=== PATIENT | male | born 1935 | race Two or more races ===

== ENCOUNTER 2020-08-22 15:12 | Outpatient (REF) | payer MEDICARE, SELFPAY | END 2020-08-22 15:13 | disposition home or self-care (01) | LOC: HO.HAP 15:12 | PROVIDERS: PCP Internal Medicine; Referring Provider Internal Medicine; Visit Provider Internal Medicine | DX: Z46.1 Encounter for fitting and adjustment of hearing aid (principal) | CPT/HCPCS: V5014 ==

== ENCOUNTER 2020-11-03 10:21 | Outpatient (REF) | payer MEDICARE, SELFPAY | END 2020-11-03 10:22 | disposition home or self-care (01) | LOC: HO.HAP 10:21 | PROVIDERS: Visit Provider Internal Medicine | DX: Z46.1 Encounter for fitting and adjustment of hearing aid (principal); H90.3 Sensorineural hearing loss, bilateral | CPT/HCPCS: V5275 ==

== ENCOUNTER 2020-11-26 15:46 | Outpatient (REF) | payer MEDICARE, SELFPAY | END 2020-11-26 15:47 | disposition home or self-care (01) | LOC: HO.HAP 15:46 | PROVIDERS: Visit Provider Internal Medicine | DX: Z46.1 Encounter for fitting and adjustment of hearing aid (principal) | CPT/HCPCS: V5264 ==

== ENCOUNTER 2020-12-10 12:42 | Outpatient (REF) | payer MEDICARE, SELFPAY ==
--- NOTE | 2020-12-10 12:46 | MHC.AU.P13 ---
Hearing Instrument Problem Date of Visit: 12/10/20 Special Certificate Dictator Used: Came with patient Right Ear: Professor Of Poultry Science: mInfo Model: [employer] M50-13T Serial Number: [id number] Repair Warranty: 12/16/2022 Loss and Damage Warranty: 12/16/2022 Battery Size: 13 Engine Repairer Production: Size 1P Type of Mold: C-Shell SN: Service Warranty: 03/09/2021 Type of Wax Guard: Cerustop Left Ear: Professor Of Poultry Science: mInfo Model: [employer] M50-13T Serial Number: [id number] RepairWarranty: 12/16/2022 Loss and Damage Warranty: 12/16/2022 Battery Size: 13 Engine Repairer Production: 1 P Type of Mold: C-Shell SN: Service Warranty: 03/09/2021 Type of Wax Guard: Cerustop Follow-Up Summary: Patient and informatics nurse walked in stating hearing aids not working - both were clogged with wax - cleaned and replaced wax guards in both - now amplifying clearly. Signature: Provider: SUZY Villarreal-HIS
== END 2020-12-10 12:43 | disposition home or self-care (01) ==
LOC: HO.HAP 12:42
PROVIDERS: Visit Provider Internal Medicine
DX: Z46.1 Encounter for fitting and adjustment of hearing aid (principal)
CPT/HCPCS: 99499

== ENCOUNTER 2020-12-31 15:10 | Outpatient (REF) | payer MEDICARE, SELFPAY | END 2020-12-31 15:11 | disposition home or self-care (01) | LOC: HO.HAP 15:10 | PROVIDERS: Visit Provider Internal Medicine | DX: Z46.1 Encounter for fitting and adjustment of hearing aid (principal) | CPT/HCPCS: 92593; 99499 ==

== ENCOUNTER 2021-01-15 15:33 | Outpatient (REF) | payer MEDICARE, SELFPAY ==
--- NOTE | ~2021-01-15 | XR_ITS ---
EXAMINATION: XR CHEST CLINICAL INFORMATION: Cough, suspected exposure to COVID 19. COMPARISON: Chest radiograph report for 12/06/2006. TECHNIQUE: 2 views of the chest were obtained. FINDINGS: There is large globular cardiopericardial silhouette with cardiothoracic ratio approximately 22/29. Prior report from 2005 notes a large globular silhouette is well with cardiothoracic ratio approximately 19/30. The vascularity appears normal. There is no lobar or segmental airspace consolidation, vascular congestion, or effusion. The costophrenic sulci are clear. The visualized hilar and mediastinal contours and bony structures are unremarkable. XR/XR chest 2V IMPRESSION: 1. Large globular cardiopericardial silhouette. Finding likely chronic and mildly increased since prior report 2005. Unable to exclude large pericardial effusion. 2. Vascularity normal. Lungs clear. No infiltrate or effusion.
== END 2021-01-15 15:34 | disposition home or self-care (01) ==
LOC: HO.XRAY 15:33
PROVIDERS: PCP Internal Medicine; Visit Provider Internal Medicine
DX: Z20.822 Contact with and (suspected) exposure to COVID-19 (principal); R05 Cough
CPT/HCPCS: 71046

== ENCOUNTER 2021-02-18 15:10 | Outpatient (REF) | payer MEDICARE, SELFPAY | END 2021-02-18 15:11 | disposition home or self-care (01) | LOC: HO.HAP 15:10 | PROVIDERS: Visit Provider Internal Medicine | DX: Z46.1 Encounter for fitting and adjustment of hearing aid (principal); H90.3 Sensorineural hearing loss, bilateral | CPT/HCPCS: 92593 ==

== ENCOUNTER 2021-03-11 14:25 | Outpatient (REF) | payer MEDICARE, SELFPAY | END 2021-03-11 14:26 | disposition home or self-care (01) | LOC: HO.HAP 14:25 | PROVIDERS: Visit Provider Internal Medicine | DX: Z13.89 Encounter for screening for other disorder (principal) ==

== ENCOUNTER 2021-04-30 13:09 | Outpatient (REF) | payer MEDICARE, SELFPAY ==
--- NOTE | 2021-04-30 14:18 | MHC.AU.AHA ---
Adult Audiological Evaluation Date of Visit: 04/30/21 Geriatrics Physician Used: Citizen Of [place]- In Person Reason for Appointment: Audiological re-evaluation to monitor the status of Mr. Paez's hearing loss. He has a longstanding history of bilateral, asymmetrical, hearing loss with the left ear hearing worse than the right. He reports that his hearing seems to be getting worse. He uses hearing aids binaurally, but notes that the left one was recently lost. He denies any changes to his medical history. Previous Hearing Test Results: [facility], 08/20/2019- Moderate sloping to profound sensorineural hearing loss in the right ear and a moderately severe to profound sensorineural hearing loss in the left ear. Ear History: Bothersome Tinnitus/Ringing/Noises in Ears: Both Ears Medical History: Medical History: Heart Problems, High Blood Pressure, Stroke Medical History: History of heart attack, atrial fibrillation Medication List: See list in chart Hearing Instrument History- Right Ear: Platen Builder Up: [employer] Model: [employer] M50-13T Serial Number: [id number] Battery Size: 13 Repair Warranty: 12/16/2022 Loss and Damage Warranty: 12/16/2022 Dispensed By: [facility] Date of Fittin11/02/2019 Hearing Instrument History- Left Ear: Platen Builder Up: Phonak Model: [place] [employer] M50-13T Serial Number: [id number] Battery Size: 13 Warranty: 12/16/2022 Loss and Damage Warranty: 12/16/2022 Dispensed By: [facility] Date of Fittin11/02/2019 Otoscopy: Right Ear: Unremarkable Left Ear: Unremarkable Tympanometry: Tympanometry performed due to: To assess integrity of the middle ear system Right Ear: Could Not Obtain Seal Left Ear: Normal Middle Ear System (Type A) Hearing Evaluation: Transducer(s) Used: Insert Earphones, Bone Conduction Method: Conventional Audiometry Stimuli Used: Pure Tones Right Ear: Description of Hearing: Moderately severe sloping to severe sensorineural hearing loss from 250-8000 Hz. Left Ear: Description of Hearing: Moderately severe sloping to profound sensorineural hearing loss from 250-8000 Hz. Attempted masked bone-conduction but patient was unable to follow the directions for the task. Air-conduction thresholds in the left ear are 10-30 dBHL worse than the right ear from 0586-1299 Hz. Speech Recognition Threshold (SRT): Method Used: Recorded Lists Stimuli Used: Spondee Words Right Ear: 70 dBHL Left Ear: 85 dBHL Word Discrimination: Method: Recorded Lists Word Lists Used: Lista Bisil?bica (Citizen Of [place]) Right Ear: 80% at 90 dBHL Left Ear: 32% at 95 dBHL Comparison: Compared to most recent evaluation: 10-15 dBHL decrease in low-frequency thresholds in the right ear. All other thresholds are stable. Recommendations: Audiological re-evaluation in one year. Reprogrammed the right hearing aid to today's audiogram and performed hearing aid maintenance. Submitting a loss & damage replacement request for the left hearing aid and earmold. Patient will be called to schedule fitting of the replacement left hearing aid once received. Diagnosis: Primary Diagnosis: H90.3 Bilateral Sensorineural Hearing Loss Services Performed: Comprehensive Audiological Evaluation (CPT 85353) Tympanometry (CPT 58873) Signature: Provider: Demetrius Nelson, CCC-A
== END 2021-04-30 13:10 | disposition home or self-care (01) ==
LOC: HO.SH 13:09
PROVIDERS: Visit Provider Internal Medicine
DX: Z46.1 Encounter for fitting and adjustment of hearing aid (principal); H90.3 Sensorineural hearing loss, bilateral
CPT/HCPCS: 92557; 92567; 92592

== ENCOUNTER 2021-05-25 13:44 | Outpatient (REF) | payer MEDICARE, SELFPAY | END 2021-05-25 13:45 | disposition home or self-care (01) | LOC: HO.HAP 13:44 | PROVIDERS: Visit Provider Internal Medicine | DX: Z46.1 Encounter for fitting and adjustment of hearing aid (principal); H90.3 Sensorineural hearing loss, bilateral | CPT/HCPCS: V5264; V5266 ==

== ENCOUNTER → 2021-06-22 15:22 | Outpatient (REF) | payer MEDICARE, SELFPAY ==
--- NOTE | 2021-06-22 15:26 | CA_ITS ---
Transthoracic Echocardiogram Patient (Last, First, Middle): Cornelius Paez, Gender: Male Date of : 1935 Age: 85 Procedure Date: 06/22/2021 Procedure Type: Transthoracic Echocardiogram Location: OP Height: 170.18 cm Weight: 70.99 kg BSA: 1.82 m2 Heart Rate: bpm BP: 122 / 60 mmHg Waste Handling Technician: Referring MD: Clare Jones MD [employer] Professor: Zaki Walsh MD Symptoms: I48.20 CHRONIC AFIB Study Quality: Fair ECG Rhythm: Atrial Fibrillation Conclusions: - 1. Normal LV systolic function 2. Substantial biatrial enlargement 3. Hfnt-cn-dxmihpsi mitral regurgitation 4. Moderate to severe tricuspid regurgitation due to reduced coaptation of leaflets 5. Normal RV systolic pressure 6. Trivial pericardial effusion Findings Left Ventricle Normal left ventricular size, thickness, and systolic function. The visually estimated ejection fraction is between 55-60%. Diastolic function is indeterminate on the basis of available data. Right Ventricle Moderately increased right ventricular cavity size. There is normal right ventricular systolic function. Atria Severe biatrial enlargement. There is no evidence of interatrial shunt. Aortic Valve There is mild thickening of the aortic valve. There is no aortic valve stenosis. There is trace (trivial) aortic valve regurgitation. Mitral Valve There is mild anterior and moderate posterior mitral leaflet thickening. There is mild to moderate mitral valve regurgitation. There is no mitral valve stenosis. Pulmonic Valve The pulmonic valve was not well visualized. Tricuspid Valve Likely normal tricuspid valve structure and function. There is moderate to severe tricuspid valve regurgitation. There is no evidence of pulmonary hypertension. Great Vessels All visible segments of the aorta are normal in size. The pulmonary artery was not well visualized. Venous The inferior vena cava is moderately dilated and collapses less than 50% with inspiration. Pericardium/Pleural There is a trivial loculated pericardial effusion overlying the left ventricle. Prior Study Comparison No prior study available for comparison. Measurements 2D Linear Measurements IVSd: 1.03 0.6-0.9/0.6-1.0 cm LVIDd: 6.18 3.9-5.3/4.2-5.9 cm LVIDd Index: 3.40 2.4-3.2/2.2-3.1 cm/m2 LVIDs: 3.96 2.0-3.6 cm LVPWd: 1.19 0.7-1.1 cm Ao Root: 3.30 2.1-3.5 cm LA Diam: 9.20 2.7-3.8/3.0-4.0 cm LAIDs Index: 5.05 1.5-2.3 cm/m2 LV Mass: 370.94 67-162/88-224 g LV Mass Index: 203.81 43-95/49-115 g/m2 LVOT Diam: 2.00 3.0+(-)1.3 cm Mitral Valve MV VTI: 0.33 MV Pk Maik: 1.42 MV Mn Maik: 0.54 MV Pk Grad: 8.00 MV Mn Grad: 2.00 MV Pk E: 1.24 MV Decel Time: 154.00 E'Lateral: 10.00 E'Medial: 8.59 E/E' Med: 14.40 E/E' Lat: 12.40 PHT: 45.00 MVA PHT: 4.89 MVA Continuity: 1.49 Decel Roberts: 8.09 MR Vol - PW Dopp: 47.56 MR VTI: 1.64 MR ERO: 29.00 MR Alias Maik: 0.62 MR RAD: 0.60 Aortic Valve AoV Pk Maik: 1.15 AoV Mn Maik: 0.74 AoV VTI: 0.24 AoV Pk Grad: 5.00 Aov Mn Grad: 3.00 JARED Cont.VTI: 2.00 LVOT LVOT Pk Maik: 0.84 LVOT Mn Maik: 0.49 LVOT VTI: 0.15 LVOT Pk Grad: 3.00 LVOT Mn Grad: 1.00 LVOT Diam: 2.00 LVOT Area: 3.14 Diastolic Function MV Pk E: 1.24 E'Medial: 8.59 E/E' Med: 14.40 E' Laterial: 10.00 E/E' Lat: 12.40 Tricuspid Valve TR Pk Maik: 2.63 TR Pk Grad: 28.00 RA Press: 8.00 RVSP: 36.00 Great Vessels Aorta Ao Root-2D: 3.30 2.0-3.7 cm Ao Asc: 2.90 2.1-3.4 cm Pulmonary Valve PV Pk Maik: 0.68 Peak PV Grad: 2.00 Updated in Other Vendor System with Status of Final Zaki Walsh MD electronically signed on 06/23/2021 9:14:14 AM with status of Final
== END ==
LOC: HO.CARD 15:22
PROVIDERS: Visit Provider Internal Medicine
DX: I48.20 Chronic atrial fibrillation, unspecified (principal)
CPT/HCPCS: 93306

== ENCOUNTER 2021-07-23 12:49 | Outpatient (REF) | payer MEDICARE, SELFPAY | END 2021-07-23 12:50 | disposition home or self-care (01) | LOC: HO.HAP 12:49 | PROVIDERS: Visit Provider Internal Medicine | DX: Z46.1 Encounter for fitting and adjustment of hearing aid (principal); H90.3 Sensorineural hearing loss, bilateral | CPT/HCPCS: V5266 ==

== ENCOUNTER → 2021-11-27 14:58 | Outpatient (BNVA) | payer MEDICARE, SELFPAY | PROVIDERS: Visit Provider Urology | DX: C61 Malignant neoplasm of prostate (principal); N40.1 Benign prostatic hyperplasia with lower urinary tract symptoms; R33.8 Other retention of urine; R39.15 Urgency of urination | CPT/HCPCS: 99202 ==

== ENCOUNTER → 2022-05-19 14:58 | Outpatient (BNVA) | payer MEDICARE, SELFPAY | PROVIDERS: Visit Provider Nurse Practitioner Family | DX: M54.2 Cervicalgia (principal); W19.XXXA Unspecified fall, initial encounter | CPT/HCPCS: 99212 ==

== ENCOUNTER → 2022-08-25 15:31 | Outpatient (BNVA) | payer MEDICARE, SELFPAY | PROVIDERS: Visit Provider Nurse Practitioner Family | DX: M54.2 Cervicalgia (principal); R51.9 Headache, unspecified | CPT/HCPCS: 99212 ==

== ENCOUNTER → 2023-01-14 12:54 | Outpatient (BNVA) | payer MEDICARE, SELFPAY | PROVIDERS: PCP Internal Medicine; Visit Provider Urology | DX: C61 Malignant neoplasm of prostate (principal); E11.69 Type 2 diabetes mellitus with other specified complication; N52.1 Erectile dysfunction due to diseases classified elsewhere; N40.1 Benign prostatic hyperplasia with lower urinary tract symptoms; N13.8 Other obstructive and reflux uropathy; Z79.01 Long term (current) use of anticoagulants; Z79.82 Long term (current) use of aspirin; Z79.899 Other long term (current) drug therapy | CPT/HCPCS: 51798; 99212 ==

== ENCOUNTER → 2023-04-01 13:05 | Outpatient (BNVA) | payer MEDICARE, SELFPAY | PROVIDERS: PCP Internal Medicine; Visit Provider Urology | DX: C61 Malignant neoplasm of prostate (principal); N40.1 Benign prostatic hyperplasia with lower urinary tract symptoms; R33.8 Other retention of urine | CPT/HCPCS: 51798; 99212 ==

== ENCOUNTER 2023-06-24 10:15 | Outpatient (AMB) | payer MEDICARE, SELFPAY ==
--- NOTE | 2023-06-24 10:18 | A.OFFVIS_ITS ---
Intake Intake Visit Reasons: PSA Follow Up(set) Intake Note: Patient is present for Telephone Urology Med: Finasteride, Myrbetriq Antibiotic Allergy: Penicillin Blood Thinner: Aspirin, Eliquis Pharmacy: [facility] Allergies penicillin G Allergy (Unknown, Verified 06/24/23 10:19) Unknown Latex Allergy (Unknown, Uncoded 06/24/23 10:19) Unknown Medication List - Last Reconciled 06/24/23 by Karel Snyder MD acetaminophen 0 mg PO amitriptyline 10 mg PO BEDTIME 30 days apixaban (Eliquis) 2.5 mg PO BID aspirin 81 mg PO DAILY atorvastatin 40 mg PO BEDTIME baclofen 10 mg PO BEDTIME bisacodyl 10 mg [place] DAILY bisoprolol fumarate 10 mg PO DAILY uzxjscfunk-yvukqbydzkstu-cahd 50-325-40 mg 1 cap orally QHS; 21 days digoxin 125 mcg PO DAILY docusate sodium 100 mg PO BID ferrous gluconate 0 mg PO finasteride 5 mg PO DAILY 90 days fluticasone furoate-vilanterol 100-25 mcg/dose (Breo Ellipta) 1 ea inhalation DAILY fluticasone propionate 50 mcg/actuation sprays intranasal latanoprost 0.005% 0 drps ophthalmic (eye) magnesium oxide 400 mg PO DAILY melatonin 5 mg PO BEDTIME mirabegron ER 25 mg PO DAILY 90 days mirtazapine 15 mg PO BEDTIME mirtazapine 30 mg PO BEDTIME omeprazole 20 mg PO DAILY quetiapine 25 mg PO BEDTIME riboflavin (vitamin B2) (Vitamin B-2) 0 mg PO sennosides (senna) 8.6 mg PO DAILY PRN tizanidine 4 mg PO BEDTIME torsemide 0 mg PO HPI HPI Comments History of Present Illness Details Cornelius THORNE is a very pleasant Chadian-speaking male. He is a patient of Dr Jones. He is seen for the following urologic conditions. 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 Detrusor hyperactivity with impaired contractility Had urodynamics performed some point in time which appeared to showed low-flow low-pressure system. Botox 09/11 PVR low 04/15 0cc Trial Myrbetriq with possible repeat Botox Prostate cancer:? Group 2 low volume 08/12 ? Has been managed with active surveillance for low volume group 2 prostate cancer- 05/11 low stable PSA ?Had urodynamics performed some point in time which appeared to showed low-flow low-pressure system with instability ? Prostate cancer was diagnosed?2009 Dr Snyder.? Diagnosis was reached by?07/2010 , needle biopsy, for elevated PSA.? The [place] grade is?07/2010 ?02/02 cores max 10% , 3+4 = 7 each core 5%, 5%, 5% ? Initial therapy included?Deferred Therapy (active surveillance) - Had TUR for BPH 2009 - prior intermittent hormone therapy ? Recent labs included?04/11 Cystoscopy - trabeculation with good TUR defect ?05/11 PSA 2.9.? PFSH Medical History Nocturia OAB (overactive bladder) Urinary frequency Urinary retention Weak urinary stream Surgical History History of appendectomy History of prostate surgery Hx of heart bypass surgery Family History Father No problems noted. Mother No problems noted. Social History Alcohol intake: never Patient Tobacco Use Status: Never used Tobacco Review of Systems Const All systems reviewed & are unremarkable except as noted in HPI and below Denies chills and Denies fever(s) Card Reports no additional complaints and Denies syncope Resp Denies cough GI Denies abdominal pain and Denies heartburn Reports as per HPI and Denies change in libido Musc Reports no additional complaints Neuro Denies syncope Psych Denies change in libido Endo Denies change in libido Physical Exam Telemedicine evaluation Appropriate responses Regular breathing rate and rhythm HEENT Head: Yes normal to inspection Ears: hearing grossly normal bilaterally Eyes General: appearance normal, both eyes and all related structures Neck Neck: Yes normal visual inspection Chest Chest palpation & inspection: normal inspection of the chest Resp Effort & Inspection: normal respiratory effort and able to speak in complete sentences Assessment & Plan Assessment & Plan (1) Incomplete emptying of bladder due to benign prostatic hyperplasia: Code(s): N40.1 - Benign prostatic hyperplasia with lower urinary tract symptoms; R33.9 - Retention of urine, unspecified (2) Prostate cancer: Code(s): C61 - Malignant neoplasm of prostate Plan Six month follow-up PSA Orders: Orders PSA,Total (Free>4and<10) 6 Months C61 - Malignant neoplasm of prostate Medications: Refilled finasteride 5 mg PO DAILY 90 days 90 tabs 1RF N32.0 - Bladder-neck obstruction, R39.15 - Urgency of urination mirabegron ER 25 mg PO DAILY 90 days 90 tabs 1RF R39.15 - Urgency of urination Patient Instructions: Imaging studies, laboratory and physical exam results were discussed and reviewed in detail. No major barriers to patient understanding were identified. An opportunity to ask questions regarding the treatment plan was provided. All questions were answered. The patient expressed understanding and agreement with the above treatment plan. The patient is aware they should contact our office by phone for worsening of their current condition or the appearance of new urologic symptoms. Compliance is encouraged with any medications and followup testing that is ordered. It is a privilege to participate in the urologic care of your patient. If you have any questions or concerns regarding treatment for the above conditions, or other urologic issues, please do not hesitate to contact me. The office telephone contact is [phone]. This note is constructed using voice recognition software. While every effort has been made to ensure accuracy flooring machine operator errors may have been included. Yours sincerely, Dr Karel Snyder MD, [facility] - Urology Providers of Expert, Compassionate Care for the Genitourinary System Telehealth Telehealth Location of provider rendering services: practice address Location of patient: address on file Patient Identification confirmed using: Name, : Yes Telehealth method: voice only Patient verbally consented to treatment: Yes Patient verbally consented to billing insurance company: Yes Patient informed of any privacy concerns related to visit: Yes Coding Level of Care Code Tele Est Pt Level 3 (62075) Diagnoses Incomplete emptying of bladder due to benign prostatic hyperplasia N40.1; R33.9 Prostate cancer C61
== END 2023-06-24 11:00 | disposition home or self-care (01) ==
LOC: HO.HUSH 10:15
PROVIDERS: PCP Internal Medicine; Visit Provider Urology
DX: C61 Malignant neoplasm of prostate (principal); N40.1 Benign prostatic hyperplasia with lower urinary tract symptoms; R33.9 Retention of urine, unspecified
CPT/HCPCS: 99442

== ENCOUNTER → 2023-06-24 10:15 | Outpatient (BNVA) | payer MEDICARE, SELFPAY | PROVIDERS: PCP Internal Medicine; Visit Provider Urology ==

== ENCOUNTER → 2023-09-22 15:39 | Outpatient (BNVA) | payer OTHER, SELFPAY | PROVIDERS: PCP Internal Medicine; Visit Provider Nurse Practitioner Family | DX: R06.83 Snoring (principal); G47.9 Sleep disorder, unspecified; G47.19 Other hypersomnia; R35.1 Nocturia; R51.9 Headache, unspecified | CPT/HCPCS: 99212 ==

== ENCOUNTER → 2023-11-10 19:30 | Outpatient (REF) | payer OTHER, SELFPAY | LOC: HO.SL 19:30 | PROVIDERS: PCP Internal Medicine; Visit Provider Nurse Practitioner Family | DX: R06.83 Snoring (principal); G47.9 Sleep disorder, unspecified; G47.19 Other hypersomnia; R35.1 Nocturia | CPT/HCPCS: 95810 ==

== ENCOUNTER → 2023-11-10 21:02 | Outpatient (BNV) | payer OTHER, SELFPAY | PROVIDERS: PCP Internal Medicine; Visit Provider Psychiatry & Neurology Neurology | DX: G47.61 Periodic limb movement disorder (principal) | CPT/HCPCS: 95810 ==

== ENCOUNTER 2023-11-15 15:57 | Outpatient (REF) | payer OTHER, SELFPAY ==
[2023-11-15 17:20] LABS: MANUAL DIFF FLAG NO
[2023-11-15 17:23] LABS: Basophils Percent Auto 0.3 % (0-2); Eosinophils Absolute Auto 0.2 X10*3/uL (0.0-0.4); Eosinophils Percent Auto 2.4 % (0-4); Hematocrit 34.4 % (42.0-52.0); Hemoglobin 10.7 g/dl (14.0-18.0); Imm Gran Abs Auto 0.03 X10*3/uL (0.00-0.03); Imm Gran Pct Auto 0.5 % (0.0-0.4); Lymphocytes Absolute Auto 0.7 X10*3/uL (1.2-4.9); Lymphocytes Percent Auto 11.7 % (20-40); Mean Corpuscular HGB Conc 31.1 g/dl (31.0-36.0); Mean Corpuscular Hemoglobin 28.6 pg (27.0-33.0); Mean Platelet Volume 9.6 fL (9.4-12.4); Monocytes Absolute Auto 0.6 X10*3/uL (0.1-1.2); Monocytes Percent Auto 9.9 % (2-11); Neutrophils Absolute Auto 4.8 x10*3/uL (2.0-8.3); Neutrophils Percent Auto 75.2 % (45-73); Platelet Count 179 X10*3/uL (160-400); Red Blood Count 3.74 X10*6/uL (4.60-5.80); Red Cell Distribution Width 14.6 % (11.0-16.0); White Blood Count 6.4 X10*3/uL (4.8-10.8)
[2023-11-15 17:49] LABS: Alanine Aminotransferase 17 U/L (0-40); Albumin Level 3.9 g/dL (3.5-5.0); Alkaline Phosphatase 168 U/L (39-117); Anion Gap 13 (12-20); Aspartate Amino Transferase 23 U/L (5-37); Bilirubin Total 0.9 mg/dL (0.0-1.0); Blood Urea Nitrogen 25 mg/dL (9-16); Calcium 9.5 mg/dL (8.4-10.2); Carbon Dioxide 31 mmol/L (22-29); Chloride 96 mmol/L (96-108); Estimated Glomerular Filt Rate 52; Glucose Random 95 mg/dL (60-115); Potassium 3.6 mmol/L (3.3-5.1); Sodium 136 mmol/L (135-145); Total Protein 7.7 g/dL (6.5-8.0)
== END 2023-11-15 15:58 | disposition home or self-care (01) ==
LOC: HO.CHCLDS 15:57
PROVIDERS: Visit Provider Internal Medicine
DX: R05.8 Other specified cough (principal); R09.02 Hypoxemia
CPT/HCPCS: 36415; 80053; 85025

== ENCOUNTER 2023-12-23 15:38 | Outpatient (REF) | payer OTHER, SELFPAY ==
[2023-12-23 17:37] LABS: MANUAL DIFF FLAG NO
[2023-12-23 17:50] LABS: INTERNATIONAL NORM RATIO 1.7 (0.9-1.1); Prothrombin Time 20.4 SEC (11.1-13.3)
[2023-12-23 17:51] LABS: Basophils Percent Auto 0.6 % (0-2); Eosinophils Absolute Auto 0.2 X10*3/uL (0.0-0.4); Eosinophils Percent Auto 3.6 % (0-4); Hematocrit 34.6 % (42.0-52.0); Hemoglobin 10.8 g/dl (14.0-18.0); Imm Gran Abs Auto 0.02 X10*3/uL (0.00-0.03); Imm Gran Pct Auto 0.4 % (0.0-0.4); Lymphocytes Percent Auto 20.3 % (20-40); Mean Corpuscular HGB Conc 31.2 g/dl (31.0-36.0); Mean Corpuscular Hemoglobin 28.6 pg (27.0-33.0); Mean Corpuscular Volume 91.5 fL (80.0-98.0); Mean Platelet Volume 9.6 fL (9.4-12.4); Monocytes Absolute Auto 0.5 X10*3/uL (0.1-1.2); Monocytes Percent Auto 10.3 % (2-11); Neutrophils Absolute Auto 3.1 x10*3/uL (2.0-8.3); Neutrophils Percent Auto 64.8 % (45-73); Platelet Count 155 X10*3/uL (160-400); Red Blood Count 3.78 X10*6/uL (4.60-5.80); Red Cell Distribution Width 16.8 % (11.0-16.0); White Blood Count 4.8 X10*3/uL (4.8-10.8)
[2023-12-23 17:52] LABS: Partial Thromboplastin Time 45.6 SEC (26.0-36.8)
[2023-12-23 18:30] LABS: Anion Gap 12 (12-20); Blood Urea Nitrogen 24 mg/dL (9-16); Carbon Dioxide 28 mmol/L (22-29); Chloride 106 mmol/L (96-108); Estimated Glomerular Filt Rate 56; Glucose Random 93 mg/dL (60-115); Sodium 142 mmol/L (135-145)
== END 2023-12-23 15:39 | disposition home or self-care (01) ==
LOC: HO.CHCLDS 15:38
PROVIDERS: Visit Provider Internal Medicine
DX: R05.3 Chronic cough (principal); R63.4 Abnormal weight loss; J18.9 Pneumonia, unspecified organism; K62.5 Hemorrhage of anus and rectum
CPT/HCPCS: 36415; 80048; 85025; 85610; 85730

== ENCOUNTER 2024-01-06 13:49 | Outpatient (AMB) | payer OTHER, SELFPAY ==
--- NOTE | 2024-01-06 14:23 | MHC.OFFVIS ---
Intake Intake Visit Reasons: 6m/PSA(SET) Intake Note: Patient presents today for a follow-up on PSA Meds- None Allergies to Antibiotic- Penicillin Blood Thinner- None Post Void Residual: 26ml Patient Symptoms: None Process Control Technician Required: Yes Accompanied by: Allergies penicillin G Allergy (Unknown, Verified 01/06/24 14:34) Unknown Latex Allergy (Unknown, Uncoded 01/06/24 14:34) Unknown Medication List - Last Reconciled 01/06/24 by Karel Snyder MD acetaminophen 0 mg PO amitriptyline 10 mg PO BEDTIME 30 days apixaban (Eliquis) 5 mg PO BID digoxin 125 mcg PO DAILY docusate sodium 100 mg PO BID finasteride 5 mg PO DAILY 90 days fluticasone furoate-vilanterol 100-25 mcg/dose (Breo Ellipta) 1 ea inhalation DAILY latanoprost 0.005% 0 drps ophthalmic (eye) magnesium oxide 400 mg PO DAILY melatonin mg PO mirabegron ER 25 mg PO DAILY 90 days mirtazapine 15 mg PO BEDTIME mirtazapine 30 mg PO BEDTIME omeprazole 20 mg PO DAILY quetiapine 25 mg PO BEDTIME riboflavin (vitamin B2) (Vitamin B-2) 0 mg PO sennosides (senna) 8.6 mg PO DAILY PRN torsemide 0 mg PO HPI HPI Comments History of Present Illness Details Cornelius THORNE is a very pleasant Tajik-speaking male. He is a patient of Dr Jones. He is seen for the following urologic conditions. - detrusor hyperactivity impaired contractility - prostate cancer Six-month follow-up PSA stabilized around 6. Continue with finasteride. Known low volume prostate cancer from 2019 Stabilized bladder function with Myrbetriq Refills provided PSA 05/11 2.9, 04/15 10.7, 06/15 6.4, 12/17 5.8 7% Urinary Urge/Frequency:? Detrusor hyperactivity with impaired contractility Had urodynamics performed some point in time which appeared to showed low-flow low-pressure system. Botox 09/11 PVR low 04/15 0cc Trial Myrbetriq with possible repeat Botox Prostate cancer:? Group 2 low volume 08/12 ? Has been managed with active surveillance for low volume group 2 prostate cancer- 05/11 low stable PSA ?Had urodynamics performed some point in time which appeared to showed low-flow low-pressure system with instability ? Prostate cancer was diagnosed?2009 Dr Snyder.? Diagnosis was reached by?07/2010 , needle biopsy, for elevated PSA.? The [place] grade is?07/2010 ?4/12 cores max 10% , 3+4 = 7 each core 5%, 5%, 5% ? Initial therapy included?Deferred Therapy (active surveillance) - Had TUR for BPH 2009 - prior intermittent hormone therapy ? Recent labs included?04/11 Cystoscopy - trabeculation with good TUR defect ?05/11 PSA 2.9.? PFSH Medical History (Updated 11/28/23 @ 14:07 by CORNELIUS Tang) Nocturia Urinary frequency OAB (overactive bladder) Urinary retention Weak urinary stream Surgical History Hx of heart bypass surgery History of appendectomy History of prostate surgery Family History Father No problems noted. Mother No problems noted. Social History Alcohol intake: never Patient Tobacco Use Status: Never used Tobacco Review of Systems Const Denies chills and Denies fever(s) Card Reports no additional complaints and Denies syncope Resp Denies cough GI Denies abdominal pain and Denies heartburn Reports as per HPI and Denies change in libido Neuro Denies syncope Psych Denies change in libido Endo Denies change in libido Physical Exam Const General: cooperative, healthy appearing, comfortable and no acute distress Orientation/consciousness: patient oriented x3 HEENT Face and sinus: Yes normal facial exam Mouth: moist mucous membranes Neck Neck: Yes normal visual inspection, Yes full ROM and Yes trachea midline Chest Chest palpation & inspection: normal inspection of the chest Resp Effort & Inspection: normal respiratory effort, able to speak in complete sentences and no respiratory distress GI Inspection: Yes normal to inspection Back/Spine/Pelvis Cervical Spine: normal cervical lordosis Thoracic/Lumbar Spine: thoracic and lumbar spine normal to inspection Skin General skin exam: no rashes or lesions noted Neuro General: patient oriented x3, gait normal, tone normal and moves all extremities Extrem General: Yes normal to inspection and Yes capillary refill normal Office Procedures Post Void Residual Post Residual Void Post Void Residual (PVR): 26 [id number] Void Residual by ultrasound Assessment & Plan Assessment & Plan (1) Prostate cancer: Code(s): C61 - Malignant neoplasm of prostate (2) Urinary urgency: Code(s): R39.15 - Urgency of urination (3) Incomplete emptying of bladder due to benign prostatic hyperplasia: Code(s): N40.1 - Benign prostatic hyperplasia with lower urinary tract symptoms; R33.9 - Retention of urine, unspecified Plan Six-month follow-up Orders: Orders AMB Post Void Residual by ultrasound Today R33.9 - Retention of urine, unspecified Prostate Specific Antigen 6 Months C61 - Malignant neoplasm of prostate Patient Instructions: Imaging studies, laboratory and physical exam results were discussed and reviewed in detail. No major barriers to patient understanding were identified. An opportunity to ask questions regarding the treatment plan was provided. All questions were answered. The patient expressed understanding and agreement with the above treatment plan. The patient is aware they should contact our office by phone for worsening of their current condition or the appearance of new urologic symptoms. Compliance is encouraged with any medications and followup testing that is ordered. It is a privilege to participate in the urologic care of your patient. If you have any questions or concerns regarding treatment for the above conditions, or other urologic issues, please do not hesitate to contact me. The office telephone contact is [phone]. This note is constructed using voice recognition software. While every effort has been made to ensure accuracy door slinger errors may have been included. Yours sincerely, Dr Karel Snyder MD, [facility] - Urology Providers of Expert, Compassionate Care for the Genitourinary System Coding Level of Care Code Est Pt Level 3 (18607) Diagnoses Prostate cancer C61 Urinary urgency R39.15 Incomplete emptying of bladder due to benign prostatic hyperplasia N40.1; R33.9 CPT Codes Post Residual Void - PVR CPT Code: 76183-Baqc Void Residual by ultrasound ([id number])
== END 2024-01-06 14:56 | disposition home or self-care (01) ==
PROVIDERS: PCP Internal Medicine; Visit Provider Urology
DX: C61 Malignant neoplasm of prostate (principal); N40.1 Benign prostatic hyperplasia with lower urinary tract symptoms; R39.15 Urgency of urination; R33.9 Retention of urine, unspecified
CPT/HCPCS: 99213

== ENCOUNTER → 2024-01-06 13:49 | Outpatient (BNVA) | payer OTHER, SELFPAY | PROVIDERS: PCP Internal Medicine; Visit Provider Urology | DX: C61 Malignant neoplasm of prostate (principal); N40.1 Benign prostatic hyperplasia with lower urinary tract symptoms; R33.8 Other retention of urine; R39.15 Urgency of urination | CPT/HCPCS: 51798; 99212 ==

== ENCOUNTER 2024-05-18 13:52 | Outpatient (AMB) | payer OTHER, SELFPAY ==
[2024-05-18 13:57] VITALS: BP 138/67; PULSE 90; O2SAT 93
--- NOTE | 2024-05-18 13:57 | A.OFFVIS_ITS ---
Vital Signs 05/18/24 13:57 Weight 143 lb 4.807 oz BP 138/67 Blood Pressure Location Lt brachial Position Sitting Pulse 90 Pulse Source Doppler Pulse Oximetry (%) 93 Oxygen Delivery Method Room Air Intake Visit Reasons: eugene Allergies penicillin G Allergy (Unknown, Verified 05/18/24 14:02) Unknown Latex Allergy (Unknown, Uncoded 01/06/24 14:34) Unknown HPI HPI eugene: Details: 88-year-old gentleman, nonsmoker, with underlying reactive airway disease Breo and albuterol nebs, referred heart after in lab sleep study showed nocturnal hypoxemia. Of note, patient also has global heart with cardiomyopathy followed by [facility] cardiology. Patient does complain of intermittent small volume hemoptysis and left upon chest pain. He does not have recent chest imaging. He does not have recent pulmonary function testing. [facility] Medical History Nocturia Urinary frequency OAB (overactive bladder) Urinary retention Weak urinary stream Surgical History Hx of heart bypass surgery History of appendectomy History of prostate surgery Family History Father No problems noted. Mother No problems noted. Social History Alcohol intake: never Patient Tobacco Use Status: Never used Tobacco Review of Systems Const Denies daytime sleepiness, Denies excessive sweating, Denies fatigue, Denies fever(s), Denies lethargy, Denies malaise, Denies night sweats, Denies snoring and Denies weight loss Eyes Denies blurry vision and Denies itchy eyes ENT Denies nasal congestion, Denies post nasal drip, Denies sinus pain, Denies sinus pressure and Denies other ( Thrush) Card Denies chest pain, Reports pedal edema, Denies dyspnea, Denies orthopnea and Denies paroxysmal nocturnal dyspnea Resp Denies cough, Denies hemoptysis, Denies excessive phlegm production, Denies dyspnea, Denies snoring and Denies wheezing GI Denies abdominal pain and Denies heartburn Musc Denies myalgias, Denies arthralgias and Denies joint swelling Skin/Breast Denies rash Neuro Denies memory loss and Denies seizure-like activity Psych Denies abnormal sleep pattern, Denies anxiety and Denies memory loss Endo Denies excessive sweating, Denies fatigue and Denies heat intolerance Gilbert/Lymph Denies easy bruising Aller/Immun Denies itchy eyes, Denies seasonal rhinorrhea and Denies wheezing Physical Exam Vital Signs: Last Vital Signs Pulse 90 05/18/24 13:57 BP 138/67 05/18/24 13:57 Pulse Ox 93 05/18/24 13:57 Oxygen Delivery Method Room Air 05/18/24 13:57 Const General: no acute distress and alert Nutritional Appearance: not obese Orientation/consciousness: Other orientation findings ( oriented) HEENT Head: Yes atraumatic Eyes General: appearance normal, both eyes and all related structures Sclerae: sclerae normal EOM: EOMs intact bilaterally Neck Neck: Yes supple Lymphatic: no lymphadenopathy noted Resp Effort & Inspection: normal respiratory effort and no use of accessory muscles Auscultation: clear to auscultation bilaterally Cardio Rate: regular rate Rhythm: regular rhythm Heart sounds: no gallops, no murmurs and no rubs Skin General skin exam: other ( warm) Extrem General: No clubbing, No cyanosis and Yes edema (Trace bilateral) Assessment & Plan Assessment & Plan (1) Nocturnal hypoxemia: Code(s): G47.34 - Idiopathic sleep related nonobstructive alveolar hypoventilation Category: Medical Plan: Will start on nocturnal supplemental oxygen. (2) Asthma: Code(s): J45.909 - Unspecified asthma, uncomplicated Category: Medical Plan: Will obtain full PFT. Continue Breo and albuterol MDI. Will add duo nebs. (3) Hemoptysis: Code(s): R04.2 - Hemoptysis Category: Medical Plan: Will obtain CT chest for further evaluation. Orders: Orders CT chest wo IV con Today R04.2 - Hemoptysis PFT pulmonary function test Today J45.909 - Unspecified asthma, uncomplicated Medications: New ipratropium-albuterol 0.5 mg-3 mg(2.5 mg base)/3 mL 3 mL inhalation Q4-6H PRN 270 mL 3RF shortness of breath or wheezing Coding Level of Care Code New Pt Level 4 (90080) Complex EM visit Add On G2211 Diagnoses Nocturnal hypoxemia G47.34 Asthma J45.909 Hemoptysis R04.2
== END 2024-05-18 14:43 | disposition home or self-care (01) ==
PROVIDERS: PCP Internal Medicine; Visit Provider Internal Medicine Pulmonary Disease
DX: G47.34 Idiopathic sleep related nonobstructive alveolar hypoventilation (principal); J45.909 Unspecified asthma, uncomplicated; R04.2 Hemoptysis
CPT/HCPCS: 99204; G2211

== ENCOUNTER → 2024-05-18 13:52 | Outpatient (BNVA) | payer OTHER, SELFPAY | PROVIDERS: PCP Internal Medicine; Visit Provider Internal Medicine Pulmonary Disease | DX: G47.34 Idiopathic sleep related nonobstructive alveolar hypoventilation (principal); J45.909 Unspecified asthma, uncomplicated; R04.2 Hemoptysis | CPT/HCPCS: 99202 ==

== ENCOUNTER 2024-05-21 12:08 | Outpatient (REF) | payer OTHER, SELFPAY ==
[2024-05-21 11:01] VITALS: PULSE 105; RESP 16; O2SAT 91
--- NOTE | 2024-05-21 14:20 | PFT_ITS ---
Flows: FEV1: 74 % of predicted at 1.86 L FVC: 77 % of predicted at 2.62 L FEV1/FVC: 71 % Bronchodilator response: Absent Volumes: Total lung capacity: 67 % of predicted at 4.42 L Residual volume: 69 % of predicted at 1.80 L Slow vital capacity: 70 % of predicted at 2.62 L Expiratory reserve volume: 30 % of predicted at 0.34 L Diffusion capacity: Patient unable to perform diffusion capacity maneuver. Impression: Moderate restrictive ventilatory defect with no bronchodilator response. Patient unable to perform diffusion capacity maneuver. MTDD
== END 2024-05-21 12:09 | disposition home or self-care (01) ==
LOC: HO.RESP 12:08
PROVIDERS: PCP Internal Medicine; Visit Provider Internal Medicine Pulmonary Disease
DX: J45.909 Unspecified asthma, uncomplicated (principal)
CPT/HCPCS: 94010; 94640; 94727; 94729

== ENCOUNTER → 2024-05-21 14:20 | Outpatient (BNV) | payer OTHER, SELFPAY | PROVIDERS: PCP Internal Medicine; Visit Provider Internal Medicine Pulmonary Disease | DX: J45.909 Unspecified asthma, uncomplicated (principal) | CPT/HCPCS: 94060; 94727; 94729 ==

== ENCOUNTER 2024-06-13 16:07 | Outpatient (REF) | payer OTHER, SELFPAY ==
--- NOTE | ~2024-06-13 | CT_ITS ---
EXAMINATION: CT CHEST WITHOUT CONTRAST CLINICAL INFORMATION: 88-year-old male with hemoptysis COMPARISON: None available. TECHNIQUE: Multidetector volumetric CT imaging of the chest was done. Axial MIP volume rendering provided. Sagittal and coronal reformatted images were obtained. This CT examination was performed using dose optimization techniques as appropriate, variously including the following: *Automated exposure control *Adjustment of mA and/or kV according to patient size (this includes techniques or standardized protocols for targeted exams where dose is matched to indication/reason for exam; i.e. 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 There is loop recorder is identified on the left. LUNGS: There is groundglass opacity in the right lower lobe most likely pneumonia. The rest of lungs reveal changes of emphysema. There are no lung nodules or masses. Central airways are patent. MEDIASTINUM: There is global cardiomegaly and small pericardial effusion CORONARY ARTERY CALCIFICATION: Mild PLEURA: There is no pleural effusion. No pleural mass or thickening. AXILLA: No lymphadenopathy. UPPER ABDOMEN: Unremarkable. OSSEOUS STRUCTURES: Unremarkable. CT/CT chest wo IV con IMPRESSION: Global cardiomegaly and small. Pericardial effusion Right lower lobe pneumonia Fleischner guidelines were followed. Electronically signed by: Mandy Tadeo MD 06/15/2024 12:24 PM EDT
== END 2024-06-13 16:08 | disposition home or self-care (01) ==
LOC: HO.CT 16:07
PROVIDERS: PCP Internal Medicine; Visit Provider Internal Medicine Pulmonary Disease
DX: R04.2 Hemoptysis (principal)
CPT/HCPCS: 71250

== ENCOUNTER 2024-06-14 13:15 | Outpatient (AMB) | payer OTHER, SELFPAY ==
--- NOTE | 2024-06-14 13:18 | A.OFFVIS_ITS ---
Vital Signs 06/14/24 13:19 Weight 146 lb 9.718 oz BP 122/67 Blood Pressure Location Rt brachial Position Sitting Pulse 90 Pulse Source Doppler Pulse Oximetry (%) 95 Oxygen Delivery Method Room Air Intake Visit Reasons: eugene Allergies penicillin G Allergy (Unknown, Verified 05/18/24 14:02) Unknown Latex Allergy (Unknown, Uncoded 01/06/24 14:34) Unknown HPI HPI eugene: Details: 88-year-old gentleman, nonsmoker, with underlying reactive airway disease Breo and albuterol nebs, referred heart after in lab sleep study showed nocturnal hypoxemia. Of note, patient also has global heart with cardiomyopathy followed by [facility] cardiology. After the last office visit patient had pulmonary function tests that showed underlying restrictive physiology, likely secondary to severe cardiomyopathy with globular heart taking 7/ of the chest. CT chest not officially read, but upon my review with no evidence of emphysema or fibrosis. In office supplemental oxygen evaluation/6 minute walk test shows normoxemia on exertion, but significant tachycardia. Patient was started on supplemental nocturnal oxygen based on sleep study results. [facility] Medical History Nocturia Urinary frequency OAB (overactive bladder) Urinary retention Weak urinary stream Surgical History Hx of heart bypass surgery History of appendectomy History of prostate surgery Family History Father No problems noted. Mother No problems noted. Social History Alcohol intake: never Patient Tobacco Use Status: Never used Tobacco Review of Systems Const Denies daytime sleepiness, Denies excessive sweating, Denies fatigue, Denies fever(s), Denies lethargy, Denies malaise, Denies night sweats, Denies snoring and Denies weight loss Eyes Denies blurry vision and Denies itchy eyes ENT Denies nasal congestion, Denies post nasal drip, Denies sinus pain, Denies sinus pressure and Denies other ( Thrush) Card Denies chest pain, Reports pedal edema, Denies dyspnea, Reports dyspnea on exertion, Denies orthopnea and Denies paroxysmal nocturnal dyspnea Resp Denies cough, Denies hemoptysis, Denies excessive phlegm production, Denies dyspnea, Reports dyspnea on exertion, Denies snoring and Denies wheezing GI Denies abdominal pain and Denies heartburn Musc Denies myalgias, Denies arthralgias and Denies joint swelling Skin/Breast Denies rash Neuro Denies memory loss and Denies seizure-like activity Psych Denies abnormal sleep pattern, Denies anxiety and Denies memory loss Endo Denies excessive sweating, Denies fatigue and Denies heat intolerance Gilbert/Lymph Denies easy bruising Aller/Immun Denies itchy eyes, Denies seasonal rhinorrhea and Denies wheezing Physical Exam Vital Signs: Last Vital Signs Pulse 90 06/14/24 13:19 BP 122/67 06/14/24 13:19 Pulse Ox 95 06/14/24 13:19 Oxygen Delivery Method Room Air 06/14/24 13:19 Const General: no acute distress and alert Nutritional Appearance: not obese Orientation/consciousness: Other orientation findings ( oriented) HEENT Head: Yes atraumatic Eyes General: appearance normal, both eyes and all related structures Sclerae: sclerae normal EOM: EOMs intact bilaterally Neck Neck: Yes supple Lymphatic: no lymphadenopathy noted Resp Effort & Inspection: normal respiratory effort and no use of accessory muscles Auscultation: clear to auscultation bilaterally Cardio Rate: regular rate Rhythm: regular rhythm Heart sounds: no gallops, no murmurs and no rubs Skin General skin exam: other ( warm) Extrem General: No clubbing, No cyanosis and Yes edema (1+ bilateral) Office Procedures 6 Minute Walk Time:: 14:00 SPO2 % at rest: 96 Pulse at rest: 126 SPO2 % during excercise: 93 Pulse during excercise: 142 SPO2 % after excercise: 95 Pulse after excercise: 118 Distance in yards walked: 100 Performance Observations:: Patient walked on level ground using his cane. Patient able to walk at a steady pace maintaining O2 saturation 93-95% Pulse via oximeter 130-142. Patient denies respiratory distress. Patient did not require the use of supplemental oxygen. [address]2852 - 6 Minute Walk Assessment & Plan Assessment & Plan (1) Nocturnal hypoxemia: Code(s): G47.34 - Idiopathic sleep related nonobstructive alveolar hypoventilation Category: Medical Plan: Now on supplemental oxygen 1-2 L at night. Continue oxygen supplementation. (2) Dyspnea on exertion: Code(s): R06.09 - Other forms of dyspnea Category: Medical Plan: 6 minute walk test/supplemental oxygen evaluation shows normal oximetry with exertion, but significant tachycardia. PFT with restrictive physiology secondary to large heart. CT chest official read not available, but on my review no emphysema or fibrosis. Appears to have essentially cardiac etiology to his symptoms. Breo/albuterol does not provide significant relief but used as palliation. Orders: Orders AMB 6 minute walk Today G47.34 - Idiopathic sleep related nonobstructive alveolar hypoventilation, J45.909 - Unspecified asthma, uncomplicated Coding Level of Care Code Est Pt Level 4 (35655) Diagnoses Nocturnal hypoxemia G47.34 Dyspnea on exertion R06.09 CPT Codes Coding ([id number])
[2024-06-14 13:19] VITALS: BP 122/67; PULSE 90; O2SAT 95
[2024-06-14 14:15] VITALS: PULSE 126; O2SAT 96
== END 2024-06-14 14:08 | disposition home or self-care (01) ==
PROVIDERS: PCP Internal Medicine; Visit Provider Internal Medicine Pulmonary Disease
DX: G47.34 Idiopathic sleep related nonobstructive alveolar hypoventilation (principal); R06.09 Other forms of dyspnea
CPT/HCPCS: 94618; 99214

== ENCOUNTER → 2024-06-14 13:15 | Outpatient (BNVA) | payer OTHER, SELFPAY | PROVIDERS: PCP Internal Medicine; Visit Provider Internal Medicine Pulmonary Disease | DX: G47.33 Obstructive sleep apnea (adult) (pediatric) (principal); G47.34 Idiopathic sleep related nonobstructive alveolar hypoventilation; R06.09 Other forms of dyspnea; J45.909 Unspecified asthma, uncomplicated | CPT/HCPCS: 94618; 99212 ==

== ENCOUNTER 2024-09-05 16:02 | Outpatient (AMB) | payer OTHER, SELFPAY ==
--- NOTE | 2024-09-05 16:03 | MHC.OFFVIS ---
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 He is a patient of Dr Jones. He is seen for the following urologic conditions. - detrusor hyperactivity impaired contractility - prostate cancer Telemedicine Evaluation 15 min Consultation [employer] Shawn Video Six-month follow-up PSA has dropped from around 6 to 3.2 on the finasteride Known low volume prostate cancer from 2019 Stabilized bladder function with Myrbetriq and bethanechol Refills provided PSA 05/11 2.9, 04/15 10.7, 06/15 6.4, 12/17 5.8 7%, 08/16 3.2 Urinary Urge/Frequency:? Detrusor hyperactivity with impaired contractility Had urodynamics performed some point in time which appeared to showed low-flow low-pressure system. Botox 09/11 PVR low 04/15 0cc Prostate cancer:? Group 2 low volume 08/12 ? Has been managed with active surveillance for low volume group 2 prostate cancer- 05/11 low stable PSA ?Had urodynamics performed some point in time which appeared to showed low-flow low-pressure system with instability ? Prostate cancer was diagnosed?2009 Dr Snyder.? Diagnosis was reached by?07/2010 , needle biopsy, for elevated PSA.? The [place] grade is?07/2010 ?4/12 cores max 10% , 3+4 = 7 each core 5%, 5%, 5% ? Initial therapy included?Deferred Therapy (active surveillance) - Had TUR for BPH 2009 - prior intermittent hormone therapy ? Recent labs included?04/11 Cystoscopy - trabeculation with good TUR defect ?05/11 PSA 2.9.? PFSH Medical History Nocturia Urinary frequency OAB (overactive bladder) Urinary retention Weak urinary stream Surgical History Hx of heart bypass surgery History of appendectomy History of prostate surgery Family History Father No problems noted. Mother No problems noted. Social History Alcohol intake: never Patient Tobacco Use Status: Never used Tobacco Review of Systems Const All systems reviewed & are unremarkable except as noted in HPI and below Reports no additional complaints Resp Reports no additional complaints GI Reports no additional complaints Reports as per HPI Musc Reports no additional complaints Physical Exam Telemedicine evaluation Appropriate responses Regular breathing rate and rhythm HEENT Head: Yes normal to inspection Ears: hearing grossly normal bilaterally Eyes General: appearance normal, both eyes and all related structures Neck Neck: Yes normal visual inspection Chest Chest palpation & inspection: normal inspection of the chest Resp Effort & Inspection: normal respiratory effort and able to speak in complete sentences Telehealth Telehealth Telehealth Platform: [employer] Location of provider rendering services: practice address Location of patient: address on file Patient Identification confirmed using: Name, : Yes Telehealth method: video Patient verbally consented to treatment: Yes Patient verbally consented to billing insurance company: Yes Patient informed of any privacy concerns related to visit: Yes Minutes spent on Phone/Video with Pt.: 15 Assessment & Plan Assessment & Plan (1) Prostate cancer: Code(s): C61 - Malignant neoplasm of prostate Category: Medical Plan Continue six-month surveillance Continue bladder medications Orders: Orders Prostate Specific Antigen 6 Months C61 - Malignant neoplasm of prostate Medications: Refilled finasteride 5 mg PO DAILY 90 days 90 tabs 1RF 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 No major barriers to patient understanding were identified. An opportunity to ask questions regarding the treatment plan was provided. All questions were answered. The patient expressed understanding and agreement with the above treatment plan. The patient is aware they should contact our office by phone for worsening of their current condition or the appearance of new urologic symptoms. Compliance is encouraged with any medications and followup testing that is ordered. It is a privilege to participate in the urologic care of your patient. If you have any questions or concerns regarding treatment for the above conditions, or other urologic issues, please do not hesitate to contact me. The office telephone contact is [phone]. This note is constructed using voice recognition software. While every effort has been made to ensure accuracy peer counselor errors may have been included. Yours sincerely, Dr Karel Snyder MD, [facility] - Urology Providers of Expert, Compassionate Care for the Genitourinary System Coding Level of Care Code Tele Est Pt Level 3 (80285) Diagnoses Prostate cancer C61
== END 2024-09-05 16:30 | disposition home or self-care (01) ==
LOC: HO.HUSH 16:02
PROVIDERS: PCP Internal Medicine; Visit Provider Urology
DX: C61 Malignant neoplasm of prostate (principal)
CPT/HCPCS: 99213

== ENCOUNTER → 2024-09-05 16:02 | Outpatient (BNVA) | payer OTHER, SELFPAY | PROVIDERS: PCP Internal Medicine; Visit Provider Urology ==

== ENCOUNTER 2024-11-02 13:06 | Outpatient (AMB) | payer OTHER, SELFPAY ==
--- NOTE | 2024-11-02 13:14 | MHC.OFFVIS ---
Vital Signs 11/02/24 13:22 Weight 140 lb BP 118/76 Blood Pressure Location Rt brachial Position Sitting Intake Visit Reasons: f/u for Migraines & Sleep Intake Note: patient presents for migraines and sleep. Allergies penicillin G Allergy (Unknown, Verified 11/02/24 13:20) Unknown Latex Allergy (Unknown, Uncoded 11/02/24 13:20) Unknown Medication List - Last Reconciled 11/02/24 by CORNELIUS Tang acetaminophen 0 mg PO amitriptyline 10 mg PO BEDTIME 30 days apixaban (Eliquis) 5 mg PO BID bethanechol chloride 50 mg PO BID 90 days digoxin 125 mcg PO DAILY docusate sodium 100 mg PO BID ferrous gluconate mg PO DAILY finasteride 5 mg PO DAILY 90 days fluticasone furoate-vilanterol 100-25 mcg/dose (Breo Ellipta) 1 ea inhalation DAILY gabapentin 100 - 300 mg (1 - 3 x 100 mg) PO BEDTIME 30 days ipratropium-albuterol 0.5 mg-3 mg(2.5 mg base)/3 mL 3 mL inhalation Q4-6H PRN latanoprost 0.005% 0 drps ophthalmic (eye) magnesium oxide 400 mg PO DAILY melatonin mg PO metoprolol tartrate mg PO mirabegron ER 25 mg PO DAILY 90 days mirtazapine 15 mg PO BEDTIME mirtazapine 30 mg PO BEDTIME omeprazole 20 mg PO DAILY quetiapine 25 mg PO BEDTIME riboflavin (vitamin B2) (Vitamin B-2) 0 mg PO sennosides (senna) 8.6 mg PO DAILY PRN spironolactone mg PO tamsulosin mg PO DAILY torsemide 0 mg PO torsemide 20 mg PO DAILY HPI Comments Details: 88-yr-old male presents for f/u visit for follow-up of sleep study and headache, pt accompanied by his dtr. Patient today is most concerned with right middle finger redness swelling and pain, which he states started in the last couple of days and became worse last night, possibly related to a recent fall but he is not sure. 11/10/2023, In-lab PSG showed AHI 0.6/hour, O2 sabina 75%, with average SpO2 89%, and SpO2 under 88% for 146.5 minutes of study time. PLMS index of 186/hour and PLMS arousal index of 27/hour. Patient does have a history of anemia. We had requested PLMS lab workup after sleep study, however we do not have the full results at this time. In the past he has not tolerated oral iron, as it has caused constipation and GI upset. Patient was started on low-dose gabapentin, which is helping sleep. Patient did have follow-up pulmonary consult and workup, respiratory symptoms were felt to be from cardiac etiology. He is having less headaches. Now not at night. More so occasionally during the day- treating w/ prn Tylenol which helps. [facility] Medical History Nocturia Urinary frequency OAB (overactive bladder) Urinary retention Weak urinary stream Surgical History Hx of heart bypass surgery History of appendectomy History of prostate surgery Family History Father No problems noted. Mother No problems noted. Social History Alcohol intake: never Patient Tobacco Use Status: Never used Tobacco Physical Exam Vital Signs: Last Vital Signs BP 118/76 11/02/24 13:22 Const General: cooperative and no acute distress HEENT Head: Yes normocephalic Resp Effort & Inspection: normal respiratory effort and able to speak in complete sentences Neuro Other: A&O, mild short term memory lapses. Right 3rd finger with diffuse erythema, mild warmth, mild swelling, tenderness to touch. Able to flex finger some. Steady gait with cane. General: CN's II-XI intact bilaterally (With exception of hard of hearing) Cognition (Neuro): normal cognition Motor exam (neuro): 5/5 motor strength present throughout Psych Appearance: grossly normal Speech and movement: Normal speech and movement present Affect: normal affect Attitude: cooperative Assessment & Plan Assessment & Plan (1) Pain of right middle finger: Code(s): M79.644 - Pain in right finger(s) Category: Medical (2) Periodic limb movement sleep disorder: Code(s): G47.61 - Periodic limb movement disorder Category: Medical (3) Anemia: Code(s): D64.9 - Anemia, unspecified Category: Medical (4) Sleep difficulties: Code(s): G47.9 - Sleep disorder, unspecified Category: Medical (5) Nocturnal headaches: Comment: ? cervicogenic, ? untreated GARRETT, ? hypnic headaches Code(s): R51.9 - Headache, unspecified Category: Medical Plan For acute right hand pain, we will check XR right hand order slip given to daughter. Reviewed in-lab PSG results, consistent with nocturnal hypoxemia and severe periodic limb movements of sleep. We will again check labs for common etiology of PLMS S/S. Continue gabapentin 100-300 mg q.h.s. Follow-up with cardiology as scheduled. Continue Amitriptyline 10mg qhs- for headaches. May use Tylenol prn. Previous trials: Baclofen and Fioricet= not very effective. f/u in 4 months or sooner prn. Orders: Orders XR hand RT min 3V 11/02/24 M79.644 - Pain in right finger(s) TSH reflex Free T4 11/02/24 D64.9 - Anemia, unspecified, E78.5 - Hyperlipidemia, unspecified, G47.61 - Periodic limb movement disorder, I10 - Essential (primary) hypertension, R06.09 - Other forms of dyspnea Folate 11/02/24 D64.9 - Anemia, unspecified, E78.5 - Hyperlipidemia, unspecified, G47.61 - Periodic limb movement disorder, I10 - Essential (primary) hypertension, R06.09 - Other forms of dyspnea Ferritin 11/02/24 D64.9 - Anemia, unspecified, E78.5 - Hyperlipidemia, unspecified, G47.61 - Periodic limb movement disorder, I10 - Essential (primary) hypertension, R06.09 - Other forms of dyspnea Erythrocyte Sedimentation Rate 11/02/24 D64.9 - Anemia, unspecified, E78.5 - Hyperlipidemia, unspecified, G47.61 - Periodic limb movement disorder, I10 - Essential (primary) hypertension, R06.09 - Other forms of dyspnea IRON PROFILE 11/02/24 D64.9 - Anemia, unspecified, E78.5 - Hyperlipidemia, unspecified, G47.61 - Periodic limb movement disorder, I10 - Essential (primary) hypertension, R06.09 - Other forms of dyspnea Lipid Panel with Reflex 11/02/24 E78.5 - Hyperlipidemia, unspecified Complete Blood Count Auto Diff 11/02/24 D64.9 - Anemia, unspecified, E78.5 - Hyperlipidemia, unspecified, G47.61 - Periodic limb movement disorder, I10 - Essential (primary) hypertension, R06.09 - Other forms of dyspnea Comprehensive Met. Panel 11/02/24 D64.9 - Anemia, unspecified, E78.5 - Hyperlipidemia, unspecified, G47.61 - Periodic limb movement disorder, I10 - Essential (primary) hypertension, R06.09 - Other forms of dyspnea Vitamin B12 and Folate 11/02/24 D64.9 - Anemia, unspecified, E78.5 - Hyperlipidemia, unspecified, G47.61 - Periodic limb movement disorder, I10 - Essential (primary) hypertension, R06.09 - Other forms of dyspnea Homocysteine 11/02/24 D64.9 - Anemia, unspecified, E78.5 - Hyperlipidemia, unspecified, G47.61 - Periodic limb movement disorder, I10 - Essential (primary) hypertension, R06.09 - Other forms of dyspnea Methylmalonic Acid 11/02/24 D64.9 - Anemia, unspecified, E78.5 - Hyperlipidemia, unspecified, G47.61 - Periodic limb movement disorder, I10 - Essential (primary) hypertension, R06.09 - Other forms of dyspnea Magnesium 11/02/24 D64.9 - Anemia, unspecified, E78.5 - Hyperlipidemia, unspecified, G47.61 - Periodic limb movement disorder, I10 - Essential (primary) hypertension, R06.09 - Other forms of dyspnea Medications: Refilled gabapentin 100 - 300 mg (1 - 3 x 100 mg) PO BEDTIME 30 days 90 caps 3RF amitriptyline 10 mg PO BEDTIME 30 days 30 tabs 11RF Coding Level of Care Code Est Pt Level 4 (27693) Diagnoses Pain of right middle finger M79.644 Periodic limb movement sleep disorder G47.61 Anemia D64.9 Sleep difficulties G47.9 Nocturnal headaches R51.9
[2024-11-02 13:22] VITALS: BP 118/76
== END 2024-11-02 14:49 | disposition home or self-care (01) ==
PROVIDERS: PCP Internal Medicine; Visit Provider Nurse Practitioner Family
DX: M79.644 Pain in right finger(s) (principal); G47.61 Periodic limb movement disorder; D64.9 Anemia, unspecified; G47.9 Sleep disorder, unspecified; R51.9 Headache, unspecified
CPT/HCPCS: 99214

== ENCOUNTER → 2024-11-02 13:06 | Outpatient (BNVA) | payer OTHER, SELFPAY | PROVIDERS: PCP Internal Medicine; Visit Provider Nurse Practitioner Family | DX: R51.9 Headache, unspecified (principal); G47.9 Sleep disorder, unspecified; D64.9 Anemia, unspecified; M79.644 Pain in right finger(s); G47.61 Periodic limb movement disorder | CPT/HCPCS: 99212 ==

== ENCOUNTER 2024-12-12 11:54 | Outpatient (AMB) | payer OTHER, SELFPAY ==
[2024-12-12 12:02] VITALS: BP 110/48; PULSE 64; O2SAT 97
--- NOTE | 2024-12-12 12:02 | HO.NEPHOV_ITS ---
Vital Signs 12/12/24 12:02 Weight 139 lb BP 110/48 L Blood Pressure Location Lt brachial Position Sitting Pulse 64 Pulse Source Pulse Oximeter Pulse Oximetry (%) 97 Oxygen Delivery Method Room Air Intake Visit Reasons: Disorder kidney&ureter-Pt daughter req soonest apt Shrimp Peeler Required: No Accompanied by: Daughter Allergies penicillin G Allergy (Unknown, Verified 12/12/24 12:03) Unknown Latex Allergy (Unknown, Uncoded 11/02/24 13:20) Unknown Medication List - Last Reconciled 12/12/24 by Danny Sky MD acetaminophen 500 mg PO PRN amitriptyline 10 mg PO BEDTIME 30 days apixaban (Eliquis) 5 mg PO BID bethanechol chloride 50 mg PO BID 90 days digoxin 125 mcg PO DAILY docusate sodium 100 mg PO BID PRN finasteride 5 mg PO DAILY 90 days fluticasone furoate-vilanterol 100-25 mcg/dose (Breo Ellipta) 1 ea inhalation DAILY PRN gabapentin 100 - 300 mg PO BEDTIME PRN ipratropium-albuterol 0.5 mg-3 mg(2.5 mg base)/3 mL 3 mL inhalation Q4-6H PRN latanoprost 0.005% 0 drps ophthalmic (eye) metoprolol tartrate 50 mg PO DAILY mirabegron ER 25 mg PO DAILY 90 days pantoprazole mg PO DAILY spironolactone 12.5 mg PO DAILY tamsulosin mg PO DAILY torsemide 20 mg PO DAILY HPI Comments Details: Elderly man with a history of chronic kidney disease referred for evaluation of CKD. Accompanied by his daughter. He has had chronic anemia. In the past he has received iron infusions. [facility] Medical History Nocturia Urinary frequency OAB (overactive bladder) Urinary retention Weak urinary stream Surgical History Hx of heart bypass surgery History of appendectomy History of prostate surgery Family History (Updated 12/12/24 @ 13:43 by Luke Arriaza) Father No problems noted. Mother Colon cancer Social History (Updated 12/12/24 @ 13:38 by Luke Arriaza) Household Members: Spouse and Significant Other Alcohol intake: never Patient Tobacco Use Status: Never used Tobacco Current occupational status: retired Gender identity: Male Review of Systems Const Denies fever(s) and Denies weight loss Card Denies chest pain Resp Denies cough and Denies hemoptysis GI Denies abdominal pain, Denies diarrhea and Denies nausea Musc Denies back pain Neuro Denies focal weakness Physical Exam Vital Signs: Last Vital Signs Pulse 64 12/12/24 12:02 BP 110/48 L 12/12/24 12:02 Pulse Ox 97 12/12/24 12:02 Oxygen Delivery Method Room Air 12/12/24 12:02 Comfortable Neck supple no JVD. Lungs entry equal no rales. Heart S1-S2 heard no gallop or rub. Abdomen soft nontender. Neuro alert awake oriented. No asterixis. Extremities no edema. Results Reviewed Nephrology Results: Hgb 8.0 g/dl (14.0-18.0) L 12/12/24 WBC 4.8 X10*3/uL (4.8-10.8) 12/12/24 Plt Count 152 X10*3/uL (160-400) L 12/12/24 Sodium 139 mmol/L (135-145) 12/12/24 Potassium 5.1 mmol/L (3.3-5.1) 12/12/24 Chloride 106 mmol/L (96-108) 12/12/24 Carbon Dioxide 27 mmol/L (22-29) 12/12/24 BUN 48 mg/dL (9-16) H 12/12/24 Creatinine 1.60 mg/dL (0.5-1.4) H 12/12/24 Calcium 9.5 mg/dL (8.4-10.2) 12/12/24 Assessment & Plan Assessment & Plan (1) Kidney disease: Code(s): N28.9 - Disorder of kidney and ureter, unspecified Category: Medical (2) Iron deficiency: Code(s): E61.1 - Iron deficiency Category: Medical Plan Elderly man with CKD. Workup initiated for CKD. Rule out obstructive uropathy. Continue overt nephrotoxic agents. Optimize blood pressure. Anemia which is multifactorial iron deficiency could be playing a karimi role. 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 Check iron stores and arrange for IV iron infusion. Orders: Orders US renal BI 12/12/24 Danny Sky MD N28.9 - Disorder of kidney and ureter, unspecified Referrals 2 Infusion Center Notification Danny Sky MD E61.1 - Iron deficiency Medications: New spironolactone 12.5 mg (1/2 x 25 mg) PO DAILY 90 tabs 0RF Dnany Sky MD ferric carboxymaltose (Injectafer) 750 mg (15 mL) IV QWEEK 1 dose Danny Sky MD Changed From gabapentin 100 - 300 mg (1 - 3 x 100 mg) PO BEDTIME 30 days 90 caps 3RF To gabapentin 100 - 300 mg PO BEDTIME PRN CORNELIUS Tang Coding Level of Care Code New Pt Level 5 (60945) Diagnoses Kidney disease N28.9 Iron deficiency E61.1
--- OUTSIDE RECORDS SUMMARY | 2024-12-12 12:29 | XMS_ITS | Encounter Summary ---
Author Organization [employer] Address [address] [facility] [address] [place] [address] Care Team Providers Care Oil Furnace Installer Name Role Phone Clare Jones MD Primary Care Provider Reason for Referral * Imaging (Routine) - Closed Specialty Diagnoses / Procedures Referred By Contac t Referred To Contact Radiology Diagnoses Chronic cough Weight loss Procedures CT Chest w/ Contrast Clare Jones MD [address] [place] [address] Phone: tel: fax: [facility] Referral ID Status Reason Start Date Expiration Date Visits Re quested Visits Authorized [id number] Closed 01/06/2024 01/05/2025 1 1 Encounter Details Date Type Department Care Team ([facility] st Contact Info) Description 01/06/2024 Orders Only [facility] CHC MED & PEDS [address] [place], [place] [phone] Clare Jones MD [address] [place] [address] Chronic cough (Primary Dx); Weight loss Social History Tobacco Use Types Packs/Day Years Used Date Smoking Tobacco: Never Smokeless Tobacco: Never Alcohol Use Standard Drinks/Week Comments Never 0 (1 standard drink = 0.6 oz pur e alcohol) Depression Answer Date Recorded Patient Health Questionnaire-9 Score 0 03/07/2023 Housing Stability Answer Date Recorded What is your housing situation today? I have shara elizabeth 08/29/[address] you li ve. Do you have problems with any of the following? None of the above 08/29/2023 Food Insecurity Answer Date Recorded Within the past 12 months, y ou worried that your food would run out before you got money to buy more: Never True 08/29/2023 Within the past 12 months,th e food you bought just didn't last and you didn't have enough money to get more: Never True 03/2023 Transportation Answer Date Recorded In the past 12 months, has l ack of transportation kept you from medical appts, meetings, work or from getting things needed for daily living? No 08/29/2023 Utilities Answer Date Recorded In the past 12 months, has t he electric, gas, oil or water company threatened to shut off services in your home? No 08/29/2023 Depression Answer Date Recorded Patient Health Questionnaire-2 Score 0 03/07/2023 Sex and Gender Information Value Date Recorded Sex Assigned at Male 08/23/2022 10:18 AM EDT Legal Sex Male 10:18 AM EDT Gender Identity Male 08/23/2022 10:18 AM EDT Sexual Orientation Straight 08/23/2022 10 :18 AM EDT documented as of this encounter Plan of Treatment Scheduled Orders Name Type Priority Associated Diagnoses Orde r Schedule CT Chest w/ Contrast Imaging Routine Chronic cough Weight loss Expected: 01/06/2024, Expires: 01/05/2025 documented as of this encounter Visit Diagnoses Diagnosis Chronic cough- Primary Cough Weight loss Loss of weight documented in this encounter Additional Health Concerns Assessment Noted Time PHQ-9 Depression Total Score: 0 03/07/20 23 4:08 PM EDT documented as of this encounter Care Teams Oil Furnace Installer Relationship Specialty Start Date End Date Clare Jones MD [address] [place] [address] PCP - General Internal Medicine 10/04/16 documented as of this encounter
--- OUTSIDE RECORDS SUMMARY | 2024-12-12 12:29 | XMS_ITS | Encounter Summary ---
Author Organization [employer] Address [address] [facility] [address] [place] [address] Care Team Providers Care Quality Control Operator Name Role Phone Clare Jones MD Primary Care Provider [phone] Reason for Visit * Reason Onset Date Comments FYI 07/02/2024 Encounter Details Date Type Department Care Team (Late st Contact Info) Description 07/02/2024 Telephone [facility] MEDICINE [address] [place] [address] Clare Jones MD [address] [place] [address] Social History Tobacco Use Types Packs/Day Years Used Date Smoking Tobacco: Never Smokeless Tobacco: Never Alcohol Use Standard Drinks/Week Comments Never 0 (1 standard drink = 0.6 oz pur e alcohol) Depression Answer Date Recorded Patient Health Questionnaire-9 Score 0 03/07/2023 Housing Stability Answer Date Recorded What is your housing situation today? Not on nena e 01/31/[address] you li ve. Do you have problems with any of the following? None of the above 01/31/2024 Food Insecurity Answer Date Recorded Within the [...] AM EDT documented as of this encounter Miscellaneous Notes * Telephone Encounter - Danna Walls RN - 07/09/2024 11:22 AM EDT Returned call to [facility] and relayed message that if pt is still having symptoms, pt needs to be evaluated at the ED again. VN will return call PRN. * Telephone Encounter - Clare Jones MD - 07/02/2024 1:36 PM EDT If having increasing SOB, pt might need to return to the ED to be diurese. He might be having a CHFExacerbation. Please advise to go back to the ED for proper evaluation. * Telephone Encounter - Silvio Duffy - 07/02/2024 12:47 PM EDT Tc from [facility] with [facility] calling to inform pcp of home visit. Pt's o2 was a 92% crackles at the bases and increase of shortness of breath. Pt also reported having frequent nose bleeds for the past few days after restarding eliquis. If any questions you can contact [facility] at [phone]. documented in this encounter Plan of Treatment Not on file documented as of this encounter Visit Diagnoses Not on filedocumented in this encounter Additional Health Concerns Assessment Noted Time PHQ-9 Depression Total Score: 0 03/07/20 23 4:08 PM EDT documented as of this encounter Care Teams Quality Control Operator Relationship Specialty Start Date End Date Clare Jones MD [address] [place] [id number] PCP - General Internal Medicine 10/04/16 documented as of this encounter
--- OUTSIDE RECORDS SUMMARY | 2024-12-12 12:29 | XMS_ITS | Encounter Summary ---
Author Organization [employer] Address [address] [facility] [address] [address] Care Team Providers Care Secretary To Board Of Commissioners Name Role Phone Clare Jones MD Primary Care Provider Reason for Visit * Reason Onset Date Comments Nurse Triage 05/20/2023 Encounter Details Date Type Department Care Team ([facility] st Contact Info) Description 05/20/2023 Telephone [facility] CHC MED & PEDS [address] [place], [place] [phone] Clare Jones MD [address] [place] [address] Nurse Triage Social History Tobacco Use Types Packs/Day Years Used Date Smoking Tobacco: Never Smokeless Tobacco: Never Alcohol Use Standard Drinks/Week Comments Never 0 (1 standard drink = 0.6 oz pur e alcohol) Depression Answer Date Recorded Patient Health Questionnaire-9 Score 0 03/07/2023 Depression Answer Date Recorded Patient Health Questionnaire-2 Score 0 03/07/2023 Sex and Gender Information Value Date Recorded Sex Assigned at Male 08/23/2022 10:18 AM EDT Legal Sex Male 10:18 AM EDT Gender Identity Male 08/23/2022 10:18 AM EDT Sexual Orientation Straight 08/23/2022 10 :18 AM EDT documented as of this encounter Miscellaneous Notes * Telephone Encounter - Shabana Liu RN - 05/20/2023 2:27 PM EDT Triage call to daughter, ELVIRA Riddle, called to request apt with Dr. Jones. Pt has some increased edema in the facial , orbital area. Pt has increased diff breathing with exertion. No apts available in PSYCHIATRIC today with any provider. Offered [facility] to be seen but, declined. [facility] but, daughter declines. Daughter declines to go to ED but, willbring to urgent care at this time. Pt is taking medications as prescribed. Protocol Used: Face Swelling (Adult) Protocol-Based Disposition: See in Office or Video Visit within 3 Days Video visit not offered Positive Triage Question: * Mild face swelling (puffiness) and persists > 3 days * All higher-acuity triage questions were negative Care Advice Discussed: * Reassurance and Education - Mild Face Swelling * Use a Cold Pack for Swelling * Reasons To Call Back - Swelling persists over 3 days - Swelling becomes red or painful to the touch - You become worse * Telephone Encounter - Jayne Champion - 05/20/2023 2:04 PM EDT Symptom: Face Swelling Outcome: Schedule a same-day appointment or talk to a nurse or provider today Reason: Caller denied all higher acuity questions The caller accepted this outcome Please contact pt daughter at [phone] documented in this encounter Plan of Treatment Not on file documented as of this encounter Visit Diagnoses Not on filedocumented in this encounter Additional Health Concerns Assessment Noted Time PHQ-9 Depression Total Score: 0 03/07/20 23 4:08 PM EDT documented as of this encounter Care Teams Secretary To Board Of Commissioners Relationship Specialty Start Date End Date Clare Jones MD [address] [place] [id number] PCP - General Internal Medicine 10/04/16 documented as of this encounter
--- OUTSIDE RECORDS SUMMARY | 2024-12-12 12:29 | XMS_ITS | Continuity of Care Document ---
Author Organization Pending sale to [facility] Address [address] [address] Phone Care Team Providers Care Dredge Or Barge Shore Hand Name Role Phone Tiffanie Allen OT Unavailable Unavailable Advance Directives Directive Yes / No Effective Date File Name No Information Encounters Encounter Description Practice Location Reason(s) For Visit Diagnoses Date Provider Providers Copied on Encounter Pending sale to [facility], [address], [id number], [place] tel:[phone] [facility] No Information 1 Alejandro Moreno. [address] [place] [address], [id number], [place]. tel:[phone] Family History Family Member Type Diagnosis Age At Onset No Information Payers Payer name Insurance type Covered alliance party ID Authoriza tion(s) No Information Social History Type Description Quantity Date Captured Comments Sex Male Smoking Status No Information Chief Complaint And Reason For Visit No Information Reason For Referral Reason For Referral No Information History Of Present Illness Encounter Date Complaint History Of Prese nt Illness No Information Functional Status Date Functional Assessmen t No Information Instructions Date Instruction Additional Infor mation No Information Assessments Type Assessment Date No Information Patient Care Teams Name Effective Dates (start - stop) Status Members No Information
--- OUTSIDE RECORDS SUMMARY | 2024-12-12 12:29 | XMS_ITS | Encounter Summary ---
Author Organization [employer] Address [address] [facility] [address] [place] [address] Care Team Providers Care Vault Clerk Name Role Phone Clare Jones MD Primary Care Provider [phone] Encounter Details Date Type Department Care Team ([facility] st Contact Info) Description 10/14/2023 Orders Only [facility] CHC MED & PEDS [address] [place], [place] [phone] Clare Jones MD [address] [place] [address] Chronic cough Social History Tobacco Use Types Packs/Day Years Used Date Smoking Tobacco: Never Smokeless Tobacco: Never Alcohol Use Standard Drinks/Week Comments Never 0 (1 standard drink = 0.6 oz pur e alcohol) Depression Answer Date Recorded Patient Health Questionnaire-9 Score 0 03/07/2023 Housing Stability Answer Date Recorded What is your housing situation today? I have sharavanessa elizabeth 08/29/[address] you [...] as of this encounter Plan of Treatment Not on file documented as of this encounter Visit Diagnoses Diagnosis Chronic cough Cough documented in this encounter Additional Health Concerns Assessment Noted Time PHQ-9 Depression Total Score: 0 03/07/20 23 4:08 PM EDT documented as of this encounter Care Teams Vault Clerk Relationship Specialty Start Date End Date Clare Jones MD [address] [place] [id number] PCP - General Internal Medicine 10/04/16 documented as of this encounter
--- OUTSIDE RECORDS SUMMARY | 2024-12-12 12:29 | XMS_ITS | Encounter Summary ---
Author Organization [employer] Address [address] [facility] [address] [place] [address] Care Team Providers Care Roads And Parking Lots Sweeper Operator Name Role Phone Clare Jones MD Primary Care Provider +1- [phone] Reason for Visit * Reason Onset Date Comments Medication Question 10/19/2023 Encounter Details Date Type Department Care Team ([facility] Contact Info) Description 10/19/2023 Telephone [facility] CHC MED & PEDS 505 [place], [place] [phone] Clare Jones MD 505 [place] [address] Medication Question Social History Tobacco Use Types Packs/Day Years [...] encounter Miscellaneous Notes * Telephone Encounter - Jayne Champion - 10/19/2023 9:00 AM EST Tc from pharmacy requesting clarification on acetaminophen (Tylenol) 500 MG tablet due to no instructions. documented in this encounter Plan of Treatment Not on file documented as of this encounter Visit Diagnoses Diagnosis Primary osteoarthritis of other site- Primary documented in this encounter Additional Health Concerns Assessment Noted Time PHQ-9 Depression Total Score: 0 03/07/20 23 4:08 PM EDT documented as of this encounter Care Teams Roads And Parking Lots Sweeper Operator Relationship Specialty Start Date End Date Clare Jones MD [address] [place] [address] PCP - General Internal Medicine 10/04/16 documented as of this encounter
--- OUTSIDE RECORDS SUMMARY | 2024-12-12 12:29 | XMS_ITS | Encounter Summary ---
Author Organization [employer] Address 75 [facility] 7t [place] [address] Care Team Providers Care Heading Repairer Name Role Phone Clare Jones MD Primary Care Provider +1- [phone] Encounter Details Date Type Department Care Team (Late st Contact Info) Description 07/02/2024 Orders Only [facility] CHC MED & PEDS 505 [place], [place] [phone] Clare Jones MD 505 [place] [address] Chronic atrial fibrillation (CMS/HCC) (Primary Dx) Social History Tobacco Use Types Packs/Day Years [...] of this encounter Visit Diagnoses Diagnosis Chronic atrial fibrillation (CMS/HCC)- Primary Atrial fibrillation documented in this encounter Additional Health Concerns Assessment Noted Time PHQ-9 Depression Total Score: 0 03/07/20 23 4:08 PM EDT documented as of this encounter Care Teams Heading Repairer Relationship Specialty Start Date End Date Clare Jones MD [address] [place] [phone] PCP - General Internal Medicine 10/04/16 documented as of this encounter
--- OUTSIDE RECORDS SUMMARY | 2024-12-12 12:29 | XMS_ITS | Encounter Summary ---
Author Organization [email or web address] Address [address] [facility] [address] [place] [address] Care Team Providers Care Rotary Planer Set Up Operator Name Role Phone Clare Jones MD Primary Care Provider +1- [phone] Reason for Visit * Reason Onset Date Comments Durable Medical Equipment 11/30/2022 Encounter Details Date Type Department Care Team (Late st Contact Info) Description 11/30/2022 Telephone [facility] MEDICINE [address] [place] [address] Clare Jones MD [address] [place] [address] Durable Medical Equipment Social History Tobacco Use Types Packs/Day Years Used Date Smoking Tobacco: Never Smokeless Tobacco: Never Alcohol Use Standard Drinks/Week Comments Never 0 (1 standard drink = 0.6 oz pur e alcohol) Depression Answer Date Recorded Patient Health Questionnaire-9 Score 0 09/25/2024 Patient Health Questionnaire-9 Score 0 09/25/2024 Last PHQ-9: Questionnaire Data Not on file 1 11/26/2023 Housing Stability Answer Date Recorded What is [...] Date Recorded Patient Health Questionnaire-2 Score 0 09/25/2024 Sex and Gender Information Value Date Recorded Sex Assigned at Male 08/23/2022 10:18 AM EDT Legal Sex Male 10:18 AM EDT Gender Identity Male 08/23/2022 10:18 AM EDT Sexual Orientation Straight 08/23/2022 10 :18 AM EDT COVID-19 Exposure Response Date Recorded In the last 10 days, have yo u been in contact with someone who was confirmed or suspected to have Coronavirus/COVID-19? No / Unsure 03/22/2023 10:33 AM EDT documented as of this encounter Miscellaneous Notes * Telephone Encounter - Kiana Flannery - 11/30/2022 10:07 AM EST Tc from pt daughter requesting a status update on incontinence supplies, states they called [facility] has not received script. Please contact at [phone] documented in this encounter Plan of Treatment Not on file documented as of this encounter Visit Diagnoses Not on filedocumented in this encounter Care Teams Rotary Planer Set Up Operator Relationship Specialty Start Date End Date Clare Jones MD [address] [place] [address] PCP - General Internal Medicine 10/04/16 documented as of this encounter
--- OUTSIDE RECORDS SUMMARY | 2024-12-12 12:29 | XMS_ITS | Encounter Summary ---
Author Organization [employer] Address [address] [facility] [address] [place] [address] Care Team Providers Care Merchandising Professor Name Role Phone Clare Jones MD Primary Care Provider Reason for Visit * Reason Onset Date Comments Med Refill 11/19/2022 Encounter Details Date Type Department Care Team ([facility] st Contact Info) Description 11/19/2022 Refill [facility] CHC MED & PEDS 505 [place], [place] [phone] Clare Jones MD 505 [place] [address] Chronic heart failure with preserved ejection fraction (CMS/HCC) (Primary Dx) Social History Tobacco Use Types Packs/Day Years Used Date Smoking Tobacco: Never Smokeless Tobacco: Never Alcohol Use Standard Drinks/Week Comments Never 0 (1 standard drink = 0.6 oz pur e alcohol) Sex and Gender Information Value Date Recorded [...] suspected to have Coronavirus/COVID-19? No / Unsure 11/18/2022 1:14 PM EST documented as of this encounter Miscellaneous Notes * Telephone Encounter - Tacoschristen Munroe Ulysses - 11/19/2022 4:22 PM EST Tc from pt requesting med refill on digoxin (Lanoxin) 125 MCG tablet and aspirin 81 MG EC tablet Please sent to [facility] [address] [place] [address] - [facility] documented in this encounter Plan of Treatment Not on file documented as of this encounter Visit Diagnoses Diagnosis Chronic heart failure with preserved ejection fraction (CMS/HCC)- Primary documented in this encounter Care Teams Merchandising Professor Relationship Specialty Start Date End Date Clare Jones MD [address] [place] [address] PCP - General Internal Medicine 10/04/16 documented as of this encounter
--- OUTSIDE RECORDS SUMMARY | 2024-12-12 12:29 | XMS_ITS | Encounter Summary ---
Author Organization [employer] Address 75 [facility] 7[address] [place] [address] Care Team Providers Care Conduit Installer Name Role Phone Clare Jones MD Primary Care Provider +1- [phone] Reason for Visit * Reason Onset Date Comments Referral 01/12/2024 Encounter Details Date Type Department Care Team (Late st Contact Info) Description 01/12/2024 Telephone [facility] MEDICINE 230 [place], [place] [phone] Clare Jones MD 505 [place] [address] Referral Social History Tobacco Use Types Packs/Day Years [...] encounter Miscellaneous Notes * Telephone Encounter - Silvio Clive - 01/12/2024 1:08 PM EDT TC from daughter requesting new referral: DATE: N/A TIME: N/A Address: [address] [place] [address] Visits: N/A Facility Name: [facility] Imaging Type of Specialist: Radiologist DX: N/A Phone # : [phone] Pt has a referral for [facility] Radiology and daughter is requesting a location change due to [facility] not scheduling until March. If any questions please contact daughter at [phone] documented in this encounter Plan of Treatment Not on file documented as of this encounter Visit Diagnoses Not on filedocumented in this encounter Additional Health Concerns Assessment Noted Time PHQ-9 Depression Total Score: 0 03/07/20 23 4:08 PM EDT documented as of this encounter Care Teams Conduit Installer Relationship Specialty Start Date End Date Clare Jones MD [address] [place] [id number] PCP - General Internal Medicine 10/04/16 documented as of this encounter
--- OUTSIDE RECORDS SUMMARY | 2024-12-12 12:29 | XMS_ITS | Encounter Summary ---
Author Organization [employer] Address 75 [facility] [address] [place] [address] Care Team Providers Care Aluminum Pool Installer Name Role Phone Clare Jones MD Primary Care Provider Reason for Visit * Reason Onset Date Comments Durable Medical Equipment 11/23/2022 Encounter Details Date Type Department Care Team ([facility] st Contact Info) Description 11/23/2022 Telephone [facility] CHC MED & PEDS 505 [place], [place] [phone] Clare Jones MD 505 [place] [address] Durable Medical Equipment Social History Tobacco Use [...] encounter Miscellaneous Notes * Telephone Encounter - Jillian Zabala LPN - 12/01/2022 10:39 AM EST Script generated and refaxed to [facility] * Telephone Encounter - Alla Mccormick - 11/30/2022 1:45 PM EST Tc from Aily[facility] at [facility] calling in regards to medical supplies script status, regarding message below. * Telephone Encounter - Jillian Zabala LPN - 11/26/2022 8:47 AM EST Just sent a refill and noticed this DME requests , states was sent to Jillian zabala But not me , ngoc read message below and advise , if agreed please provide Dx , * Telephone Encounter - Rufus Arora - 11/23/2022 3:31 PM EST Tc from daughter requesting the adult wipes, disposable pads pt uses them 4 times a day, adult pullups medium pt uses 3 times a day and the ensure uses 4 times a day Flavors: Vanilla, [place], Chocolate for patient. Please sent to [facility] [address] [place] [address] documented in this encounter Plan of Treatment Not on file documented as of this encounter Visit Diagnoses Diagnosis Primary insomnia Persistent disorder of initiating or maintaining sleep documented in this encounter Care Teams Aluminum Pool Installer Relationship Specialty Start Date End Date Clare Jones MD [address] [place] [id number] PCP - General Internal Medicine 10/04/16 documented as of this encounter
--- OUTSIDE RECORDS SUMMARY | 2024-12-12 12:29 | XMS_ITS | Encounter Summary ---
Author Organization [employer] Address [address] [facility] [address] 7t [place] [address] Care Team Providers Care Collection Card Clerk Name Role Phone Clare Jones MD Primary Care Provider +1- [phone] Encounter Details Date Type Department Care Team (Late st Contact Info) Description 05/21/2024 Telephone [facility] MEDICINE 230 [place] [address] Clare Jones MD 505 [place] [address] Social History Tobacco Use Types Packs/Day Years [...] documented as of this encounter Care Teams Collection Card Clerk Relationship Specialty Start Date End Date Clare Jones MD [address] [place] [address] PCP - General Internal Medicine 10/04/16 documented as of this encounter
--- OUTSIDE RECORDS SUMMARY | 2024-12-12 12:29 | XMS_ITS | Encounter Summary ---
Author Organization [employer] Address 75 [facility] 7t [place] [address] Care Team Providers Care Title I Director Name Role Phone Clare Jones MD Primary Care Provider +1- [phone] Encounter Details Date Type Department Care Team ([facility] st Contact Info) Description 03/16/2024 Orders Only [facility] CHC MED & PEDS 505 [place], [place] [phone] Clare Jones MD 505 [place] [address] Bladder dysfunction (Primary Dx); Seasonal allergic rhinitis due to other allergic trigger Social History Tobacco Use Types Packs/Day Years [...] as of this encounter Visit Diagnoses Diagnosis Bladder dysfunction- Primary Other functional disorder of bladder Seasonal allergic rhinitis due to other allergic trigger documented in this encounter Additional Health Concerns Assessment Noted Time PHQ-9 Depression Total Score: 0 03/07/20 23 4:08 PM EDT documented as of this encounter Care Teams Title I Director Relationship Specialty Start Date End Date Clare Jones MD [address] [place] [address] PCP - General Internal Medicine 10/04/16 documented as of this encounter
--- OUTSIDE RECORDS SUMMARY | 2024-12-12 12:30 | XMS_ITS | Encounter Summary ---
Author Organization [email or web address] Address 75 [facility] 7t [place] [address] Care Team Providers Care Nailing Machine Operator Name Role Phone Clare Jones MD Primary Care Provider +1- [phone] Encounter Details Date Type Department Care Team (Late st Contact Info) Description 11/17/[address] [facility] CHC MED & PEDS 505 [place], [place] [phone] Clare Jones MD 505 [place] [address] Pneumonia of right upper lobe due to infectious organism (Primary Dx) Social History Tobacco Use Types [...] as of this encounter Visit Diagnoses Diagnosis Pneumonia of right upper lobe due to infectious organism- Primary documented in this encounter Additional Health Concerns Assessment Noted Time PHQ-9 Depression Total Score: 0 03/07/20 23 4:08 PM EDT documented as of this encounter Care Teams Nailing Machine Operator Relationship Specialty Start Date End Date Clare Jones MD [address] [place] [address] PCP - General Internal Medicine 10/04/16 documented as of this encounter
--- OUTSIDE RECORDS SUMMARY | 2024-12-12 12:30 | XMS_ITS | Encounter Summary ---
Author Organization [employer] Address 75 [facility] [address] [place] [address] Care Team Providers Care Home Service Demonstrator Name Role Phone Clare Jones MD Primary Care Provider +1- [phone] Reason for Visit * Reason Onset Date Comments Med Refill 09/26/2024 Encounter Details Date Type Department Care Team ([facility] st Contact Info) Description 09/26/2024 Refill [facility] CHC MED & PEDS 505 [place] [address] Clare Jones MD 505 [place] [address] Social History Tobacco Use Types Packs/Day Years [...] encounter Miscellaneous Notes * Telephone Encounter - Clare Jones MD - 10/08/2024 7:54 PM EST Yes. I agreed to prescribe the medication at the last visit. Pt's daughter Janessa is aware of the risks related to the use of this medication and she will monitor her father. documented in this encounter Plan of Treatment Not on file documented as of this encounter Visit Diagnoses Not on filedocumented in this encounter Additional Health Concerns Assessment Noted Time PHQ-9 Depression Total Score: 0 09/25/20 24 1:21 PM EST documented as of this encounter Care Teams Home Service Demonstrator Relationship Specialty Start Date End Date Clare Jones MD [address] [place] [phone] PCP - General Internal Medicine 10/04/16 documented as of this encounter
--- OUTSIDE RECORDS SUMMARY | 2024-12-12 12:30 | XMS_ITS | Encounter Summary ---
Author Organization [employer] Address [address] [facility] [address] 7[address] [place] [address] Care Team Providers Care Medical Records Custodian Name Role Phone Clare Jones MD Primary Care Provider +1- [phone] Encounter Details Date Type Department Care Team (Late st Contact Info) Description 10/08/2024 Orders Only [facility] 230 [place] [address] Clare Jones MD 505 [place] [address] Social History Tobacco Use Types Packs/Day Years [...] documented as of this encounter Care Teams Medical Records Custodian Relationship Specialty Start Date End Date Clare Jones MD [address] [place] [id number] PCP - General Internal Medicine 10/04/16 documented as of this encounter
--- OUTSIDE RECORDS SUMMARY | 2024-12-12 12:30 | XMS_ITS | Encounter Summary ---
Author Organization [employer] Address 75 [facility] 7t [place] [address] Care Team Providers Care Pc Maintenance Technician Name Role Phone Clare Jones MD Primary Care Provider +1- [phone] Encounter Details Date Type Department Care Team ([facility] st Contact Info) Description 10/22/2024 Orders Only [facility] CHC MED & PEDS 505 [place], [place] [phone] Clare Jones MD 505 [place] [address] Primary insomnia (Primary Dx) Social History Tobacco Use Types [...] of this encounter Visit Diagnoses Diagnosis Primary insomnia- Primary Persistent disorder of initiating or maintaining sleep documented in this encounter Additional Health Concerns Assessment Noted Time PHQ-9 Depression Total Score: 0 09/25/20 24 1:21 PM EST documented as of this encounter Care Teams Pc Maintenance Technician Relationship Specialty Start Date End Date Clare Jones MD [address] [place] [address] PCP - General Internal Medicine 10/04/16 documented as of this encounter
--- OUTSIDE RECORDS SUMMARY | 2024-12-12 12:30 | XMS_ITS | Encounter Summary ---
Author Organization [employer] Address 75 [facility] 7t [place] [address] Care Team Providers Care Category Development Analyst Name Role Phone Clare Jones MD Primary Care Provider +1- [phone] Reason for Visit * Reason Onset Date Comments Call Back Request 12/22/2023 Encounter Details Date Type Department Care Team (Late st Contact Info) Description 12/22/2023 Telephone [facility] MEDICINE [address] [place] [address] Clare Jones MD [address] [place] [address] Call Back Request Social History Tobacco Use Types Packs/Day Years Used Date Smoking Tobacco: Never Smokeless Tobacco: Never Alcohol Use Standard Drinks/Week Comments Never 0 (1 standard drink = 0.6 oz pur e alcohol) Depression Answer Date Recorded Patient Health Questionnaire-9 Score 0 03/07/2023 Housing Stability Answer Date Recorded What is your housing situation today? I have sharavnaessa elizabeth 08/29/[address] you [...] Telephone Encounter - Danna Walls RN - 12/22/2023 10:36 AM EST Returned call to pt daughter regarding missed appt. Daughter requests to only see PCP. Appt r/s 12/23/23. Daughter agrees with plan. * Telephone Encounter - Kenji Lopez - 12/22/2023 9:07 AM EST Tc from patients daughter requesting a call back in regarding missed appt and is also requesting a chest x-ray and [facility] due to the fact the patient had pneumonia several weeks back and was coughing blood and stooling blood patient is not currently stooling or coughing blood documented in this encounter Plan of Treatment Not on file documented as of this encounter Visit Diagnoses Not on filedocumented in this encounter Additional Health Concerns Assessment Noted Time PHQ-9 Depression Total Score: 0 03/07/20 23 4:08 PM EDT documented as of this encounter Care Teams Category Development Analyst Relationship Specialty Start Date End Date Clare Jones MD [address] [place] [phone] PCP - General Internal Medicine 10/04/16 documented as of this encounter
--- OUTSIDE RECORDS SUMMARY | 2024-12-12 12:30 | XMS_ITS | Clinical Summary ---
Author Organization [employer] Address [address] [facility] 7t [place] [address] Care Team Providers Care Manager International Name Role Phone Clare Jones MD Primary Care Provider Allergies Active Allergy Reactions Criticality Noted Date Comments Latex 11/17/2022 Other reaction(s): DERMATITIS Medications bisacodyl (Dulcolax) 10 MG suppository bisacodyl 10 mg rectal suppository INSERT ONE SUPPOSITORY RECTALLY DAILY NEEDED FOR CONSTIPATION 022 Active butalbital-acetam inophen-caffeine 50-325-40 MG tablet Active Diclofenac Sodium 1 % gel 022 Active magnesium oxide (Mag-Ox) 400 MG tablet magnesium oxide 400 mg (241.3 mg magnesium) tablet Active Myrbetriq 25 MG 24 hr tablet Active Nutritional Supplements (Ensure Active Light) liquid Take by mouth every 12 (twelve) hours. 022 Active spironolactone (Aldactone) 25 MG tablet Take 25 mg by mouth 1 (one) time each day. 023 Active bethanechol (Urecholine) 50 MG tablet Take 1 tablet by mouth 2 times daily. 023 Active sodium chloride ([place]) 0.65 % nasal spray Administer 1 spray into each nostril 4 times daily. Active amitriptyline (Elavil) 10 MG tablet Take 10 mg by mouth at bedtime. Active fluticasone (Flonase) 50 MCG/ACT nasal sprayIndications: Ear ache,Nasal congestion,Season al allergic rhinitis due to other allergic trigger Administer 1 spray into each nostril in the morning. 16 g 3 Active albuterol (Ventolin HFA) 108 (90 Base) MCG/ACT inhalerIndication s:Chronic cough Inhale 2 puffs every 6 (six) hours if needed for wheezing. 18 g 11 Active Fluticasone Furoate-Vilantero l (Breo Ellipta) 100-25 MCG/ACT aerosol powderIndications :Chronic cough Inhale 100 mcg in the morning AND 25 mcg in the morning. 1 each Active sennosides (Senokot) 8.6 MG tablet take 1 Tablet by G-tube route every day as needed for constipation 30 tablet Active LORazepam (Ativan) 0.5 MG tabletIndications :Pneumonia of right upper lobe due to infectious organism 1 tab 30 minutes prior to the CT scan. Might repeat another dose 30 minutes after if no effect. 2 tablet Active latanoprost (Xalatan) 0.005 % ophthalmic solution ADMINISTER 1 DROP INTO BOTH EYES AT BEDTIME 7.5 mL Active tamsulosin (Flomax) 0.4 MG 24 hr capsuleIndication s:Bladder dysfunction Take 1 capsule (0.4 mg) by mouth Once per day. 30 capsule Active levocetirizine (Xyzal) 5 MG tabletIndications :Seasonal allergic rhinitis due to other allergic trigger Take 0.5 tablets (2.5 mg) by mouth in the evening. 15 tablet 2024 Active Eliquis 5 MG tablet Take 1 tablet by mouth 2 times daily. Active digoxin (Lanoxin) 125 MCG tablet Take 1 tablet by mouth every other day. Active finasteride (Proscar) 5 MG tablet Take 1 tablet by mouth Once per day. Active gabapentin (Neurontin) 100 MG capsule Active torsemide (Demadex) 20 MG tablet Take 1 tablet by mouth Once per day. Active baclofen (Lioresal) 10 MG tabletIndications :Right hip pain,Muscle spasm Take 1 tablet (10 mg) by mouth 2 times daily. 60 tablet 3 Active ferrous gluconate (Fergon) 324 (38 Fe) MG tabletIndications :CKD (chronic kidney disease), stage II TAKE 1 TABLET BY MOUTH DAILY WITH BREAKFAST 30 tablet 5 Active pantoprazole (ProtoNix) 40 MG EC tablet Take 1 tablet by mouth Once per day. Active metoprolol succinate XL (Toprol-XL) 50 MG 24 hr tablet Take 1 tablet by mouth Once per day. Active acetaminophen (Tylenol) 500 MG tabletIndications :Primary osteoarthritis of other site acetaminophen 500 mg tablet every 12 hours. 60 tablet 11 Active zolpidem (Ambien) 5 MG tablet Take 1 tablet (5 mg) by mouth if needed at bedtime for sleep. 30 tablet 024 2024 Active zolpidem (Ambien) 10 MG tabletIndications :Primary insomnia Take 1 tablet (10 mg) by mouth at bedtime. 30 tablet Active zolpidem (Ambien) 10 MG tabletIndications :Primary insomnia Take 1 tablet (10 mg) by mouth at bedtime. 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 ECHO 05-20-16 Right ventricular systolic dysfunction Overview (11/12/2022): -Mild. 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 Cerebrovascular accident 11/26/2013 Heart murmur 11/26/2013 High blood pressure 11/26/2013 Myocardial infarction 11/26/2013 Mixed sleep apnea 12/19/2012 Overview (11/12/2022): -refuses to follow up with Sleep Medicine/Neurology Impaired cognition 02/11/2011 Mitral valve insufficiency 06/01/2010 Overview (11/12/2022): ECHO 05-20-16 -moderate to severe in ECHO 2014 Increased frequency of urination 01/05/2010 Overview (11/12/2022): detrusor instability-Follows with PVU Decreased hearing 05/10/2008 Microscopic hematuria 05/10/2008 Renal stone 05/10/2008 Encounters Date Type Department Care Team Description 12/03/2024 Refill [facility] [address] [place] [address] Clare Jones MD Primary insomnia 11/07/2024 Refill [facility] [address] [place] [address] Clare Jones MD Primary insomnia 10/22/2024 Orders Only [facility] [address] [place] [address] Clare Jones MD Primary insomnia (Primary Dx) 10/08/2024 Orders Only [facility] [address] [place] [address] Clare Jones MD 09/28/2024 Refill [facility] [address] [place] [address] Clare Jones MD Right hip pain; Muscle spasm 09/26/2024 Refill [facility] [address] [place] [address] Clare Jones MD 09/25/2024 1:00 PM EST Office Visit [facility] [address] [place] [address] Clare Jones MD Chronic atrial fibrillation (CMS/HCC) (Primary Dx); Primary osteoarthritis of other site; Chronic heart failure with preserved ejection fraction (CMS/HCC); Primary insomnia 09/25/2024 Travel 09/18/2024 Orders Only [facility] [address] [place] [id number] Annie Zabala, PharmD 09/17/2024 Orders Only [facility] [address] [place] [address] Clare Jones MD Primary osteoarthritis of other site (Primary Dx) from Last 3 Months Immunizations Name Administration Dates Next Due Influenza High-dose Quadriva lent Preservative Free 07/22/2022,08/01/2020 Influenza Whole 08/26/2010 Influenza injectable quadriv alent IIV4 with preservative 07/09/2019,08/11/2018 Influenza, High Dose Seasona l, Preservative Free 09/05/2017 Influenza, IIV3, injectable 08/26/2016,1 ,07/24/2014,08/23,07/24/2012,08/03/2011 Moderna Covid-19 Vaccine 12+ 10/22/2021,02/20/20 21,01/23/2021 Pneumococcal Conjugate PCV 13 01/08/2016, 015 Pneumococcal Polysaccharide PPSV23 05/06/2022, Tdap 12/22/2020 Zoster, Recombinant 05/06/2022,12/22/2020 Zoster, live 08/15/2012 Social History Tobacco Use Types Packs/Day Years Used Date Smoking Tobacco: Never Smokeless Tobacco: Never Tobacco Cessation:Counseling Given: No Alcohol Use Standard Drinks/Week Comments Never 0 [...] Orientation Straight 08/23/2022 10 :18 AM EDT Last Filed Vital Signs Vital Sign Reading Time Taken Comments Blood Pressure 120/67 09/25/2024 1:17 PM EST Pulse 66 09/25/2024 1:17 PM EST Temperature 36.4 ??C (97.6 ??F) 09/25/2024 1:17 PM ES T Respiratory Rate 18 09/25/2024 1:17 PM EST Oxygen Saturation 97% 09/25/2024 1:17 PM EST Inhaled Oxygen Concentration - - Weight 60.5 kg (133 lb 6.4 oz) 09/25/2024 1:17 P M EST Height 167.6 cm (5' 6 ) 09/25/2024 1:17 PM EST Body Mass Index 21.53 09/25/2024 1:17 PM EST Plan of Treatment Health Maintenance Due Date Last Done Comments Lipid Panel 1936 RSV Patients and Patients Aged 60 years or older (1 - 1-dose 75+ series) 2011 SDOH Screening 01/29/2024 01/28/2023 COVID-19 Vaccine ( season) 2024 08/21/2022, 10/22/2021, 02/19/2021, Additional history exists Influenza Vaccine (#1) 2024 , 08/01/2020, 07/09/2019, Additional history exists Tobacco Screening 07/02/2025 07/02/2024 Alcohol/Substance Use Screening 09/25/2025 09/25/2024 Depression Screening 09/25/2025 09/25/2024, 09/25/20 24 DTaP/Tdap/Td Vaccines (2 - Td or Tdap) 12/22/2030 12/22/2020 Pneumococcal Vaccine: 50+ Years Completed 05/06/2022, 01/08/2016, 01/16/2015, Additional history exists Zoster Vaccines Completed 05/06/2022, 10/2020, 08/15/2012 HIB Vaccines Aged Out No longer eligi ble based on patient's age to complete this topic HPV Vaccines Aged Out No longer eligi ble based on patient's age to complete this topic Hepatitis A Vaccines Aged Out No long er eligible based on patient's age to complete this topic Hepatitis B Vaccines Aged Out No long er eligible based on patient's age to complete this topic IPV Vaccines Aged Out No longer eligi ble based on patient's age to complete this topic Meningococcal Vaccine Aged Out No giulia jarad eligible based on patient's age to complete this topic RSV under 20 months Aged Out No longe r eligible based on patient's age to complete this topic Rotavirus Vaccines Aged Out No longer eligible based on patient's age to complete this topic Insurance [facility] Care Teams Manager International Relationship Specialty Start Date End Date Clare Jones MD [address] [place] [address] LINNETTE Lemus [phone] PCP - General Internal Medicine 10/04/16
--- OUTSIDE RECORDS SUMMARY | 2024-12-12 12:30 | XMS_ITS | Encounter Summary ---
Author Organization [employer] Address [address] [facility] [address] [place] [address] Care Team Providers Care Top Taper Machine Name Role Phone Clare Jones MD Primary Care Provider [phone]- [phone] Encounter Details Date Type Department Care Team (Latest Contact Info) Description 07/02/2022 Abstract [facility] CONVERSION[facility] Dental, Provider, DDS Social History Tobacco Use Types Packs/Day Years Used Date Smoking Tobacco: Never Assessed Sex and Gender Information Value Date Recorded Sex Assigned at Male 08/23/2022 10:18 AM EDT Legal Sex Male 10:18 AM EDT Gender Identity Male 08/23/2022 10:18 AM EDT Sexual Orientation Straight 08/23/2022 10 :18 AM EDT documented as of this encounter Plan of Treatment Not on file documented as of this encounter Visit Diagnoses Not on filedocumented in this encounter Care Teams Top Taper Machine Relationship Specialty Start Date End Date Clare Jones MD [address] [place] [address] PCP - General Internal Medicine 10/04/16 documented as of this encounter
--- OUTSIDE RECORDS SUMMARY | 2024-12-12 12:30 | XMS_ITS | Encounter Summary ---
Author Organization [employer] Address [address] [facility] [address], [place] [address] Care Team Providers Care Help Desk Support Specialist Name Role Phone Clare Jones MD Primary Care Provider [phone]- [phone] Reason for Referral * Consultation (Routine) - Closed Specialty Diagnoses / Procedures Referred By Controck t Referred To Contact Physical Therapy Diagnoses Primary osteoarthritis of other site Clare Jones MD [address] [place] [address] Phone: tel: fax: Referral ID Status Reason Start Date Expiration Date V isits Requested Visits Authorized [id number] Closed Specialty Services Required 09/17/2024 09/17/2025 1 0 Encounter Details Date Type Department Care Team (Late st Contact Info) Description 09/17/2024 Orders Only [facility] [address] [place], [place] [phone] Clare Jones MD [address] [place], [place] [phone] Primary osteoarthritis of other site (Primary Dx) Social History Tobacco Use Types [...] of this encounter Plan of Treatment Scheduled Referrals Name Type Priority Associated Diagnoses Orde r Schedule Referral to Physical Therapy Outpatient Referral Routine Primary osteoarthritis of other site Expected: 09/17/2024 (Approximate), Expires: 09/17/2025 documented as of this encounter Visit Diagnoses Diagnosis Primary osteoarthritis of other site- Primary documented in this encounter Additional Health Concerns Assessment Noted Time PHQ-9 Depression Total Score: 0 03/07/20 23 4:08 PM EDT documented as of this encounter Care Teams Help Desk Support Specialist Relationship Specialty Start Date End Date Clare Jones MD [address] [place] [phone] PCP - General Internal Medicine 10/04/16 documented as of this encounter
--- OUTSIDE RECORDS SUMMARY | 2024-12-12 12:30 | XMS_ITS | Encounter Summary ---
Author Organization [employer] Address 75 [facility] [address] [place] [address] Care Team Providers Care Solutions Architect Name Role Phone Clare Jones MD Primary Care Provider [phone]- [phone] Reason for Visit * Reason Onset Date Comments Hospital Follow-up 08/21/2024 Encounter Details Date Type Department Care Team (Late st Contact Info) Description 08/21/2024 Telephone [facility] [address] [place] [address] Clare Jones MD [address] [place], [place] [phone] Hospital Follow-up Social History Tobacco Use Types Packs/Day Years [...] encounter Miscellaneous Notes * Telephone Encounter - Corrie Alves - 08/21/2024 8:06 AM EDT Tc from pt requesting a HDF appt. [place] [facility] [place] Date of admission: 07/30/2024 Discharge date: 08/07/2024 Diagnosed: GI bleeding documented in this encounter Plan of Treatment Not on file documented as of this encounter Visit Diagnoses Not on filedocumented in this encounter Additional Health Concerns Assessment Noted Time PHQ-9 Depression Total Score: 0 03/07/20 23 4:08 PM EDT documented as of this encounter Care Teams Solutions Architect Relationship Specialty Start Date End Date Clare Jones MD [address] [place] [id number] PCP - General Internal Medicine 10/04/16 documented as of this encounter
--- OUTSIDE RECORDS SUMMARY | 2024-12-12 12:30 | XMS_ITS | Encounter Summary ---
Author Organization [employer] Address [address] [facility] [address] 7[address] [place] [address] Care Team Providers Care Rn Navigator Name Role Phone Clare Jones MD Primary Care Provider [phone]- [phone] Encounter Details Date Type Department Care Team (Late st Contact Info) Description 11/17/2023 Telephone [facility] [address] [place] [address] Clare Jones MD [address] [place] [address] Social History Tobacco Use Types Packs/Day Years [...] Telephone Encounter - Danna Walls RN - 11/18/2023 9:41 AM EST TC X2 to pt regarding message below. Daughter answered call and was informed of CXR results and PCPPOC. Daughter advised that upon completion of treatment, it symptoms do not improve of worsen to return call to office for further eval. Daughter verbalized understanding and agrees with plan. * Telephone Encounter - Jayne Champion - 11/18/2023 9:09 AM EST Tc from pt daughter returning PCP call in regards to results. Please contact daughter at [phone] * Telephone Encounter - Sagrario Nazario LPN - 11/17/2023 8:26 AM EST Critical result line call received now from Lisa with [facility] Radiology. CXR: Results faxed x 2. New Right Upper Lobe Pneumonia Right Bibasilar Pneumonia Persistent Cardiomegaly Recommendation to follow until compete resolved. Please Update PCP now and follow with patient. documented in this encounter Plan of Treatment Not on file documented as of this encounter Visit Diagnoses Not on filedocumented in this encounter Additional Health Concerns Assessment Noted Time PHQ-9 Depression Total Score: 0 03/07/20 23 4:08 PM EDT documented as of this encounter Care Teams Rn Navigator Relationship Specialty Start Date End Date Clare Jones MD [address] [place] [id number] PCP - General Internal Medicine 10/04/16 documented as of this encounter
--- OUTSIDE RECORDS SUMMARY | 2024-12-12 12:30 | XMS_ITS | Encounter Summary ---
Author Organization [employer] Address [address] [facility] 7t [place] [address] Care Team Providers Care Motocross Racer Name Role Phone Clare Jones MD Primary Care Provider [phone]- [phone] Reason for Visit * Reason Onset Date Comments Med Refill 08/16/2024 Encounter Details Date Type Department Care Team (Late st Contact Info) Description 08/16/2024 Telephone [facility] [address] [place] [address] Clare Jones MD [address] [place] [address] Med Refill Social History Tobacco Use Types Packs/Day Years [...] encounter Miscellaneous Notes * Telephone Encounter - Yoli Chowdhury LPN - 08/16/2024 11:06 AM EDT Medication isn't prescribed by PCP. * Telephone Encounter - Corrie Alves - 08/16/2024 10:52 AM EDT TC from pt requesting medication refill. Medications needing refill : torsemide (Demadex) 20 MG tablet To be sent to: [facility] documented in this encounter Plan of Treatment Not on file documented as of this encounter Visit Diagnoses Not on filedocumented in this encounter Additional Health Concerns Assessment Noted Time PHQ-9 Depression Total Score: 0 03/07/20 23 4:08 PM EDT documented as of this encounter Care Teams Motocross Racer Relationship Specialty Start Date End Date Clare Jones MD [address] [place] [phone] PCP - General Internal Medicine 10/04/16 documented as of this encounter
--- OUTSIDE RECORDS SUMMARY | 2024-12-12 12:30 | XMS_ITS | Encounter Summary ---
Author Organization [employer] Address [address] [facility] 7t [place] [address] Care Team Providers Care Health Information Director Name Role Phone Clare Jones MD Primary Care Provider [phone]- [phone] Encounter Details Date Type Department Care Team (Late st Contact Info) Description 12/01/2022 Abstract [facility] MED[facility]INE [address] [place] [address] Clare Jones MD [address] [place] [phone] Social History Tobacco Use Types Packs/Day Years [...] PM EST documented as of this encounter Plan of Treatment Not on file documented as of this encounter Visit Diagnoses Not on filedocumented in this encounter Care Teams Health Information Director Relationship Specialty Start Date End Date Clare Jones MD [address] [place] [phone] PCP - General Internal Medicine 10/04/16 documented as of this encounter
--- OUTSIDE RECORDS SUMMARY | 2024-12-12 12:30 | XMS_ITS | Encounter Summary ---
Author Organization [employer] Address [address] [facility] 7t [place] [address] Care Team Providers Care Manager Games Name Role Phone Clare Jones MD Primary Care Provider +1- [phone] Reason for Visit * Reason Onset Date Comments Medication Question 10/21/2022 Encounter Details Date Type Department Care Team (Late st Contact Info) Description 10/21/2022 Telephone [facility] [address] [place] [address] Clare Jones MD [address] [place] [address] Medication Question Social History Tobacco Use Types Packs/Day Years Used Date Smoking Tobacco: Never Smokeless Tobacco: Never Depression Answer Date Recorded Patient Health Questionnaire-9 [...] encounter Miscellaneous Notes * Telephone Encounter - Shayla Champion RN - 10/21/2022 1:19 PM EST Please review message below and advise. Thank you. * Telephone Encounter - Kiana Flannery - 10/21/2022 11:57 AM EST Tc from [facility] requesting clarification on script( instructions ) for colace 100mg, states script was sent as needed and would need to state 1 capsule 2 times daily . Advised will leave a message. Please contact at [phone] documented in this encounter Plan of Treatment Not on file documented as of this encounter Visit Diagnoses Diagnosis Chronic idiopathic constipation- Primary Unspecified constipation documented in this encounter Care Teams Manager Games Relationship Specialty Start Date End Date Clare Jones MD [address] [place] [phone] PCP - General Internal Medicine 10/04/16 documented as of this encounter
--- OUTSIDE RECORDS SUMMARY | 2024-12-12 12:30 | XMS_ITS | Encounter Summary ---
Author Organization [employer] Address [address] [facility] 7[address] [place] [address] Care Team Providers Care Box Worker Name Role Phone Clare Jones MD Primary Care Provider +1- [phone] Encounter Details Date Type Department Care Team ([facility] st Contact Info) Description 08/22/2024 Orders Only [facility] [address] [place], [place] [phone] Clare Jones MD [address] [place] [address] Chronic heart failure with preserved ejection fraction [...] fraction (CMS/HCC)- Primary documented in this encounter Additional Health Concerns Assessment Noted Time PHQ-9 Depression Total Score: 0 03/07/20 23 4:08 PM EDT documented as of this encounter Care Teams Box Worker Relationship Specialty Start Date End Date Clare Jones MD [address] [place] [phone] PCP - General Internal Medicine 10/04/16 documented as of this encounter
--- OUTSIDE RECORDS SUMMARY | 2024-12-12 12:30 | XMS_ITS | Data Portability ---
Author Organization [employer] [place] [facility] [employer] Address [address] [place] [id number] Care Team Providers Care Drama Critic Name Role Phone [facility] Referring Provider HIM [facility] OTHER Assessment Encounter Date Assessment Date Assessment LastModified by Organization Details LastModified Time 02/17/2022 02/17/2022 I have reviewed and agree with the Assessment and Plan as documented by the Call Center Rn. I provided real -time medical direction via phone for this encounter, and was available for additional phone based assistance as needed. Patient/ given the opportunity to ask questions. [email or web address] Not available 02/17/2022 18:02:20 05/20/2023 05/20/2023 I provided real -time medical direction via phone for this encounter, and was available for additional phone based assistance as needed. I have reviewed and agree with the Assessment and Plan as documented by the Call Center Rn. Patient given the opportunity to ask questions. We discussed the diagnostic uncertainty of home visits and the risk associated with this. In this case, the patient and I felt this to be an acceptable and reasonable amount of risk given the benefit of avoiding an ED visit. We discussed the need to seek care urgently/emergentl y in the setting of any new or worsening serious symptoms, particularly fever chills lightheadedness altered mental status. As per above, patient calls with previous complaint of edema in the face in bilateral lower extremities. Patient states that this was 2 days ago and has not had any further recurrence. Patient without any distress and no visible edema that is concerning on exam. Stable vitals. Plan for close observation and education. [email or web address] Not available 05/21/2023 15:00:08 02/15/2024 02/15/2024 Mr. Cornelius Paez is an 88yoM w/ a remote hx of prostate CA, hx of AF on eliqiuis, cardiac amyloidosis w/ RV failure who is seen today for further evaluation of hematuria. Mr. Paez and his report that for the past week he has felt the need to strain while urinating. These episodes are associated with dark urine and today his daughter requested an [facility] visit for further evaluation. He denies any nausea/vomiting, fevers/chills, dysuria, abdominal pain, or any other concerns. VSS. Call Center Rn on site reports urine is clear yellow. POC dip negative for LE, nitrites but positive for 3+ blood. Presentation and urine dip less typical for UTI but will send for culture. Encouraged outpatient follow up for likely mild urinary retention and consideration for prostate imaging. Red flags reviewed with medical billing assistant. Primary team, Mr. Paez would benefit from follow up in the next week or two to discuss his painless hematuria. [email or web address] Not available 02/15/2024 15:11:31 Plan of Treatment Reminders Order Date Submit Date Provider Last Modified By Organization Details Last Modified Time Details Appointments None recorded. Lab culture, urine 2023 024 CARMEL [facility], [address] [place] [address], [id number], 4 14:07:02 urinalysis, dipstick 2023 024 [facility], [address] [place] [address], [id number], 4 19:32:24 rapid SARS CoV 2 Ag, QL IA, respiratory specimen 2021 022 [email or web address] [facility], [address] [place] [address], [id number], 2 18:05:35 rapid flu (A+B) 2021 022 [email or web address] [address] [facility], [address] [place] [address], [id number], 18:05:35 Referral None recorded. Procedures None recorded. Surgeries None recorded. Imaging None recorded. Medication Orders Augmentin 875 mg-125 mg tablet 2023 024 LAYLANAHDE [facility], [address], [place], [address], 18:11:17 Patient TargetsNo targets recorded. Patient InstructionsNo instructions recorded. Reason for Referral None Reported. Results Created Date Observation Date Name Description Value Unit Range Abnormal Flag Note LastModifiedBy Organization Detail LastModifiedTime 02/18/20 22 02/17/2022 rapid flu (A+B) Flu negati ve Not Available Main - [facility] ed [address] [place] [address], [id number], 02/17/2022 18:01:58 02/18/20 22 02/17/2022 rapid SARS CoV 2 Ag, QL IA, respi rator y speci men rapid SARS CoV 2 Ag, QL IA, respiratory specimen positi ve Not Available [facility] ed [address] [place] [address], [id number], 02/17/2022 18:01:49 02/15/20 24 02/16/2024 SPECI MEN IDENT IFICA TION STATU S specimen identificati on status Commen t Pleas e be advis ed that a minor name discr epanc y has occur red. The name on the sampl e(s) does not match the name on the reque st form. All tests reque sted are in progr ess. READS 2023 Not Available [facility] ([facility]) [address] [facility], [place], [address], 02/16/2024 12:06:05 02/15/20 24 02/19/2024 URINE CULTU RE,CO MPREH ENSIV E urine culture,comp rehensive Final report Not Available [facility] ([facility]) [address] [facility], [place], [address], 02/19/2024 16:05:36 02/15/20 24 02/19/2024 URINE CULTU RE,CO MPREH ENSIV E result 1 COMMEN T No growt h in 36 - 48 hours . Not Available [facility] ([facility]) [address] [facility], [place], [address], 02/19/2024 16:05:36 Result Notes None recorded. Medical Equipment None Reported. Allergies Allergen ID Allergen Name Allergen Category Reaction Reaction Severity Criticality Documentation Date Start Date Code Code System Note Provider Name and Address Organization Details Recorded Time 8002 latex environme nt,medica tion Not available Not available Not available 08/21/2024 09390 91 RxNorm Not Available [facility] - production 03:41:17 Medications Name Sig Start Date Stop Date Status Note LastModified by Organization Details LastModified Time delivery fee active Not Available Not Available Not Available pulse oximeter leader USE DIRECTED active Not Available Not Available No t Available quetiapine 25 mg tablet active Not Available Not Available Not Available amoxicillin 500 mg capsule TAKE ONE CAPSULE BY MOUTH TWICE DAILY FOR 10 DAYS active Not Available Not Available No t Available latanoprost 0.005 % eye drops active Not Available Not Available Not Available atorvastatin 40 mg tablet active Not Available Not Available Not Available Vitamin B-2 100 mg tablet active Not Available Not Available Not Available doxycycline hyclate 100 mg capsule active Not Available Not Available N ot Available torsemide 20 mg tablet active Not Available Not Available No t Available tizanidine 2 mg tablet active Not Available Not Available No t Available tizanidine 4 mg tablet active Not Available Not Available No t Available senna 8.6 mg tablet TAKE ONE TABLET DAILY NEEDED FOR CONSTIPATIO N active Not Available Not Available No t Available diltiazem CD 240 mg capsule,exte nded release 24 hr active Not Available Not Available Not Available permethrin 5 % topical cream APPLY BY TOPICAL ROUTE. THOROUGHLY MASSAGE INTO SKIN FROM HEAD TO SOLES OF FEET ONCE. LEAVE ON FOR 8 TO 14 HOURS, THEN REMOVE BY THOROUGH WASHING active Not Available Not Available No t Available torsemide 10 mg tablet TAKE 1 TABLET BY MOUTH EVERY DAY active Not Available Not Available No t Available acetaminophe n 300 mg-codeine 30 mg tablet active Not Available Not Available Not Available aspirin 81 mg tablet,delay ed release active Not Available Not Available N ot Available acetaminophe n 500 mg tablet active Not Available Not Available Not Available spironolacto ne 25 mg tablet active Not Available Not Available Not Available bisoprolol fumarate 10 mg tablet active Not Available Not Available No t Available ketorolac 0.5 % eye drops active Not Available Not Available Not Available bisoprolol fumarate 5 mg tablet active Not Available Not Available No t Available prednisolone acetate 1 % eye drops,suspen andressa active Not Available Not Available Not Available magnesium oxide 400 mg (241.3 mg magnesium) tablet active Not Available Not Available Not Available lorazepam 0.5 mg tablet take 1 tablet [address] scan, may repeat with 1 tablet in 30 minutes if no effect active Not Available Not Available No t Available amitriptylin e 10 mg tablet active Not Available Not Available Not Available baclofen 10 mg tablet active Not Available Not Available No t Available bisacodyl 10 mg rectal suppository INSERT ONE SUPPOSITORY RECTALLY DAILY NEEDED FOR CONSTIPATIO N active Not Available Not Available No t Available mirtazapine 30 mg tablet active Not Available Not Available Not Available Ear Drops (carbamide peroxide) 6.5 % active Not Available Not Available Not Available docusate sodium 100 mg capsule TAKE ONE CAPSULE TWICE DAILY NEEDED active Not Available Not Available No t Available omeprazole 20 mg capsule,phoebe yed release active Not Available Not Available Not Available codeine 10 mg-guaifenes in 100 mg/5 mL oral liquid TAKE FIVE ml's BY MOUTH EVERY 6 HOURS NEEDED FOR COUGH active Not Available Not Available No t Available digoxin 125 mcg (0.125 mg) tablet active Not Available Not Available N ot Available bethanechol chloride 50 mg tablet active Not Available Not Available No t Available mirtazapine 15 mg tablet active Not Available Not Available Not Available fluticasone propionate 50 mcg/actuatio n nasal spray,suspen andressa active Not Available Not Available Not Available finasteride 5 mg tablet active Not Available Not Available Not Available amoxicillin 875 mg-potassium clavulanate 125 mg tablet Take 1 tablet every 12 hours by oral route for 5 days. active Not Available Not Available Not Available Ventolin HFA 90 mcg/actuatio n aerosol inhaler active Not Available Not Available Not Available quetiapine 50 mg tablet active Not Available Not Available Not Available ferrous gluconate 324 mg (38 mg iron) tablet active Not Available Not Available Not Available melatonin 5 mg tablet active Not Available Not Available No t Available Myrbetriq 25 mg tablet,exten ded release active Not Available Not Available Not Available Eliquis 5 mg tablet active Not Available Not Available Not Available Eliquis 2.5 mg tablet active Not Available Not Available No t Available Breo Ellipta 100 mcg-25 mcg/dose powder for inhalation active Not Available Not Available N ot Available Vitals Date Recorded Body temperature Body weight Heart rate Respiratory rate Body height Oxygen saturation Oxygen saturation in Arterial blood by Pulse oximetry Systolic blood pressure Diastolic blood pressure Provider Name and Address Organization Details Last Updated DateTime 3 98.3 [degF] 03809.8 g 72 /min 18 /min 165.1 cm 95 % 95 % 127 mm[Hg] 70 mm[Hg] Not Available [facility] [employer] 3 14:58:23 Date Recorded Heart rate Oxygen saturation Oxygen saturation in Arterial blood by Pulse oximetry Body height Respiratory rate Body temperature Body weight Systolic blood pressure Diastolic blood pressure Provider Name and Address Organization Details Last Updated DateTime 4 65 /min 96 % 96 % 167.64 cm 18 /min 98.2 [degF] 82484.8 4 g 149 mm[Hg] 74 mm[Hg] Not Available [facility] 4 18:08:04 Date Recorded Oxygen saturation Oxygen saturation in Arterial blood by Pulse oximetry Body temperature Body weight Body height Heart rate Respiratory rate Systolic blood pressure Diastolic blood pressure Provider Name and Address Organization Details Last Updated DateTime 4 97 % 97 % 97.7 [degF] 04652.5 12 g 170.18 cm 62 /min 16 /min 145 mm[Hg] 68 mm[Hg] Not Available [facility] 4 14:03:31 Date Recorded Oxygen saturation Oxygen saturation in Arterial blood by Pulse oximetry Body weight Body temperature Respiratory rate Heart rate Systolic blood pressure Diastolic blood pressure Provider Name and Address Organization Details Last Updated DateTime 4 99 % 99 % 97333.8 8 g 97.4 [degF] 16 /min 80 /min 136 mm[Hg] 40 mm[Hg] Not Available [facility] 4 19:02:22 Date Recorded Oxygen saturation Oxygen saturation in Arterial blood by Pulse oximetry Body temperature Respiratory rate Heart rate Respiratory rate Oxygen saturation Oxygen saturation in Arterial blood by Pulse oximetry Heart rate Respiratory rate Heart rate Systolic blood pressure Diastolic blood pressure Provider Name and Address Organization Details Last Updated DateTime 2 98 % 98 % 98.4 [degF] 20 /min 90 /min 20 /min 98 % 98 % 90 /min 20 /min 90 /min 141 mm[Hg] 84 mm[Hg] Not Available [facility] 17:09:39 Social History None recorded. Functional Status None recorded. Mental Status None recorded. Family History Nothing Reported. Medical History No medical history recorded. Past Encounters Encounter ID Performer Location Encounter Start Date Encounter Closed Date Diagnosis/Indication Diagnosis SNOMED-CT Code Diagnosis ICD10 Code Diagnosis Note [id number] Radha Hill MD Main - [facility] [address] [place] [id number] 01/30/2022 18:34:04 07/01/2022 17:40:00 Dyspnea 974524603 R06.00 resolved [id number] Radha Hill MD Main - [facility] [address] [place] [id number] 02/17/2022 17:09:37 07/01/2022 18:09:08 Viral syndrome 472837319 B34.9 + covid-- pat in no respirator y distress- only sl exp wheeze with cough- not tachypneic / sat nl on RA- I did not feel prednisone indicated at this time. To continue regular flonase and ellipta as prescribed . Will continue Tylenol 500 mg q 6h prn- aware if develops CP/ significan t SOB/ cyanosis/a cute AMS/ very hi fever karlie unresponsi ve to Tylenol should go immediatel y to the ER- call [id number] Smita Cool MD Main - [facility] [address] [place] [id number] 05/21/2023 14:58:14 05/23/2023 16:37:33 Edema [id number] R60.9 Elaine Purdy MD Main - [facility] [address] [place] [phone] 12/19/2023 18:08:02 12/20/2023 10:35:13 Cough [id number] R05.9 I provided real -time medical direction via phone for this encounter, and was available for additional phone based assistance as needed. I have reviewed and agree with the Assessment and Plan as documented by the Call Center Rn. Patient given the opportunit y to ask questions. 88 yo M w/cough w/ right sided chest pain. dx pna end of october, treated and sx improved.l ast week sx recurred with blood tinged sputum. No malaise/fe vers/chill s. occasional ly chokes on water per . + nasal congestion w/ occasional mild epistaxis. Feels otherwise well. Family noting 3mo unintentio nal weight loss which they attribute to poor appetite.f ormer smoker, quit 30+ years ago.unclea r pathology, some concern for malignancy given blood + weight loss. Exam reassuring . DDx also includes aspiration and/or postnasal drip. Will treat empiricall y for pna but explained that pt need to see primary and get chest imaging within the next week or two at the latest. pcp reportedly referred to pulmonolog y, which has not yet been scheduled. - 5d Augmentin to avoid Qtc prolongati on with LQN- family voiced understand ing of plan [id number] Areli Cruz MD Main - [facility] [address] [place] [id number] 02/15/2024 13:29:41 02/15/2024 22:08:45 Urinary symptoms [id number] R39.9 [id number] Saskia Mcarthur MD Main - [facility] [address] [place] [id number] 02/17/2024 19:02:18 02/19/2024 17:06:36 Furuncle [id number] L02.92 88 year old male being evaluated for a R groin lesion since this morning. Patient afebrile, denies any pain outside the groin area or hip dysfunctio n. Exam notable for normal vital signs, subcutaneo us swelling <1 cm with overlying open comedone, no clear erythema of surroundin g area, mild tenderness to palpation. Presentati on consistent with furuncle of R groin area without associated cellulitis or suspected large abscess. Recommende d warm compresses to the area to promote spontaneou s drainage, advised to FU if enlarged, painful or febrile in the coming days for assessment for I&D. I have reviewed and agree with the assessment and plan as documented by the medical billing assistant. I provided real-time medical direction for this encounter and was immediatel y available to provide additional phone-base d assistance as needed. We discussed the diagnostic uncertaint y of home visits and associated risks. We discussed the need to seek care urgently/e mergently in the setting of any new or worsening symptoms. Health Concerns Section Related Observation LastModified by Organization Detai ls LastModified Time None Recorded Concern Status LastModified by Organization Details LastModified Time None Recorded Advance Directives Directive None Recorded Payers Encounter Date Sequence Insurance Name Policy Number Policy Monahan Covered Member ID Monahan Member ID Guarantor Name 02/17/2022 1 [employer] - DOS PRIOR TO 2023 - DUAL ELIGIBLE (MEDICARE REPLACEMENT/AD VANTAGE - HMO) Cornelius Medianero [id number] Cornelius A Medianero 05/20/2023 1 [facility] - DOS ON OR AFTER 2023 - DUAL ELIGIBLE - SENIOR LIVING OPTIONS AND ONE CARE (MEDICARE REPLACEMENT/AD VANTAGE - HMO) Cornelius Medianero [id number] Cornelius A Medianero 12/19/2023 1 [facility] - DOS ON OR AFTER 2023 - DUAL ELIGIBLE - SENIOR LIVING OPTIONS AND ONE CARE (MEDICARE REPLACEMENT/AD VANTAGE - HMO) Cornelius Medianero [id number] Cornelius A Medianero 02/15/2024 1 [facility] - DOS ON OR AFTER 2023 - DUAL ELIGIBLE - SENIOR LIVING OPTIONS AND ONE CARE (MEDICARE REPLACEMENT/AD VANTAGE - HMO) Cornelius Medianero [id number] Cornelius A Medianero 02/17/2024 1 [facility] [employer] - DOS ON OR AFTER 2023 - DUAL ELIGIBLE - SENIOR LIVING OPTIONS AND ONE CARE (MEDICARE REPLACEMENT/AD VANTAGE - HMO) Cornelius Medianero [id number] [facility] A Medianero Notes Date Note Type Note Provider Name and Address Organization Details Recorded Time 02/17/2022 text/html HPI: Call received from member's daughter, Janessa (ph# [phone]) to the [facility]. Janessa reports mbr has not felt well with flu like symptoms and PCP would not see member d/t symptoms and recommended home visit through [facility]. Janessa reports mbr with sx for the past 4 days, myalgias, productive cough, wheezing, CP, decreased appetite, chills, and congestion. Denies SOB. Mbr is at home with the same sx, Janessa called to request HV for both mbr and mbr's . Mbr does not have thermometer at home. Denies exposure to Covid-19. Anuja has not taken been tested for Covid-19 or flu. Reports anuja has been taking OTC cold medication without effect. [facility] referral submitted. .................... .................... .................... .................... .................... .................... .................... . Call Center Rn Note: Patient is a 86 year old male with flu like symptoms. Patient alert, oriented and ambulatory. Patient in no acute distress, airway patent, breathing normally, skin WPD. Patient state symptoms began x1 week ago. Cough, congestion, headache, body aches, fever, chills, sleeplessness, fatigue. Patient denies contact with any sick people. Patient is fully vaccinated and boosted. Patient also has flu shot. Patient has been taking Tylenol for pain/fever. No further complaints. Rapid flu obtained; negative. Rapid Covid obtained; Positive. Vital signs obtained and all within normal limits. Red flags discussed. Consulted with Dr. Hill. Patient is to follow up with PCP/care team regarding signs, symptoms and todays visit. Since the patient is positive for Covid, patient is to quarantine until cleared by PCP. Monitor health and symptoms for any changes. Contact [facility] for re-visit if symptoms persist. Contact 911 for any discussed red flags or other emergencies. .................... .................... .................... .................... .................... .................... .................... . Disposition: Fulfilled Radha Hill MD [address] [facility],[address], [place], [phone], YOSELIN LEE 02/17/2022 18:06:15 05/20/2023 text/html HPI: Members [facility] calling in to place a referral. Members dtr called [facility] this morning with concerns of edema. Member experiencing face and upper extremity edema. Member does have a history of CHF and takes a diuretic, per [facility] member is compliant. Member denies chest pain and no sob. No warmth, redness or pain to upper extremities. Family would like member evaluated. .................... .................... .................... .................... .................... .................... .................... . [facility] Nursing Assessment: Comments: [facility] RN did not require any additional information to process this visit. .................... .................... .................... .................... .................... .................... .................... . Call Center Rn Note From Cecelia Martinez: Sent to a call for a pt with face and upper extremity edema. SC8 arrives on scene, pt is alert and oriented, airway is patent. Pt does not appear to be in respiratory distress. 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 Family states pt had lower extremity edema starting on Tuesday, facial edema yesterday and sob this morning, especially during PT. Family states pt does not comply with lower extremity compression socks or with elevation for long periods. Pt has an albuterol inhaler to use as needed, but has not used recently. Pt denies crook, dizziness, cp, n/v/d, abd pain, fever, or loc. Pictures of facial and lower extremity edema uploaded to [employer]. BP:127/70, P:72, RR:18, Sp O2:95% RA, T:98.3; Head: facial edema noted; Lung sounds: clear bilaterally; Abdomen: soft, non-tender, no distention; Back: unremarkable; Upper extremities: unremarkable; Lower extremities: 1+ edema at most, (+)cms; Skin: pink, warm, dry; [facility] consulted and no orders are given. Pt/family advised to try using compression socks and elevation if pt will tolerate. Family member unhappy with recommendation. Family member is advised increased medication is not appropriate for pt's current condition. Red flags discussed. Pt and family have no further questions. .................... .................... .................... .................... .................... .................... .................... . Disposition: Fulfilled Smita Cool MD [address] [facility],[address], [place], [address], [employer] 05/21/2023 15:00:19 12/19/2023 text/html HPI: HX: CHF, AFib, CVA, SSS, [place], Esophagitis. Diagnosed with right sided pneumonia 11/16/23 . Completed antibiotics. Cough with chest wall pain and blood noted in sputum. Old brownish blood in stool with constipation per report. Poor PO intake .................... .................... .................... .................... .................... .................... .................... . [facility] Nurse Triage Notes (Zarina Gillette): Comments: Called Daughter , explained the risk factors of PE vs possible GI bleed , daughter refusing ER at this time, wants an assessment to determine if member needs further testing and imaging. Explained risk factors of delaying care. Daughter is aware of risk of refusing ER .................... .................... .................... .................... .................... .................... .................... . Baseline Information: Baseline Hb: 10.7 g/dL Baseline HCt: 34% Baseline Creatinine: 1.31 mg/dL .................... .................... .................... .................... .................... .................... .................... . Call Center Rn Note From [facility] Paiz[facility]. [facility] presents ambulating in his home with son and present. Pt's daughter called on the phone as well to provide background to current situation. Daughter reports diagnosis of pneumonia 1 month ago and pt was treated with antibiotics and completed his course. For the last few days there is concern of pain in chest when coughing, some small amount of blood showing up in phlegm and one bowel movement that might have had blood in it. Vital signs taken and WNL. Pt afebrile. Lung sounds clear and equal bilaterally. Consulted with [facility] Dr. Purdy who spoke Jamaican and was able to ask questions of the family directly. Pt was started on oral levaquin with prescription sent to pharmacy. Family was instructed to follow up with PCP in order to have diagnostic chest x ray and ct scan completed. Patient education provided. .................... .................... .................... .................... .................... .................... .................... . Disposition: Fulfilled Elaine Purdy MD [address] [facility],[address], [place], [address], [employer] 12/20/2023 00:02:32 02/15/2024 text/html HPI: HX: CVA, Prostate CA, CKD,. Patient with one week history of dark thick urine with painful urination. Family concerned with UTI. .................... .................... .................... .................... .................... .................... .................... . [facility] Nurse Triage Notes (David Denise): Comments: Reviewed HPI .................... .................... .................... .................... .................... .................... .................... . Call Center Rn Note From Kermit Paiz: [facility] visit for elderly male patient with suspected UTI. Pt presents conscious and alert in home with his . spoke Sami and translated for patient. Pt states he has had some urine retention for last month describing it as having to push urine out. notes a foul odor when he has been going to the bathroom. No pain reported. V/S taken and WNL. Pt afebrile. Pt was able to provide urine sample with urine dipstick for positive for blood but no other concerning findings. Palpating patients back he did have some tenderness on the left side in the area of the costovertebral angle, however overlying muscles also felt very tense. Urine culture and specimen obtained. Consulted with [facility] Dr. Cruz who advised no acute treatments, awaiting results of urine culture to proceed. Reviewed red flags with family and provided patient education. [facility] Lab Orders: culture, urine: Performed urinalysis, dipstick: Performed .................... .................... .................... .................... .................... .................... .................... . Disposition: Fulfilled Areli Cruz MD [address] [facility],[address], [place], [address], [facility] 02/15/2024 15:50:22 02/17/2024 text/html HPI: [facility] reporting lump on right side of groin area on the inside part of thigh .................... .................... .................... .................... .................... .................... .................... . [facility] Nurse Triage Notes (Zarina Gillette): Comments: RN calling for member with red painful lump on right inner thigh. Member stated that it appeared today. Member denies any injury or fall . Member denies any fever/ chills/n/v/d Was seen by [facility] for UC , no growth .................... .................... .................... .................... .................... .................... .................... . Call Center Rn Note From Donaldo Cole: Pt co red bump on upper thigh near groan with pain. Pt denies fever bleeding injury drainage co or sob. Baseline vitals assessed. Red bump appears to be ingrown hair or pimple/boil. Area slight red with black head. Afebrile. [facility] contacted and advised hot compress to area. Pt advised to monitor bump. Advised if gets bigger or more painful to go to ER. Pt education on signs indicating the ER. Call Center Rn Allergies: Latex .................... .................... .................... .................... .................... .................... .................... . Disposition: Fulfilled Saskia Mcarthur MD [address] [facility],[address], [place], [address], [employer] 02/17/2024 21:36:11
--- OUTSIDE RECORDS SUMMARY | 2024-12-12 12:30 | XMS_ITS | Encounter Summary ---
Author Organization [email or web address] Address [address] [facility] [address] [place] [address] Care Team Providers Care Transfer Iron Operator Name Role Phone Clare Jones MD Primary Care Provider [phone]- [phone] Encounter Details Date Type Department Care Team (Latest Contact Info) Description 07/03/2019 Abstract [facility] Dental, Provider, DDS Social History Tobacco [...] on filedocumented in this encounter Care Teams Transfer Iron Operator Relationship Specialty Start Date End Date Clare Jones MD [address] [place] [address] PCP - General Internal Medicine 10/04/16 documented as of this encounter
--- OUTSIDE RECORDS SUMMARY | 2024-12-12 12:30 | XMS_ITS | Encounter Summary ---
Author Organization [employer] Address [address] [facility] [address] [place] [address] Care Team Providers Care Research Editor Name Role Phone Clare Jones MD Primary Care Provider [phone]- [phone] Encounter Details Date Type Department Care Team ([facility] st Contact Info) Description 12/21/2023 Orders Only [facility] MED & PEDS [address] [place], [place] [phone] Clare Jones MD [address] [place] [address] Chronic cough (Primary Dx) Social History Tobacco Use Types [...] Type Priority Associated Diagnoses Orde r Schedule XR Chest 2 Views Imaging Routine Chronic cough Expected: 12/21/2023 (Approximate), Expires: 12/21/2024 documented as of this encounter Visit Diagnoses Diagnosis Chronic cough- Primary Cough documented in this encounter Additional Health Concerns Assessment Noted Time PHQ-9 Depression Total Score: 0 03/07/20 23 4:08 PM EDT documented as of this encounter Care Teams Research Editor Relationship Specialty Start Date End Date Clare Jones MD [address] [place] [address] PCP - General Internal Medicine 10/04/16 documented as of this encounter
--- OUTSIDE RECORDS SUMMARY | 2024-12-12 12:30 | XMS_ITS | Encounter Summary ---
Author Organization [employer] Address [address] [facility] [address] [place] [address] Care Team Providers Care Staff Physical Therapy Assistant Name Role Phone Clare Jones MD Primary Care Provider +1- [phone] Reason for Visit * Reason Comments Med Refill Encounter Details Date Type Department Care Team ([facility] st Contact Info) Description 09/28/2024 Refill [facility] CHC MED & PEDS [address] [place], [place] [phone] Clare Jones MD [address] [place], [place] [phone] Right hip pain; Muscle spasm Social History Tobacco Use Types Packs/Day Years [...] as of this encounter Visit Diagnoses Diagnosis Right hip pain Pain in joint, pelvic region and thigh Muscle spasm Spasm of muscle documented in this encounter Additional Health Concerns Assessment Noted Time PHQ-9 Depression Total Score: 0 09/25/20 24 1:21 PM EST documented as of this encounter Care Teams Staff Physical Therapy Assistant Relationship Specialty Start Date End Date Clare Jones MD [address] [place] [address] PCP - General Internal Medicine 10/04/16 documented as of this encounter
--- OUTSIDE RECORDS SUMMARY | 2024-12-12 12:30 | XMS_ITS | Encounter Summary ---
Author Organization [employer] Address [address] [facility] [address] [place] [address] Care Team Providers Care Licensed Acupuncturist Name Role Phone Clare Jones MD Primary Care Provider [phone]- [phone] Reason for Visit * Reason Onset Date Comments Med Refill 12/03/2024 Encounter Details Date Type Department Care Team (Late st Contact Info) Description 12/03/2024 Refill [facility] MEDICINE [address] [place] [address] Clare Jones MD [address] [place] [address] Primary insomnia Social History Tobacco Use Types Packs/Day Years [...] encounter Miscellaneous Notes * Telephone Encounter - Iqra Joe - 12/03/2024 12:09 PM EST TC from May with Valentín requesting medication refill. 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
== END 2024-12-12 12:45 | disposition home or self-care (01) ==
LOC: HO.HKAS 11:54
PROVIDERS: PCP Internal Medicine; Visit Provider Internal Medicine Hypertension Specialist
DX: N28.9 Disorder of kidney and ureter, unspecified (principal); E61.1 Iron deficiency
CPT/HCPCS: 99204

== ENCOUNTER → 2024-12-12 11:54 | Outpatient (BNVA) | payer OTHER, SELFPAY | PROVIDERS: PCP Internal Medicine; Visit Provider Internal Medicine Hypertension Specialist | DX: N28.9 Disorder of kidney and ureter, unspecified (principal); E61.1 Iron deficiency | CPT/HCPCS: 99202 ==

== ENCOUNTER → 2024-12-13 10:00 | Outpatient (BNV) | payer OTHER, SELFPAY | PROVIDERS: PCP Internal Medicine; Visit Provider Nurse Practitioner Family | DX: D64.9 Anemia, unspecified (principal) | CPT/HCPCS: 99204 ==

== ENCOUNTER 2024-12-28 10:24 | Outpatient (RCR) | payer OTHER, SELFPAY ==
[2024-12-28 10:41] VITALS: BP 120/57; PULSE 69; RESP 16; TEMP 36.6; O2SAT 95
[2024-12-28] MEDS: Ferric Carboxymaltose 750 MG in 0.9 % Sodium Chloride 250 ML 1060 MG IV (11:08)
== END 2024-12-28 11:30 | disposition home or self-care (01) ==
LOC: HO.INF 10:24
PROVIDERS: PCP Internal Medicine; Visit Provider Internal Medicine Hypertension Specialist
DX: E61.1 Iron deficiency (principal)
CPT/HCPCS: 96365; J1439

== ENCOUNTER 2025-01-03 10:29 | Outpatient (REF) | payer OTHER, SELFPAY ==
--- NOTE | ~2025-01-03 | US_ITS ---
CLINICAL HISTORY: N28.9 - Disorder of kidney and ureter, unspecified US renal with Color Doppler Comparison: None Findings: Right kidney normal size and echotexture, 10.7 cm length. No hydronephrosis. Normal color flow. Renal cortical defect lower pole right kidney. Renal cortical cyst with thin septation and focal calcification upper pole measuring 1.5 x 1.2 x 1.3 cm. Nonobstructing caliceal stone midpole measuring 6 x 3 x 4 mm Left kidney normal size and echotexture, 9.9 cm length. No hydronephrosis. No nephrolithiasis. Normal color flow. Renal cortical cyst upper pole measuring 8 x 8 x 7 mm. Renal cortical cyst with thin septation midpole measuring 1.5 x 1.2 x 1.2 cm Impression: 1. Kidneys normal size and position with normal renal echotexture. 2. Nephrolithiasis on the right without evidence of hydronephrosis 3. 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 Renal cysts with thin septations bilaterally. 5. CT or MRI of the abdomen with and without contrast renal protocol may be of further diagnostic value This document has been electronically signed by: Michi Mead MD on 01/03/2025 12:40:20
--- OUTSIDE RECORDS SUMMARY | 2025-01-03 13:08 | XMS_ITS | Data Portability ---
Author Organization [employer] Address [address] [place] [address] Care Team Providers Care Extension Supervisor Name Role Phone [facility] Referring Provider HIM [facility] OTHER Assessment Encounter Date Assessment Date Assessment LastModified by Organization Details LastModified Time 02/17/2022 02/17/2022 I have reviewed and agree with the Assessment and Plan as documented by the Foundry Hand. I provided real -time medical direction via phone for this encounter, and was available for additional phone based assistance as needed. Patient/ given the opportunity to ask questions. [email or web address] Not available 02/17/2022 18:02:20 05/20/2023 05/20/2023 I provided real -time medical direction via phone for this encounter, and was available for additional phone based assistance as needed. I have reviewed and agree with the Assessment and Plan as documented by the Foundry Hand. Patient given the opportunity to ask questions. [...] abdominal pain, or any other concerns. VSS. Foundry Hand on site reports urine is clear yellow. POC dip negative for LE, nitrites but positive for 3+ blood. Presentation and urine dip less typical for UTI but will send for culture. Encouraged outpatient follow up for likely mild urinary retention and consideration for prostate imaging. Red flags reviewed with bean sprout laborer. Primary team, Mr. Paez would benefit from follow up in the next week or two to discuss his painless hematuria. [email or web address] Not available 02/15/2024 15:11:31 Plan of Treatment Reminders Order Date Submit Date Provider Last Modified By Organization Details Last Modified Time Details Appointments None recorded. Lab culture, urine 2023 KIRKLIN [facility] (Centralized Electronic Ordering - All Locations), Patient Can Go To The Location Of Their Choice, [address] 14:07:02 urinalysis, dipstick 2023 024 [facility], [address] [place] [address], [phone], 4 19:32:24 rapid SARS CoV 2 Ag, QL IA, respiratory specimen 2021 022 [email or web address] 0 [facility], [address] [place] [address], [phone], 18:05:35 rapid flu (A+B) 2021 022 [email or web address] 0 [facility], [address] [place] [address], [phone], 18:05:35 Referral None recorded. Procedures None recorded. Surgeries None recorded. Imaging None recorded. Medication Orders Augmentin 875 mg-125 mg tablet 2023 024 L[facility], [address] [place], [address], 18:11:17 Patient TargetsNo targets recorded. Patient InstructionsNo instructions recorded. Reason for Referral None Reported. Results Created Date Observation Date Name Description Value Unit Range Abnormal Flag Note LastModifiedBy Organization Detail LastModifiedTime 02/18/20 22 02/17/2022 rapid flu (A+B) Flu negati ve Not Available Main [facility] ed [address] [place] [address], [phone], 02/17/2022 18:01:58 02/18/20 22 02/17/2022 rapid SARS CoV 2 Ag, QL IA, respi rator y speci men rapid SARS CoV 2 Ag, QL IA, respiratory specimen positi ve Not Available [facility] ed [address] [place] [address], [phone], 02/17/2022 18:01:49 02/15/20 24 02/16/2024 SPECI MEN IDENT IFICA TION STATU S specimen identificati on status Commen t Pleas e be advis ed that a minor name discr epanc y has occur red. The name on the sampl e(s) does not match the name on the reque st form. All tests reque sted are in progr ess. READS 2023 Not Available [facility] ([facility]) [address], [place], [address], 02/16/2024 12:06:05 02/15/20 24 02/19/2024 URINE CULTU RE,CO MPREH ENSIV E urine culture,comp rehensive Final report Not Available [facility] ([facility]) [address], [place], [address], 02/19/2024 16:05:36 02/15/20 24 02/19/2024 URINE CULTU RE,CO MPREH ENSIV E result 1 COMMEN T No growt h in 36 - 48 hours . Not Available [facility] ([facility]) [address], [place], [address], 02/19/2024 16:05:36 Result Notes None recorded. Medical Equipment None Reported. Allergies Allergen ID Allergen Name Allergen Category Reaction Reaction Severity Criticality Documentation Date Start Date Code Code System Note Provider Name and Address Organization Details Recorded Time 8002 latex environme nt,medica tion Not available Not available Not available 08/21/2024 80010 91 RxNorm Not Available [employer] - production [...] Details Last Updated DateTime 3 98.3 [degF] 15505.8 g 72 /min 18 /min 165.1 cm 95 % 95 % 127 mm[Hg] 70 mm[Hg] Not Available [employer] - production 3 14:58:23 Date Recorded Heart rate Oxygen saturation Oxygen saturation in Arterial blood by Pulse oximetry Body height Respiratory rate Body temperature Body weight Systolic blood pressure Diastolic blood pressure Provider Name and Address Organization Details Last Updated DateTime 4 65 /min 96 % 96 % 167.64 cm 18 /min 98.2 [degF] 63664.8 4 g 149 mm[Hg] 74 mm[Hg] Not Available [employer] - production 4 18:08:04 Date Recorded Oxygen saturation Oxygen saturation in Arterial blood by Pulse oximetry Body temperature Body weight Body height Heart rate Respiratory rate Systolic blood pressure Diastolic blood pressure Provider Name and Address Organization Details Last Updated DateTime 4 97 % 97 % 97.7 [degF] 70480.5 12 g 170.18 cm 62 /min 16 /min 145 mm[Hg] 68 mm[Hg] Not Available [employer] [facility] [employer] 4 14:03:31 Date Recorded Oxygen saturation Oxygen saturation in Arterial blood by Pulse oximetry Body weight Body temperature Respiratory rate Heart rate Systolic blood pressure Diastolic blood pressure Provider Name and Address Organization Details Last Updated DateTime 4 99 % 99 % 63534.8 8 g 97.4 [degF] 16 /min 80 /min 136 mm[Hg] 40 mm[Hg] Not Available [employer] [employer] 4 19:02:22 Date Recorded Oxygen saturation Oxygen [...] 912 Radha Hill MD Main - [facility] [address] [place] [phone] 01/30/2022 18:34:04 07/01/2022 17:40:00 Dyspnea 779548170 R06.00 resolved 1217 Radha Hill MD Main - [facility] [address] [place] [phone] 02/17/2022 17:09:37 07/01/2022 18:09:08 Viral syndrome 141904359 B34.9 + covid-- pat in no respirator [...] go immediatel y to the ER- call [phone] Smita Cool MD Main - [facility] [address] [place] [phone] 05/21/2023 14:58:14 05/23/2023 16:37:33 Edema 822134070 R60.9 Elaine Purdy MD Main - [facility] [address] [place] [phone] 12/19/2023 18:08:02 12/20/2023 10:35:13 Cough 29905651 R05.9 I provided real -time medical direction via phone for this encounter, and was available for additional phone based assistance as needed. I have reviewed and agree with the Assessment and Plan as documented by the Foundry Hand. Patient given the opportunit y to ask [...] LQN- family voiced understand ing of plan [id number] Areli Cruz MD Main - [facility] [address] [place] [phone] 02/15/2024 13:29:41 02/15/2024 22:08:45 Urinary symptoms 704143454 R39.9 [id number] Saskia Mcarthur MD Main - [facility] [address] [place] [phone] 02/17/2024 19:02:18 02/19/2024 17:06:36 Furuncle 774511646 L02.92 88 year old male being evaluated [...] assessment and plan as documented by the bean sprout laborer. I provided real-time medical direction for this [...] Monahan Member ID Guarantor Name 02/17/2022 1 [facility] DOS PRIOR TO 2023 - DUAL ELIGIBLE (MEDICARE REPLACEMENT/AD VANTAGE - HMO) Cornelius Medianero [id number] Cornelius A Medianero 05/20/2023 1 [facility] - DOS ON OR AFTER 2023 - DUAL ELIGIBLE - CORRECTION OPTIONS AND ONE CARE (MEDICARE REPLACEMENT/AD VANTAGE - HMO) Cornelius Medianero [id number] Cornelius A Medianero 12/19/2023 1 [facility] - DOS ON OR AFTER 2023 - DUAL ELIGIBLE - CORRECTION OPTIONS AND ONE CARE (MEDICARE REPLACEMENT/AD VANTAGE - HMO) Cornelius Medianero [id number] Cornelius A Medianero 02/15/2024 1 [facility] - DOS ON OR AFTER 2023 - DUAL ELIGIBLE - CORRECTION OPTIONS AND ONE CARE (MEDICARE REPLACEMENT/AD VANTAGE - HMO) Cornelius Medianero [id number] Cornelius A Medianero 02/17/2024 1 [facility] - DOS ON OR AFTER 2023 - DUAL ELIGIBLE - CORRECTION OPTIONS AND ONE CARE (MEDICARE REPLACEMENT/AD VANTAGE - HMO) Cornelius Medianero [id number] Cornelius A Medianero Notes Date Note Type Note Provider Name and Address Organization Details Recorded Time 02/17/2022 text/html HPI: Call received from member's daughter, Janessa (ph# [phone]) to the CRU. Janessa reports mbr has not felt well with flu like symptoms and PCP would not see member d/t symptoms and recommended home visit through [facility]. Janessa reports mbr with sx for the [...] .................... .................... .................... .................... .................... .................... . Foundry Hand Note: Patient is a 86 year old [...] . Disposition: Fulfilled Radha Hill MD [address] [facility],[address], [place], [address], [employer] 02/17/2022 18:06:15 05/20/2023 text/html HPI: Members VNA [...] .................... .................... .................... .................... .................... .................... . Foundry Hand Note From Cecelia Martinez: Sent to a call for a pt with face and upper extremity edema. SC8 arrives on scene, pt is alert and oriented, airway is patent. Pt does not appear to be in respiratory distress. Pt's primary language is Danish and pt's family serves as conference interpreter. Family states pt had lower extremity edema [...] facial and lower extremity edema uploaded to [employer]. BP:127/70, P:72, RR:18, Sp O2:95% RA, T:98.3; [...] .................... .................... .................... .................... .................... . Disposition: Deborah Cool MD [address] [facility],[address], [place], [address], [employer] [facility] 05/21/2023 15:00:19 12/19/2023 text/html HPI: HX: CHF, AFib, CVA, SSS, MD, Esophagitis. Diagnosed with right sided pneumonia 11/16/23 [...] .................... .................... .................... .................... .................... .................... . Foundry Hand [facility] Kermit Paiz[facility] [...] sounds clear and equal bilaterally. Consulted with [facility] Dr. Purdy who spoke Danish and was able to ask questions of the family directly. Pt was started on oral levaquin with prescription sent to pharmacy. Family was instructed to follow up with PCP in order to have diagnostic chest x ray and ct scan completed. Patient education provided. .................... .................... .................... .................... .................... .................... .................... . Disposition: Fulfilled Elaine Purdy MD [address] [facility],[address], [place], [phone], [employer] 12/20/2023 00:02:32 02/15/2024 text/html HPI: HX: CVA, Prostate CA, CKD,. Patient with one week history of dark thick urine with painful urination. Family concerned with UTI. .................... .................... .................... .................... .................... .................... .................... . [facility] Nurse Triage Notes (David Denise): Comments: Reviewed HPI .................... .................... .................... .................... .................... .................... .................... . Foundry Hand Note From Kermit Paiz: [facility] visit for elderly male patient with suspected UTI. Pt presents conscious and alert in home with his . spoke Afghan and translated for patient. Pt states he [...] Urine culture and specimen obtained. Consulted with [facility] Dr. Cruz who advised no acute treatments, awaiting results of urine culture to proceed. Reviewed red flags with family and provided patient education. [facility] Lab Orders: culture, urine: Performed urinalysis, dipstick: Performed .................... .................... .................... .................... .................... .................... .................... . Disposition: Deborah Cruz MD [address] [facility],[address], [place], [address], [facility] [employer] [facility] 02/15/2024 15:50:22 02/17/2024 text/html HPI: [facility] reporting lump on right side of groin area on the inside part of thigh .................... .................... .................... .................... .................... .................... .................... . [facility] Nurse Triage Notes (Zarina Gillette): Comments: RN calling for member with red painful lump on right inner thigh. Member stated that it appeared today. Member denies any injury or fall . Member denies any fever/ chills/n/v/d Was seen by [facility] for UC , no growth .................... .................... .................... .................... .................... .................... .................... . Foundry Hand Note From Donaldo Cole: Pt co red bump on upper thigh near groan with pain. Pt denies fever bleeding injury drainage co or sob. Baseline vitals assessed. Red bump appears to be ingrown hair or pimple/boil. Area slight red with black head. Afebrile. [facility] contacted and advised hot compress to area. Pt advised to monitor bump. Advised if gets bigger or more painful to go to ER. Pt education on signs indicating the ER. Foundry Hand Allergies: Latex .................... .................... .................... .................... .................... .................... .................... . Disposition: Deborah Mcarthur MD [address] [facility],[address], [place], [address], [employer] 02/17/2024 21:36:11
--- OUTSIDE RECORDS SUMMARY | 2025-01-03 13:09 | XMS_ITS | Continuity of Care Document ---
Author Organization [facility] Address [address] [address] Phone Care Team Providers Care Chemistry Physics Teacher Name Role Phone Tiffanie Allen OT Unavailable Unavailable Advance Directives Directive Yes / No Effective Date File Name No Information Encounters Encounter Description Practice Location Reason(s) For Visit Diagnoses Date Provider [facility], [address] [place] [address], [id number], [place] tel:[phone] [facility] No Information 2020 Alejandro Moreno. [address] [place] [address], [id number], [place]. tel:[phone] Family History Family Member Type Diagnosis [...]
== END 2025-01-03 10:30 | disposition home or self-care (01) ==
LOC: HO.US 10:29
PROVIDERS: PCP Internal Medicine; Visit Provider Internal Medicine Hypertension Specialist
DX: N28.9 Disorder of kidney and ureter, unspecified (principal)
CPT/HCPCS: 76775

== ENCOUNTER → 2025-01-03 10:32 | Outpatient (BNV) | payer OTHER, SELFPAY | PROVIDERS: PCP Internal Medicine; Visit Provider Radiology Diagnostic Radiology | DX: N20.0 Calculus of kidney (principal); N28.1 Cyst of kidney, acquired | CPT/HCPCS: 76775 ==

== ENCOUNTER 2025-01-09 11:28 | Outpatient (AMB) | payer OTHER, SELFPAY ==
--- NOTE | 2025-01-09 11:59 | HO.NEPHOV_ITS ---
Vital Signs 01/09/25 12:00 Height 5 ft 5 in Weight 145 lb BMI 24.1 BP 116/50 L Blood Pressure Location Lt brachial Position Sitting Pulse 66 Pulse Source Pulse Oximeter Pulse Oximetry (%) 90 L Oxygen Delivery Method Room Air Intake Visit Reasons: 4wk follow-up/ LVM Camera Systems Engineer Required: No Accompanied by: Daughter Allergies penicillin G Allergy (Unknown, Verified 01/09/25 13:30) Unknown Latex Allergy (Unknown, Uncoded 01/09/25 13:30) Unknown Medication List - Last Reconciled 01/09/25 by Danny Sky MD acetaminophen 500 mg PO PRN amitriptyline 10 mg PO BEDTIME 30 days apixaban (Eliquis) 5 mg PO BID bethanechol chloride 50 mg PO BID 90 days ferric carboxymaltose (Injectafer) 750 mg (15 mL) IV QWEEK 1 dose finasteride 5 mg PO DAILY 90 days fluticasone furoate-vilanterol 100-25 mcg/dose (Breo Ellipta) 1 ea inhalation DAILY PRN gabapentin 100 - 300 mg PO BEDTIME PRN ipratropium-albuterol 0.5 mg-3 mg(2.5 mg base)/3 mL 3 mL inhalation Q4-6H PRN latanoprost 0.005% 0 drps ophthalmic (eye) levocetirizine 5 mg PO DAILY metoprolol tartrate 50 mg PO DAILY mirabegron ER 25 mg PO DAILY 90 days pantoprazole mg PO DAILY spironolactone 12.5 mg (1/2 x 25 mg) PO DAILY tamsulosin mg PO DAILY torsemide 20 mg PO DAILY HPI Comments Details: Elderly man with a history of chronic kidney disease referred for evaluation of CKD. Accompanied by his daughter. He has had chronic anemia. In the past he has received iron infusions. 01/09/25. No specific complaints today. He has gained 6 lb. Status post blood transfusion x2 units. Also received 1 dose of Feraheme [facility] Medical History Nocturia Urinary frequency OAB (overactive bladder) Urinary retention Weak urinary stream Surgical History Hx of heart bypass surgery History of appendectomy History of prostate surgery Family History Father No problems noted. Mother Colon cancer Social History Household Members: Spouse and Significant Other Alcohol intake: never Patient Tobacco Use Status: Never used Tobacco Current occupational status: retired Gender identity: Male Physical Exam Vital Signs: Last Vital Signs Pulse 66 01/09/25 12:00 BP 116/50 L 01/09/25 12:00 Pulse Ox 90 L 01/09/25 12:00 Oxygen Delivery Method Room Air 01/09/25 12:00 BMI result Body Mass Index 24.1 Comfortable Neck supple no JVD. Lungs entry equal no rales. Heart S1-S2 heard no gallop or rub. Abdomen soft nontender. Neuro alert awake oriented. No asterixis. Extremities no edema. Results Reviewed Results Reviewed: December 2024 USG 1. Kidneys normal size and position with normal renal echotexture. 2. Nephrolithiasis on the right without evidence of hydronephrosis 3. 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 Renal cysts with thin septations bilaterally. 5. CT or MRI of the abdomen with and without contrast renal protocol may be of further diagnostic value Nephrology Results: Hgb 8.2 g/dl (14.0-18.0) L 01/03/25 WBC 3.3 X10*3/uL (4.8-10.8) L 01/03/25 Plt Count 103 X10*3/uL (160-400) L 01/03/25 Sodium 141 mmol/L (135-145) 01/03/25 Potassium 4.5 mmol/L (3.3-5.1) 01/03/25 Chloride 109 mmol/L (96-108) H 01/03/25 Carbon Dioxide 27 mmol/L (22-29) 01/03/25 BUN 26 mg/dL (9-16) H 01/03/25 Creatinine 1.15 mg/dL (0.5-1.4) 01/03/25 Calcium 9.4 mg/dL (8.4-10.2) 01/03/25 Renal US 01/03/25 Assessment & Plan Assessment & Plan (1) Kidney disease: Code(s): N28.9 - Disorder of kidney and ureter, unspecified Category: Medical (2) Iron deficiency: Code(s): E61.1 - Iron deficiency Category: Medical (3) CKD (chronic kidney disease): Code(s): N18.9 - Chronic kidney disease, unspecified Category: Medical Plan Elderly man with CKD. Cr is better No obstructive uropathy. Continue to avoid nephrotoxic agents. Optimize blood pressure. Anemia which is multifactorial iron deficiency could be playing a karimi role. Status post transfusion and IV iron infusion. Recheck hemoglobin and evaluate for Epogen History of CHF. He has gained 6 lb since last visit. Increase torsemide to 40 mg in the morning. If needed torsemide can be split to 20 mg twice a day. Orders: Orders Basic Metabolic Panel 2 Weeks N18.9 - Chronic kidney disease, unspecified Complete Blood Count no Diff Today N18.9 - Chronic kidney disease, unspecified Medications: Changed From torsemide 40 mg PO DAILY To torsemide 40 mg (2 x 20 mg) PO DAILY 180 tabs 1RF 90 days Coding Level of Care Code Est Pt Level 5 (48979) Diagnoses Kidney disease N28.9 Iron deficiency E61.1 CKD (chronic kidney disease) N18.9
[2025-01-09 12:00] VITALS: BP 116/50; PULSE 66; O2SAT 90; BMI 24.1
== END 2025-01-09 12:26 | disposition home or self-care (01) ==
LOC: HO.HKAS 11:28
PROVIDERS: PCP Internal Medicine; Visit Provider Internal Medicine Hypertension Specialist
DX: E61.1 Iron deficiency (principal); N18.9 Chronic kidney disease, unspecified
CPT/HCPCS: 99214

== ENCOUNTER → 2025-01-09 11:28 | Outpatient (BNVA) | payer OTHER, SELFPAY | PROVIDERS: PCP Internal Medicine; Visit Provider Internal Medicine Hypertension Specialist | DX: N28.9 Disorder of kidney and ureter, unspecified (principal); N18.9 Chronic kidney disease, unspecified; E61.1 Iron deficiency | CPT/HCPCS: 99212 ==

== ENCOUNTER 2025-01-29 14:43 | Outpatient (REF) | payer OTHER, SELFPAY ==
[2025-01-29 15:10] LABS: Hematocrit 35.3 % (42.0-52.0); Mean Corpuscular HGB Conc 31.2 g/dl (31.0-36.0); Mean Corpuscular Hemoglobin 27.6 pg (27.0-33.0); Mean Corpuscular Volume 88.5 fL (80.0-98.0); Mean Platelet Volume 9.5 fL (9.4-12.4); Platelet Count 102 X10*3/uL (160-400); Red Blood Count 3.99 X10*6/uL (4.60-5.80); Red Cell Distribution Width 18.7 % (11.0-16.0); White Blood Count 4.1 X10*3/uL (4.8-10.8)
[2025-01-29 15:27] LABS: Anion Gap 11 (12-20); Blood Urea Nitrogen 27 mg/dL (9-16); Calcium 9.6 mg/dL (8.4-10.2); Carbon Dioxide 27 mmol/L (22-29); Chloride 107 mmol/L (96-108); Estimated Glomerular Filt Rate > 60; Glucose Random 89 mg/dL (60-115); Sodium 141 mmol/L (135-145)
--- OUTSIDE RECORDS SUMMARY | 2025-01-29 17:51 | XMS_ITS | Encounter Summary ---
Author Organization [employer] Address [address] [facility] [address] [address] Care Team Providers Care Machine Set Up Technician Name Role Phone Clare Jones MD Primary Care Provider Reason for Referral * Imaging (Routine) - Closed Specialty Diagnoses / Procedures Referred By Contac t Referred To Contact Radiology Diagnoses Chronic cough Weight loss Procedures CT Chest w/ Contrast Clare Jones MD [address] [place] [address] Phone: tel: fax: [facility] Referral ID Status Reason Start Date Expiration Date Visits Re quested Visits Authorized [id number] Closed 01/06/2024 01/05/2025 1 1 Encounter Details Date Type Department Care Team ([facility] st Contact Info) Description 01/06/2024 Orders Only [facility] CHC MED & PEDS [address] [place], [place] [phone] Clare Jones MD 505 [place] [address] Chronic cough (Primary Dx); Weight loss Social [...] documented as of this encounter Care Teams Machine Set Up Technician Relationship Specialty Start Date End Date Clare Jones MD [address] [place] [address] PCP - General Internal Medicine 10/04/16 documented as of this encounter
--- OUTSIDE RECORDS SUMMARY | 2025-01-29 17:51 | XMS_ITS | Encounter Summary ---
Author Organization [employer] Address 75 [facility] 7[place] [address] Care Team Providers Care Window Installation Subcontractor Name Role Phone Clare Jones MD Primary Care Provider +1- [phone] Encounter Details Date Type Department Care Team (Late st Contact Info) Description 07/02/2024 Orders Only [facility] CHC MED & PEDS 505 [place], [place] [phone] Clare Jones MD 505 [place] [address] Chronic atrial fibrillation (CMS/HCC) (Primary Dx) Social [...] documented as of this encounter Care Teams Window Installation Subcontractor Relationship Specialty Start Date End Date Clare Jones MD [address] [place] [address] PCP - General Internal Medicine 10/04/16 documented as of this encounter
--- OUTSIDE RECORDS SUMMARY | 2025-01-29 17:51 | XMS_ITS | Encounter Summary ---
Author Organization [employer] Address [address] [facility] [address] [place] [address] Care Team Providers Care Vision Mixer Name Role Phone Clare Jones MD Primary Care Provider +1- [phone] Reason for Visit * Reason Onset Date Comments FYI 07/02/2024 Encounter Details Date Type Department Care Team (Late st Contact Info) Description 07/02/2024 Telephone [facility] [address] [place] [address] Clare Jones MD 505 [place] [address] Social History Tobacco Use Types Packs/Day Years [...] 07/09/2024 11:22 AM EDT Returned call to [facility] and relayed message that if pt [...] for proper evaluation. * Telephone Encounter - Sivlio Duffy - 07/02/2024 12:47 PM EDT Tc from [facility] with [facility] calling to inform pcp of home visit. Pt's o2 was a 92% crackles at the bases and increase of shortness of breath. Pt also reported having frequent nose bleeds for the past few days after restarding eliquis. If any questions you can contact [facility] at [phone]. documented in this encounter Plan of Treatment Not on file documented as of this encounter Visit Diagnoses Not on filedocumented in this encounter Additional Health Concerns Assessment Noted Time PHQ-9 Depression Total Score: 0 03/07/20 23 4:08 PM EDT documented as of this encounter Care Teams Vision Mixer Relationship Specialty Start Date End Date Clare Jones MD [address] [place] [address] PCP - General Internal Medicine 10/04/16 documented as of this encounter
--- OUTSIDE RECORDS SUMMARY | 2025-01-29 17:51 | XMS_ITS | Encounter Summary ---
Author Organization [employer] Address [address] [facility] [address] 7[address] [place] [address] Care Team Providers Care Fuller Brush Worker Name Role Phone Clare Jones MD Primary Care Provider +1- [phone] Encounter Details Date Type Department Care Team (Late st Contact Info) Description 05/21/2024 Telephone [facility] MEDICINE 230 [place] [address] Clare Jones MD 505 [place] [address] Social History Tobacco Use Types Packs/Day Years [...] documented as of this encounter Care Teams Fuller Brush Worker Relationship Specialty Start Date End Date Clare Jones MD [address] [place] [address] PCP - General Internal Medicine 10/04/16 documented as of this encounter
--- OUTSIDE RECORDS SUMMARY | 2025-01-29 17:51 | XMS_ITS | Encounter Summary ---
Author Organization [employer] Address 75 [facility] [address] [place] [address] Care Team Providers Care Grounds Worker Name Role Phone Clare Jones MD Primary Care Provider +1- [phone] Reason for Visit * Reason Onset Date Comments Referral 01/12/2024 Encounter Details Date Type Department Care Team (Late st Contact Info) Description 01/12/2024 Telephone [facility] MEDICINE 230 [place] [address] Clare Jones MD 505 [place] [address] Referral Social History Tobacco Use Types Packs/Day [...] new referral: DATE: N/A TIME: N/A Address: [address] [place] [address] Visits: N/A Facility Name: [facility] Radiology & Imaging Type of Specialist: Radiologist DX: N/A Phone # : [phone] Pt has a referral for [facility] Rad[facility] and daughter is requesting a location change due to [facility] not scheduling until March. If any questions please contact daughter at [phone] documented in this encounter Plan of Treatment Not on file documented as of this encounter Visit Diagnoses Not on filedocumented in this encounter Additional Health Concerns Assessment Noted Time PHQ-9 Depression Total Score: 0 03/07/20 23 4:08 PM EDT documented as of this encounter Care Teams Grounds Worker Relationship Specialty Start Date End Date Clare Jones MD [address] [place] [address] PCP - General Internal Medicine 10/04/16 documented as of this encounter
--- OUTSIDE RECORDS SUMMARY | 2025-01-29 17:51 | XMS_ITS | Continuity of Care Document ---
Author Organization [facility] Address [address] [address] Phone Care Team Providers Care Wire Frame Lampshade Maker Name Role Phone Tiffanie Allen OT Unavailable Unavailable Advance Directives Directive Yes / No Effective Date File Name No Information Encounters Encounter Description Practice Location Reason(s) For Visit Diagnoses Date Provider [facility], [address] [place] [address], [id number], [place] tel:[phone] [facility] [address] No Information 2020 Alejandro Moreno. [address] [place] [address], [id number], [place]. tel:[phone] Family History Family Member Type Diagnosis Age At Onset No Information Payers Payer name Insurance type Covered republican ID Authoriza tion(s) No Information Social History Type Description Quantity Date Captured Comments Sex Male Smoking Status No Information Chief Complaint And Reason For Visit No Information History Of Present Illness Encounter Date Complaint History Of Prese nt Illness No Information Instructions Date Instruction Additional Infor mation No Information Assessments Type Assessment Date No Information
--- OUTSIDE RECORDS SUMMARY | 2025-01-29 17:51 | XMS_ITS | Encounter Summary ---
Author Organization [employer] Address 75 [facility] 7t [place] [address] Care Team Providers Care Restaurant Bartender Name Role Phone Clare Jones MD Primary Care Provider +1- [phone] Encounter Details Date Type Department Care Team ([facility] st Contact Info) Description 03/16/2024 Orders Only [facility] CHC MED & PEDS 505 [place], [place] [phone] Clare Jones MD 505 [place] [address] Bladder dysfunction (Primary Dx); Seasonal allergic rhinitis [...] documented as of this encounter Care Teams Restaurant Bartender Relationship Specialty Start Date End Date Clare Jones MD [address] [place] [address] PCP - General Internal Medicine 10/04/16 documented as of this encounter
--- OUTSIDE RECORDS SUMMARY | 2025-01-29 17:52 | XMS_ITS | Encounter Summary ---
Author Organization [employer] Address [address] [facility] [address] 7[address] [place] [address] Care Team Providers Care Software Product Manager Name Role Phone Clare Jones MD Primary Care Provider +1- [phone] Encounter Details Date Type Department Care Team (Late st Contact Info) Description 10/08/2024 Orders Only [facility] 230 [place] [address] Clare Jones MD 505 [place] [address] Social History Tobacco Use Types Packs/Day Years [...] documented as of this encounter Care Teams Software Product Manager Relationship Specialty Start Date End Date Clare Jones MD [address] [place] [address] PCP - General Internal Medicine 10/04/16 documented as of this encounter
--- OUTSIDE RECORDS SUMMARY | 2025-01-29 17:52 | XMS_ITS | Encounter Summary ---
Author Organization [employer] Address 75 [facility] [address], [place] [address] Care Team Providers Care Postpartum Nurse Name Role Phone Clare Jones MD Primary Care Provider +1- [phone] Reason for Referral * Consultation (Routine) - Closed Specialty Diagnoses / Procedures Referred By Controck t Referred To Contact Physical Therapy Diagnoses Primary osteoarthritis of other site Clare Jones MD [address] [place] [address] Phone: tel: fax: Referral ID Status Reason Start Date Expiration Date V isits Requested Visits Authorized [id number] Closed Specialty Services Required 09/17/2024 09/17/2025 1 0 Encounter Details Date Type Department Care Team (Late st Contact Info) Description 09/17/2024 Orders Only [facility] CHC MED & PEDS [address] [place], [place] [phone] Clare Jones MD [address] [place], [place] [phone] Primary osteoarthritis of other site (Primary Dx) [...] documented as of this encounter Care Teams Postpartum Nurse Relationship Specialty Start Date End Date Clare Jones MD [address] [place] [address] PCP - General Internal Medicine 10/04/16 documented as of this encounter
--- OUTSIDE RECORDS SUMMARY | 2025-01-29 17:52 | XMS_ITS | Encounter Summary ---
Author Organization [employer] Address [address] [facility] [address] [address] Care Team Providers Care Cement Grinding Mill Operator Name Role Phone Clare Jones MD Primary Care Provider +1- [phone] Encounter Details Date Type Department Care Team (Latest Contact Info) Description 07/02/2022 Abstract [facility] CONVERSIONS Dental, Provider, DDS Social History Tobacco [...] on filedocumented in this encounter Care Teams Cement Grinding Mill Operator Relationship Specialty Start Date End Date Clare Jones MD [address] [place] [address] PCP - General Internal Medicine 10/04/16 documented as of this encounter
--- OUTSIDE RECORDS SUMMARY | 2025-01-29 17:52 | XMS_ITS | Encounter Summary ---
Author Organization [employer] Address 75 [facility] 7t [place] [address] Care Team Providers Care Library Sales Consultant Name Role Phone Clare Jones MD Primary Care Provider +1- [phone] Encounter Details Date Type Department Care Team ([facility] st Contact Info) Description 10/14/2023 Orders Only [facility] CHC MED & PEDS 505 [place], [place] [phone] Clare Jones MD 505 [place] [address] Chronic cough Social History Tobacco Use Types [...] documented as of this encounter Care Teams Library Sales Consultant Relationship Specialty Start Date End Date Clare Jones MD [address] [place] [address] PCP - General Internal Medicine 10/04/16 documented as of this encounter
--- OUTSIDE RECORDS SUMMARY | 2025-01-29 17:52 | XMS_ITS | Encounter Summary ---
Author Organization [employer] Address [address] [facility] [address] [place] [address] Care Team Providers Care Valve Steamer Name Role Phone Clare Jones MD Primary Care Provider Reason for Visit * Reason Onset Date Comments Med Refill 11/19/2022 Encounter Details Date Type Department Care Team ([facility] st Contact Info) Description 11/19/2022 Refill [facility] CHC MED & PEDS 505 [place], [place] [phone] Clare Jones MD 505 [place] [address] Chronic heart failure with preserved ejection fraction [...] EC tablet Please sent to [facility] [address] [place] [address] - [facility] documented in this encounter Plan of Treatment Not on file documented as of this encounter Visit Diagnoses Diagnosis Chronic heart failure with preserved ejection fraction (CMS/HCC)- Primary documented in this encounter Care Teams Valve Steamer Relationship Specialty Start Date End Date Clare Jones MD [address] [place] [address] PCP - General Internal Medicine 10/04/16 documented as of this encounter
--- OUTSIDE RECORDS SUMMARY | 2025-01-29 17:52 | XMS_ITS | Encounter Summary ---
Author Organization [employer] Address 75 [facility] 7t [place] [address] Care Team Providers Care Hospital Admissions Officer Name Role Phone Clare Jones MD Primary Care Provider +1- [phone] Encounter Details Date Type Department Care Team ([facility] st Contact Info) Description 08/22/2024 Orders Only [facility] CHC MED & PEDS 505 [place], [place] [phone] Clare Jones MD [address] [place] [address] Chronic heart failure with preserved ejection fraction [...] documented as of this encounter Care Teams Hospital Admissions Officer Relationship Specialty Start Date End Date Clare Jones MD [address] [place] [address] PCP - General Internal Medicine 10/04/16 documented as of this encounter
--- OUTSIDE RECORDS SUMMARY | 2025-01-29 17:52 | XMS_ITS | Encounter Summary ---
Author Organization [employer] Address 75 [facility] 7[place] [address] Care Team Providers Care Screen And Cyclone Repairer Name Role Phone Clare Jones MD Primary Care Provider +1- [phone] Reason for Visit * Reason Onset Date Comments Medication Question 10/19/2023 Encounter Details Date Type Department Care Team ([facility] Contact Info) Description 10/19/2023 Telephone [facility] CHC MED & PEDS 505 [place], [place] [phone] Clare Jones MD 505 [place] [address] Medication Question Social History Tobacco Use Types [...] documented as of this encounter Care Teams Screen And Cyclone Repairer Relationship Specialty Start Date End Date Clare Jones MD [address] [place] [address] PCP - General Internal Medicine 10/04/16 documented as of this encounter
--- OUTSIDE RECORDS SUMMARY | 2025-01-29 17:52 | XMS_ITS | Encounter Summary ---
Author Organization [employer] Address 75 [facility] 7t [place] [address] Care Team Providers Care Blindstitch Lapel Padder Name Role Phone Clare Jones MD Primary Care Provider +1- [phone] Encounter Details Date Type Department Care Team (Late st Contact Info) Description 11/17/2023 Orders Only [facility] CHC MED & PEDS 505 [place], [place] [phone] Clare Jones MD 505 [place] [address] Pneumonia of right upper lobe due to [...] documented as of this encounter Care Teams Blindstitch Lapel Padder Relationship Specialty Start Date End Date Clare Jones MD [address] [place] [address] PCP - General Internal Medicine 10/04/16 documented as of this encounter
--- OUTSIDE RECORDS SUMMARY | 2025-01-29 17:52 | XMS_ITS | Encounter Summary ---
Author Organization [employer] Address [address] [facility] 7t [place] [address] Care Team Providers Care Compensation Intern Name Role Phone Clare Jones MD Primary Care Provider +1- [phone] Encounter Details Date Type Department Care Team (Late st Contact Info) Description 12/01/2022 Abstract [facility] MEDICINE [address] [place] [address] Clare Jones MD [address] [place] [address] Social History Tobacco Use Types Packs/Day Years [...] on filedocumented in this encounter Care Teams Compensation Intern Relationship Specialty Start Date End Date Clare Jones MD [address] [place] [address] PCP - General Internal Medicine 10/04/16 documented as of this encounter
--- OUTSIDE RECORDS SUMMARY | 2025-01-29 17:52 | XMS_ITS | Encounter Summary ---
Author Organization [employer] Address 75 [facility] 7t [place] [address] Care Team Providers Care Automobile Dealer Name Role Phone Clare Jones MD Primary Care Provider +1- [phone] Encounter Details Date Type Department Care Team ([facility] st Contact Info) Description 10/22/2024 Orders Only [facility] CHC MED & PEDS 505 [place], [place] [phone] Clare Jones MD 505 [place] [address] Primary insomnia (Primary Dx) Social History Tobacco [...] documented as of this encounter Care Teams Automobile Dealer Relationship Specialty Start Date End Date Clare Jones MD [address] [place] [address] PCP - General Internal Medicine 10/04/16 documented as of this encounter
--- OUTSIDE RECORDS SUMMARY | 2025-01-29 17:52 | XMS_ITS | Encounter Summary ---
Author Organization [employer] Address [address] [facility] [address] [place] [address] Care Team Providers Care Windows Server Architect Name Role Phone Clare Jones MD Primary Care Provider +1- [phone] Reason for Visit * Reason Comments Med Refill Encounter Details Date Type Department Care Team ([facility] st Contact Info) Description 09/28/2024 Refill [facility] CHC MED & PEDS 505 [place], [place] [phone] Clare Jones MD 505 [place], [place] [phone] Right hip pain; Muscle spasm Social History [...] documented as of this encounter Care Teams Windows Server Architect Relationship Specialty Start Date End Date Clare Jones MD [address] [place] [address] PCP - General Internal Medicine 10/04/16 documented as of this encounter
--- OUTSIDE RECORDS SUMMARY | 2025-01-29 17:52 | XMS_ITS | Encounter Summary ---
Author Organization [employer] Address [address] [facility] [address] [place] [address] Care Team Providers Care Net Lead Developer Name Role Phone Clare Jones MD Primary Care Provider [phone]- [phone] Reason for Visit * Reason Onset Date Comments FYI 12/14/2024 Encounter Details Date Type Department Care Team (Late st Contact Info) Description 12/14/2024 Telephone [facility] MEDIC[facility] [address] [place] [address] Clare Jones MD [address] [place] [phone] Social History Tobacco Use Types Packs/Day Years [...] encounter Miscellaneous Notes * Telephone Encounter - Wing Lucho RN - 12/14/2024 3:37 PM EST Tc to [facility] [place] to give our fax number. Unable to reach anyone. Gave our fax number and the name of the pt who the lab is for. Also gave our number to call back. * Telephone Encounter - Iqra Joe - 12/14/2024 2:26 PM EST Tc from [facility] nurse (neurology) with [facility] [place] critical labs values from pt. Nurse asked for fax# and states are going to fax results to pcp. Any questions contact [phone] documented in this encounter Plan of Treatment Not on file documented as of this encounter Visit Diagnoses Not on filedocumented in this encounter Additional Health Concerns Assessment Noted Time PHQ-9 Depression Total Score: 0 09/25/20 24 1:21 PM EST documented as of this encounter Care Teams Net Lead Developer Relationship Specialty Start Date End Date Clare Jones MD [address] [place] [address] PCP - General Internal Medicine 10/04/16 documented as of this encounter
--- OUTSIDE RECORDS SUMMARY | 2025-01-29 17:52 | XMS_ITS | Encounter Summary ---
Author Organization [employer] Address [address] [facility] [address] [place] [address] Care Team Providers Care Commissioning Agent Name Role Phone Clare Jones MD Primary Care Provider Reason for Visit * Reason Onset Date Comments Durable Medical Equipment 11/23/2022 Encounter Details Date Type Department Care Team ([facility] st Contact Info) Description 11/23/2022 Telephone [facility] MED & PEDS [address] [place], [place] [phone] Clare Jones MD [address] [place] [address] Durable Medical Equipment Social History Tobacco Use [...] uses 4 times a day Flavors: Vanilla, [place], Chocolate for patient. 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
--- OUTSIDE RECORDS SUMMARY | 2025-01-29 17:52 | XMS_ITS | Encounter Summary ---
Author Organization [employer] Address [address] [facility] [address] [place] [address] Care Team Providers Care Roller Leveler Name Role Phone Clare Jones MD Primary Care Provider [phone] Reason for Visit * Reason Onset Date Comments Nurse Triage 05/20/2023 Encounter Details Date Type Department Care Team ([facility] st Contact Info) Description 05/20/2023 Telephone [facility] CHC MED & PEDS [address] [place], [place] [phone] Clare Jones MD [address] [place] [address] Nurse Triage Social History Tobacco Use Types [...] breathing with exertion. No apts available in [facility] today with any provider. Offered [facility] to be seen but, declined. [facility] but, daughter declines. Daughter declines [...] this outcome Please contact pt daughter at [phone] documented in this encounter Plan of Treatment Not on file documented as of this encounter Visit Diagnoses Not on filedocumented in this encounter Additional Health Concerns Assessment Noted Time PHQ-9 Depression Total Score: 0 03/07/20 23 4:08 PM EDT documented as of this encounter Care Teams Roller Leveler Relationship Specialty Start Date End Date Clare Jones MD [address] [place] [id number] PCP - General Internal Medicine 10/04/16 documented as of this encounter
--- OUTSIDE RECORDS SUMMARY | 2025-01-29 17:52 | XMS_ITS | Encounter Summary ---
Author Organization [employer] Address [address] [facility] [address] [place] [address] Care Team Providers Care Drum Worker Name Role Phone Clare Jones MD Primary Care Provider [phone]- [phone] Reason for Visit * Reason Onset Date Comments Call Back Request 12/22/2023 Encounter Details Date Type Department Care Team (Late st Contact Info) Description 12/22/2023 Telephone [facility] MEDICINE [address] [place] [address] Clare Jones MD [address] [place] [address] Call Back Request Social History Tobacco Use [...] documented as of this encounter Care Teams Drum Worker Relationship Specialty Start Date End Date Clare Jones MD [address] [place] [address] PCP - General Internal Medicine 10/04/16 documented as of this encounter
--- OUTSIDE RECORDS SUMMARY | 2025-01-29 17:52 | XMS_ITS | Encounter Summary ---
Author Organization [employer] Address [address] [facility] 7[address] [place] [address] Care Team Providers Care Quarry Plug And Feather Driller Name Role Phone Clare Jones MD Primary Care Provider [phone]- [phone] Encounter Details Date Type Department Care Team ([facility] st Contact Info) Description 12/21/2023 Orders Only [facility] CHC MED & PEDS [address] [place], [place] [phone] Clare Jones MD [address] [place] [address] Chronic cough (Primary Dx) Social History Tobacco [...] documented as of this encounter Care Teams Quarry Plug And Feather Driller Relationship Specialty Start Date End Date Clare Jones MD [address] [place] [phone] PCP - General Internal Medicine 10/04/16 documented as of this encounter
--- OUTSIDE RECORDS SUMMARY | 2025-01-29 17:52 | XMS_ITS | Encounter Summary ---
Author Organization [employer] Address [address] [facility] [address] [place] [address] Care Team Providers Care Station Engineer Main Line Name Role Phone Clare Jones MD Primary Care Provider [phone]- [phone] Encounter Details Date Type Department Care Team (Latest Contact Info) Description 07/03/2019 Abstract [facility] Dental, Provider, DDS Social History [...] on filedocumented in this encounter Care Teams Station Engineer Main Line Relationship Specialty Start Date End Date Clare Jones MD [address] [place] [address] PCP - General Internal Medicine 10/04/16 documented as of this encounter
--- OUTSIDE RECORDS SUMMARY | 2025-01-29 17:52 | XMS_ITS | Encounter Summary ---
Author Organization [employer] Address [address] [facility] [address] [place] [address] Care Team Providers Care Assistant Cook Name Role Phone Clare Jones MD Primary Care Provider [phone]- [phone] Reason for Visit * Reason Onset Date Comments Med Refill 09/26/2024 Encounter Details Date Type Department Care Team ([facility] st Contact Info) Description 09/26/2024 Refill [facility] CHC MED & PEDS [address] [place] [address] Clare Jones MD [address] [place] [address] Social History Tobacco Use Types Packs/Day Years [...] documented as of this encounter Care Teams Assistant Cook Relationship Specialty Start Date End Date Clare Jones MD [address] [place] [address] PCP - General Internal Medicine 10/04/16 documented as of this encounter
--- OUTSIDE RECORDS SUMMARY | 2025-01-29 17:52 | XMS_ITS | Encounter Summary ---
Author Organization [employer] Address [address] [facility] [address] [place] [address] Care Team Providers Care Engineering Program Manager Name Role Phone Clare Jones MD Primary Care Provider [phone]- [phone] Reason for Visit * Reason Onset Date Comments Med Refill 08/16/2024 Encounter Details Date Type Department Care Team (Late st Contact Info) Description 08/16/2024 Telephone [facility] MEDICINE [address] [place] [address] Clare Jones MD [address] [place] [address] Med Refill Social History Tobacco Use Types [...] documented as of this encounter Care Teams Engineering Program Manager Relationship Specialty Start Date End Date Clare Jones MD [address] [place] [address] PCP - General Internal Medicine 10/04/16 documented as of this encounter
--- OUTSIDE RECORDS SUMMARY | 2025-01-29 17:52 | XMS_ITS | Encounter Summary ---
Author Organization [employer] Address 75 [facility] [address] [place] [address] Care Team Providers Care Children'S Nursery Assistant Name Role Phone Clare Jones MD Primary Care Provider [phone] Encounter Details Date Type Department Care Team (Late st Contact Info) Description 01/29/2025 Orders Only GENERIC EXTERNAL DATA DEPARTMENT Provider, Generic External Data Social History Tobacco Use Types Packs/Day Years [...] on file documented as of this encounter Procedures Procedure Name Priority Date/Time Associated Diagnosis Comments CBC Routine 01/29/2025 3:05 PM EDT PSA, TOTAL Routine 01/29/2025 3:05 PM EDT BASIC METABOLIC PANEL Routine 01/29/2025 3:05 PM EDT documented in this encounter Results * (ABNORMAL) PSA,Total (01/29/2025 3:05 PM EDT) Prostate Specific Antigen 4.40(H) <0.05 - 4.0 ng/mL [facility] Comment:PSA methodology: Flakito Musa i ChemiluminescentMicroparticle Immunoassay (CMIA) 01/29/2025 3:05 PM EDT 01/29/2025 3:05 PM EDT us Generic External Data Provider LAB BLOOD ORDERAB LES Final Result [facility] [address] [place] [phone] * (ABNORMAL) Basic Metabolic Panel (01/29/2025 3:05 PM EDT) Sodium 141 135 - 145 mmol/L [facility] Potassium 4.0 3.3 - 5.1 mmol/L [facility] Chloride 107 96 - 108 mmol/L [facility] Carbon Dioxide 27 22 - 29 mmol/L [facility] Anion Gap 11(L) 12 - 20 [facility] Urea Nitrogen (BUN) 27(H) 9 - 16 mg/dL [facility] Creatinine, Serum 1.08 0.5 - 1.4 mg/dL [facility] Estimated Glomerular Filt Rate >60 [facility] Comment:Chronic Kidney Disea se: Estimated GFR < 60 mL/min/1.64p0Twqsxh Kidney Disease: Estimated GFR < 15 mL/min/1.73m2 Glucose 89 60 - 115 mg/dL [facility] Calcium 9.6 8.4 - 10.2 mg/dL [facility] 01/29/2025 3:05 PM EDT 01/29/2025 3:05 PM EDT us Generic External Data Provider LAB BLOOD ORDERAB LES Final Result [facility] [address] [place] [phone] * (ABNORMAL) CBC (01/29/2025 3:05 PM EDT) White Blood Count 4.1(L) 4.8 - 10.8 X10*3/uL [facility] Red Blood Count 3.99(L) 4.60 - 5.80 X10*6/uL [facility] Hemoglobin 11.0(L) 14.0 - 18.0 g/dl [facility] Hematocrit 35.3(L) 42.0 - 52.0 % [facility] Mean Corpuscular Volume 88.5 80.0 - 98.0 fL [facility] Mean Corpuscular Hemoglobin 27.6 27.0 - 33.0 pg [facility] Mean Corpuscular HGB Conc 31.2 31.0 - 36.0 g/dl [facility] Red Cell Distribution Width 18.7(H) 11.0 - 16.0 % [facility] Platelet Count 102(L) 160 - 400 X10*3/uL [facility] Mean Platelet Volume 9.5 9.4 - 12.4 fL [facility] NRBC Pct Auto 0.0 0.0 - 0.2 /100WBC [facility] NRBC Abs Auto 0.000 0.0 - 0.012 X10*3/uL [facility] 01/29/2025 3:05 PM EDT 01/29/2025 3:05 PM EDT us Generic External Data Provider LAB BLOOD ORDERAB LES Final Result [facility] [address] [place] [phone] documented in this encounter Visit Diagnoses Not on filedocumented in this encounter Additional Health Concerns Assessment Noted Time PHQ-9 Depression Total Score: 0 09/25/20 24 1:21 PM EST documented as of this encounter Care Teams Children'S Nursery Assistant Relationship Specialty Start Date End Date Clare Jones MD [address] [place] [phone] PCP - General Internal Medicine 10/04/16 documented as of this encounter
--- OUTSIDE RECORDS SUMMARY | 2025-01-29 17:52 | XMS_ITS | Encounter Summary ---
Author Organization [employer] Address [address] [facility] [address] [place] [address] Care Team Providers Care Lumber Tailer Name Role Phone Clare Jones MD Primary Care Provider [phone]- [phone] Reason for Visit * Reason Onset Date Comments Hospital Follow-up 08/21/2024 Encounter Details Date Type Department Care Team (Late st Contact Info) Description 08/21/2024 Telephone [facility] MEDICINE [address] [place] [address] Clare Jones MD [address] [place], [place] [phone] Hospital Follow-up Social History Tobacco Use Types [...] from pt requesting a HDF appt. Hospital: [facility] Date of admission: 07/30/2024 Discharge date: 08/07/2024 Diagnosed: GI bleeding documented in this encounter Plan of Treatment Not on file documented as of this encounter Visit Diagnoses Not on filedocumented in this encounter Additional Health Concerns Assessment Noted Time PHQ-9 Depression Total Score: 0 03/07/20 23 4:08 PM EDT documented as of this encounter Care Teams Lumber Tailer Relationship Specialty Start Date End Date Clare Jones MD [address] [place] [phone] PCP - General Internal Medicine 10/04/16 documented as of this encounter
--- OUTSIDE RECORDS SUMMARY | 2025-01-29 17:52 | XMS_ITS | Clinical Summary ---
Author Organization [employer] Address [address] [facility] [address] [place] [address] Care Team Providers Care Treasury Management Sales Consultant Name Role Phone Clare Jones MD Primary Care Provider Allergies Active Allergy Reactions Criticality Noted Date Comments Latex 11/17/2022 Other reaction(s): DERMATITIS Medications bisacodyl (Dulcolax) 10 MG suppository bisacodyl 10 mg rectal suppository INSERT ONE SUPPOSITORY RECTALLY DAILY NEEDED FOR CONSTIPATION 05/27/20 22 Active butalbital-acetami nophen-caffeine 50-325-40 MG tablet 08/31/20 22 Active Diclofenac Sodium 1 % gel 08/02/20 22 Active magnesium oxide (Mag-Ox) 400 MG tablet magnesium oxide 400 mg (241.3 mg magnesium) tablet 10/06/20 21 Active Myrbetriq 25 MG 24 hr tablet 11/12/19 23 Active Nutritional Supplements (Ensure Active Light) liquid Take by mouth every 12 (twelve) hours. 04/08/20 22 Active spironolactone (Aldactone) 25 MG tablet Take 25 mg by mouth 1 (one) time each day. 11/12/19 23 Active bethanechol (Urecholine) 50 MG tablet Take 1 tablet by mouth 2 times daily. 01/16/20 23 Active sodium chloride ([place]) 0.65 % nasal spray Administer 1 spray into each nostril 4 times daily. 01/07/20 Active amitriptyline (Elavil) 10 MG tablet Take 10 mg by mouth at bedtime. Active fluticasone (Flonase) 50 MCG/ACT nasal sprayIndications:E ar ache,Nasal congestion,Seasona l allergic rhinitis due to other allergic trigger Administer 1 spray into each nostril in the morning. 16 g 3 01/29/20 23 Active albuterol (Ventolin HFA) 108 (90 Base) MCG/ACT inhalerIndications :Chronic cough Inhale 2 puffs every 6 (six) hours if needed for wheezing. 18 g 11 10/14/20 23 Active Fluticasone Furoate-Vilanterol (Breo Ellipta) 100-25 MCG/ACT aerosol powderIndications: Chronic cough Inhale 100 mcg in the morning AND 25 mcg in the morning. 1 each 10/14/20 Active sennosides (Senokot) 8.6 MG tablet take 1 Tablet by G-tube route every day as needed for constipation 30 tablet 12/09/19 24 Active LORazepam (Ativan) 0.5 MG tabletIndications: Pneumonia of right upper lobe due to infectious organism 1 tab 30 minutes prior to the CT scan. Might repeat another dose 30 minutes after if no effect. 2 tablet 12/23/19 24 Active latanoprost (Xalatan) 0.005 % ophthalmic solution ADMINISTER 1 DROP INTO BOTH EYES AT BEDTIME 7.5 mL 02/23/20 24 Active tamsulosin (Flomax) 0.4 MG 24 hr capsuleIndications :Bladder dysfunction Take 1 capsule (0.4 mg) by mouth Once per day. 30 capsule 03/16/20 24 Active levocetirizine (Xyzal) 5 MG tabletIndications: Seasonal allergic rhinitis due to other allergic trigger Take 0.5 tablets (2.5 mg) by mouth in the evening. 15 tablet 03/16/20 24 025 Active Eliquis 5 MG tablet Take 1 tablet by mouth 2 times daily. Active digoxin (Lanoxin) 125 MCG tablet Take 1 tablet by mouth every other day. Active finasteride (Proscar) 5 MG tablet Take 1 tablet by mouth Once per day. 05/27/20 Active gabapentin (Neurontin) 100 MG capsule 06/21/20 24 Active torsemide (Demadex) 20 MG tablet Take 1 tablet by mouth Once per day. Active baclofen (Lioresal) 10 MG tabletIndications: Right hip pain,Muscle spasm Take 1 tablet (10 mg) by mouth 2 times daily. 60 tablet 3 06/29/20 24 Active ferrous gluconate (Fergon) 324 (38 Fe) MG tabletIndications: CKD (chronic kidney disease), stage II TAKE 1 TABLET BY MOUTH DAILY WITH BREAKFAST 30 tablet 5 07/23/20 24 Active pantoprazole (ProtoNix) 40 MG EC tablet Take 1 tablet by mouth Once per day. 08/06/20 24 Active metoprolol succinate XL (Toprol-XL) 50 MG 24 hr tablet Take 1 tablet by mouth Once per day. 08/30/20 24 Active acetaminophen (Tylenol) 500 MG tabletIndications: Primary osteoarthritis of other site acetaminophen 500 mg tablet every 12 hours. 60 tablet 11 09/25/20 24 Active zolpidem (Ambien) 5 MG tablet Take 1 tablet (5 mg) by mouth if needed at bedtime for sleep. 30 tablet 10/08/20 24 025 Active zolpidem (Ambien) 10 MG tabletIndications: Primary insomnia Take 1 tablet (10 mg) by mouth at bedtime. 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 ECHO 05-20-16 Bladder dysfunction 11/12/2022 Overview (11/12/2022): s/p PTNS on 08-01-15 by PVU (posterior tibial neurostimulation) CKD (chronic kidney disease), stage II 3 Cough 11/12/2022 Esophagitis 11/12/2022 Heart failure with [...] Encounters Date Type Department Care Team Description 01/29/2025 Orders Only GENERIC EXTERNAL DATA DEPARTMENT Provider, Generic External Data 01/11/2025 Orders Only [facility] [address] [place] [address] Clare Jones MD Right lower quadrant abdominal pain (Primary Dx) 01/11/2025 Telephone [employer] [address] [place] [address] Clare Jones MD 01/03/2025 Orders Only [facility] External Provider, [facility] 12/14/2024 Telephone [facility] [address], [place] [address] Clare Jones MD FYI 12/03/2024 Refill [facility] [address], [place] [phone] Clare Jones MD Primary insomnia 11/07/2024 Refill [facility] [address], [place] [address] Clare Jones MD Primary insomnia from Last 3 Months Immunizations Name Administration [...] Additional history exists Influenza Vaccine (#1) 2024 2, 08/01/2020, 07/09/2019, Additional history exists Tobacco Screening [...] on patient's age to complete this topic Procedures Procedure Name Priority Date/Time Associated Diagnosis Comments PSA, TOTAL Routine 01/29/2025 3:05 PM EDT BASIC METABOLIC PANEL Routine 01/29/2025 3:05 PM EDT CBC Routine 01/29/2025 3:05 PM EDT US RENAL BI Routine 01/03/2025 12:40 PM EDT from Last 3 Months Results * (ABNORMAL) CBC (01/29/2025 3:05 PM EDT) White Blood Count 4.1(L) 4.8 - 10.8 X10*3/uL [facility] Red Blood Count 3.99(L) 4.60 - 5.80 X10*6/uL [facility] Hemoglobin 11.0(L) 14.0 - 18.0 g/dl [facility] Hematocrit 35.3(L) 42.0 - 52.0 % [facility] Mean Corpuscular Volume 88.5 80.0 - 98.0 fL [facility] Mean Corpuscular Hemoglobin 27.6 27.0 - 33.0 pg [facility] Mean Corpuscular HGB Conc 31.2 31.0 - 36.0 g/dl [facility] Red Cell Distribution Width 18.7(H) 11.0 - 16.0 % [facility] Platelet Count 102(L) 160 - 400 X10*3/uL [facility] Mean Platelet Volume 9.5 9.4 - 12.4 fL [facility] NRBC Pct Auto 0.0 0.0 - 0.2 /100WBC [facility] NRBC Abs Auto 0.000 0.0 - 0.012 X10*3/uL [facility] 01/29/2025 3:05 PM EDT 01/29/2025 3:05 PM EDT us Generic External Data Provider LAB BLOOD ORDERAB LES Final Result [facility] [address] [place] [phone] * (ABNORMAL) PSA,Total (01/29/2025 3:05 PM EDT) Pathologist [facility] Prostate Specific Antigen 4.40(H) <0.05 - 4.0 ng/mL [facility] Comment:PSA methodology: Abb chitra Alisanjuanaty i ChemiluminescentMicroparticle Immunoassay (CMIA) 01/29/2025 3:05 PM EDT 01/29/2025 3:05 PM EDT Generic External Data Provider LAB BLOOD ORDERAB LES Final Result Performing Organization Address [facility] de Phone Number [facility] [address] [place] [phone] * (ABNORMAL) Basic Metabolic Panel (01/29/2025 3:05 PM EDT) Sodium 141 135 - 145 mmol/L [facility] Potassium 4.0 3.3 - 5.1 mmol/L [facility] Chloride 107 96 - 108 mmol/L [facility] Carbon Dioxide 27 22 - 29 mmol/L [facility] Anion Gap 11(L) 12 - 20 [facility] Urea Nitrogen (BUN) 27(H) 9 - 16 mg/dL [facility] Creatinine, Serum 1.08 0.5 - 1.4 mg/dL [facility] Estimated Glomerular Filt Rate >60 [facility] Comment:Chronic Kidney Disea se: Estimated GFR < 60 mL/min/1.37s3Yngedv Kidney Disease: Estimated GFR < 15 mL/min/1.73m2 Glucose 89 60 - 115 mg/dL [facility] Calcium 9.6 8.4 - 10.2 mg/dL [facility] 01/29/2025 3:05 PM EDT 01/29/2025 3:05 PM EDT Generic External Data Provider LAB BLOOD ORDERAB LES Final Result Performing Organization Address [facility] Co de Phone Number [facility] [address] [place] [phone] * US RENAL BI (01/03/2025 12:40 PM EDT) Anatomical Region Laterality Modality Abdomen Ultrasound 01/03/2025 12:4 0 PM EDT Narrative 01/03/2025 12:41 PM EDT ? [facility] ?[address] ?[place] [address] ? Ultrasound Report ? Signed ? Patient: Medianero,Cornelius ?MR#: [id number] ?? [id number] ? : 1935 ?Acct:[id number] ? Age/Sex: 89 / M ?ADM Date: 01/03/25 ? Loc: HO.US ? Attending Dr: Danny Sky MD ? Ordering Physician: Danny Sky MD ?? Date of Service: 01/03/25 ?? Procedure(s): US renal BI ?? Accession Number(s): [id number] ? cc: Danny Sky MD; Clare Jones MD ? CLINICAL HISTORY: N28.9 - Disorder of kidney and ureter, unspecified ? US renal with Color Doppler ? Comparison: None ? Findings: ?? Right kidney normal size and echotexture, 10.7 cm length. No ?? hydronephrosis. Normal color flow. Renal cortical defect lower pole right ?? kidney. Renal cortical cyst with thin septation and focal calcification ?? upper pole measuring 1.5 x 1.2 x 1.3 cm. Nonobstructing caliceal stone ?? midpole measuring 6 x 3 x 4 mm ?? Left kidney normal size and echotexture, 9.9 cm length. No hydronephrosis. ?? No nephrolithiasis. Normal color flow. Renal cortical cyst upper pole ?? measuring 8 x 8 x 7 mm. Renal cortical cyst with thin septation midpole ?? measuring 1.5 x 1.2 x 1.2 cm ? Impression: ?? 1. Kidneys normal size and position with normal renal echotexture. ?? 2. Nephrolithiasis on the right without evidence of hydronephrosis ?? 3. A renal cortical defect is noted right kidney ?? 4. Renal cysts with thin septations bilaterally. ?? 5. CT or MRI of the abdomen with and without contrast renal protocol may ?? be of further diagnostic value ? This document has been electronically signed by: Michi Mead MD on ?? 01/03/2025 12:40:20 ? Dictated By: ?Michi Mead MD ? Signed By: ?<Electronically signed by Michi Mead MD in OV> ?01/03/25 1241 ? DD/ 1240 ? TD/TT: 01/03/25 1240 ? Stock Wetter: ? Procedure Note Donotuseinterpreter, Image - 01/03/2025 [place] [id number] Ultrasound Report Signed Patient: Katharine Paez#: [id number] : 7Acct:[id number] Age/Sex: 89 / MADM Date: 01/03/25 Loc: HO.US Attending Dr: Danny Sky MD Ordering Physician: Danny Sky MD Date of Service: 01/03/25 Procedure(s): US renal BI Accession Number(s): [id number] cc: Danny Sky MD; Clare Jones MD CLINICAL HISTORY: N28.9 - Disorder of kidney and ureter, unspecified US renal with Color Doppler Comparison: None Findings: Right kidney normal size and echotexture, 10.7 cm length. No hydronephrosis. Normal color flow. Renal cortical defect lower pole right kidney. Renal cortical cyst with thin septation and focal calcification upper pole measuring 1.5 x 1.2 x 1.3 cm. Nonobstructing caliceal stone midpole measuring 6 x 3 x 4 mm Left kidney normal size and echotexture, 9.9 cm length. No hydronephrosis. No nephrolithiasis. Normal color flow. Renal cortical cyst upper pole measuring 8 x 8 x 7 mm. Renal cortical cyst with thin septation midpole measuring 1.5 x 1.2 x 1.2 cm Impression: 1. Kidneys normal size and position with normal renal echotexture. 2. Nephrolithiasis on the right without evidence of hydronephrosis 3. 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 Renal cysts with thin septations bilaterally. 5. CT or MRI of the abdomen with and without contrast renal protocol may be of further diagnostic value This document has been electronically signed by: Michi Mead MD on 01/03/2025 12:40:20 Dictated By: Michi Mead MD Signed By: <Electronically signed by Michi Mead MD in OV> 01/03/25 1241 DD/ 1240 TD/TT: 01/03/25 1240 Stock Wetter: us [facility] External Provider IMG US PROCEDURES Edited Result - Final from Last 3 Months Insurance [facility] [employer] Care Teams Treasury Management Sales Consultant Relationship Specialty Start Date End Date Clare Jones MD [address] [place] [phone] PCP - General Internal Medicine 10/04/16
--- OUTSIDE RECORDS SUMMARY | 2025-01-29 17:52 | XMS_ITS | Data Portability ---
Author Organization [employer], [facility] in - [facility] Address [address] [place] [address] Care Team Providers Care Fast Food Team Member Name Role Phone [facility] Referring Provider HIM [facility] OTHER Assessment Encounter Date Assessment Date Assessment LastModified by Organization Details LastModified Time 02/17/2022 02/17/2022 I have reviewed and agree with the Assessment and Plan as documented by the Fisher Pot. I provided real -time medical direction via phone for this encounter, and was available for additional phone based assistance as needed. Patient/ given the opportunity to ask questions. [email or web address] Not available 02/17/2022 18:02:20 05/20/2023 05/20/2023 I provided real -time medical direction via phone for this encounter, and was available for additional phone based assistance as needed. I have reviewed and agree with the Assessment and Plan as documented by the Fisher Pot. Patient given the opportunity to ask questions. [...] abdominal pain, or any other concerns. VSS. Fisher Pot on site reports urine is clear yellow. POC dip negative for LE, nitrites but positive for 3+ blood. Presentation and urine dip less typical for UTI but will send for culture. Encouraged outpatient follow up for likely mild urinary retention and consideration for prostate imaging. Red flags reviewed with sql tech. Primary team, Mr. [email or web address] would benefit from follow up in the next week or two to discuss his painless hematuria. [email or web address] Not available 02/15/2024 15:11:31 Plan of Treatment Reminders Order Date Submit Date Provider Last Modified By Organization Details Last Modified Time Details Appointments None recorded. Lab culture, urine 2023 024 [place] [facility] (Centralized Electronic Ordering - All Locations), Patient Can Go To The Location Of Their Choice, [id number] 4 14:07:02 urinalysis, dipstick 2023 024 [facility], [address] [place] [address], [id number] 4 19:32:24 rapid SARS CoV 2 Ag, QL IA, respiratory specimen 2021 022 [email or web address] 0 [facility], [address] [place] [address], [id number] 2 18:05:35 rapid flu (A+B) 2021 022 [email or web address] 0 [facility], [address] [place] [address], [id number] 2 18:05:35 Referral None recorded. Procedures None recorded. Surgeries None recorded. Imaging None recorded. Medication Orders Augmentin 875 mg-125 mg tablet 2023 024 [facility], [address] [facility], [place], [address], 4 18:11:17 Patient TargetsNo targets recorded. Patient InstructionsNo instructions recorded. Reason for Referral None Reported. Results Created Date Observation Date Name Description Value Unit Range Abnormal Flag Note LastModifiedBy Organization Detail LastModifiedTime 02/18/20 22 02/17/2022 rapid flu (A+B) Flu negati ve Not Available [facility] ed [address] [place] [address], [id number] 02/17/2022 18:01:58 02/18/20 22 02/17/2022 rapid SARS CoV 2 Ag, QL IA, respi rator y speci men rapid SARS CoV 2 Ag, QL IA, respiratory specimen positi ve Not Available [facility] ed [address] [place] [address], [id number] 02/17/2022 18:01:49 02/15/20 24 02/16/2024 SPECI MEN IDENT IFICA TION STATU S specimen identificati on status Commen t Pleas e be advis ed that a minor name discr epanc y has occur red. The name on the sampl e(s) does not match the name on the reque st form. All tests reque sted are in progr ess. READS 2023 Not Available [facility] ([facility]) [address] [place], [address], 02/16/2024 12:06:05 02/15/20 24 02/19/2024 URINE CULTU RE,CO MPREH ENSIV E urine culture,comp rehensive Final report Not Available [facility] ([facility]) [address] [facility], [place], [address], 02/19/2024 16:05:36 02/15/20 24 02/19/2024 URINE CULTU RE,CO MPREH ENSIV E result 1 COMMEN T No growt h in 36 - 48 hours . Not Available [facility] ([facility]) [address] [place], [address], 02/19/2024 16:05:36 Result Notes None recorded. Medical Equipment None Reported. Allergies Allergen ID Allergen Name Allergen Category Reaction Reaction Severity Criticality Documentation Date Start Date Code Code System Note Provider Name and Address Organization Details Recorded Time 5758 latex environme nt,medica tion Not available Not available Not available 08/21/2024 86115 91 RxNorm Not Available [facility] - production 4 03:41:17 Medications Name Sig Start Date Stop [...] Details Last Updated DateTime 3 98.3 [degF] 60225.8 g 72 /min 18 /min 165.1 cm 95 % 95 % 127 mm[Hg] 70 mm[Hg] Not Available [employer] 3 14:58:23 Date Recorded Heart rate Oxygen saturation Oxygen saturation in Arterial blood by Pulse oximetry Body height Respiratory rate Body temperature Body weight Systolic blood pressure Diastolic blood pressure Provider Name and Address Organization Details Last Updated DateTime 4 65 /min 96 % 96 % 167.64 cm 18 /min 98.2 [degF] 01842.8 4 g 149 mm[Hg] 74 mm[Hg] Not Available [employer] 4 18:08:04 Date Recorded Oxygen saturation Oxygen saturation in Arterial blood by Pulse oximetry Body temperature Body weight Body height Heart rate Respiratory rate Systolic blood pressure Diastolic blood pressure Provider Name and Address Organization Details Last Updated DateTime 4 97 % 97 % 97.7 [degF] 65949.5 12 g 170.18 cm 62 /min 16 /min 145 mm[Hg] 68 mm[Hg] Not Available [employer] 4 14:03:31 Date Recorded Oxygen saturation Oxygen saturation in Arterial blood by Pulse oximetry Body weight Body temperature Respiratory rate Heart rate Systolic blood pressure Diastolic blood pressure Provider Name and Address Organization Details Last Updated DateTime 4 99 % 99 % 92632.8 8 g 97.4 [degF] 16 /min 80 /min 136 mm[Hg] 40 mm[Hg] Not Available [employer] 4 19:02:22 Date Recorded Oxygen saturation Oxygen [...] /min 141 mm[Hg] 84 mm[Hg] Not Available [employer] 2 17:09:39 Social History None recorded. Functional Status None recorded. Mental Status None recorded. Family History Nothing Reported. Medical History No medical history recorded. Past Encounters Encounter ID Performer Location Encounter Start Date Encounter Closed Date Diagnosis/Indication Diagnosis SNOMED-CT Code Diagnosis ICD10 Code Diagnosis Note [id number] Radha Hill MD Main - [facility] [address] [place] [id number] 01/30/2022 18:34:04 07/01/2022 17:40:00 Dyspnea 406059804 R06.00 resolved [id number] Radha Hill MD Main - [facility] [address] [place] [id number] 02/17/2022 17:09:37 07/01/2022 18:09:08 Viral syndrome 106698127 B34.9 + covid-- pat in no respirator [...] go immediatel y to the ER- call [id number] Smita Cool MD Main - [facility] [address] [place] [id number] 05/21/2023 14:58:14 05/23/2023 16:37:33 Edema [id number] R60.9 Elaine Purdy MD Main - [facility] [address] [place] [id number] 12/19/2023 18:08:02 12/20/2023 10:35:13 Cough 12137960 R05.9 I provided real -time medical direction via phone for this encounter, and was available for additional phone based assistance as needed. I have reviewed and agree with the Assessment and Plan as documented by the Fisher Pot. Patient given the opportunit y to ask [...] LQN- family voiced understand ing of plan [id number] Areli Cruz MD Main - [facility] [address] [place] [phone] 02/15/2024 13:29:41 02/15/2024 22:08:45 Urinary symptoms [id number] R39.9 [id number] Saskia Mcarthur MD Main - [facility] [address] [place] [phone] 02/17/2024 19:02:18 02/19/2024 17:06:36 Furuncle [id number] L02.92 88 year old male being evaluated [...] assessment and plan as documented by the sql tech. I provided real-time medical direction for this [...] Monahan Member ID Guarantor Name 02/17/2022 1 [facility] - DOS PRIOR TO 2023 - DUAL ELIGIBLE (MEDICARE REPLACEMENT/AD VANTAGE - HMO) Cornelius Medianero [id number] Cornelius A Medianero 05/20/2023 1 [facility] - DOS ON OR AFTER 2023 - DUAL ELIGIBLE - HALF-WAY OPTIONS AND ONE CARE (MEDICARE REPLACEMENT/AD VANTAGE - HMO) Cornelius Medianero [id number] Cornelius A Medianero 12/19/2023 1 [facility] - DOS ON OR AFTER 2023 - DUAL ELIGIBLE - HALF-WAY OPTIONS AND ONE CARE (MEDICARE REPLACEMENT/AD VANTAGE - HMO) Cornelius Medianero [id number] Cornelius A Medianero 02/15/2024 1 [facility] - DOS ON OR AFTER 2023 - DUAL ELIGIBLE - HALF-WAY OPTIONS AND ONE CARE (MEDICARE REPLACEMENT/AD VANTAGE - HMO) Cornelius Medianero [id number] Cornelius A Medianero 02/17/2024 1 [facility] - DOS ON OR AFTER 2023 - DUAL ELIGIBLE - HALF-WAY OPTIONS AND ONE CARE (MEDICARE REPLACEMENT/AD VANTAGE - HMO) Cornelius Medianero [id number] Cornelius A Medianero Notes Date Note Type Note Provider Name and Address Organization Details Recorded Time 02/17/2022 text/html HPI: Call received from member's daughter, Janessa (ph# [phone]) to the CRU. Janessa reports mbr has not felt well with flu like symptoms and PCP would not see member d/t symptoms and recommended home visit through [facility]. Janessa reports mbr with sx for the past 4 days, myalgias, productive cough, wheezing, CP, decreased appetite, chills, and congestion. Denies SOB. Mbr is at home with the same sx, Janessa called to request HV for both mbr and mbr's . Mbr does not have thermometer at home. Denies exposure to Covid-19. Mbr has not taken been tested for Covid-19 or flu. Reports mbr has been taking OTC cold medication without effect. [facility] referral submitted. .................... .................... .................... .................... .................... .................... .................... . Fisher Pot Note: Patient is a 86 year old [...] . Disposition: Fulfilled Radha Hill MD [address] [facility],[address], [place], [address], LINNETTE Omero [employer] 02/17/2022 18:06:15 05/20/2023 text/html HPI: Members VNA [...] .................... .................... .................... .................... .................... .................... . Fisher Pot Note From Cecelia Martinez: Sent to a call for a pt with face and upper extremity edema. SC8 arrives on scene, pt is alert and oriented, airway is patent. Pt does not appear to be in respiratory distress. Pt's primary language is Palestinian and pt's family serves as continuous improvement analyst. Family states pt had lower extremity edema [...] facial and lower extremity edema uploaded to [facility]. BP:127/70, P:72, RR:18, Sp O2:95% RA, T:98.3; Head: facial edema noted; Lung sounds: clear bilaterally; Abdomen: soft, non-tender, no distention; Back: unremarkable; Upper extremities: unremarkable; Lower extremities: 1+ edema at most, (+)cms; Skin: pink, warm, dry; C consulted and no orders are given. Pt/family advised to try using compression socks and elevation if pt will tolerate. Family member unhappy with recommendation. Family member is advised increased medication is not appropriate for pt's current condition. Red flags discussed. Pt and family have no further questions. .................... .................... .................... .................... .................... .................... .................... . Disposition: Fulfilled Smita Cool MD [address] [place] [address],[address], [place], [address], [employer] [facility] 05/21/2023 15:00:19 12/19/2023 text/html HPI: HX: CHF, AFib, CVA, SSS, NC, Esophagitis. Diagnosed with right sided pneumonia 11/16/23 [...] .................... .................... .................... .................... .................... .................... . Fisher Pot Note From Kermit Paiz[facility]. Pt presents ambulating [...] sounds clear and equal bilaterally. Consulted with [facility] Dr. Purdy who spoke Palestinian and was able to ask questions of the family directly. Pt was started on oral levaquin with prescription sent to pharmacy. Family was instructed to follow up with PCP in order to have diagnostic chest x ray and ct scan completed. Patient education provided. .................... .................... .................... .................... .................... .................... .................... . Disposition: Fulfilled Elaine Purdy MD [address] [place] [address],[address], [place], [address], [employer] 12/20/2023 00:02:32 02/15/2024 text/html HPI: HX: CVA, Prostate CA, CKD,. Patient with one week history of dark thick urine with painful urination. Family concerned with UTI. .................... .................... .................... .................... .................... .................... .................... . [facility] Nurse Triage Notes (David Denise): Comments: Reviewed HPI .................... .................... .................... .................... .................... .................... .................... . Fisher Pot Note From Kermit Paiz: [facility] with suspected UTI. Pt presents conscious and alert in home with his . spoke Romanian and translated for patient. Pt states he [...] Urine culture and specimen obtained. Consulted with [facility] Dr. Cruz who advised no acute treatments, awaiting results of urine culture to proceed. Reviewed red flags with family and provided patient education. [facility] Lab Orders: culture, urine: Performed urinalysis, dipstick: Performed .................... .................... .................... .................... .................... .................... .................... . Disposition: Fulfilled Areli Cruz MD [address] [facility],[address], [place], [address], LINNETTE YOSELIN KELLEY 02/15/2024 15:50:22 02/17/2024 text/html HPI: [facility] reporting lump on right side of groin area on the inside part of thigh .................... .................... .................... .................... .................... .................... .................... . [facility] Nurse Triage Notes (Zarina Gillette): Comments: RN calling for member with red painful lump on right inner thigh. Member stated that it appeared today. Member denies any injury or fall . Member denies any fever/ chills/n/v/d [facility] , no growth .................... .................... .................... .................... .................... .................... .................... . Fisher Pot Note From Donaldo Cole: Pt co red bump on upper thigh near groan with pain. Pt denies fever bleeding injury drainage co or sob. Baseline vitals assessed. Red bump appears to be ingrown hair or pimple/boil. Area slight red with black head. Afebrile. [facility] contacted and advised hot compress to area. Pt advised to monitor bump. Advised if gets bigger or more painful to go to ER. Pt education on signs indicating the ER. Fisher Pot Allergies: Latex .................... .................... .................... .................... .................... .................... .................... . Disposition: Fulfilled Saskia Mcarthur MD [address] [facility],[address], [place], [address], [facility] 02/17/2024 21:36:11
--- OUTSIDE RECORDS SUMMARY | 2025-01-29 17:52 | XMS_ITS | Encounter Summary ---
Author Organization [employer] Address [address] [place] [address] Care Team Providers Care Fabrics And Material Cutter Name Role Phone Clare Jones MD Primary Care Provider [phone] Encounter Details Date Type Department Care Team (Late st Contact Info) Description 11/17/2023 Telephone [facility] [address] [place] [address] Clare Jones MD [address] [place] [address] Social History Tobacco Use Types Packs/Day Years Used Date Smoking Tobacco: Never Smokeless Tobacco: Never Alcohol Use Standard Drinks/Week Comments Never 0 (1 standard drink = 0.6 oz pur e alcohol) Depression Answer Date Recorded Patient Health Questionnaire-9 Score 0 03/07/2023 Housing Stability Answer Date Recorded What is your housing situation today? I have shraa elizabeth 08/29/[address] you [...] regards to results. Please contact daughter at [phone] * Telephone Encounter - Sagrario Nazario LPN - 11/17/2023 8:26 AM EST Critical result line call received now from Lisa with [facility] Radiology. CXR: Results faxed x 2. New [...] documented as of this encounter Care Teams Fabrics And Material Cutter Relationship Specialty Start Date End Date Clare Jones MD [address] [place] [address] PCP - General Internal Medicine 10/04/16 documented as of this encounter
== END 2025-01-29 14:44 | disposition home or self-care (01) ==
LOC: HO.LAB 14:43
PROVIDERS: Absent Provider Nurse Practitioner Family; PCP Internal Medicine; Referring Provider Urology; Visit Provider Internal Medicine Hypertension Specialist
DX: N18.9 Chronic kidney disease, unspecified (principal); C61 Malignant neoplasm of prostate; Z12.5 Encounter for screening for malignant neoplasm of prostate
CPT/HCPCS: 36415; 80048; 84153; 85027

== ENCOUNTER 2025-02-13 11:54 | Outpatient (AMB) | payer OTHER, SELFPAY ==
--- NOTE | 2025-02-13 12:00 | HO.NEPHOV ---
Vital Signs 02/13/25 12:01 Height 5 ft 5 in Weight 138 lb 4 oz BMI 23.0 BP 108/60 Blood Pressure Location Rt brachial Position Sitting Pulse 72 Pulse Source Pulse Oximeter Pulse Oximetry (%) 95 Oxygen Delivery Method Room Air Intake Visit Reasons: 6-7 wks f/u Accompanied by: Daughter Allergies penicillin G Allergy (Unknown, Verified 02/13/25 12:03) Unknown Latex Allergy (Unknown, Uncoded 02/13/25 12:03) Unknown Medication List - Last Reconciled 02/13/25 by Danny Sky MD acetaminophen 500 mg PO DAILY PRN amitriptyline 10 mg PO BEDTIME 30 days apixaban (Eliquis) 5 mg PO BID bethanechol chloride 50 mg PO BID 90 days ferric carboxymaltose (Injectafer) 750 mg (15 mL) IV QWEEK 1 dose finasteride 5 mg PO DAILY 90 days fluticasone furoate-vilanterol 100-25 mcg/dose (Breo Ellipta) 1 ea inhalation DAILY PRN gabapentin 100 - 300 mg PO BEDTIME PRN ipratropium-albuterol 0.5 mg-3 mg(2.5 mg base)/3 mL 3 mL inhalation Q4-6H PRN latanoprost 0.005% 0 drps ophthalmic (eye) DAILY levocetirizine 5 mg PO DAILY metoprolol tartrate 50 mg PO DAILY mirabegron ER 25 mg PO DAILY 90 days pantoprazole 40 mg PO DAILY spironolactone 12.5 mg (1/2 x 25 mg) PO DAILY tamsulosin 0.4 mg PO DAILY torsemide 20 mg PO DAILY 3 days HPI Comments Details: Elderly man with a history of chronic kidney disease referred for evaluation of CKD. Accompanied by his daughter. He has had chronic anemia. In the past he has received iron infusions. 01/09/25. No specific complaints today. He has gained 6 lb. Status post blood transfusion x2 units. Also received 1 dose of Feraheme 02/13/25 Now on Torsemide 10 mg Feels better Accompanied by daughter [facility] Medical History Nocturia Urinary frequency OAB (overactive bladder) Urinary retention Weak urinary stream Surgical History Hx of heart bypass surgery History of appendectomy History of prostate surgery Family History Father No problems noted. Mother Colon cancer Social History Household Members: Spouse and Significant Other Alcohol intake: never Patient Tobacco Use Status: Never used Tobacco Current occupational status: retired Gender identity: Male Physical Exam Vital Signs: Last Vital Signs Pulse 72 02/13/25 12:01 BP 108/60 02/13/25 12:01 Pulse Ox 95 02/13/25 12:01 Oxygen Delivery Method Room Air 02/13/25 12:01 BMI result Body Mass Index 23.0 Comfortable Neck supple no JVD. Lungs entry equal no rales. Heart S1-S2 heard no gallop or rub. Abdomen soft nontender. Neuro alert awake oriented. No asterixis. Extremities no edema. Results Reviewed Results Reviewed: December 2024 USG 1. Kidneys normal size and position with normal renal echotexture. 2. Nephrolithiasis on the right without evidence of hydronephrosis 3. 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 Renal cysts with thin septations bilaterally. 5. CT or MRI of the abdomen with and without contrast renal protocol may be of further diagnostic value Nephrology Results: Hgb 10.3 g/dl (14.0-18.0) L 02/12/25 WBC 4.1 X10*3/uL (4.8-10.8) L 02/12/25 Plt Count 98 X10*3/uL (160-400) L 02/12/25 Sodium 141 mmol/L (135-145) 01/29/25 Potassium 4.0 mmol/L (3.3-5.1) 01/29/25 Chloride 107 mmol/L (96-108) 01/29/25 Carbon Dioxide 27 mmol/L (22-29) 01/29/25 BUN 27 mg/dL (9-16) H 01/29/25 Creatinine 1.08 mg/dL (0.5-1.4) 01/29/25 Calcium 9.6 mg/dL (8.4-10.2) 01/29/25 Renal US 01/03/25 Assessment & Plan Assessment & Plan (1) CKD (chronic kidney disease): Code(s): N18.9 - Chronic kidney disease, unspecified Category: Medical (2) Anemia: Code(s): D64.9 - Anemia, unspecified Category: Medical Plan Elderly man with CKD. Cr is better Now at 1.08 !! No obstructive uropathy. Continue to avoid nephrotoxic agents. Optimize blood pressure. Anemia which is multifactorial iron deficiency could be playing a karimi role. Status post transfusion and IV iron infusion. Follow hemoglobin and evaluate for Epogen History of CHF. Keep Torsemide at 10 mg and adjust dose based on weight and symptoms Orders: Orders Complete Blood Count no Diff 3 Months D64.9 - Anemia, unspecified, N18.9 - Chronic kidney disease, unspecified IRON PROFILE 3 Months D64.9 - Anemia, unspecified, N18.9 - Chronic kidney disease, unspecified Ferritin 3 Months D64.9 - Anemia, unspecified, N18.9 - Chronic kidney disease, unspecified Basic Metabolic Panel 3 Months D64.9 - Anemia, unspecified, N18.9 - Chronic kidney disease, unspecified Coding Level of Care Code Est Pt Level 4 (88593) Diagnoses CKD (chronic kidney disease) N18.9 Anemia D64.9
[2025-02-13 12:01] VITALS: BP 108/60; PULSE 72; O2SAT 95; BMI 23.0
--- OUTSIDE RECORDS SUMMARY | 2025-02-13 14:21 | XMS_ITS | Encounter Summary ---
Author Organization [employer] Address [address] [facility] [address] [place] [address] Care Team Providers Care [employer] Truck Driver Name Role Phone Clare Jones MD Primary Care Provider Reason for Visit * Reason Onset Date Comments Med Refill 11/19/2022 Encounter Details Date Type Department Care Team ([facility] st Contact Info) Description 11/19/2022 Refill [facility] [address] [place], [place] [phone] Clare Jones MD [address] [place] [address] Chronic heart failure with preserved ejection fraction [...] EC tablet Please sent to [facility] [address] [place] [address] - [facility] [employer] [facility] documented in this encounter Plan of Treatment Not on file documented as of this encounter Visit Diagnoses Diagnosis Chronic heart failure with preserved ejection fraction (CMS/HCC)- Primary documented in this encounter Care Teams [employer] Truck Driver Relationship Specialty Start Date End Date Clare Jones MD [address] [place] [address] PCP - General Internal Medicine 10/04/16 documented as of this encounter
--- OUTSIDE RECORDS SUMMARY | 2025-02-13 14:21 | XMS_ITS | Encounter Summary ---
Author Organization [employer] Address [address] [facility] [address] [place] [address] Care Team Providers Care Medical Staff Specialist Name Role Phone Clare Jones MD Primary Care Provider [phone]- [phone] Reason for Visit * Reason Onset Date Comments Medication Question 10/19/2023 Encounter Details Date Type Department Care Team ([facility] Contact Info) Description 10/19/2023 Telephone [facility] MED [facility] PEDS [address] [place], [place] [phone] Clare Jones MD [address] [place] [address] Medication Question Social History Tobacco Use Types [...] as of this encounter Care Teams Medical Staff Specialist Relationship Specialty Start Date End Date Clare Jones MD [address] [place] [address] PCP - General Internal Medicine 10/04/16 documented as of this encounter
--- OUTSIDE RECORDS SUMMARY | 2025-02-13 14:21 | XMS_ITS | Encounter Summary ---
Author Organization [employer] Address 75 [facility] [address] [place] [address] Care Team Providers Care Distribution Center Administrator Name Role Phone Clare Jones MD Primary Care Provider Reason for Referral * Imaging (Routine) - Closed Specialty Diagnoses / Procedures Referred By Contac t Referred To Contact Radiology Diagnoses Chronic cough Weight loss Procedures CT Chest w/ Contrast Clare Jones MD [address] [place] [address] Phone: tel: fax: [facility] Referral ID Status Reason Start Date Expiration Date Visits Re quested Visits Authorized [id number] Closed 01/06/2024 01/05/2025 1 1 Encounter Details Date Type Department Care Team ([facility] st Contact Info) Description 01/06/[address] [facility] CHC MED & PEDS 505 [place], [place] [phone] Clare Jones MD 505 [place] [address] Chronic cough (Primary Dx); Weight loss Social [...] documented as of this encounter Care Teams Distribution Center Administrator Relationship Specialty Start Date End Date Clare Jones MD 505 [place] [address] PCP - General Internal Medicine 10/04/16 documented as of this encounter
--- OUTSIDE RECORDS SUMMARY | 2025-02-13 14:21 | XMS_ITS | Encounter Summary ---
Author Organization [employer] Address 75 [facility] 7t [place] [address] Care Team Providers Care Sand Technologist Name Role Phone Clare Jones MD Primary Care Provider +1- [phone] Encounter Details Date Type Department Care Team ([facility] st Contact Info) Description 03/16/2024 Orders Only [facility] CHC MED & PEDS 505 [place], [place] [phone] Clare Jones MD 505 [place] [address] Bladder dysfunction (Primary Dx); Seasonal allergic rhinitis [...] documented as of this encounter Care Teams Sand Technologist Relationship Specialty Start Date End Date Clare Jones MD [address] [place] [address] PCP - General Internal Medicine 10/04/16 documented as of this encounter
--- OUTSIDE RECORDS SUMMARY | 2025-02-13 14:21 | XMS_ITS | Encounter Summary ---
Author Organization [employer] Address [address] [facility] [address] 7t [place] [address] Care Team Providers Care Airline Pilot Name Role Phone Clare Jones MD Primary Care Provider +1- [phone] Encounter Details Date Type Department Care Team (Late st Contact Info) Description 05/21/2024 Telephone [facility] MEDICINE [address] [place] [address] Clare Jones MD 505 [place] [address] Social History Tobacco Use Types Packs/Day Years [...] documented as of this encounter Care Teams Airline Pilot Relationship Specialty Start Date End Date Clare Jones MD [address] [place] [address] PCP - General Internal Medicine 10/04/16 documented as of this encounter
--- OUTSIDE RECORDS SUMMARY | 2025-02-13 14:21 | XMS_ITS | Encounter Summary ---
Author Organization [employer] Address 75 [facility] 7t [place] [address] Care Team Providers Care Sheet Metal Technician Name Role Phone Clare Jones MD Primary Care Provider +1- [phone] Encounter Details Date Type Department Care Team ([facility] st Contact Info) Description 12/21/2023 Orders Only [facility] CHC MED & PEDS 505 [place], [place] [phone] Clare Jones MD 505 [place] [address] Chronic cough (Primary Dx) Social History Tobacco [...] documented as of this encounter Care Teams Sheet Metal Technician Relationship Specialty Start Date End Date Clare Jones MD [address] [place] [address] PCP - General Internal Medicine 10/04/16 documented as of this encounter
--- OUTSIDE RECORDS SUMMARY | 2025-02-13 14:21 | XMS_ITS | Encounter Summary ---
Author Organization [employer] Address 75 [facility] [address] [place] [address] Care Team Providers Care Director Of Quality Name Role Phone Clare Jones MD Primary Care Provider Reason for Visit * Reason Onset Date Comments Durable Medical Equipment 11/23/2022 Encounter Details Date Type Department Care Team ([facility] st Contact Info) Description 11/23/2022 Telephone [facility] CHC MED & PEDS 505 [place], [place] [phone] Clare Jones MD 505 [place] [address] Durable Medical Equipment Social History Tobacco Use [...] uses 4 times a day Flavors: Vanilla, Artesia, Chocolate for patient. 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
--- OUTSIDE RECORDS SUMMARY | 2025-02-13 14:21 | XMS_ITS | Encounter Summary ---
Author Organization [employer] Address 75 [facility] 7t [place] [address] Care Team Providers Care Data Management Manager Name Role Phone Clare Jones MD Primary Care Provider +1- [phone] Encounter Details Date Type Department Care Team ([facility] st Contact Info) Description 10/14/2023 Orders Only [facility] CHC MED & PEDS 505 [place], [place] [phone] Clare Jones MD 505 [place] [address] Chronic cough Social History Tobacco Use Types [...] documented as of this encounter Care Teams Data Management Manager Relationship Specialty Start Date End Date Clare Jones MD [address] [place] [address] PCP - General Internal Medicine 10/04/16 documented as of this encounter
--- OUTSIDE RECORDS SUMMARY | 2025-02-13 14:21 | XMS_ITS | Encounter Summary ---
Author Organization [employer] Address 75 [facility] 7t [place] [address] Care Team Providers Care Ear Mold Laboratory Technician Name Role Phone Clare Jones MD Primary Care Provider +1- [phone] Encounter Details Date Type Department Care Team (Late st Contact Info) Description 07/02/2024 Orders Only [facility] CHC MED & PEDS 505 [place], [place] [phone] Clare Jones MD 505 [place] [address] Chronic atrial fibrillation (CMS/HCC) (Primary Dx) Social [...] documented as of this encounter Care Teams Ear Mold Laboratory Technician Relationship Specialty Start Date End Date Clare Jones MD [address] [place] [address] PCP - General Internal Medicine 10/04/16 documented as of this encounter
--- OUTSIDE RECORDS SUMMARY | 2025-02-13 14:21 | XMS_ITS | Encounter Summary ---
Author Organization [employer] Address 75 [facility] 7t [place] [address] Care Team Providers Care Air Traffic Coordinator Name Role Phone Clare Jones MD Primary Care Provider Reason for Visit * Reason Onset Date Comments Nurse Triage 05/20/2023 Encounter Details Date Type Department Care Team ([facility] st Contact Info) Description 05/20/2023 Telephone [facility] CHC MED & PEDS 505 [place], [place] [phone] Clare Jones MD 505 [place] [address] Nurse Triage Social History Tobacco Use Types [...] breathing with exertion. No apts available in [facility] today with any provider. Offered [facility] to be seen but, declined[facility] but, daughter declines. Daughter declines to [...] this outcome Please contact pt daughter at [phone] documented in this encounter Plan of Treatment Not on file documented as of this encounter Visit Diagnoses Not on filedocumented in this encounter Additional Health Concerns Assessment Noted Time PHQ-9 Depression Total Score: 0 03/07/20 23 4:08 PM EDT documented as of this encounter Care Teams Air Traffic Coordinator Relationship Specialty Start Date End Date Clare Jones MD [address] [place] [address] PCP - General Internal Medicine 10/04/16 documented as of this encounter
--- OUTSIDE RECORDS SUMMARY | 2025-02-13 14:21 | XMS_ITS | Encounter Summary ---
Author Organization [employer] Address 75 [facility] 7t [place] [address] Care Team Providers Care Assembly Machine Tool Setter Name Role Phone Clare Jones MD Primary Care Provider +1- [phone] Encounter Details Date Type Department Care Team (Late st Contact Info) Description 12/01/2022 Abstract [facility] 230 [place] [address] Clare Jones MD [address] [place] [address] Social History Tobacco Use Types Packs/Day Years [...] on filedocumented in this encounter Care Teams Assembly Machine Tool Setter Relationship Specialty Start Date End Date Clare Jones MD [address] [place] [address] PCP - General Internal Medicine 10/04/16 documented as of this encounter
--- OUTSIDE RECORDS SUMMARY | 2025-02-13 14:21 | XMS_ITS | Encounter Summary ---
Author Organization [employer] Address 75 [facility] 7[address] [place] [address] Care Team Providers Care Marketing Ambassador Name Role Phone Clare Jones MD Primary Care Provider +1- [phone] Reason for Visit * Reason Onset Date Comments Referral 01/12/2024 Encounter Details Date Type Department Care Team (Late st Contact Info) Description 01/12/2024 Telephone [facility] MEDICINE 230 [place] [address] Clare Jones MD 505 [place] [address] Referral Social History Tobacco Use Types Packs/Day [...] new referral: DATE: N/A TIME: N/A Address: [address] [place] [address] Visits: N/A Facility Name: [facility] Radiology & Imaging Type of Specialist: Radiologist DX: N/A Phone # : [phone] Pt has a referral for [facility] Radiology and daughter is requesting a location change due to [facility] not scheduling until March. If any questions please contact daughter at [phone] documented in this encounter Plan of Treatment Not on file documented as of this encounter Visit Diagnoses Not on filedocumented in this encounter Additional Health Concerns Assessment Noted Time PHQ-9 Depression Total Score: 0 03/07/20 23 4:08 PM EDT documented as of this encounter Care Teams Marketing Ambassador Relationship Specialty Start Date End Date Clare Jones MD [address] [place] [address] PCP - General Internal Medicine 10/04/16 documented as of this encounter
--- OUTSIDE RECORDS SUMMARY | 2025-02-13 14:21 | XMS_ITS | Encounter Summary ---
Author Organization [employer] Address 75 [facility] 7[address] [place] [address] Care Team Providers Care Natural Science Manager Name Role Phone Clare Jones MD Primary Care Provider +1- [phone] Reason for Visit * Reason Onset Date Comments FYI 07/02/2024 Encounter Details Date Type Department Care Team (Late st Contact Info) Description 07/02/2024 Telephone [facility] MEDICINE 230 [place] [address] Clare Jones MD 505 [place] [address] Social History Tobacco Use Types Packs/Day Years [...] 07/09/2024 11:22 AM EDT Returned call to [facility] and relayed message that if [...] 12:47 PM EDT Tc from Sagrario with [facility] calling to inform pcp of home visit. Pt's o2 was a 92% crackles at the bases and increase of shortness of breath. Pt also reported having frequent nose bleeds for the past few days after restarding eliquis. If any questions you can contact Sagrario at [phone]. documented in this encounter Plan of Treatment Not on file documented as of this encounter Visit Diagnoses Not on filedocumented in this encounter Additional Health Concerns Assessment Noted Time PHQ-9 Depression Total Score: 0 03/07/20 23 4:08 PM EDT documented as of this encounter Care Teams Natural Science Manager Relationship Specialty Start Date End Date Clare Jones MD [address] [place] [address] PCP - General Internal Medicine 10/04/16 documented as of this encounter
--- OUTSIDE RECORDS SUMMARY | 2025-02-13 14:22 | XMS_ITS | Encounter Summary ---
Author Organization [employer] Address 75 [facility] 7t [place] [address] Care Team Providers Care Silk Presser Name Role Phone Clare Jones MD Primary Care Provider +1- [phone] Encounter Details Date Type Department Care Team ([facility] st Contact Info) Description 08/22/2024 Orders Only [facility] CHC MED & PEDS 505 [place], [place] [phone] Clare Jones MD 505 [place] [address] Chronic heart failure with preserved ejection fraction [...] documented as of this encounter Care Teams Silk Presser Relationship Specialty Start Date End Date Clare Jones MD [address] [place] [address] PCP - General Internal Medicine 10/04/16 documented as of this encounter
--- OUTSIDE RECORDS SUMMARY | 2025-02-13 14:22 | XMS_ITS | Encounter Summary ---
Author Organization [employer] Address 75 [facility] 7[address] [place] [address] Care Team Providers Care Wiring Technician Name Role Phone Clare Jones MD Primary Care Provider +1- [phone] Reason for Visit * Reason Onset Date Comments Hospital Follow-up 08/21/2024 Encounter Details Date Type Department Care Team (Late st Contact Info) Description 08/21/2024 Telephone [facility] MEDICINE 230 [place] [address] Clare Jones MD 505 [place], [place] [phone] Hospital Follow-up Social History Tobacco Use Types [...] from pt requesting a HDF appt. Hospital: [facility] Date of admission: 07/30/2024 Discharge date: 08/07/2024 Diagnosed: GI bleeding documented in this encounter Plan of Treatment Not on file documented as of this encounter Visit Diagnoses Not on filedocumented in this encounter Additional Health Concerns Assessment Noted Time PHQ-9 Depression Total Score: 0 03/07/20 23 4:08 PM EDT documented as of this encounter Care Teams Wiring Technician Relationship Specialty Start Date End Date Clare Jones MD [address] [place] [address] PCP - General Internal Medicine 10/04/16 documented as of this encounter
--- OUTSIDE RECORDS SUMMARY | 2025-02-13 14:22 | XMS_ITS | Encounter Summary ---
Author Organization [employer] Address 75 [facility] 7t [place] [address] Care Team Providers Care Fish And Wildlife Scientific Aid Name Role Phone Clare Jones MD Primary Care Provider +1- [phone] Encounter Details Date Type Department Care Team ([facility] st Contact Info) Description 10/22/2024 Orders Only [facility] CHC MED & PEDS 505 [place], [place] [phone] Clare Jones MD 505 [place] [address] Primary insomnia (Primary Dx) Social History Tobacco [...] documented as of this encounter Care Teams Fish And Wildlife Scientific Aid Relationship Specialty Start Date End Date Clare Jones MD [address] [place] [address] PCP - General Internal Medicine 10/04/16 documented as of this encounter
--- OUTSIDE RECORDS SUMMARY | 2025-02-13 14:22 | XMS_ITS | Encounter Summary ---
Author Organization [employer] Address 75 [facility] 7t [place] [address] Care Team Providers Care Composition Weatherboard Applier Name Role Phone Clare Jones MD Primary Care Provider +1- [phone] Encounter Details Date Type Department Care Team (Late st Contact Info) Description 11/17/2023 Orders Only [facility] CHC MED & PEDS 505 [place], [place] [phone] Clare Jones MD 505 [place] [address] Pneumonia of right upper lobe due to [...] documented as of this encounter Care Teams Composition Weatherboard Applier Relationship Specialty Start Date End Date Clare Jones MD [address] [place] [address] PCP - General Internal Medicine 10/04/16 documented as of this encounter
--- OUTSIDE RECORDS SUMMARY | 2025-02-13 14:22 | XMS_ITS | Encounter Summary ---
Author Organization [employer] Address 75 [facility] [address] [place] [address] Care Team Providers Care Dog Control Officer Name Role Phone Clare Jones MD Primary Care Provider +1- [phone] Encounter Details Date Type Department Care Team [...] on filedocumented in this encounter Care Teams Dog Control Officer Relationship Specialty Start Date End Date Clare Jones MD 505 [place] [address] PCP - General Internal Medicine 10/04/16 documented as of this encounter
--- OUTSIDE RECORDS SUMMARY | 2025-02-13 14:22 | XMS_ITS | Encounter Summary ---
Author Organization [employer] Address 75 [facility] 7t [place] [address] Care Team Providers Care Warp Changer Name Role Phone Clare Jones MD Primary Care Provider +1- [phone] Reason for Visit * Reason Onset Date Comments Call Back Request 12/22/2023 Encounter Details Date Type Department Care Team (Late st Contact Info) Description 12/22/2023 Telephone [facility] MEDICINE 230 [place] [address] Clare Jones MD [address] [place] [address] Call Back Request Social History Tobacco Use [...] documented as of this encounter Care Teams Warp Changer Relationship Specialty Start Date End Date Clare Jones MD [address] [place] [address] PCP - General Internal Medicine 10/04/16 documented as of this encounter
--- OUTSIDE RECORDS SUMMARY | 2025-02-13 14:22 | XMS_ITS | Encounter Summary ---
Author Organization [employer] Address [address] [facility] [address] 7[address] [place] [address] Care Team Providers Care Patient Intake Coordinator Name Role Phone Clare Jones MD Primary Care Provider +1- [phone] Encounter Details Date Type Department Care Team (Late st Contact Info) Description 11/17/2023 Telephone [facility] MEDICINE 230 [place] [address] Clare Jones MD 505 [place] [address] Social History Tobacco Use Types Packs/Day Years [...] regards to results. Please contact daughter at [phone] * Telephone Encounter - Sagrario Nazario LPN - 11/17/2023 8:26 AM EST Critical result line call received now from Lisa with [facility] Radiology. CXR: Results faxed x 2. New [...] documented as of this encounter Care Teams Patient Intake Coordinator Relationship Specialty Start Date End Date Clare Jones MD [address] [place] [address] PCP - General Internal Medicine 10/04/16 documented as of this encounter
--- OUTSIDE RECORDS SUMMARY | 2025-02-13 14:22 | XMS_ITS | Data Portability ---
Author Organization [employer] Address [address] [place] [address] Care Team Providers Care Cephalometric Technician Name Role Phone [facility] Referring Provider HIM [facility] OTHER Assessment Encounter Date Assessment Date Assessment LastModified by Organization Details LastModified Time 02/17/2022 02/17/2022 I have reviewed and agree with the Assessment and Plan as documented by the Sample Book Maker. I provided real -time medical direction via phone for this encounter, and was available for additional phone based assistance as needed. Patient/ given the opportunity to ask questions. [email or web address] Not available 02/17/2022 18:02:20 05/20/2023 05/20/2023 I provided real -time medical direction via phone for this encounter, and was available for additional phone based assistance as needed. I have reviewed and agree with the Assessment and Plan as documented by the Sample Book Maker. Patient given the opportunity to ask questions. [...] abdominal pain, or any other concerns. VSS. Sample Book Maker on site reports urine is clear yellow. POC dip negative for LE, nitrites but positive for 3+ blood. Presentation and urine dip less typical for UTI but will send for culture. Encouraged outpatient follow up for likely mild urinary retention and consideration for prostate imaging. Red flags reviewed with doubler operator. Primary team, Mr. Paez would benefit from follow up in the next week or two to discuss his painless hematuria. [email or web address] Not available 02/15/2024 15:11:31 Plan of Treatment Reminders Order Date Submit Date Provider Last Modified By Organization Details Last Modified Time Details Appointments None recorded. Lab culture, urine 2023 024 [place] [facility] (Centralized Electronic Ordering - All Locations), Patient Can Go To The Location Of Their Choice, [id number] 4 14:07:02 urinalysis, dipstick 2023 024 [facility], [address] [place] [address], [id number] 4 19:32:24 rapid SARS CoV 2 Ag, QL IA, respiratory specimen 2021 022 [email or web address] 0 [facility], [address] [place] [address], [id number] 2 18:05:35 rapid flu (A+B) 2021 022 [email or web address] 0 [facility], [address] [place] [address], [id number] 2 18:05:35 Referral None recorded. Procedures None recorded. Surgeries None recorded. Imaging None recorded. Medication Orders Augmentin 875 mg-125 mg tablet 2023 024 [facility], [address] [facility], [place], [address], 4 18:11:17 Patient TargetsNo targets recorded. Patient InstructionsNo instructions recorded. Reason for Referral None Reported. Results Created Date Observation Date Name Description Value Unit Range Abnormal Flag Note LastModifiedBy Organization Detail LastModifiedTime 02/18/20 22 02/17/2022 rapid flu (A+B) Flu negati ve Not Available [facility] ed [address] [place] [address], [id number] 02/17/2022 18:01:58 02/18/20 22 02/17/2022 rapid SARS CoV 2 Ag, QL IA, respi rator y speci men rapid SARS CoV 2 Ag, QL IA, respiratory specimen positi ve Not Available [facility] ed [address] [place] [address], [id number] 02/17/2022 18:01:49 02/15/20 24 02/16/2024 SPECI MEN IDENT IFICA TION STATU S specimen identificati on status Commen t Pleas e be advis ed that a minor name discr epanc y has occur red. The name on the sampl e(s) does not match the name on the reque st form. All tests reque sted are in progr ess. READS 2023 Not Available [facility] ([facility]) [address] [place], [address], 02/16/2024 12:06:05 02/15/20 24 02/19/2024 URINE CULTU RE,CO MPREH ENSIV E urine culture,comp rehensive Final report Not Available [facility] ([facility]) [address] [facility], [place], [address], 02/19/2024 16:05:36 02/15/20 24 02/19/2024 URINE CULTU RE,CO MPREH ENSIV E result 1 COMMEN T No growt h in 36 - 48 hours . Not Available [facility] ([facility]) [address] [place], [address], 02/19/2024 16:05:36 Result Notes None recorded. Medical Equipment None Reported. Allergies Allergen ID Allergen Name Allergen Category Reaction Reaction Severity Criticality Documentation Date Start Date Code Code System Note Provider Name and Address Organization Details Recorded Time 2767 latex environme nt,medica tion Not available Not available Not available 08/21/2024 63182 91 RxNorm Not Available [facility] - production [...] Details Last Updated DateTime 3 98.3 [degF] 99940.8 g 72 /min 18 /min 165.1 cm 95 % 95 % 127 mm[Hg] 70 mm[Hg] Not Available [email or web address] 3 14:58:23 Date Recorded Heart rate Oxygen saturation Oxygen saturation in Arterial blood by Pulse oximetry Body height Respiratory rate Body temperature Body weight Systolic blood pressure Diastolic blood pressure Provider Name and Address Organization Details Last Updated DateTime 4 65 /min 96 % 96 % 167.64 cm 18 /min 98.2 [degF] 25075.8 4 g 149 mm[Hg] 74 mm[Hg] Not Available [employer] 4 18:08:04 Date Recorded Oxygen saturation Oxygen saturation in Arterial blood by Pulse oximetry Body temperature Body weight Body height Heart rate Respiratory rate Systolic blood pressure Diastolic blood pressure Provider Name and Address Organization Details Last Updated DateTime 4 97 % 97 % 97.7 [degF] 50615.5 12 g 170.18 cm 62 /min 16 /min 145 mm[Hg] 68 mm[Hg] Not Available [employer] 4 14:03:31 Date Recorded Oxygen saturation Oxygen saturation in Arterial blood by Pulse oximetry Body weight Body temperature Respiratory rate Heart rate Systolic blood pressure Diastolic blood pressure Provider Name and Address Organization Details Last Updated DateTime 4 99 % 99 % 20479.8 8 g 97.4 [degF] 16 /min 80 /min 136 mm[Hg] 40 mm[Hg] Not Available [employer] 4 19:02:22 Date Recorded Oxygen saturation Oxygen [...] /min 141 mm[Hg] 84 mm[Hg] Not Available [employer] 2 17:09:39 Social History None recorded. Functional Status None recorded. Mental Status None recorded. Family History Nothing Reported. Medical History No medical history recorded. Past Encounters Encounter ID Performer Location Encounter Start Date Encounter Closed Date Diagnosis/Indication Diagnosis SNOMED-CT Code Diagnosis ICD10 Code Diagnosis Note [id number] Radha Hill MD [facility] [address] [place] [id number] 01/30/2022 18:34:04 07/01/2022 17:40:00 Dyspnea 295591892 R06.00 resolved [id number] Radha Hill MD [facility] [address] [place] [id number] 02/17/2022 17:09:37 07/01/2022 18:09:08 Viral syndrome 936075009 B34.9 + covid-- pat in no respirator [...] go immediatel y to the ER- call [phone] Smita Cool MD Main - [facility] [address] [place] [phone] 05/21/2023 14:58:14 05/23/2023 16:37:33 Edema 297823291 R60.9 Elaine Purdy MD Main - [facility] [address] [place] [phone] 12/19/2023 18:08:02 12/20/2023 10:35:13 Cough 17773727 R05.9 I provided real -time medical direction via phone for this encounter, and was available for additional phone based assistance as needed. I have reviewed and agree with the Assessment and Plan as documented by the Sample Book Maker. Patient given the opportunit y to ask [...] LQN- family voiced understand ing of plan [id number] Areli Cruz MD [facility] [address] [place] [phone] 02/15/2024 13:29:41 02/15/2024 22:08:45 Urinary symptoms [id number] R39.9 [id number] Saskia Mcarthur MD Main - [facility] [address] [place] [id number] 02/17/2024 19:02:18 02/19/2024 17:06:36 Furuncle 477472572 L02.92 88 year old male being evaluated [...] assessment and plan as documented by the doubler operator. I provided real-time medical direction for this [...] Monahan Member ID Guarantor Name 02/17/2022 1 [facility] - DOS PRIOR TO 2023 - DUAL ELIGIBLE (MEDICARE REPLACEMENT/AD VANTAGE - HMO) Cornelius Medianero [id number] Cornelius A Medianero 05/20/2023 1 [facility] - DOS ON OR AFTER 2023 - DUAL ELIGIBLE - SHELTER OPTIONS AND ONE CARE (MEDICARE REPLACEMENT/AD VANTAGE - HMO) Cornelius Medianero [id number] Cornelius A Medianero 12/19/2023 1 [facility] - DOS ON OR AFTER 2023 - DUAL ELIGIBLE - SHELTER OPTIONS AND ONE CARE (MEDICARE REPLACEMENT/AD VANTAGE - HMO) Cornelius Medianero [id number] Cornelius A Medianero 02/15/2024 1 [facility] - DOS ON OR AFTER 2023 - DUAL ELIGIBLE - SHELTER OPTIONS AND ONE CARE (MEDICARE REPLACEMENT/AD VANTAGE - HMO) Cornelius Medianero [id number] Cornelius A Medianero 02/17/2024 1 [facility] - DOS ON OR AFTER 2023 - DUAL ELIGIBLE - SHELTER OPTIONS AND ONE CARE (MEDICARE REPLACEMENT/AD VANTAGE - HMO) Cornelius Medianero [id number] Cornelius A Medianero Notes Date Note Type Note Provider Name and Address Organization Details Recorded Time 02/17/2022 text/html HPI: Call received from member's daughter, Janessa (ph# [phone]) to the CRU. Janessa reports mbr has not felt well with flu like symptoms and PCP would not see member d/t symptoms and recommended home visit through [facility]. Janessa reports mbr with sx [...] .................... .................... .................... .................... .................... .................... . Sample Book Maker Note: Patient is a 86 year old [...] . Disposition: Fulfilled Radha Hill MD [address] [facility],[address], [place], [address], [place] [employer] 02/17/2022 18:06:15 05/20/2023 text/html HPI: Members VNA [...] .................... .................... .................... .................... .................... .................... . Sample Book Maker Note From Cecelia Martinez: Sent to a call for a pt with face and upper extremity edema. SC8 arrives on scene, pt is alert and oriented, airway is patent. Pt does not appear to be in respiratory distress. 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 Family states pt had lower extremity edema [...] facial and lower extremity edema uploaded to [employer]. BP:127/70, P:72, RR:18, Sp O2:95% RA, T:98.3; [...] .................... . Disposition: Fulfilled Smita Cool MD [address] [place] [address],[address], [place], [address], [employer] 05/21/2023 15:00:19 12/19/2023 text/html HPI: HX: CHF, AFib, CVA, SSS, DC, Esophagitis. Diagnosed with right sided pneumonia 11/16/23 [...] .................... .................... .................... .................... .................... .................... . Sample Book Maker Note From Kermit Paiz[facility]. Pt presents ambulating [...] sounds clear and equal bilaterally. Consulted with [facility] Dr. Purdy who spoke Uruguayan and was able to ask questions of the family directly. Pt was started on oral levaquin with prescription sent to pharmacy. Family was instructed to follow up with PCP in order to have diagnostic chest x ray and ct scan completed. Patient education provided. .................... .................... .................... .................... .................... .................... .................... . Disposition: Fulfilled Elaine Purdy MD [address] [place] [address],[address], [place], [address], [employer] 12/20/2023 00:02:32 02/15/2024 text/html HPI: HX: CVA, Prostate CA, CKD,. Patient with one week history of dark thick urine with painful urination. Family concerned with UTI. .................... .................... .................... .................... .................... .................... .................... . [facility] Nurse Triage Notes (David Denise): Comments: Reviewed HPI .................... .................... .................... .................... .................... .................... .................... . Sample Book Maker Note From Kermit Paiz: [facility] with suspected UTI. Pt presents conscious and alert in home with his . spoke Romansh and translated for patient. Pt states he [...] Urine culture and specimen obtained. Consulted with [facility] Dr. Cruz who advised no acute treatments, awaiting results of urine culture to proceed. Reviewed red flags with family and provided patient education. [facility] Lab Orders: culture, urine: Performed urinalysis, dipstick: Performed .................... .................... .................... .................... .................... .................... .................... . Disposition: Fulfilled Areli Cruz MD [address] [facility],[address], [place], [address], [place] YOSELIN KELLEY 02/15/2024 15:50:22 02/17/2024 text/html HPI: [facility] reporting lump on right side of groin area on the inside part of thigh .................... .................... .................... .................... .................... .................... .................... . [facility] Nurse Triage Notes (Zarina Gillette): Comments: RN calling for member with red painful lump on right inner thigh. Member stated that it appeared today. Member denies any injury or fall . Member denies any fever/ chills/n/v/d Was seen by [facility] for UC , no growth .................... .................... .................... .................... .................... .................... .................... . Sample Book Maker Note From Donaldo Cole: Pt co red bump on upper thigh near groan with pain. Pt denies fever bleeding injury drainage co or sob. Baseline vitals assessed. Red bump appears to be ingrown hair or pimple/boil. Area slight red with black head. Afebrile. [facility] contacted and advised hot compress to area. Pt advised to monitor bump. Advised if gets bigger or more painful to go to ER. Pt education on signs indicating the ER. Sample Book Maker Allergies: Latex .................... .................... .................... .................... .................... .................... .................... . Disposition: Fulfilled Saskia Mcarthur MD [address] [facility],[address], [place], [address], [employer] 02/17/2024 21:36:11
--- OUTSIDE RECORDS SUMMARY | 2025-02-13 14:22 | XMS_ITS | Encounter Summary ---
Author Organization [employer] Address [address] [facility] [address] [place] [address] Care Team Providers Care Snap Attacher Name Role Phone Clare Jones MD Primary Care Provider [phone] Encounter Details Date Type Department Care Team (Latest Contact Info) Description 07/03/2019 Abstract [facility] CONVERSIONS Dental, Provider, DDS Social History Tobacco [...] on filedocumented in this encounter Care Teams Snap Attacher Relationship Specialty Start Date End Date Clare Jones MD [address] [place] [address] PCP - General Internal Medicine 10/04/16 documented as of this encounter
--- OUTSIDE RECORDS SUMMARY | 2025-02-13 14:22 | XMS_ITS | Encounter Summary ---
Author Organization [employer] Address [address] [facility] [address] [place] [address] Care Team Providers Care Audiology Technician Name Role Phone Clare Jones MD Primary Care Provider [phone]- [phone] Reason for Visit * Reason Onset Date Comments Med Refill 08/16/2024 Encounter Details Date Type Department Care Team (Late st Contact Info) Description 08/16/2024 Telephone [facility] [address] [place] [address] Clare Jones MD [address] [place] [address] Med Refill Social History Tobacco Use Types [...] documented as of this encounter Care Teams Audiology Technician Relationship Specialty Start Date End Date Clare Jones MD [address] [place] [address] PCP - General Internal Medicine 10/04/16 documented as of this encounter
--- OUTSIDE RECORDS SUMMARY | 2025-02-13 14:22 | XMS_ITS | Encounter Summary ---
Author Organization [employer] Address [address] [facility] [address] [place] [address] Care Team Providers Care Urban Forester Name Role Phone Clare Jones MD Primary Care Provider [phone]- [phone] Encounter Details Date Type Department Care Team (Late st Contact Info) Description 10/08/2024 Orders Only [facility] [address] [place] [address] Clare Jones MD [address] [place] [address] Social History Tobacco Use Types Packs/Day Years [...] documented as of this encounter Care Teams Urban Forester Relationship Specialty Start Date End Date Clare Jones MD [address] [place] [address] PCP - General Internal Medicine 10/04/16 documented as of this encounter
--- OUTSIDE RECORDS SUMMARY | 2025-02-13 14:22 | XMS_ITS | Clinical Summary ---
Author Organization [employer] Address [address] [facility] [address] [place] [address] Care Team Providers Care Church Official Name Role Phone Clare Jones MD Primary [...] times daily. 01/16/20 23 Active sodium chloride ([place]) 0.65 % nasal spray Administer 1 spray [...] Provider, Generic External Data 01/11/2025 Orders Only [facility] [address] [place] [address] Clare Jones MD Right lower quadrant abdominal pain (Primary Dx) 01/11/2025 Telephone [employer] [address] [place] [address] Clare Jones MD 01/03/2025 Orders Only [facility] External Provider, [facility] 12/14/2024 Telephone [facility] [address], [place] [address] Clare Jones MD FYI 12/03/2024 Refill [facility] [address], [place] [address] Clare Jones MD Primary insomnia from Last [...] the past 12 months, has t he [employer], gas, oil or water company threatened to [...] Blood Count 4.1(L) 4.8 - 10.8 X10*3/uL [facility] Red Blood Count 3.99(L) 4.60 - 5.80 X10*6/uL [facility] Hemoglobin 11.0(L) 14.0 - 18.0 g/dl [facility] Hematocrit 35.3(L) 42.0 - 52.0 % [facility] Mean Corpuscular Volume 88.5 80.0 - 98.0 fL [facility] Mean Corpuscular Hemoglobin 27.6 27.0 - 33.0 pg [facility] Mean Corpuscular HGB Conc 31.2 31.0 - 36.0 g/dl [facility] Red Cell Distribution Width 18.7(H) 11.0 - 16.0 % [facility] Platelet Count 102(L) 160 - 400 X10*3/uL [facility] Mean Platelet Volume 9.5 9.4 - 12.4 fL [facility] NRBC Pct Auto 0.0 0.0 - 0.2 /100WBC [facility] NRBC Abs Auto 0.000 0.0 - 0.012 X10*3/uL [facility] 01/29/2025 3:05 PM EDT 01/29/2025 3:05 PM EDT us Generic External Data Provider LAB BLOOD ORDERAB LES Final Result Performing Organization Address [facility]/ZIP Co de Phone Number [facility] [address] [place] [phone] * (ABNORMAL) PSA,Total (01/29/2025 3:05 PM EDT) Prostate Specific Antigen 4.40(H) <0.05 - 4.0 ng/mL [facility] Comment:PSA methodology: Flakito Musa i ChemiluminescentMicroparticle Immunoassay (CMIA) 01/29/2025 3:05 PM EDT 01/29/2025 3:05 PM EDT us Generic External Data Provider LAB BLOOD ORDERAB LES Final Result [facility] [address] [place] [address] [phone] * (ABNORMAL) Basic Metabolic Panel (01/29/2025 3:05 PM EDT) Sodium 141 135 - 145 mmol/L [facility] Potassium 4.0 3.3 - 5.1 mmol/L [facility] Chloride 107 96 - 108 mmol/L [facility] Carbon Dioxide 27 22 - 29 mmol/L [facility] Anion Gap 11(L) 12 - 20 [facility] Urea Nitrogen (BUN) 27(H) 9 - 16 mg/dL [facility] Creatinine, Serum 1.08 0.5 - 1.4 mg/dL [facility] Estimated Glomerular Filt Rate >60 [facility] Comment:Chronic Kidney Disea se: Estimated GFR < 60 mL/min/1.23f0Lytexi Kidney Disease: Estimated GFR < 15 mL/min/1.73m2 Glucose 89 60 - 115 mg/dL [facility] Calcium 9.6 8.4 - 10.2 mg/dL [facility] 01/29/2025 3:05 PM EDT 01/29/2025 3:05 PM EDT us Generic External Data Provider LAB BLOOD ORDERAB LES Final Result [facility] [address] [place] [address] [phone] * US RENAL BI (01/03/2025 12:40 PM EDT) Anatomical Region Laterality Modality Abdomen Ultrasound 01/03/2025 12:4 0 PM EDT Narrative 01/03/2025 12:41 PM EDT ? [facility] ?[address] ?[place] [address] ? Ultrasound Report ? Signed ? Patient: Medianero,Cornelius ?MR#: [id number] ?? [id number] ? : 1935 ?Acct:[id number] ? Age/Sex: 89 / M ?ADM Date: 03/13/25 ? Loc: HO.US ? Attending Dr: Danny Sky MD ? Ordering Physician: Danny Sky MD ?? Date of Service: 01/03/25 ?? Procedure(s): US renal BI ?? Accession Number(s): [id number] ? cc: Danny Sky MD; Clare Jones [...] DD/ 1240 ? TD/TT: 01/03/25 1240 ? Inside Horticultural Specialty Grower: ? Procedure Note Zackery Borges - 01/03/[address] [address] Ultrasound Report Signed Patient: Medianero,GuillermoMR#: [id number] : 7Acct:[id number] Age/Sex: 89 / MADM Date: 01/03/25 Loc: HO.US Attending Dr: Danny Sky MD Ordering Physician: Danny Sky MD Date of Service: 01/03/25 Procedure(s): US renal BI Accession Number(s): [id number] cc: Danny Sky MD; Clare Jones MD [...] 01/03/25 1241 DD/ 1240 TD/TT: 01/03/25 1240 Inside Horticultural Specialty Grower: us [facility] External Provider IMG US PROCEDURES Edited Result - Final from Last 3 Months Insurance [facility] Care Teams Church Official Relationship Specialty Start Date End Date Clare Jones MD [address] [place] [address] [place] [address] PCP - General Internal Medicine 10/04/16
--- OUTSIDE RECORDS SUMMARY | 2025-02-13 14:22 | XMS_ITS | Continuity of Care Document ---
Author Organization [facility] Address [address] [address] Phone Care Team Providers Care Paint Factory Worker Name Role Phone Tiffanie Allen OT Unavailable Unavailable Advance Directives Directive Yes / No Effective Date File Name No Information Encounters Encounter Description Practice Location Reason(s) For Visit Diagnoses Date Provider [facility], [address] [place] [address], [id number], [place] tel:[phone] [facility] No Information 2020 Alejandro Moreno. [address] [place] [address], [id number], [place]. tel:[phone] Family History Family Member Type Diagnosis Age At Onset No Information Payers Payer name Insurance type Covered constitution party ID Authoriza tion(s) No Information Social History Type Description Quantity Date Captured Comments Sex Male Smoking Status No Information Chief Complaint And Reason For Visit No Information History Of Present Illness Encounter Date Complaint History Of Prese nt Illness No Information Instructions Date Instruction Additional Infor mation No Information Assessments Type Assessment Date No Information
--- OUTSIDE RECORDS SUMMARY | 2025-02-13 14:23 | XMS_ITS | Encounter Summary ---
Author Organization [employer] Address 75 [facility] 7[place] [address] Care Team Providers Care Zipper Measurer Name Role Phone Clare Jones MD Primary Care Provider +1- [phone] Reason for Visit * Reason Onset Date Comments FYI 12/14/2024 Encounter Details Date Type Department Care Team (Late st Contact Info) Description 12/14/2024 Telephone [facility] MEDICINE [address] [place] [address] Clare Jones MD [address] [place] [address] Social History Tobacco Use Types Packs/Day Years [...] - 12/14/2024 3:37 PM EST Tc to [facility] neurology to give our fax number. Unable to reach anyone. Gave our fax number and the name of the pt who the lab is for. Also gave our number to call back. * Telephone Encounter - Iqra Joe - 12/14/2024 2:26 PM EST Tc from [facility] nurse (neurology) with [facility] regarding critical labs values from pt. Nurse asked for fax# and states are going to fax results to pcp. Any questions contact [phone] documented in this encounter Plan of Treatment Not on file documented as of this encounter Visit Diagnoses Not on filedocumented in this encounter Additional Health Concerns Assessment Noted Time PHQ-9 Depression Total Score: 0 09/25/20 24 1:21 PM EST documented as of this encounter Care Teams Zipper Measurer Relationship Specialty Start Date End Date Clare Jones MD [address] [place] [address] PCP - General Internal Medicine 10/04/16 documented as of this encounter
--- OUTSIDE RECORDS SUMMARY | 2025-02-13 14:23 | XMS_ITS | Encounter Summary ---
Author Organization [employer] Address 75 [facility] [address] [place] [address] Care Team Providers Care Metal Fitter Name Role Phone Clare Jones MD Primary Care Provider +1- [phone] Reason for Visit * Reason Onset Date Comments Med Refill 09/26/2024 Encounter Details Date Type Department Care Team ([facility] st Contact Info) Description 09/26/2024 Refill [facility] CHC MED & PEDS [address] [place] [address] Clare Jones MD [address] [place] [address] Social History Tobacco Use Types Packs/Day Years [...] documented as of this encounter Care Teams Metal Fitter Relationship Specialty Start Date End Date Clare Jones MD [address] [place] [address] PCP - General Internal Medicine 10/04/16 documented as of this encounter
--- OUTSIDE RECORDS SUMMARY | 2025-02-13 14:23 | XMS_ITS | Encounter Summary ---
Author Organization [employer] Address 75 [facility] [address] [address] Care Team Providers Care Predatory Animal Trapper Name Role Phone Clare Jones MD Primary Care Provider +1- [phone] Reason for Referral * Consultation (Routine) - Closed Specialty Diagnoses / Procedures Referred By Controck t Referred To Contact Physical Therapy Diagnoses Primary osteoarthritis of other site Clare Jones MD [address] [place] [address] Phone: tel: fax: Referral ID Status Reason Start Date Expiration Date V isits Requested Visits Authorized [id number] Closed Specialty Services Required 09/17/2024 09/17/2025 1 0 Encounter Details Date Type Department Care Team (Late st Contact Info) Description 09/17/2024 Orders Only [facility] CHC MED & PEDS [address] [place], [place] [phone] Clare Jones MD [address] [place], [place] [phone] Primary osteoarthritis of other site (Primary Dx) [...] documented as of this encounter Care Teams Predatory Animal Trapper Relationship Specialty Start Date End Date Clare Jones MD [address] [place] [address] PCP - General Internal Medicine 10/04/16 documented as of this encounter
--- OUTSIDE RECORDS SUMMARY | 2025-02-13 14:23 | XMS_ITS | Encounter Summary ---
Author Organization [employer] Address 75 [facility] [address] [place] [address] Care Team Providers Care Gift Shop Manager Name Role Phone Clare Jones MD Primary Care Provider +1- [phone] Reason for Visit * Reason Comments Med Refill Encounter Details Date Type Department Care Team ([facility] st Contact Info) Description 09/28/2024 Refill [facility] CHC MED & PEDS [address] [place], [place] [phone] Clare Jones MD [address] [place], [place] [phone] Right hip pain; Muscle spasm Social History [...] documented as of this encounter Care Teams Gift Shop Manager Relationship Specialty Start Date End Date Clare Jones MD [address] [place] [phone] PCP - General Internal Medicine 10/04/16 documented as of this encounter
== END 2025-02-13 12:31 | disposition home or self-care (01) ==
LOC: HO.HKAS 11:55
PROVIDERS: PCP Internal Medicine; Visit Provider Internal Medicine Hypertension Specialist
DX: N18.9 Chronic kidney disease, unspecified (principal); D64.9 Anemia, unspecified
CPT/HCPCS: 99214

== ENCOUNTER → 2025-02-13 11:54 | Outpatient (BNVA) | payer OTHER, SELFPAY | PROVIDERS: PCP Internal Medicine; Visit Provider Internal Medicine Hypertension Specialist | DX: N18.9 Chronic kidney disease, unspecified (principal); D63.1 Anemia in chronic kidney disease | CPT/HCPCS: 99212 ==

== ENCOUNTER 2025-03-08 13:02 | Outpatient (AMB) | payer OTHER, SELFPAY ==
--- OUTSIDE RECORDS SUMMARY | 2025-03-08 13:04 | XMS_ITS | Encounter Summary ---
Author Organization [employer] Address 75 [facility] 7t [place] [address] Care Team Providers Care Payroll Coordinator Name Role Phone Clare Jones MD Primary Care Provider +1- [phone] Encounter Details Date Type Department Care Team ([facility] st Contact Info) Description 03/16/2024 Orders Only [facility] CHC MED & PEDS [address] [place], [place] [phone] Clare Jones MD [address] [place], [place] [phone] Bladder dysfunction (Primary Dx); Seasonal allergic rhinitis [...] as of this encounter Plan of Treatment Upcoming Encounters Date Type Department Care Team ([facility] st Contact Info) Description 04/10/2025 10:45 AM EDT Office Visit [facility] CHC MED & PEDS [address] [place] [address] Clare Jones MD [address] [place] [address] documented as of this encounter Visit Diagnoses Diagnosis Bladder dysfunction- Primary Other functional disorder of bladder Seasonal allergic rhinitis due to other allergic trigger documented in this encounter Additional Health Concerns Assessment Noted Time PHQ-9 Depression Total Score: 0 03/07/20 23 4:08 PM EDT documented as of this encounter Care Teams Payroll Coordinator Relationship Specialty Start Date End Date Clare Jones MD [address] [place] [address] PCP - General Internal Medicine 10/04/16 documented as of this encounter
--- OUTSIDE RECORDS SUMMARY | 2025-03-08 13:05 | XMS_ITS | Encounter Summary ---
Author Organization [employer] Address 75 [facility] 7[address] [place] [address] Care Team Providers Care Bid Manager Name Role Phone Clare Jones MD Primary Care Provider Encounter Details Date Type Department Care Team (Latest Contact Info) Description 07/02/2022 Abstract [facility] CONVERSIONS Dental, Provider, DDS Social History [...] Upcoming Encounters Date Type Department Care Team (Late st Contact Info) Description 04/10/2025 10:45 AM EDT Office Visit [facility] CHC MED & PEDS 505 [place] [address] Clare Jones MD [address] [place] [address] documented as of this encounter Visit Diagnoses Not on filedocumented in this encounter Care Teams Bid Manager Relationship Specialty Start Date End Date Clare Jones MD [address] [place] [address] PCP - General Internal Medicine 10/04/16 documented as of this encounter
--- OUTSIDE RECORDS SUMMARY | 2025-03-08 13:05 | XMS_ITS | Encounter Summary ---
Author Organization [employer] Address 75 [facility] [address] [place] [address] Care Team Providers Care Furnace Charger Name Role Phone Clare Jones MD Primary Care Provider +1- [phone] Encounter Details Date Type Department Care Team (Latest Contact Info) Description 07/03/2019 Abstract [facility] CONVERSIONS Dental, Provider, DDS Social History [...] Description 04/10/2025 10:45 AM EDT Office Visit [facility] CHC MED & PEDS [address] [place] [address] Clare Jones MD [address] [place] [address] documented as of this encounter Visit Diagnoses Not on filedocumented in this encounter Care Teams Furnace Charger Relationship Specialty Start Date End Date Clare Jones MD [address] [place] [address] PCP - General Internal Medicine 10/04/16 documented as of this encounter
--- OUTSIDE RECORDS SUMMARY | 2025-03-08 13:05 | XMS_ITS | Encounter Summary ---
Author Organization [employer] Address 75 [facility] 7t [place] [address] Care Team Providers Care Boot Maker Name Role Phone Clare Jones MD Primary Care Provider +1- [phone] Encounter Details Date Type Department Care Team (Late st Contact Info) Description 05/21/2024 Telephone [facility] MEDICINE [address] [place] [address] Clare Jones MD [address] [place], [place] [phone] Social History Tobacco Use Types Packs/Day Years [...] Upcoming Encounters Date Type Department Care Team ([facility] st Contact Info) Description 04/10/2025 10:45 AM EDT Office Visit [facility] MED & PEDS [address] [place] [address] Clare Jones MD [address] [place] [address] documented as of this encounter Visit Diagnoses Not on filedocumented in this encounter Additional Health Concerns Assessment Noted Time PHQ-9 Depression Total Score: 0 03/07/20 23 4:08 PM EDT documented as of this encounter Care Teams Boot Maker Relationship Specialty Start Date End Date Clare Jones MD [address] [place] [address] PCP - General Internal Medicine 10/04/16 documented as of this encounter
--- OUTSIDE RECORDS SUMMARY | 2025-03-08 13:05 | XMS_ITS | Encounter Summary ---
Author Organization [employer] Address 75 [facility] 7t [place] [address] Care Team Providers Care Sales And Service Change Leader Name Role Phone Clare Jones MD Primary Care Provider +1- [phone] Reason for Visit * Reason Comments Med Refill Encounter Details Date Type Department Care Team ([facility] st Contact Info) Description 09/28/2024 Refill [facility] CHC MED & PEDS [address] [place], [place] [phone] Clare Jones MD [address] [place] [address] Right hip pain; Muscle spasm Social History [...] Description 04/10/2025 10:45 AM EDT Office Visit [facility] MED & PEDS [address] [place] [address] Clare Jones MD [address] [place] [address] documented as of this encounter Visit Diagnoses Diagnosis Right hip pain Pain in joint, pelvic region and thigh Muscle spasm Spasm of muscle documented in this encounter Additional Health Concerns Assessment Noted Time PHQ-9 Depression Total Score: 0 09/25/20 24 1:21 PM EST documented as of this encounter Care Teams Sales And Service Change Leader Relationship Specialty Start Date End Date Clare Jones MD [address] [place] [address] PCP - General Internal Medicine 10/04/16 documented as of this encounter
--- OUTSIDE RECORDS SUMMARY | 2025-03-08 13:05 | XMS_ITS | Encounter Summary ---
Author Organization [employer] Address 75 [facility] 7t [place] [address] Care Team Providers Care Plumbers And Top Helpers Name Role Phone Clare Jones MD Primary Care Provider +1- [phone] Reason for Visit * Reason Onset Date Comments FYI 12/14/2024 Encounter Details Date Type Department Care Team (Late st Contact Info) Description 12/14/2024 Telephone [facility] MEDICINE [address] [place] [address] Clare Jones MD [address] [place], [place] [phone] Social History Tobacco Use Types Packs/Day Years [...] - 12/14/2024 3:37 PM EST Tc to [facility] neurology to give our fax number. Unable to reach anyone. Gave our fax number and the name of the pt who the lab is for. Also gave our number to call back. * Telephone Encounter - Iqra Joe - 12/14/2024 2:26 PM EST Tc from Zayra nurse (neurology) with [facility] regarding critical labs values from pt. Nurse asked for fax# and states are going to fax results to pcp. Any questions contact [phone] documented in this encounter Plan of Treatment Upcoming Encounters Date Type Department Care Team (Late st Contact Info) Description 04/10/2025 10:45 AM EDT [facility] MED [facility]EDS [address] [place] [address] Clare Jones MD [address] [place] [address] documented as of this encounter Visit Diagnoses Not on filedocumented in this encounter Additional Health Concerns Assessment Noted Time PHQ-9 Depression Total Score: 0 09/25/20 24 1:21 PM EST documented as of this encounter Care Teams Plumbers And Top Helpers Relationship Specialty Start Date End Date Clare Jones MD [address] [place] [address] PCP - General Internal Medicine 10/04/16 documented as of this encounter
--- OUTSIDE RECORDS SUMMARY | 2025-03-08 13:05 | XMS_ITS | Encounter Summary ---
Author Organization [employer] Address 75 [facility] 7 [place] [address] Care Team Providers Care Lineman Apprentice Name Role Phone Clare Jones MD Primary Care Provider Reason for Referral * Consultation (Routine) - Closed Specialty Diagnoses / Procedures Referred By Clemente reid Referred To Contact Physical Therapy Diagnoses Primary osteoarthritis of other site Clare Jones MD [address] [place] [address] Phone: tel: fax: Referral ID Status Reason Start Date Expiration Date V isits Requested Visits Authorized [id number] Closed Specialty Services Required 09/17/2024 09/17/2025 1 0 Encounter Details Date Type Department Care Team (Late st Contact Info) Description 09/17/2024 Orders Only [facility] CHC MED & PEDS [address] [place] [address] Clare Jones MD [address] [place], [place] [phone] Primary osteoarthritis of other site (Primary Dx) [...] 04/10/2025 10:45 AM EDT Office Visit [facility] MED & PEDS [address] [place] [address] Clare Jones MD [address] [place] [address] Scheduled Referrals Name Type Priority Associated Diagnoses [...] documented as of this encounter Care Teams Lineman Apprentice Relationship Specialty Start Date End Date Clare Jones MD [address] [place] [address] PCP - General Internal Medicine 10/04/16 documented as of this encounter
--- OUTSIDE RECORDS SUMMARY | 2025-03-08 13:05 | XMS_ITS | Encounter Summary ---
Author Organization [employer] Address 75 [facility] 7t [place] [address] Care Team Providers Care Costing Manager Name Role Phone Clare Jones MD Primary Care Provider +1- [phone] Reason for Visit * Reason Onset Date Comments Call Back Request 12/22/2023 Encounter Details Date Type Department Care Team (Late st Contact Info) Description 12/22/2023 Telephone [facility] MEDICINE [address] [place] [address] Clare Jones MD [address] [place] [address] Call Back Request Social History Tobacco Use [...] Description 04/10/2025 10:45 AM EDT Office Visit [facility] MED & PEDS [address] [place] [address] Clare Jones MD 505 [place] [address] documented as of this encounter Visit Diagnoses Not on filedocumented in this encounter Additional Health Concerns Assessment Noted Time PHQ-9 Depression Total Score: 0 03/07/20 23 4:08 PM EDT documented as of this encounter Care Teams Costing Manager Relationship Specialty Start Date End Date Clare Jones MD [address] [place] [address] PCP - General Internal Medicine 10/04/16 documented as of this encounter
--- OUTSIDE RECORDS SUMMARY | 2025-03-08 13:05 | XMS_ITS | Encounter Summary ---
Author Organization [employer] Address 75 [facility] 7t [place] [address] Care Team Providers Care Leather Scrubber Name Role Phone Clare Jones MD Primary Care Provider +1- [phone] Encounter Details Date Type Department Care Team (Late st Contact Info) Description 10/08/2024 Orders Only [facility] [address] [place] [address] Clare Jones MD [address] [place] [address] Social History Tobacco Use Types Packs/Day Years [...] Upcoming Encounters Date Type Department Care Team ([facility] st Contact Info) Description 04/10/2025 10:45 AM EDT Office Visit [facility] MED & PEDS [address] [place] [address] Clare Jones MD [address] [place] [address] documented as of this encounter Visit Diagnoses Not on filedocumented in this encounter Additional Health Concerns Assessment Noted Time PHQ-9 Depression Total Score: 0 09/25/20 24 1:21 PM EST documented as of this encounter Care Teams Leather Scrubber Relationship Specialty Start Date End Date Clare Jones MD [address] [place] [address] PCP - General Internal Medicine 10/04/16 documented as of this encounter
--- OUTSIDE RECORDS SUMMARY | 2025-03-08 13:05 | XMS_ITS | Encounter Summary ---
Author Organization [employer] Address 75 [facility] [address] [place] [address] Care Team Providers Care Film Technician Name Role Phone Clare Jones MD Primary Care Provider Reason for Visit * Reason Onset Date Comments Nurse Triage 05/20/2023 Encounter Details Date Type Department Care Team ([facility] st Contact Info) Description 05/20/2023 Telephone [facility] CHC MED & PEDS [address] [place], [place] [phone] Clare Jones MD [address] [place] [address] Nurse Triage Social History Tobacco Use Types [...] breathing with exertion. No apts available in [facility] today with any provider. Offered [facility] to be seen but, declined. Advised can [facility] but, daughter declines. Daughter declines to [...] this outcome Please contact pt daughter at [phone] documented in this encounter Plan of Treatment Upcoming Encounters Date Type Department Care Team (Late st Contact Info) Description 04/10/2025 10:45 AM EDT Office Visit [facility] MED & PEDS [address] [place] [address] Clare Jones MD [address] [place] [address] documented as of this encounter Visit Diagnoses Not on filedocumented in this encounter Additional Health Concerns Assessment Noted Time PHQ-9 Depression Total Score: 0 03/07/20 23 4:08 PM EDT documented as of this encounter Care Teams Film Technician Relationship Specialty Start Date End Date Clare Jones MD [address] [place] [address] PCP - General Internal Medicine 10/04/16 documented as of this encounter
--- OUTSIDE RECORDS SUMMARY | 2025-03-08 13:05 | XMS_ITS | Encounter Summary ---
Author Organization [employer] Address 75 [facility] 7t [place] [address] Care Team Providers Care Sound Mixer Name Role Phone Clare Jones MD Primary Care Provider +1- [phone] Encounter Details Date Type Department Care Team ([facility] st Contact Info) Description 10/14/2023 Orders Only [facility] CHC MED & PEDS [address] [place], [place] [phone] Clare Jones MD [address] [place] [address] Chronic cough Social History Tobacco Use Types [...] Description 04/10/2025 10:45 AM EDT Office Visit [facility] MED & PEDS [address] [place] [address] Clare Jones MD [address] [place] [address] documented as of this encounter Visit Diagnoses Diagnosis Chronic cough Cough documented in this encounter Additional Health Concerns Assessment Noted Time PHQ-9 Depression Total Score: 0 03/07/20 23 4:08 PM EDT documented as of this encounter Care Teams Sound Mixer Relationship Specialty Start Date End Date Clare Jones MD [address] [place] [address] PCP - General Internal Medicine 10/04/16 documented as of this encounter
--- OUTSIDE RECORDS SUMMARY | 2025-03-08 13:05 | XMS_ITS | Data Portability ---
Author Organization [employer] [facility] Address [address] [place] [address] Care Team Providers Care Comsec Manager Name Role Phone [facility] Referring Provider HIM [facility] OTHER Assessment Encounter Date Assessment Date Assessment LastModified by Organization Details LastModified Time 02/17/2022 02/17/2022 I have reviewed and agree with the Assessment and Plan as documented by the Watershed Engineer. I provided real -time medical direction via phone for this encounter, and was available for additional phone based assistance as needed. Patient/ given the opportunity to ask questions. [email or web address] Not available 02/17/2022 18:02:20 05/20/2023 05/20/2023 I provided real -time medical direction via phone for this encounter, and was available for additional phone based assistance as needed. I have reviewed and agree with the Assessment and Plan as documented by the Watershed Engineer. Patient given the opportunity to ask questions. [...] abdominal pain, or any other concerns. VSS. Watershed Engineer on site reports urine is clear yellow. POC dip negative for LE, nitrites but positive for 3+ blood. Presentation and urine dip less typical for UTI but will send for culture. Encouraged outpatient follow up for likely mild urinary retention and consideration for prostate imaging. Red flags reviewed with fast food worker. Primary team, Mr. Paez would benefit from follow up in the next week or two to discuss his painless hematuria. [email or web address] Not available 02/15/2024 15:11:31 Plan of Treatment Reminders Order Date Submit Date Provider Last Modified By Organization Details Last Modified Time Details Appointments None recorded. Lab culture, urine 2023 024 RINGLE [facility] (Centralized Electronic Ordering - All Locations), Patient Can Go To The Location Of Their Choice, [id number] 4 14:07:02 urinalysis, dipstick 2023 024 [facility], [address] [place] [address], [id number] 4 19:32:24 rapid SARS CoV 2 Ag, QL IA, respiratory specimen 2021 022 [email or web address] 0 [facility], [address] [place] [place] [address], [phone] 2 18:05:35 rapid flu (A+B) 2021 022 [email or web address] 0 [facility], [address] [place] [address], [id number] 2 18:05:35 Referral None recorded. Procedures None recorded. Surgeries None recorded. Imaging None recorded. Medication Orders Augmentin 875 mg-125 mg tablet 2023 024 [facility], [address] [facility], [place], [address], 4 18:11:17 Patient TargetsNo targets recorded. Patient InstructionsNo instructions recorded. Reason for Referral None Reported. Results Created Date Observation Date Name Description Value Unit Range Abnormal Flag Note LastModifiedBy Organization Detail LastModifiedTime 02/18/20 22 02/17/2022 rapid flu (A+B) Flu negati ve Not Available [facility] ed [address] [place] [place] [address], [id number] 02/17/2022 18:01:58 02/18/20 22 02/17/2022 rapid SARS CoV 2 Ag, QL IA, respi rator y speci men rapid SARS CoV 2 Ag, QL IA, respiratory specimen positi ve Not Available [facility] ed [address] [place] [place] [address], [id number] 02/17/2022 18:01:49 02/15/20 24 02/16/2024 SPECI MEN IDENT IFICA TION STATU S specimen identificati on status Commen t Pleas e be advis ed that a minor name discr epanc y has occur red. The name on the sampl e(s) does not match the name on the reque st form. All tests reque sted are in progr ess. READS 2023 Not Available [facility] ([facility]) [address] [place], [address], 02/16/2024 12:06:05 02/15/20 24 02/19/2024 URINE CULTU RE,CO MPREH ENSIV E urine culture,comp rehensive Final report Not Available [facility] ([facility]) [address] [facility], [place], [address], 02/19/2024 16:05:36 02/15/20 24 02/19/2024 URINE CULTU RE,CO MPREH ENSIV E result 1 COMMEN T No growt h in 36 - 48 hours . Not Available [facility] ([facility]) [address] [place], [address], 02/19/2024 16:05:36 Result Notes None recorded. Medical Equipment None Reported. Allergies Allergen ID Allergen Name Allergen Category Reaction Reaction Severity Criticality Documentation Date Start Date Code Code System Note Provider Name and Address Organization Details Recorded Time 4065 latex environme nt,medica tion Not available Not available Not available 08/21/2024 46807 91 RxNorm Not Available [facility] - production [...] Details Last Updated DateTime 3 98.3 [degF] 55801.8 g 72 /min 18 /min 165.1 cm 95 % 95 % 127 mm[Hg] 70 mm[Hg] Not Available [email or web address] 3 14:58:23 Date Recorded Heart rate Oxygen saturation Oxygen saturation in Arterial blood by Pulse oximetry Body height Respiratory rate Body temperature Body weight Systolic blood pressure Diastolic blood pressure Provider Name and Address Organization Details Last Updated DateTime 4 65 /min 96 % 96 % 167.64 cm 18 /min 98.2 [degF] 19308.8 4 g 149 mm[Hg] 74 mm[Hg] Not Available [employer] 4 18:08:04 Date Recorded Oxygen saturation Oxygen saturation in Arterial blood by Pulse oximetry Body temperature Body weight Body height Heart rate Respiratory rate Systolic blood pressure Diastolic blood pressure Provider Name and Address Organization Details Last Updated DateTime 4 97 % 97 % 97.7 [degF] 84650.5 12 g 170.18 cm 62 /min 16 /min 145 mm[Hg] 68 mm[Hg] Not Available [employer] 4 14:03:31 Date Recorded Oxygen saturation Oxygen saturation in Arterial blood by Pulse oximetry Body weight Body temperature Respiratory rate Heart rate Systolic blood pressure Diastolic blood pressure Provider Name and Address Organization Details Last Updated DateTime 4 99 % 99 % 73983.8 8 g 97.4 [degF] 16 /min 80 /min 136 mm[Hg] 40 mm[Hg] Not Available [employer] 4 19:02:22 Date Recorded Oxygen saturation Oxygen [...] /min 141 mm[Hg] 84 mm[Hg] Not Available [employer] 2 17:09:39 Social History None recorded. Functional Status None recorded. Mental Status None recorded. Family History Nothing Reported. Medical History No medical history recorded. Past Encounters Encounter ID Performer Location Encounter Start Date Encounter Closed Date Diagnosis/Indication Diagnosis SNOMED-CT Code Diagnosis ICD10 Code Diagnosis Note [id number] Radha Hill MD [facility] [address] [place] [id number] 01/30/2022 18:34:04 07/01/2022 17:40:00 Dyspnea 919442112 R06.00 resolved [id number] Radha Hill MD [facility] [address] [place] [id number] 02/17/2022 17:09:37 07/01/2022 18:09:08 Viral syndrome 846821595 B34.9 + covid-- pat in no respirator [...] go immediatel y to the ER- call [phone] [id number] Smita Cool MD Main [facility] [address] [place] [id number] 05/21/2023 14:58:14 05/23/2023 16:37:33 Edema 367657571 R60.9 Elaine Purdy MD Main [facility] [address] [place] [phone] 12/19/2023 18:08:02 12/20/2023 10:35:13 Cough 71304614 R05.9 I provided real -time medical direction via phone for this encounter, and was available for additional phone based assistance as needed. I have reviewed and agree with the Assessment and Plan as documented by the Watershed Engineer. Patient given the opportunit y to ask [...] LQN- family voiced understand ing of plan [id number] Areli Cruz MD Main [facility] [address] [place] [id number] 02/15/2024 13:29:41 02/15/2024 22:08:45 Urinary symptoms [id number] R39.9 [id number] Saskia Mcarthur MD Main [facility] [address] [place] [phone] 02/17/2024 19:02:18 02/19/2024 17:06:36 Furuncle 102311150 L02.92 88 year old male being evaluated [...] assessment and plan as documented by the fast food worker. I provided real-time medical direction for this [...] Recorded Advance Directives Directive None Recorded Payers Insurance Date Sequence Insurance Name Policy Number Policy Monahan Covered Member ID Monahan Member ID Guarantor Name 05/20/2023 1 [facility] - DOS PRIOR TO 2023 - DUAL ELIGIBLE (MEDICARE REPLACEMENT/AD VANTAGE - HMO) Cornelius Medianero [id number] Cornelius Irving Medianero 02/16/2024 1 [facility] - DOS ON OR AFTER 2023 - DUAL ELIGIBLE - [employer] OPTIONS AND ONE CARE (MEDICARE REPLACEMENT/AD VANTAGE - HMO) Cornelius Medianero [id number] Cornelius Irving Medianero Notes Date Note Type Note Provider Name and Address Organization Details Recorded Time 02/17/2022 text/html HPI: Call received from member's daughter, Janessa (ph# [phone]) to the CRU. Janessa reports estevanr has not felt well with flu like symptoms and PCP would not see member d/t symptoms and recommended home visit through [facility]. Janessa reports mbr with sx for the [...] .................... .................... .................... .................... .................... .................... . Watershed Engineer Note: Patient is a 86 year old [...] .................... . Disposition: Fulfilled Radha Hill MD [address] [place] [address],[address], [place], [phone], [employer] 02/17/2022 18:06:15 05/20/2023 text/html HPI: Members VNA [...] .................... .................... .................... .................... .................... .................... . Watershed Engineer Note From Cecelia Martinez: Sent to a call for a pt with face and upper extremity edema. SC8 arrives on scene, pt is alert and oriented, airway is patent. Pt does not appear to be in respiratory distress. Pt's primary language is Mauritanian and pt's family serves as assurance senior. Family states pt had lower extremity edema [...] facial and lower extremity edema uploaded to [facility]. BP:127/70, P:72, RR:18, Sp O2:95% RA, T:98.3; [...] .................... .................... . Disposition: Deborah Cool MD [address] [place] [address],[address] [facility], [place], [address], [employer] 05/21/2023 15:00:19 12/19/2023 text/html HPI: HX: CHF, AFib, CVA, SSS, OH, Esophagitis. Diagnosed with right sided pneumonia 11/16/23 [...] .................... .................... .................... .................... .................... .................... . Watershed Engineer Note From Kermit Paiz[facility] [...] sounds clear and equal bilaterally. Consulted with [facility] Dr. Purdy who spoke Mauritanian and was able to ask questions of the family directly. Pt was started on oral levaquin with prescription sent to pharmacy. Family was instructed to follow up with PCP in order to have diagnostic chest x ray and ct scan completed. Patient education provided. .................... .................... .................... .................... .................... .................... .................... . Disposition: Fulfilled Elaine Purdy MD [address] [facility],[address], [place], [address], [employer] 12/20/2023 00:02:32 02/15/2024 text/html HPI: HX: CVA, Prostate CA, CKD,. Patient with one week history of dark thick urine with painful urination. Family concerned with UTI. .................... .................... .................... .................... .................... .................... .................... . CRC Nurse Triage Notes (David Denise): Comments: Reviewed HPI .................... .................... .................... .................... .................... .................... .................... . Watershed Engineer Note From Kermit Paiz: [facility] visit for elderly male patient with suspected UTI. Pt presents conscious and alert in home with his . spoke Kyrgyz and translated for patient. Pt states he [...] Urine culture and specimen obtained. Consulted with [facility] Dr. Cruz who advised no acute treatments, awaiting results of urine culture to proceed. Reviewed red flags with family and provided patient education. [facility] Lab Orders: culture, urine: Performed urinalysis, dipstick: Performed .................... .................... .................... .................... .................... .................... .................... . Disposition: Deborah Cruz MD [address] [facility],[address], [place], [address], [employer] 02/15/2024 15:50:22 02/17/2024 text/html HPI: [place] [...] denies any fever/ chills/n/v/d Was seen by zack for UC , no growth .................... .................... .................... .................... .................... .................... .................... . Watershed Engineer Note From Donaldo Cole: Pt co red bump on upper thigh near groan with pain. Pt denies fever bleeding injury drainage co or sob. Baseline vitals assessed. Red bump appears to be ingrown hair or pimple/boil. Area slight red with black head. Afebrile. [facility] contacted and advised hot compress to area. Pt advised to monitor bump. Advised if gets bigger or more painful to go to ER. Pt education on signs indicating the ER. Watershed Engineer Allergies: Latex .................... .................... .................... .................... .................... .................... .................... . Disposition: Fulfilled Saskia Mcarthur MD [address] [place] [address],[address], [place], [phone], [employer] 02/17/2024 21:36:11
--- OUTSIDE RECORDS SUMMARY | 2025-03-08 13:05 | XMS_ITS | Encounter Summary ---
Author Organization [employer] Address [address] [facility] [address] [place] [address] Care Team Providers Care Utilization Specialist Name Role Phone Clare Jones MD Primary Care Provider [phone] Reason for Visit * Reason Onset Date Comments Referral 01/12/2024 Encounter Details Date Type Department Care Team (Late st Contact Info) Description 01/12/2024 Telephone [facility] [address] [place] [address] Clare Jones MD [address] [place], [place] [phone] Referral Social History Tobacco Use Types Packs/Day Years Used Date Smoking Tobacco: Never Smokeless Tobacco: Never Alcohol Use Standard Drinks/Week Comments Never 0 (1 standard drink = 0.6 oz pur e alcohol) Depression Answer Date Recorded Patient Health Questionnaire-9 Score 0 03/07/2023 Housing Stability Answer Date Recorded What is your housing situation today? I have shara sing 08/29/[address] you li [...] new referral: DATE: N/A TIME: N/A Address: [address] [place] [address] Visits: N/A Facility Name: [facility] Type of Specialist: Radiologist DX: N/A Phone # : [phone] Pt has a referral for [facility] and daughter is requesting a location change due to [facility] not scheduling until March. If any questions please contact daughter at [phone] documented in this encounter Plan of Treatment Upcoming Encounters Date Type Department Care Team ([facility] st Contact Info) Description 04/10/2025 10:45 AM EDT Office Visit [facility] MED & PEDS [address] [place] [address] Clare Jones MD [address] [place] [address] documented as of this encounter Visit Diagnoses Not on filedocumented in this encounter Additional Health Concerns Assessment Noted Time PHQ-9 Depression Total Score: 0 03/07/20 23 4:08 PM EDT documented as of this encounter Care Teams Utilization Specialist Relationship Specialty Start Date End Date Clare Jones MD [address] [place] [id number] PCP - General Internal Medicine 10/04/16 documented as of this encounter
--- OUTSIDE RECORDS SUMMARY | 2025-03-08 13:05 | XMS_ITS | Encounter Summary ---
Author Organization [employer] Address [address] [facility] [address] [place] [address] Care Team Providers Care Equipment Driver Name Role Phone Clare Jones MD Primary Care Provider [phone]- [phone] Reason for Visit * Reason Onset Date Comments Med Refill 09/26/2024 Encounter Details Date Type Department Care Team ([facility] st Contact Info) Description 09/26/2024 Refill [facility] PEDS [address] [place], [place] [phone] Clare Jones MD [address] [place] [address] Social History Tobacco Use Types Packs/Day Years [...] Upcoming Encounters Date Type Department Care Team ([facility] st Contact Info) Description 04/10/2025 10:45 AM EDT Office Visit [facility] MED & PEDS [address] [place] [address] Clare Jones MD [address] [place] [address] documented as of this encounter Visit Diagnoses Not on filedocumented in this encounter Additional Health Concerns Assessment Noted Time PHQ-9 Depression Total Score: 0 09/25/20 24 1:21 PM EST documented as of this encounter Care Teams Equipment Driver Relationship Specialty Start Date End Date Clare Jones MD [address] [place] [address] PCP - General Internal Medicine 10/04/16 documented as of this encounter
--- OUTSIDE RECORDS SUMMARY | 2025-03-08 13:05 | XMS_ITS | Clinical Summary ---
Author Organization [employer] Address 75 [facility] 7t [place] [address] Care Team Providers Care Priming Powder Premix Blender Name Role Phone Clare Jones MD Primary Care Provider [phone] Allergies Active Allergy Reactions Criticality Noted Date Comments Latex 11/17/2022 Other reaction(s): DERMATITIS Medications bisacodyl (Dulcolax) 10 MG suppository bisacodyl 10 mg rectal suppository INSERT ONE SUPPOSITORY RECTALLY DAILY NEEDED FOR CONSTIPATION Active butalbital-acetam inophen-caffeine 50-325-40 MG tablet Active [...] 2 times daily. 023 Active sodium chloride (Clarion) 0.65 % nasal spray Administer 1 spray into each nostril 4 times daily. 023 Active amitriptyline (Elavil) 10 MG tablet Take 10 mg by mouth at bedtime. Active fluticasone (Flonase) 50 MCG/ACT nasal sprayIndications: Ear ache,Nasal congestion,Season al allergic rhinitis due to other allergic trigger Administer 1 spray into each nostril in the morning. 16 g 3 023 Active albuterol (Ventolin HFA) 108 (90 Base) MCG/ACT inhalerIndication s:Chronic cough Inhale 2 puffs every 6 (six) hours if needed for wheezing. 18 g 11 023 Active Fluticasone Furoate-Vilantero l (Breo Ellipta) 100-25 MCG/ACT aerosol powderIndications :Chronic cough Inhale 100 mcg in the morning AND 25 mcg in the morning. 1 each Active sennosides (Senokot) 8.6 MG tablet take 1 Tablet by G-tube route every day as needed for constipation 30 tablet 11 Active LORazepam (Ativan) 0.5 MG tabletIndications :Pneumonia of right upper lobe due to infectious organism 1 tab 30 minutes prior to the CT scan. Might repeat another dose 30 minutes after if no effect. 2 tablet Active latanoprost (Xalatan) 0.005 % ophthalmic solution ADMINISTER 1 DROP INTO BOTH EYES AT BEDTIME 7.5 mL Active levocetirizine (Xyzal) 5 MG tabletIndications :Seasonal allergic rhinitis due to other allergic trigger Take 0.5 tablets (2.5 mg) by mouth in the evening. 15 tablet 024 2024 Active Eliquis 5 MG tablet Take [...] by mouth at bedtime. 30 tablet Active tamsulosin (Flomax) 0.4 MG 24 hr capsuleIndication s:Bladder dysfunction TAKE 1 CAPSULE BY MOUTH EVERY DAY 30 capsule 11 025 Active tamsulosin (Flomax) 0.4 MG 24 hr capsuleIndication s:Bladder dysfunction Take 1 capsule (0.4 mg) by mouth Once per day. 30 capsule 11 024 2024 Discontinued(R eorder (will not trigger notification [...] Encounters Date Type Department Care Team Description 02/22/2025 Refill [facility] MED & PEDS [address] [place] [address] Clare Jones MD Bladder dysfunction 01/29/2025 Orders Only GENERIC EXTERNAL DATA DEPARTMENT Provider, Generic External Data 01/11/2025 Orders Only [facility] MEDICINE [address] [place], [place] [phone] Clare Jones MD Right lower quadrant abdominal pain (Primary Dx) 01/11/2025 Telephone [facility] [address] [place], [place] [phone] Clare Jones MD 01/03/2025 Orders Only [facility] External Provider, [facility] 12/14/2024 Telephone [facility] MEDICINE [address] [place], [place] [phone] Clare Jones MD FYI from Last 3 Months Immunizations Immunization Administration Dates Next Due Influenza High-dose Quadriva [...] 09/25/2024 1:17 PM EST Plan of Treatment Upcoming Encounters Date Type Department Care Team (Late st Contact Info) Description 04/10/2025 10:45 AM EDT Office Visit [facility] MED & PEDS [address] [place] [address] Clare Jones MD [address] [place] [phone] Health Maintenance Due Date Last Done Comments [...] patient's age to complete this topic Meningococcal B Vaccine Aged Out No l onger eligible based on patient's age to complete [...] Blood Count 4.1(L) 4.8 - 10.8 X10*3/uL [facility] Red Blood Count 3.99(L) 4.60 - 5.80 X10*6/uL [facility] Hemoglobin 11.0(L) 14.0 - 18.0 g/dl [facility] Hematocrit 35.3(L) 42.0 - 52.0 % [facility] Mean Corpuscular Volume 88.5 80.0 - 98.0 fL [facility] Mean Corpuscular Hemoglobin 27.6 27.0 - 33.0 pg [facility] Mean Corpuscular HGB Conc 31.2 31.0 - 36.0 g/dl [facility] Red Cell Distribution Width 18.7(H) 11.0 - 16.0 % [facility] Platelet Count 102(L) 160 - 400 X10*3/uL [facility] Mean Platelet Volume 9.5 9.4 - 12.4 fL [facility] NRBC Pct Auto 0.0 0.0 - 0.2 /100WBC [facility] NRBC Abs Auto 0.000 0.0 - 0.012 X10*3/uL [facility] 01/29/2025 3:05 PM EDT 01/29/2025 3:05 PM EDT us Generic External Data Provider LAB BLOOD ORDERAB LES Final Result [facility] [address] [place] [phone] * (ABNORMAL) PSA,Total (01/29/2025 3:05 PM EDT) Prostate Specific Antigen 4.40(H) <0.05 - 4.0 ng/mL [facility] Comment:PSA methodology: Flakito Musa i ChemiluminescentMicroparticle Immunoassay (CMIA) 01/29/2025 3:05 PM EDT 01/29/2025 3:05 PM EDT us Generic External Data Provider LAB BLOOD ORDERAB LES Final Result Performing Organization Address City/[facility] Co de Phone Number [facility] [address] [place] [phone] * (ABNORMAL) Basic Metabolic Panel (01/29/2025 3:05 PM EDT) Pathologist [facility] Sodium 141 135 - 145 mmol/L [facility] Potassium 4.0 3.3 - 5.1 mmol/L [facility] Chloride 107 96 - 108 mmol/L [facility] Carbon Dioxide 27 22 - 29 mmol/L [facility] Anion Gap 11(L) 12 - 20 [facility] Urea Nitrogen (BUN) 27(H) 9 - 16 mg/dL [facility] Creatinine, Serum 1.08 0.5 - 1.4 mg/dL [facility] Estimated Glomerular Filt Rate >60 [facility] Comment:Chronic Kidney Disea se: Estimated GFR < 60 mL/min/[id number] Kidney Disease: Estimated GFR < 15 mL/min/1.73m2 Glucose 89 60 - 115 mg/dL [facility] Calcium 9.6 8.4 - 10.2 mg/dL [facility] 01/29/2025 3:05 PM EDT 01/29/2025 3:05 PM EDT us Generic External Data Provider LAB BLOOD ORDERAB LES Final Result [facility] [address] [place] [phone] [phone] * US RENAL BI (01/03/2025 12:40 PM EDT) Anatomical Region Laterality Modality Abdomen Ultrasound 01/03/2025 12:4 0 PM EDT Narrative 01/03/2025 12:41 PM EDT ? [facility] ?[address] ?[place] [address] ? Ultrasound Report ? Signed ? Patient: Medianero,Cornelius ?MR#: [id number] ?? [id number] ? : 1935 ?Acct:[id number] ? Age/Sex: 89 / M ?ADM Date: 01/03/25 ? Loc: HO.US ? Attending Dr: Danny Sky MD ? Ordering Physician: Danny Sky MD ?? Date of Service: 01/03/25 ?? Procedure(s): US renal BI ?? Accession Number(s): [id number] ? cc: Danny Sky MD; Clare Jones [...] DD/ 1240 ? TD/TT: 01/03/25 1240 ? Cable Splicer Apprentice: ? Procedure Note Donotuseinterpreter, Image - 01/03/2025 [place] [phone] Ultrasound Report Signed Patient: Katharine Paez#: [id number] : 7Acct:[id number] Age/Sex: 89 / MADM Date: 01/03/25 Loc: HO.US Attending Dr: Danny Sky MD Ordering Physician: Danny Sky MD Date of Service: 01/03/25 Procedure(s): US renal BI Accession Number(s): [id number] cc: Danny Sky MD; Clare Jones MD [...] 01/03/25 1241 DD/ 1240 TD/TT: 01/03/25 1240 Cable Splicer Apprentice: us [facility] External Provider IMG US PROCEDURES Edited Result - Final from Last 3 Months Insurance [facility] [employer] (O D-SNP) Care Teams Priming Powder Premix Blender Relationship Specialty Start Date End Date Clare Jones MD [address] [place] [phone] PCP - General Internal Medicine 10/04/16
--- OUTSIDE RECORDS SUMMARY | 2025-03-08 13:05 | XMS_ITS | Encounter Summary ---
Author Organization [employer] Address [address] [facility] 7t [place] [address] Care Team Providers Care Fuse Spooler Name Role Phone Clare Jones MD Primary Care Provider [phone]- [phone] Encounter Details Date Type Department Care Team (Late st Contact Info) Description 11/17/2023 Telephone [facility] MEDICINE [address] [place] [address] Clare Jones MD [address] [place], [place] [phone] Social History Tobacco Use Types Packs/Day Years [...] regards to results. Please contact daughter at [phone] * Telephone Encounter - Sagrario Nazario LPN - 11/17/2023 8:26 AM EST Critical result line call received now from Lisa with [facility] Radiology. CXR: Results faxed x 2. New Right Upper Lobe Pneumonia Right Bibasilar Pneumonia Persistent Cardiomegaly Recommendation to follow until compete resolved. Please Update PCP now and follow with patient. documented in this encounter Plan of Treatment Upcoming Encounters Date Type Department Care Team (Late st Contact Info) Description 04/10/2025 10:45 AM EDT Office Visit [facility] CHC MED & PEDS [address] [place] [address] Clare Jones MD [address] [place] [address] documented as of this encounter Visit Diagnoses Not on filedocumented in this encounter Additional Health Concerns Assessment Noted Time PHQ-9 Depression Total Score: 0 03/07/20 23 4:08 PM EDT documented as of this encounter Care Teams Fuse Spooler Relationship Specialty Start Date End Date Clare Jones MD [address] [place] [address] PCP - General Internal Medicine 10/04/16 documented as of this encounter
--- OUTSIDE RECORDS SUMMARY | 2025-03-08 13:05 | XMS_ITS | Encounter Summary ---
Author Organization [employer] Address 75 [facility] 7t [place] [address] Care Team Providers Care Medical Appointment Scheduler Name Role Phone Clare Jones MD Primary Care Provider [phone]- [phone] Encounter Details Date Type Department Care Team ([facility] st Contact Info) Description 07/02/2024 Orders Only [facility] MED & PEDS [address] [place], [place] [phone] Clare Jones MD [address] [place] [address] Chronic atrial fibrillation (CMS/HCC) (Primary Dx) Social [...] 10:45 AM EDT Office Visit [facility] MED & PEDS [address] [place] [address] Clare Jones MD [address] [place] [address] documented as of this encounter Visit Diagnoses Diagnosis Chronic atrial fibrillation (CMS/HCC)- Primary Atrial fibrillation documented in this encounter Additional Health Concerns Assessment Noted Time PHQ-9 Depression Total Score: 0 03/07/20 23 4:08 PM EDT documented as of this encounter Care Teams Medical Appointment Scheduler Relationship Specialty Start Date End Date Clare Jones MD [address] [place] [address] PCP - General Internal Medicine 10/04/16 documented as of this encounter
--- OUTSIDE RECORDS SUMMARY | 2025-03-08 13:05 | XMS_ITS | Encounter Summary ---
Author Organization [employer] Address 75 [facility] 7t [place] [address] Care Team Providers Care Hospital Insurance Representative Name Role Phone Clare Jones MD Primary Care Provider [phone]- [phone] Reason for Visit * Reason Onset Date Comments Med Refill 08/16/2024 Encounter Details Date Type Department Care Team (Late st Contact Info) Description 08/16/2024 Telephone [facility] MEDICINE [address] [place] [address] Clare Jones MD [address] [place] [address] Med Refill Social History Tobacco Use Types [...] Description 04/10/2025 10:45 AM EDT Office Visit [facility] CHC MED & PEDS [address] [place] [address] Clare Jones MD [address] [place] [address] documented as of this encounter Visit Diagnoses Not on filedocumented in this encounter Additional Health Concerns Assessment Noted Time PHQ-9 Depression Total Score: 0 03/07/20 23 4:08 PM EDT documented as of this encounter Care Teams Hospital Insurance Representative Relationship Specialty Start Date End Date Clare Jones MD [address] [place] [phone] PCP - General Internal Medicine 10/04/16 documented as of this encounter
--- OUTSIDE RECORDS SUMMARY | 2025-03-08 13:05 | XMS_ITS | Encounter Summary ---
Author Organization [employer] Address 75 [facility] 7t [place] [address] Care Team Providers Care Landscape Gardener Name Role Phone Clare Jones MD Primary Care Provider [phone]- [phone] Encounter Details Date Type Department Care Team ([facility] st Contact Info) Description 10/22/2024 Orders Only [facility] CHC MED & PEDS [address] [place], [place] [phone] Clare Jones MD [address] [place] [address] Primary insomnia (Primary Dx) Social History Tobacco [...] Upcoming Encounters Date Type Department Care Team ([facility] st Contact Info) Description 04/10/2025 10:45 AM EDT Office Visit [facility] CHC MED & PEDS [address] [place] [address] Clare Jones MD [address] [place] [address] documented as of this encounter Visit Diagnoses Diagnosis Primary insomnia- Primary Persistent disorder of initiating or maintaining sleep documented in this encounter Additional Health Concerns Assessment Noted Time PHQ-9 Depression Total Score: 0 09/25/20 24 1:21 PM EST documented as of this encounter Care Teams Landscape Gardener Relationship Specialty Start Date End Date Clare Jones MD [address] [place] [address] PCP - General Internal Medicine 10/04/16 documented as of this encounter
--- OUTSIDE RECORDS SUMMARY | 2025-03-08 13:05 | XMS_ITS | Encounter Summary ---
Author Organization [employer] Address 75 [facility] 7t [place] [address] Care Team Providers Care Hospice Admitting Clerk Name Role Phone Clare Jones MD Primary Care Provider [phone]- [phone] Encounter Details Date Type Department Care Team ([facility] st Contact Info) Description 12/21/2023 Orders Only [facility] CHC MED & PEDS [address] [place], [place] [phone] Clare Jones MD [address] [place] [address] Chronic cough (Primary Dx) Social History Tobacco [...] Description 04/10/2025 10:45 AM EDT Office Visit [facility] MED & PEDS [address] [place] [address] Clare Jones MD [address] [place] [address] Scheduled Orders Name Type Priority Associated Diagnoses Orde r Schedule XR Chest 2 Views Imaging Routine Chronic cough Expected: 12/21/2023 (Approximate), Expires: 12/21/2024 documented as of this encounter Visit Diagnoses Diagnosis Chronic cough- Primary Cough documented in this encounter Additional Health Concerns Assessment Noted Time PHQ-9 Depression Total Score: 0 03/07/20 23 4:08 PM EDT documented as of this encounter Care Teams Hospice Admitting Clerk Relationship Specialty Start Date End Date Clare Jones MD [address] [place] [address] PCP - General Internal Medicine 10/04/16 documented as of this encounter
--- OUTSIDE RECORDS SUMMARY | 2025-03-08 13:05 | XMS_ITS | Encounter Summary ---
Author Organization [employer] Address 75 [facility] [address] [place] [address] Care Team Providers Care Blood Bank Laboratory Technologist Name Role Phone Clare Jones MD Primary Care Provider Reason for Visit * Reason Onset Date Comments Durable Medical Equipment 11/23/2022 Encounter Details Date Type Department Care Team ([facility] st Contact Info) Description 11/23/2022 Telephone [facility] CH[facility] MED & PEDS [address] [place], [place] [phone] Clare Jones MD [address] [place], [place] [phone] Durable Medical Equipment Social History Tobacco Use [...] 1:45 PM EST Tc from Ailyn at [facility] calling in regards to medical supplies script [...] uses 4 times a day Flavors: Vanilla, [place], Chocolate for patient. Please sent to [facility] [address] [place] [phone] [facility] documented in this encounter Plan of Treatment Upcoming Encounters Date Type Department Care Team ([facility] st Contact Info) Description 04/10/2025 10:45 AM EDT Office Visit [facility] MED & PEDS [address] [place] [address] Clare Jones MD [address] [place], [place] [phone] documented as of this encounter Visit Diagnoses Diagnosis Primary insomnia Persistent disorder of initiating or maintaining sleep documented in this encounter Care Teams Blood Bank Laboratory Technologist Relationship Specialty Start Date End Date Clare Jones MD [address] [place] [address] PCP - General Internal Medicine 10/04/16 documented as of this encounter
--- OUTSIDE RECORDS SUMMARY | 2025-03-08 13:05 | XMS_ITS | Encounter Summary ---
Author Organization [employer] Address 75 [facility] 7t [place] [address] Care Team Providers Care Print Producer Name Role Phone Clare Jones MD Primary Care Provider [phone] Reason for Visit * Reason Onset Date Comments Med Refill 11/19/2022 Encounter Details Date Type Department Care Team ([facility] st Contact Info) Description 11/19/[address] [facility] CHC MED & PEDS [address] [place], [place] [phone] Clare Jones MD [address] [place] [address] Chronic heart failure with preserved ejection fraction [...] encounter Miscellaneous Notes * Telephone Encounter - Rufus Arora - 11/19/2022 4:22 PM EST Tc from pt requesting med refill on digoxin (Lanoxin) 125 MCG tablet and aspirin 81 MG EC tablet Please sent to [facility] [address] [place] [place] [address] documented in this encounter Plan of Treatment Upcoming Encounters Date Type Department Care Team (Late st Contact Info) Description 04/10/2025 10:45 AM EDT Office Visit [facility] MED & PEDS [address] [place] [address] Clare Jones MD [address] [place] [address] documented as of this encounter Visit Diagnoses Diagnosis Chronic heart failure with preserved ejection fraction (CMS/HCC)- Primary documented in this encounter Care Teams Print Producer Relationship Specialty Start Date End Date Clare Jones MD [address] [place] [address] PCP - General Internal Medicine 10/04/16 documented as of this encounter
--- OUTSIDE RECORDS SUMMARY | 2025-03-08 13:05 | XMS_ITS | Encounter Summary ---
Author Organization [email or web address] Address 75 [facility] 7t [place] [address] Care Team Providers Care Kiln Pusher Name Role Phone Clare Jones MD Primary Care Provider [phone]- [phone] Reason for Visit * Reason Onset Date Comments Hospital Follow-up 08/21/2024 Encounter Details Date Type Department Care Team (Late st Contact Info) Description 08/21/2024 Telephone [facility] MEDICINE [address] [place] [address] Clare Jones MD [address] [place] [phone] Hospital Follow-up Social History Tobacco Use Types [...] from pt requesting a HDF appt. Hospital: [facility] Date of admission: 07/30/2024 Discharge date: 08/07/2024 Diagnosed: GI bleeding documented in this encounter Plan of Treatment Upcoming Encounters Date Type Department Care Team (Late st Contact Info) Description 04/10/2025 10:45 AM EDT Office Visit [facility] CHC MED & PEDS [address] [place] [address] Clare Jones MD [address] [place] [address] documented as of this encounter Visit Diagnoses Not on filedocumented in this encounter Additional Health Concerns Assessment Noted Time PHQ-9 Depression Total Score: 0 03/07/20 23 4:08 PM EDT documented as of this encounter Care Teams Kiln Pusher Relationship Specialty Start Date End Date Clare Jones MD [address] [place] [address] PCP - General Internal Medicine 10/04/16 documented as of this encounter
--- OUTSIDE RECORDS SUMMARY | 2025-03-08 13:05 | XMS_ITS | Encounter Summary ---
Author Organization [email or web address] Address 75 [facility] 7t [place] [address] Care Team Providers Care Can Tester Name Role Phone Clare Jones MD Primary Care Provider [phone] Encounter Details Date Type Department Care Team (Late Contact Info) Description 12/01/2022 Abstract [facility] MEDICINE [address] [place] [address] Clare Jones MD [address] [place] [address] Social History Tobacco Use Types Packs/Day Years [...] Encounters Date Type Department Care Team (Late Contact Info) Description 04/10/2025 10:45 AM EDT Office Visit [facility] CHC MED & PEDS [address] [place] [address] Clare Jones MD [address] [place] [address] documented as of this encounter Visit Diagnoses Not on filedocumented in this encounter Care Teams Can Tester Relationship Specialty Start Date End Date Clare Jones MD [address] [place] [address] PCP - General Internal Medicine 10/04/16 documented as of this encounter
--- OUTSIDE RECORDS SUMMARY | 2025-03-08 13:05 | XMS_ITS | Encounter Summary ---
Author Organization [employer] Address 75 [facility] 7t [place] [address] Care Team Providers Care Central Office Equipment Engineer Name Role Phone Clare Jones MD Primary Care Provider [phone]- [phone] Reason for Visit * Reason Onset Date Comments FYI 07/02/2024 Encounter Details Date Type Department Care Team (Late st Contact Info) Description 07/02/2024 Telephone [facility] MEDICINE [address] [place] [address] Clare Jones MD [address] [place], [place] [phone] Social History Tobacco Use Types Packs/Day Years [...] 07/09/2024 11:22 AM EDT Returned call to [facility] and relayed message that if [...] 12:47 PM EDT Tc from Sagrario with [facility] calling to inform pcp of home visit. Pt's o2 was a 92% crackles at the bases and increase of shortness of breath. Pt also reported having frequent nose bleeds for the past few days after restarding eliquis. If any questions you can contact Sagrario at [phone]. documented in this encounter Plan of Treatment Upcoming Encounters Date Type Department Care Team (Late st Contact Info) Description 04/10/2025 10:45 AM EDT Office Visit [facility] MED & PEDS [address] [place] [address] Clare Jones MD [address] [place] [address] documented as of this encounter Visit Diagnoses Not on filedocumented in this encounter Additional Health Concerns Assessment Noted Time PHQ-9 Depression Total Score: 0 03/07/20 23 4:08 PM EDT documented as of this encounter Care Teams Central Office Equipment Engineer Relationship Specialty Start Date End Date Clare Jones MD [address] [place] [address] PCP - General Internal Medicine 10/04/16 documented as of this encounter
--- OUTSIDE RECORDS SUMMARY | 2025-03-08 13:05 | XMS_ITS | Encounter Summary ---
Author Organization [employer] Address 75 [facility] 7t [place] [address] Care Team Providers Care Transplant Worker Name Role Phone Clare Jones MD Primary Care Provider [phone]- [phone] Encounter Details Date Type Department Care Team ([facility] st Contact Info) Description 11/17/2023 Orders Only [facility] CHC MED & PEDS [address] [place], [place] [phone] Clare Jones MD [address] [place] [address] Pneumonia of right upper lobe due to [...] Description 04/10/2025 10:45 AM EDT Office Visit [facility] CHC MED & PEDS [address] [place] [address] Clare Jones MD [address] [place] [address] documented as of this encounter Visit Diagnoses Diagnosis Pneumonia of right upper lobe due to infectious organism- Primary documented in this encounter Additional Health Concerns Assessment Noted Time PHQ-9 Depression Total Score: 0 03/07/20 23 4:08 PM EDT documented as of this encounter Care Teams Transplant Worker Relationship Specialty Start Date End Date Clare Jones MD [address] [place] [address] PCP - General Internal Medicine 10/04/16 documented as of this encounter
--- OUTSIDE RECORDS SUMMARY | 2025-03-08 13:05 | XMS_ITS | Encounter Summary ---
Author Organization [employer] Address [address] [facility] [address]t [place] [address] Care Team Providers Care Clinical Research Nurse Coordinator Name Role Phone Clare Jones MD Primary Care Provider [phone] Encounter Details Date Type Department Care Team ([facility] st Contact Info) Description 08/22/2024 Orders Only [facility] MED & PEDS [address] [place], [place] [phone] Clare Jones MD [address] [place] [address] Chronic heart failure with preserved ejection fraction [...] Upcoming Encounters Date Type Department Care Team ([facility] st Contact Info) Description 04/10/2025 10:45 AM EDT Office Visit [facility] MED & PEDS [address] [place] [address] Clare Jones MD [address] [place] [address] documented as of this encounter Visit Diagnoses Diagnosis Chronic heart failure with preserved ejection fraction (CMS/HCC)- Primary documented in this encounter Additional Health Concerns Assessment Noted Time PHQ-9 Depression Total Score: 0 03/07/20 23 4:08 PM EDT documented as of this encounter Care Teams Clinical Research Nurse Coordinator Relationship Specialty Start Date End Date Clare Jones MD [address] [place] [address] PCP - General Internal Medicine 10/04/16 documented as of this encounter
--- OUTSIDE RECORDS SUMMARY | 2025-03-08 13:05 | XMS_ITS | Encounter Summary ---
Author Organization [employer] Address [address] [facility] [address] [place] [address] Care Team Providers Care Chainstitch Binder Name Role Phone Clare Jones MD Primary Care Provider [phone]- [phone] Reason for Visit * Reason Onset Date Comments Medication Question 10/19/2023 Encounter Details Date Type Department Care Team ([facility] Contact Info) Description 10/19/2023 Telephone [facility] MED & PEDS [address] [place], [place] [phone] Clare Jones MD [address] [place] [address] Medication Question Social History Tobacco Use Types [...] Description 04/10/2025 10:45 AM EDT Office Visit [facility] MED & PEDS [address] [place] [address] Clare Jones MD [address] [place] [address] documented as of this encounter Visit Diagnoses Diagnosis Primary osteoarthritis of other site- Primary documented in this encounter Additional Health Concerns Assessment Noted Time PHQ-9 Depression Total Score: 0 03/07/20 23 4:08 PM EDT documented as of this encounter Care Teams Chainstitch Binder Relationship Specialty Start Date End Date Clare Jones MD [address] [place] [address] PCP - General Internal Medicine 10/04/16 documented as of this encounter
--- OUTSIDE RECORDS SUMMARY | 2025-03-08 13:05 | XMS_ITS | Continuity of Care Document ---
Author Organization [facility] Address [address] [address] Phone Care Team Providers Care Cafe Associate Name Role Phone Tiffanie Allen OT Unavailable Unavailable Advance Directives Directive Yes / No Effective Date File Name No Information Encounters Encounter Description Practice Location Reason(s) For Visit Diagnoses Date Provider [facility], [address] [place] [address], [id number], [place] tel:[phone] [address] [facility] No Information 2020 [address] Moreno. [address] [place] [address], [id number], [place]. tel:[phone] Family History Family Member Type Diagnosis Age At Onset No Information Payers Payer name Insurance type Covered democrat ID Authoriza tion(s) No Information Social History Type Description Quantity Date Captured Comments Sex Male Smoking Status No Information Chief Complaint And Reason For Visit No Information History Of Present Illness Encounter Date Complaint History Of Prese nt Illness No Information Instructions Date Instruction Additional Infor mation No Information Assessments Type Assessment Date No Information
--- OUTSIDE RECORDS SUMMARY | 2025-03-08 13:05 | XMS_ITS | Encounter Summary ---
Author Organization [employer] Address [address] [facility] [address] [place] [address] Care Team Providers Care Ore Storage Drier Name Role Phone Clare Jones MD Primary Care Provider [phone] Reason for Referral * Imaging (Routine) - Closed Specialty Diagnoses / Procedures Referred By Clemente reid Referred To Contact Radiology Diagnoses Chronic cough Weight loss Procedures CT Chest w/ Contrast Clare Jones MD [address] [place] [address] Phone: tel: fax: [facility] Referral ID Status Reason Start Date Expiration Date Visits Re quested Visits Authorized [id number] Closed 01/06/2024 01/05/2025 1 1 Encounter Details Date Type Department Care Team (Late st Contact Info) Description 01/06/2024 Orders Only [facility] CH[facility] MED & PEDS [address] [place], [place] [phone] Clare Jones MD [address] [place] [address] Chronic cough (Primary Dx); Weight loss Social [...] Upcoming Encounters Date Type Department Care Team ([facility] st Contact Info) Description 04/10/2025 10:45 AM EDT Office Visit [facility] MED & PEDS [address] [place] [address] Clare Jones MD [address] [place] [address] Scheduled Orders Name Type Priority Associated Diagnoses [...] documented as of this encounter Care Teams Ore Storage Drier Relationship Specialty Start Date End Date Clare Jones MD [address] [place] [address] PCP - General Internal Medicine 10/04/16 documented as of this encounter
--- NOTE | 2025-03-08 13:27 | A.OFFVIS_ITS ---
Intake Visit Reasons: 6m/PSA(psa?) Intake Note: Patient is present for 6M/PSA Urology Medication:FINASTERIDE,MIRABEGRON,TAMSULOSIN Antibiotic Allergy:PENICILLIN G Blood Thinner:APIXABAN Communication Professor Required: No Allergies penicillin G Allergy (Unknown, Verified 03/08/25 13:36) Unknown Latex Allergy (Unknown, Uncoded 03/08/25 13:36) Unknown HPI Comments Details: Cornelius THORNE is a very pleasant Australian-speaking male. He is a patient of Dr Jones. He is seen for the following urologic conditions. - detrusor hyperactivity impaired contractility - prostate cancer Six-month follow-up PSA slight rise from 3.2-4.4 Known low volume prostate cancer from 2019 Stabilized bladder function with Myrbetriq and bethanechol Refills provided PSA 05/11 2.9, 04/15 10.7, 06/15 6.4, 12/17 5.8 7%, 08/16 3.2, 03/17 4.4 Urinary Urge/Frequency:? Detrusor hyperactivity with impaired contractility Had urodynamics performed some point in time which appeared to showed low-flow low-pressure system. Botox 09/11 PVR low 04/15 0cc Current therapy finasteride plus bethanechol and Myrbetriq Prostate cancer:? Group 2 low volume 08/12 ? Has been managed with active surveillance for low volume group 2 prostate cancer- 05/11 low stable PSA ?Had urodynamics performed some point in time which appeared to showed low-flow low-pressure system with instability ? Prostate cancer was diagnosed?2009 Dr Snyder.? Diagnosis was reached by?07/2010 , needle biopsy, for elevated PSA.? The [place] grade is?07/2010 ?4/12 cores max 10% , 3+4 = 7 each core 5%, 5%, 5% ? Initial therapy included?Deferred Therapy (active surveillance) - Had TUR for BPH 2009 - prior intermittent hormone therapy ? Recent labs included?04/11 Cystoscopy - trabeculation with good TUR defect ?05/11 PSA 2.9.? PFSH Medical History Nocturia Urinary frequency OAB (overactive bladder) Urinary retention Weak urinary stream Surgical History Hx of heart bypass surgery History of appendectomy History of prostate surgery Family History Father No problems noted. Mother Colon cancer Social History Household Members: Spouse and Significant Other Alcohol intake: never Patient Tobacco Use Status: Never used Tobacco Current occupational status: retired Gender identity: Male Assessment & Plan Assessment & Plan Orders: Orders AMB Urinalysis Automated Today Z13.9 - Encounter for screening, unspecified Patient Instructions: This note is constructed using voice recognition software. While every effort has been made to ensure accuracy carpenter helper hardwood flooring errors may have been included. Imaging studies, laboratory and physical exam results were discussed and revie wed in detail. No major barriers to patient understanding were identified. An opportunity to ask questions regarding the treatment plan was provided. All questions were answered. The patient expressed understanding and agreement with the above treatment plan. The patient is aware they should contact our office by phone for worsening of their current condition or the appearance of new urologic symptoms. Compliance is encouraged with any medications and followup testing that is ordered. It is a privilege to participate in the urologic care of your patient. If you have any questions or concerns regarding treatment for the above conditions, or other urologic issues, please do not hesitate to contact me. The office telephone contact is [phone]. Sincerely, Dr Karel Snyder MD, [facility] - Urology Compassionate Specialist Care for the Genitourinary System Coding
== END 2025-03-08 14:23 | disposition home or self-care (01) ==
LOC: HO.HUSH 13:03
PROVIDERS: PCP Internal Medicine; Visit Provider Urology
DX: Z13.9 Encounter for screening, unspecified (principal)

== ENCOUNTER → 2025-03-08 13:02 | Outpatient (BNVA) | payer OTHER, SELFPAY | PROVIDERS: PCP Internal Medicine; Visit Provider Urology | DX: C61 Malignant neoplasm of prostate (principal); R39.15 Urgency of urination; R35.1 Nocturia | CPT/HCPCS: 81003; 99212 ==

== ENCOUNTER 2025-04-10 11:33 | Outpatient (REF) | payer OTHER, SELFPAY ==
--- OUTSIDE RECORDS SUMMARY | 2025-04-10 13:33 | XMS_ITS | Encounter Summary ---
Author Organization [employer] Address [address] [facility] [address] [place] [address] Care Team Providers Care Tar Heat Exchanger Cleaner Name Role Phone Clare Jones MD Primary Care Provider [phone] Encounter Details Date Type Department Care Team ([facility] st Contact Info) Description 03/16/2024 Orders Only [facility] CHC MED & PEDS [address] [place], [place] [phone] Clare Jones MD [address] [place], [place] [phone] Bladder dysfunction (Primary Dx); Seasonal allergic rhinitis [...] Upcoming Encounters Date Type Department Care Team ([facility] st Contact Info) Description 07/04/2025 1:45 PM EDT Office Visit [facility] MED & PEDS [address] [place] [address] Clare Jones MD [address] [place] [address] documented as of this encounter Visit Diagnoses Diagnosis Bladder dysfunction- Primary Other functional disorder of bladder Seasonal allergic rhinitis due to other allergic trigger documented in this encounter Additional Health Concerns Assessment Noted Time PHQ-9 Depression Total Score: 0 03/07/20 23 4:08 PM EDT documented as of this encounter Care Teams Tar Heat Exchanger Cleaner Relationship Specialty Start Date End Date Clare Jones MD [address] [place] [address] PCP - General Internal Medicine 10/04/16 documented as of this encounter
[2025-04-10 14:20] LABS: MANUAL DIFF FLAG NO
[2025-04-10 14:32] LABS: Basophils Percent Auto 0.4 % (0-2); Eosinophils Absolute Auto 0.2 X10*3/uL (0.0-0.4); Eosinophils Percent Auto 3.7 % (0-4); Hematocrit 35.8 % (42.0-52.0); Hemoglobin 11.1 g/dl (14.0-18.0); Imm Gran Abs Auto 0.01 X10*3/uL (0.00-0.03); Imm Gran Pct Auto 0.2 % (0.0-0.4); Lymphocytes Absolute Auto 0.9 X10*3/uL (1.2-4.9); Lymphocytes Percent Auto 18.5 % (20-40); Mean Corpuscular Hemoglobin 27.7 pg (27.0-33.0); Mean Corpuscular Volume 89.3 fL (80.0-98.0); Mean Platelet Volume 9.5 fL (9.4-12.4); Monocytes Absolute Auto 0.5 X10*3/uL (0.1-1.2); Monocytes Percent Auto 9.7 % (2-11); Neutrophils Absolute Auto 3.3 x10*3/uL (2.0-8.3); Neutrophils Percent Auto 67.5 % (45-73); Platelet Count 123 X10*3/uL (160-400); Red Blood Count 4.01 X10*6/uL (4.60-5.80); Red Cell Distribution Width 18.5 % (11.0-16.0); White Blood Count 4.9 X10*3/uL (4.8-10.8)
[2025-04-10 14:52] LABS: Alanine Aminotransferase 22 U/L (0-40); Albumin Level 4.3 g/dL (3.5-5.0); Alkaline Phosphatase 159 U/L (39-117); Anion Gap 12 (12-20); Aspartate Amino Transferase 33 U/L (5-37); Bilirubin Total 1.2 mg/dL (0.0-1.0); Blood Urea Nitrogen 20 mg/dL (9-16); Calcium 10.3 mg/dL (8.4-10.2); Carbon Dioxide 26 mmol/L (22-29); Chloride 108 mmol/L (96-108); Estimated Glomerular Filt Rate > 60; Glucose Random 94 mg/dL (60-115); Iron 36 mcg/dL (45-160); Percent Iron Saturation 13 % (15-50); Potassium 4.1 mmol/L (3.3-5.1); Sodium 142 mmol/L (135-145); Total Iron Binding Capacity 274 mcg/dL (228-428); Total Protein 7.4 g/dL (6.5-8.0); Unsaturated Iron Binding 238 ug/dL
[2025-04-10 14:57] LABS: Prostate Specific Antigen 4.72 ng/mL (<0.05-4.0)
[2025-04-10 14:58] LABS: Ferritin 99 ng/mL (20-250)
[2025-04-10 14:59] LABS: TSH reflex Free T4 1.26 uIU/mL (0.32-4.0)
[2025-04-10 15:11] LABS: Folate 13.2 ng/mL (> or = 4.0); Vitamin B12 848 pg/mL (200-900)
== END 2025-04-10 11:34 | disposition home or self-care (01) ==
LOC: HO.CHCLDS 11:33
PROVIDERS: Internal Medicine Hypertension Specialist; Urology; Visit Provider Internal Medicine
DX: I50.32 Chronic diastolic (congestive) heart failure (principal); M19.09 Primary osteoarthritis, other specified site; R63.4 Abnormal weight loss; Z12.5 Encounter for screening for malignant neoplasm of prostate; N18.9 Chronic kidney disease, unspecified; D64.9 Anemia, unspecified; R35.1 Nocturia; R39.15 Urgency of urination; C61 Malignant neoplasm of prostate; N40.1 Benign prostatic hyperplasia with lower urinary tract symptoms; R33.9 Retention of urine, unspecified
CPT/HCPCS: 36415; 80053; 82306; 82607; 82728; 82746; 83540; 84153; 84443; 85025

== ENCOUNTER 2025-05-10 13:50 | Outpatient (AMB) | payer OTHER, SELFPAY ==
--- OUTSIDE RECORDS SUMMARY | 2025-05-10 13:52 | XMS_ITS | Data Portability ---
Author Organization Symplified [email or web address] Address [address] [place] [address] Care Team Providers Care Rn Concurrent Review Name Role Phone [facility] Referring Provider HIM CCA OTHER Assessment Encounter Date Assessment Date Assessment LastModified by Organization Details LastModified Time 02/17/2022 02/17/2022 I have reviewed and agree with the Assessment and Plan as documented by the Veterinarian Assistant. I provided real -time medical direction via phone for this encounter, and was available for additional phone based assistance as needed. Patient/ given the opportunity to ask questions. [email or web address] Not available 02/17/2022 18:02:20 05/20/2023 05/20/2023 I provided real -time medical direction via phone for this encounter, and was available for additional phone based assistance as needed. I have reviewed and agree with the Assessment and Plan as documented by the Veterinarian Assistant. Patient given the opportunity to ask questions. [...] abdominal pain, or any other concerns. VSS. Veterinarian Assistant on site reports urine is clear yellow. POC dip negative for LE, nitrites but positive for 3+ blood. Presentation and urine dip less typical for UTI but will send for culture. Encouraged outpatient follow up for likely mild urinary retention and consideration for prostate imaging. Red flags reviewed with healthcare sales representative. Primary team, Mr. Paez would benefit from follow up in the next week or two to discuss his painless hematuria. [email or web address] Not available 02/15/2024 15:11:31 Plan of Treatment Reminders Order Date Submit Date Provider Last Modified By Organization Details Last Modified Time Details Appointments None recorded. Lab culture, urine 2023 024 [place] [facility] (Centralized Electronic Ordering - All Locations), Patient Can Go To The Location Of Their Choice, [id number] 4 14:07:02 urinalysis, dipstick 2023 024 [facility], [address] [place] [address], [id number] 4 19:32:24 rapid SARS CoV 2 Ag, QL IA, respiratory specimen 2021 022 [email or web address] 0 [facility], [address] [place] [address], [id number] 2 18:05:35 rapid flu (A+B) 2021 022 [email or web address] 0 [facility], [address] [place] [address], [id number] 2 18:05:35 Referral None recorded. Procedures None recorded. Surgeries None recorded. Imaging None recorded. Medication Orders Augmentin 875 mg-125 mg tablet 2023 024 [place], [address] [facility], [place], [address], 18:11:17 Patient TargetsNo targets recorded. Patient InstructionsNo instructions recorded. Reason for Referral None Reported. Results Created Date Observation Date Name Description Value Unit Range Abnormal Flag Note LastModifiedBy Organization Detail LastModifiedTime 02/18/20 22 02/17/2022 rapid flu (A+B) Flu negati ve Not Available [facility] ed [address] [place] [address], [id number] 02/17/2022 18:01:58 02/18/20 22 02/17/2022 rapid SARS CoV 2 Ag, QL IA, respi rator y speci men rapid SARS CoV 2 Ag, QL IA, respiratory specimen positi ve Not Available [facility] ed [address] [place] [address], [id number] 02/17/2022 18:01:49 02/15/20 24 02/16/2024 SPECI MEN IDENT IFICA TION STATU S specimen identificati on status Commen t Pleas e be advis ed that a minor name discr epanc y has occur red. The name on the sampl e(s) does not match the name on the reque st form. All tests reque sted are in progr ess. READS 2023 Not Available [facility] ([facility]) [address] [place], [address], 02/16/2024 12:06:05 02/15/20 24 02/19/2024 URINE CULTU RE,CO MPREH ENSIV E urine culture,comp rehensive Final report Not Available [facility] ([facility]) [address] [place], [address], 02/19/2024 16:05:36 02/15/20 24 02/19/2024 URINE CULTU RE,CO MPREH ENSIV E result 1 COMMEN T No growt h in 36 - 48 hours . Not Available [facility] ([facility]) [address] [place], [address], 02/19/2024 16:05:36 Result Notes None recorded. Medical Equipment None Reported. Allergies Allergen ID Allergen Name Allergen Category Reaction Reaction Severity Criticality Documentation Date Start Date Code Code System Note Provider Name and Address Organization Details Recorded Time 8002 latex environme nt,medica tion Not available Not available Not available 08/21/2024 51890 91 RxNorm Not Available [facility] - production [...] Available N ot Available Vitals Date Recorded Heart rate Oxygen saturation Oxygen saturation in Arterial blood by Pulse oximetry Body height Respiratory rate Body temperature Body weight Systolic And Diastolic Provider Name and Address Organization Details Last Updated DateTime 4 65 /min 96 % 96 % 167.64 cm 18 /min 98.2 [degF] 62447.8 4 g 149/74 mm[Hg] Not Available [facility] 4 18:08:04 Date Recorded Oxygen saturation Oxygen saturation in Arterial blood by Pulse oximetry Body temperature Body weight Body height Heart rate Respiratory rate Systolic And Diastolic Provider Name and Address Organization Details Last Updated DateTime 4 97 % 97 % 97.7 [degF] 82235.5 12 g 170.18 cm 62 /min 16 /min 145/68 mm[Hg] Not Available [facility] 4 14:03:31 Date Recorded Oxygen saturation Oxygen saturation in Arterial blood by Pulse oximetry Body weight Body temperature Respiratory rate Heart rate Systolic And Diastolic Provider Name and Address Organization Details Last Updated DateTime 4 99 % 99 % 57191.8 8 g 97.4 [degF] 16 /min 80 /min 136/40 mm[Hg] Not Available [facility] 4 19:02:22 Date Recorded Oxygen saturation Oxygen saturation in Arterial blood by Pulse oximetry Body temperature Respiratory rate Heart rate Respiratory rate Oxygen saturation Oxygen saturation in Arterial blood by Pulse oximetry Heart rate Respiratory rate Heart rate Systolic And Diastolic Provider Name and Address Organization Details Last Updated DateTime 2 98 % 98 % 98.4 [degF] 20 /min 90 /min 20 /min 98 % 98 % 90 /min 20 /min 90 /min 141/84 mm[Hg] Not Available [facility] 17:09:39 Date Recorded Body temperature Body weight Heart rate Respiratory rate Body height Oxygen saturation Oxygen saturation in Arterial blood by Pulse oximetry Systolic And Diastolic Provider Name and Address Organization Details Last Updated DateTime 3 98.3 [degF] 05643.8 g 72 /min 18 /min 165.1 cm 95 % 95 % 127/70 mm[Hg] Not Available [facility] 3 14:58:23 Social History None recorded. Functional Status None recorded. Mental Status None recorded. Family History Nothing Reported. Medical History No medical history recorded. Past Encounters Encounter ID Performer Location Encounter Start Date Encounter Closed Date Diagnosis/Indication Diagnosis SNOMED-CT Code Diagnosis ICD10 Code Diagnosis Note [id number] Radha Hill MD [facility] [address] [place] [address] [id number] 01/30/2022 18:34:04 07/01/2022 17:40:00 Dyspnea 883339355 R06.00 resolved [id number] Radha Hill MD [facility] [address] [place] [id number] 02/17/2022 17:09:37 07/01/2022 18:09:08 Viral syndrome [id number] B34.9 + covid-- pat in no respirator [...] go immediatel y to the ER- call [id number] Smita Cool MD [facility] [address] [place] [address] [id number] 05/21/2023 14:58:14 05/23/2023 16:37:33 Edema [id number] R60.9 Elaine Purdy MD [facility] [address] [place] [address] [id number] 12/19/2023 18:08:02 12/20/2023 10:35:13 Cough [id number] R05.9 I provided real -time medical direction via phone for this encounter, and was available for additional phone based assistance as needed. I have reviewed and agree with the Assessment and Plan as documented by the Veterinarian Assistant. Patient given the opportunit y to ask [...] LQN- family voiced understand ing of plan [id number] Areli Cruz MD [facility] [address] [place] [phone] 02/15/2024 13:29:41 02/15/2024 22:08:45 Urinary symptoms [id number] R39.9 [id number] Saskia Mcarthur MD [facility] [address] [place] [address] [id number] 02/17/2024 19:02:18 02/19/2024 17:06:36 Furuncle [id number] L02.92 88 year old male being evaluated [...] assessment and plan as documented by the healthcare sales representative. I provided real-time medical direction for this [...] Monahan Member ID Guarantor Name 05/20/2023 1 [facility] - DOS PRIOR TO 2023 - DUAL ELIGIBLE (MEDICARE REPLACEMENT/AD VANTAGE - HMO) Cornelius Medianero [id number] Cornelius Irving Medianero 02/16/2024 1 [facility] - DOS ON OR AFTER 2023 - DUAL ELIGIBLE - ALF OPTIONS AND ONE CARE (MEDICARE REPLACEMENT/AD VANTAGE - HMO) Cornelius Medianero [id number] Cornelius Irving Medianero Notes Date Note Type Note Provider Name and Address Organization Details Recorded Time 02/17/2022 text/html HPI: Call received from member's daughter, Janessa (# [phone]) to the CRU. Janessa reports mbr has not felt well with flu like symptoms and PCP would not see member d/t symptoms and recommended home visit through [facility]. Janessa reports mbr with sx for the [...] .................... .................... .................... .................... .................... .................... . Veterinarian Assistant Note: Patient is a 86 year old [...] health and symptoms for any changes. Contact [facility] for re-visit if symptoms persist. Contact 911 for any discussed red flags or other emergencies. .................... .................... .................... .................... .................... .................... .................... . Disposition: Fulfilled Radha Hill MD [address] [place] [address],[address] [facility], [place], [phone] [employer] 02/17/2022 18:06:15 05/20/2023 text/html HPI: Members VNA [...] .................... .................... .................... .................... .................... .................... . Veterinarian Assistant Note From Cecelia Martinez: Sent to a call for a pt with face and upper extremity edema. SC8 arrives on scene, pt is alert and oriented, airway is patent. Pt does not appear to be in respiratory distress. Pt's primary language is Prydeinig and pt's family serves as estimator project manager. Family states pt had lower extremity edema [...] facial and lower extremity edema uploaded to [employer]. BP:127/70, P:72, RR:18, Sp O2:95% RA, T:98.3; [...] .................... .................... . Disposition: Deborah Cool MD [address] [place] [address],[address] [facility], [place], [address], [employer] 05/21/2023 15:00:19 12/19/2023 text/html HPI: HX: CHF, AFib, CVA, SSS, VA, Esophagitis. Diagnosed with right sided pneumonia 11/16/23 [...] .................... .................... .................... .................... .................... .................... . Veterinarian Assistant Note From Kermit Paiz[facility]. [facility] [...] sounds clear and equal bilaterally. Consulted with [facility] Dr. Purdy who spoke Prydeinig and was able to ask questions of the family directly. Pt was started on oral levaquin with prescription sent to pharmacy. Family was instructed to follow up with PCP in order to have diagnostic chest x ray and ct scan completed. Patient education provided. .................... .................... .................... .................... .................... .................... .................... . Disposition: Fulfilled Elaine Purdy MD [address] [facility],[address], [place], [address], [employer] [facility] [employer] 12/20/2023 00:02:32 02/15/2024 text/html HPI: HX: CVA, Prostate CA, CKD,. Patient with one week history of dark thick urine with painful urination. Family concerned with UTI. .................... .................... .................... .................... .................... .................... .................... . CRC Nurse Triage Notes (David Denise): Comments: Reviewed HPI .................... .................... .................... .................... .................... .................... .................... . Veterinarian Assistant Note From Kermit Paiz: [facility] visit for elderly male patient with suspected UTI. Pt presents conscious and alert in home with his . spoke Uzbek and translated for patient. Pt states he [...] Urine culture and specimen obtained. Consulted with [facility] Dr. Cruz who advised no acute treatments, awaiting results of urine culture to proceed. Reviewed red flags with family and provided patient education. [facility] Lab Orders: culture, urine: Performed urinalysis, dipstick: Performed .................... .................... .................... .................... .................... .................... .................... . Disposition: Fulfilled Areli Cruz MD [address] [facility],[address], [place], [address], [employer] 02/15/2024 15:50:22 02/17/2024 text/html HPI: [facility] reporting lump on right side of groin area on the inside part of thigh .................... .................... .................... .................... .................... .................... .................... . CRC Nurse Triage Notes (Zarina Gillette): Comments: RN calling for member with red painful lump on right inner thigh. Member stated that it appeared today. Member denies any injury or fall . Member denies any fever/ chills/n/v/d Was seen by [facility] for UC , no growth .................... .................... .................... .................... .................... .................... .................... . Veterinarian Assistant Note From Donaldo Cole: Pt co red bump on upper thigh near groan with pain. Pt denies fever bleeding injury drainage co or sob. Baseline vitals assessed. Red bump appears to be ingrown hair or pimple/boil. Area slight red with black head. Afebrile. [facility] contacted and advised hot compress to area. Pt advised to monitor bump. Advised if gets bigger or more painful to go to ER. Pt education on signs indicating the ER. Veterinarian Assistant Allergies: Latex .................... .................... .................... .................... .................... .................... .................... . Disposition: Fulfilled Saskia Mcarthur MD [address] [place] [address],[address], [place], [phone], [employer] [facility] [employer] 02/17/2024 21:36:11
--- NOTE | 2025-05-10 14:09 | MHC.OFFVIS ---
Vital Signs 05/10/25 14:10 Height 5 ft 5 in Weight 132 lb BMI 22.0 BP 113/58 L Blood Pressure Location Lt brachial Position Sitting Pulse 77 Pulse Oximetry (%) 96 Oxygen Delivery Method Room Air Intake Visit Reasons: Anemia, Weight Loss, RLQ abd pain Intake Note: Patient new consult for Anemia, Weight Loss, and RLQ abd pain. Patient cc: constipation with bloody hemorrhoids. Denies any other GI issues for today visit. Embedded Nurse Required: No Accompanied by: Family/Other Allergies penicillin G Allergy (Unknown, Verified 05/10/25 14:09) Unknown Latex Allergy (Unknown, Uncoded 04/19/25 14:51) Unknown HPI HPI Anemia, Weight Loss, RLQ abd pain: Details: 59-year-old male with past medical history of Congestive heart failure, CAD, AFib on Eliquis, hyperlipidemia, hypertension, CKD, history of embolic stroke is here today for initial consultation. Patient is accompanied by his son-in-law who will be translating for us patient reports that he has had iron infusion this morning. He started getting the infusions for iron deficiency anemia. Patient reports that he is feeling fairly well, feeling tired and fatigued. Patient reports no abdominal pain, cramping, nausea, vomiting, heartburn, dyspepsia, dysphagia or odynophagia. Reports occasional blood after stooling. Patient does reports to be constipated. Is using some thing [id number] 1 in the morning and 1 in the evening to help him with bowel movements. Bowel movements every 3-4 days. Patient's daughter is helping him with ADLs. Denies any chest pain, palpitations, presyncope or syncope. Reports short of breath with minimal exertion. Patient is seeing salvage worker. Patient reports that his appetite declined and he lost 5 lb in the past couple months. Patient reports that he had colonoscopy in the past. Last 1 was done 3 years ago or so. He believes it was done at [facility]. Will call to get report [facility] Medical History Nocturia Urinary frequency OAB (overactive bladder) Urinary retention Weak urinary stream Surgical History Hx of heart bypass surgery History of appendectomy History of prostate surgery Family History Father No problems noted. Mother Colon cancer Social History Household Members: Spouse and Significant Other Alcohol intake: never Patient Tobacco Use Status: Never used Tobacco Current occupational status: retired Gender identity: Male Review of Systems Const Denies weight gain and Denies weight loss ENT Reports no additional complaints, Denies dysphagia and Denies odynophagia Card Reports no additional complaints Resp Reports no additional complaints GI Reports abdominal pain (Occasional), Denies belching, Denies melena, Denies bloating, Denies change in bowel habits, Reports constipation, Denies dysphagia, Denies excessive flatus, Denies dyspepsia, Denies heartburn, Denies diarrhea, Denies loose stools, Denies nausea, Denies odynophagia and Denies vomiting Reports no additional complaints Musc Reports no additional complaints Neuro Reports no additional complaints Psych Reports no additional complaints Endo Reports no additional complaints Physical Exam Vital Signs: Last Vital Signs Pulse 77 05/10/25 14:10 BP 113/58 L 05/10/25 14:10 Pulse Ox 96 05/10/25 14:10 Oxygen Delivery Method Room Air 05/10/25 14:10 BMI result Body Mass Index 22.0 Const General: healthy appearing, no acute distress and well developed Nutritional Appearance: well nourished Orientation/consciousness: patient oriented x3 Resp Effort & Inspection: normal respiratory effort, able to speak in complete sentences, no tracheal deviation and symmetric chest movement Auscultation: clear to auscultation bilaterally Cardio Rate: regular rate GI Inspection: Yes normal to inspection and No distended Palpation (GI): Soft to palpation, not firm, nontender and No hepatosplenomegaly present Auscultation: normal bowel sounds General: Yes no CVA tenderness Back/Spine/Pelvis Back: no CVA tenderness Skin General skin exam: elasticity normal, turgor normal and dry skin Neuro General: patient oriented x3 Psych Appearance: grossly normal Mental Status: mental status grossly normal Assessment & Plan Assessment & Plan (1) Anemia: Code(s): D64.9 - Anemia, unspecified Category: Medical Qualifiers: Anemia type: iron deficiency Iron deficiency anemia type: inadequate dietary iron intake Qualified Code(s): D50.8 - Other iron deficiency anemias (2) Constipation: Code(s): K59.00 - Constipation, unspecified Qualifiers: Constipation type: slow transit constipation Qualified Code(s): K59.01 - Slow transit constipation Plan We will try to get the report of the last colonoscopy. Anemia most likely related to inadequate iron intake and also kidney disease. Patient reports rectal bleed after bowel movements when straining and when constipated. Denies melena. 5 lb of weight loss as patient is not eating forgets to eat and has no appetite. High-calorie diet recommended and given to patient's family. Meals are being prepped by his daughter. Patient will start taking Senokot daily. Multiple comorbidities and might not be safe to send patient for colonoscopy, however if we have to we will speak to Cardiology and patient's salvage worker. We might be able to do colonography instead. Medications: New sennosides (Natural Senna Laxative) 17.2 mg (2 x 8.6 mg) PO BEDTIME 180 tabs 3RF constipation K59.00 - Constipation, unspecified Coding Level of Care Code New Pt Level 4 (93459) Diagnoses Iron deficiency anemia secondary to inadequate dietary iron intake D50.8 Anemia type: iron deficiency Iron deficiency anemia type: inadequate dietary iron intake Slow transit constipation K59.01 Constipation type: slow transit constipation Time Spent (min) 45 Comment 35 minutes spent with patient and additional 10 minutes spent reviewing his records
[2025-05-10 14:10] VITALS: BP 113/58; PULSE 77; O2SAT 96; BMI 22.0
== END 2025-05-10 15:06 | disposition home or self-care (01) ==
PROVIDERS: Family Provider Internal Medicine; Visit Provider Nurse Practitioner Family
DX: D50.8 Other iron deficiency anemias (principal); K59.01 Slow transit constipation
CPT/HCPCS: 99204

== ENCOUNTER → 2025-05-10 13:50 | Outpatient (BNVA) | payer OTHER, SELFPAY | PROVIDERS: Visit Provider Nurse Practitioner Family | DX: K59.01 Slow transit constipation (principal); D50.8 Other iron deficiency anemias | CPT/HCPCS: 99202 ==

== ENCOUNTER 2025-05-17 10:18 | Outpatient (AMB) | payer OTHER, SELFPAY ==
--- OUTSIDE RECORDS SUMMARY | 2021-03-31 04:38 | XMS_ITS | Continuity of Care Document ---
Author Organization [facility] Address [address] [address] Phone Care Team Providers Care Cleaner Greaser Name Role Phone Tiffanie Allen OT Unavailable Unavailable Advance Directives Directive Yes / No Effective Date File Name No Information Encounters Encounter Description Practice Location Reason(s) For Visit Diagnoses Date Provider [facility], [address] [place] [address], [id number], [place] tel:[phone] [facility] No Information 2020 Alejandro Moreno. [address] [place] [address], [id number], [place]. tel:[phone] Family History Family Member Type Diagnosis Age At Onset No Information Payers Payer name Insurance type Covered alliance party ID Authoriza tion(s) No Information Social History Type Description Quantity Date Captured Comments Sex Male Smoking Status No Information Chief Complaint And Reason For Visit No Information History Of Present Illness Encounter Date Complaint History Of Prese nt Illness No Information Instructions Date Instruction Additional Infor mation No Information Assessments Type Assessment Date No Information
--- NOTE | 2025-05-17 10:18 | MHC.OFFVIS ---
Vital Signs 05/17/25 10:30 Height 5 ft 5 in Weight 132 lb BMI 22.0 BP 120/80 Blood Pressure Location Rt brachial Position Sitting Pulse 65 Pulse Source Pulse Oximeter Pulse Oximetry (%) 94 Oxygen Delivery Method Room Air Intake Visit Reasons: Follow Up 6mo Hat Brusher Machine Required: Yes Hat Brusher Machine Services: Hat Brusher Machine Offered & Declined Hat Brusher Machine Name: Daughter assists with Japanese Accompanied by: Daughter Allergies penicillin G Allergy (Unknown, Verified 05/17/25 10:29) Unknown Latex Allergy (Unknown, Uncoded 04/19/25 14:51) Unknown Medication List - Last Reconciled 05/17/25 by CORNELIUS Tang acetaminophen 500 mg PO DAILY PRN amitriptyline 10 mg PO BEDTIME 30 days bethanechol chloride 50 mg PO BID 90 days cyanocobalamin (vitamin B-12) 1,000 mcg sublingual DAILY cyproheptadine 4 mg PO BEDTIME 30 days ferric carboxymaltose (Injectafer) 750 mg (15 mL) IV QWEEK 1 dose finasteride 5 mg PO DAILY 90 days fluticasone furoate-vilanterol 100-25 mcg/dose (Breo Ellipta) 1 ea inhalation DAILY PRN gabapentin 100 - 200 mg (1 - 2 x 100 mg) PO BEDTIME PRN 30 days ipratropium-albuterol 0.5 mg-3 mg(2.5 mg base)/3 mL 3 mL inhalation Q4-6H PRN latanoprost 0.005% 0 drps ophthalmic (eye) DAILY levocetirizine 5 mg PO DAILY metoprolol tartrate 50 mg PO DAILY mirabegron ER 25 mg PO DAILY 90 days pantoprazole 40 mg PO DAILY sennosides (Natural Senna Laxative) 17.2 mg (2 x 8.6 mg) PO BEDTIME spironolactone 12.5 mg (1/2 x 25 mg) PO DAILY torsemide 20 mg PO DAILY 3 days HPI Comments Details: 89-yr-old male presents for f/u visit for follow-up of sleep study and headache, pt accompanied by his dtr. 11/10/2023, In-lab PSG showed AHI 0.6/hour, O2 sabina 75%, with average SpO2 89%, and SpO2 under 88% for 146.5 minutes of study time. PLMS index of 186/hour and PLMS arousal index of 27/hour. Interval labs were noted for marked anemia and iron deficiency. Patient states he is now sleeping better. He is using gabapentin 100-200 mg as needed, not necessarily at bedtime, for general pain. He states he is tolerating the gabapentin well. He can still have nocturnal leg cramps. He has started seeing Hematology, and has started IV iron infusion therapy which has helped to reduce the severity of his JUANPABLO. Daughter states that at least some of the anemia is attributed to blood loss due to rectal bleeding due to chronic constipation. She states her father does not eat enough overall, patient himself states that he cannot eat many foods as he is missing his back teeth. Daughter states patient was on Remeron in an attempt to increase his appetite, however it was ineffective. He states he is not having any headaches at this point. May use Tylenol as needed which is effective. He is compliant with amitriptyline, which he is still tolerating well. [facility] Medical History Nocturia Urinary frequency OAB (overactive bladder) Urinary retention Weak urinary stream Surgical History Hx of heart bypass surgery History of appendectomy History of prostate surgery Family History Father No problems noted. Mother Colon cancer Social History Household Members: Spouse and Significant Other Alcohol intake: never Patient Tobacco Use Status: Never used Tobacco Current occupational status: retired Gender identity: Male Physical Exam Vital Signs: Last Vital Signs Pulse 65 05/17/25 10:30 BP 120/80 05/17/25 10:30 Pulse Ox 94 05/17/25 10:30 Oxygen Delivery Method Room Air 05/17/25 10:30 BMI result Body Mass Index 22.0 Const General: cooperative and no acute distress HEENT Head: Yes normocephalic Resp Effort & Inspection: normal respiratory effort and able to speak in complete sentences Neuro Other: A&O, mild short term memory lapses. Hard of hearing-uses hearing aids Steady gait with cane. General: CN's II-XI intact bilaterally (With exception of hard of hearing) Cognition (Neuro): normal cognition Motor exam (neuro): 5/5 motor strength present throughout Psych Appearance: grossly normal Speech and movement: Normal speech and movement present Affect: normal affect Attitude: cooperative Assessment & Plan Assessment & Plan (1) Periodic limb movement sleep disorder: Code(s): G47.61 - Periodic limb movement disorder Category: Medical (2) Anemia: Code(s): D64.9 - Anemia, unspecified Category: Medical Qualifiers: Anemia type: iron deficiency Iron deficiency anemia type: inadequate dietary iron intake Qualified Code(s): D50.8 - Other iron deficiency anemias (3) Sleep difficulties: Code(s): G47.9 - Sleep disorder, unspecified Category: Medical (4) Nocturnal headaches: Comment: ? cervicogenic, ? untreated GARRETT, ? hypnic headaches Code(s): R51.9 - Headache, unspecified Category: Medical Plan Previous in-lab PSG results, consistent with nocturnal hypoxemia and severe periodic limb movements of sleep. Trial taking gabapentin 100-200 mg schedule nightly at bedtime. Trial cyproheptadine 4 mg daily at bedtime, in hopes this increases his appetite, and may help his headaches as well. Discussed with patient that there are many healthy dietary sources of iron which are easier to chew. Follow-up with hematology, GI, and Nephrology as scheduled. Future considerations: Overnight pulse oximetry once anemia stabilized, follow-up with pulmonology. Continue Amitriptyline 10mg qhs- for headaches. May use Tylenol prn. Previous trials: Baclofen and Fioricet= not very effective. Follow-up in 6 months or sooner as needed Medications: New cyproheptadine 4 mg PO BEDTIME 30 tabs 3RF 30 days Changed From gabapentin 100 - 300 mg PO BEDTIME PRN yes To gabapentin 100 - 200 mg (1 - 2 x 100 mg) PO BEDTIME PRN 60 caps 3RF sleep or leg cramps 30 days Coding Level of Care Code Est Pt Level 4 (67426) Diagnoses Periodic limb movement sleep disorder G47.61 Iron deficiency anemia secondary to inadequate dietary iron intake D50.8 Anemia type: iron deficiency Iron deficiency anemia type: inadequate dietary iron intake Sleep difficulties G47.9 Nocturnal headaches R51.9
[2025-05-17 10:30] VITALS: BP 120/80; PULSE 65; O2SAT 94; BMI 22.0
--- OUTSIDE RECORDS SUMMARY | 2025-05-17 10:34 | XMS_ITS | Data Portability ---
Author Organization [facility], [facility] Address [address] [place] [address] Care Team Providers Care Senior It Recruiter Name Role Phone [facility] Referring Provider HIM CCA OTHER Assessment Encounter Date Assessment Date Assessment LastModified by Organization Details LastModified Time 02/17/2022 02/17/2022 I have reviewed and agree with the Assessment and Plan as documented by the Adult Family Home Program Manager. I provided real -time medical direction via phone for this encounter, and was available for additional phone based assistance as needed. Patient/ given the opportunity to ask questions. [email or web address] Not available 02/17/2022 18:02:20 05/20/2023 05/20/2023 I provided real -time medical direction via phone for this encounter, and was available for additional phone based assistance as needed. I have reviewed and agree with the Assessment and Plan as documented by the Adult Family Home Program Manager. Patient given the opportunity to ask questions. [...] abdominal pain, or any other concerns. VSS. Adult Family Home Program Manager on site reports urine is clear yellow. POC dip negative for LE, nitrites but positive for 3+ blood. Presentation and urine dip less typical for UTI but will send for culture. Encouraged outpatient follow up for likely mild urinary retention and consideration for prostate imaging. Red flags reviewed with rod filler. Primary team, Mr. Paez would benefit from follow up in the next week or two to discuss his painless hematuria. [email or web address] Not available 02/15/2024 15:11:31 Plan of Treatment Reminders Order Date Submit Date Provider Last Modified By Organization Details Last Modified Time Details Appointments None recorded. Lab culture, urine 2023 024 [place] [facility] (Centralized Electronic Ordering - All Locations), Patient Can Go To The Location Of Their Choice, [id number] 4 14:07:02 urinalysis, dipstick 2023 024 [facility], [address] [place] [address], [id number] 4 19:32:24 rapid SARS CoV 2 Ag, QL IA, respiratory specimen 2021 022 [email or web address] 0 [facility], [address] [place] [address], [id number] 2 18:05:35 rapid flu (A+B) 2021 022 [email or web address] 0 [facility], [address] [place] [address], [id number] 2 18:05:35 Referral None recorded. Procedures None recorded. Surgeries None recorded. Imaging None recorded. Medication Orders Augmentin 875 mg-125 mg tablet 2023 024 [facility], [address] [facility], [place], [address], 18:11:17 Patient TargetsNo targets recorded. Patient InstructionsNo instructions recorded. Reason for Referral None Reported. Results Created Date Observation Date Name Description Value Unit Range Abnormal Flag Note LastModifiedBy Organization Detail LastModifiedTime 02/18/20 22 02/17/2022 rapid flu (A+B) Flu negati ve Not Available [facility] ed [address] [place] [address], [id number] 02/17/2022 18:01:58 02/18/20 22 02/17/2022 rapid SARS CoV 2 Ag, QL IA, respi rator y speci men rapid SARS CoV 2 Ag, QL IA, respiratory specimen positi ve Not Available [facility] ed [address] [place] [address], [phone] 02/17/2022 18:01:49 02/15/20 24 02/16/2024 SPECI MEN IDENT IFICA TION STATU S specimen identificati on status Commen t Pleas e be advis ed that a minor name discr epanc y has occur red. The name on the sampl e(s) does not match the name on the reque st form. All tests reque sted are in progr ess. READS 2023 Not Available [facility] ([facility]) [address] [place], [address], 02/16/2024 12:06:05 02/15/20 24 02/19/2024 URINE CULTU RE,CO MPREH ENSIV E urine culture,comp rehensive Final report Not Available [facility] ([facility]) [address] [place], [address], 02/19/2024 16:05:36 02/15/20 24 02/19/2024 URINE CULTU RE,CO MPREH ENSIV E result 1 COMMEN T No growt h in 36 - 48 hours . Not Available [facility] ([facility]) [address] [place], [address], 02/19/2024 16:05:36 Result Notes None recorded. Medical Equipment None Reported. Allergies Allergen ID Allergen Name Allergen Category Reaction Reaction Severity Criticality Documentation Date Start Date Code Code System Note Provider Name and Address Organization Details Recorded Time 8002 latex environme nt,medica tion Not available Not available Not available 08/21/2024 99861 91 RxNorm Not Available [facility] - production [...] % 167.64 cm 18 /min 98.2 [degF] 65403.8 4 g 149/74 mm[Hg] Not Available [facility] 4 18:08:04 Date Recorded Oxygen saturation Oxygen saturation in Arterial blood by Pulse oximetry Body temperature Body weight Body height Heart rate Respiratory rate Systolic And Diastolic Provider Name and Address Organization Details Last Updated DateTime 4 97 % 97 % 97.7 [degF] 33546.5 12 g 170.18 cm 62 /min 16 /min 145/68 mm[Hg] Not Available [facility] 4 14:03:31 Date Recorded Oxygen saturation Oxygen saturation in Arterial blood by Pulse oximetry Body weight Body temperature Respiratory rate Heart rate Systolic And Diastolic Provider Name and Address Organization Details Last Updated DateTime 4 99 % 99 % 03923.8 8 g 97.4 [degF] 16 /min 80 /min 136/40 mm[Hg] Not Available [facility] 4 19:02:22 Date Recorded Oxygen saturation Oxygen [...] /min 90 /min 141/84 mm[Hg] Not Available [facility] 2 17:09:39 Date Recorded Body temperature Body weight Heart rate Respiratory rate Body height Oxygen saturation Oxygen saturation in Arterial blood by Pulse oximetry Systolic And Diastolic Provider Name and Address Organization Details Last Updated DateTime 3 98.3 [degF] 46190.8 g 72 /min 18 /min 165.1 cm 95 % 95 % 127/70 mm[Hg] Not Available [facility] 3 14:58:23 Social History None recorded. Functional Status None recorded. Mental Status None recorded. Family History Nothing Reported. Medical History No medical history recorded. Past Encounters Encounter ID Performer Location Encounter Start Date Encounter Closed Date Diagnosis/Indication Diagnosis SNOMED-CT Code Diagnosis ICD10 Code Diagnosis Note [id number] Radha Hill MD [facility] [address] [place] [phone] 01/30/2022 18:34:04 07/01/2022 17:40:00 Dyspnea 828128594 R06.00 resolved [id number] Radha Hill MD [facility] - [facility] [address] [place] [phone] 02/17/2022 17:09:37 07/01/2022 18:09:08 Viral syndrome [id number] B34.9 + covid-- pat in no respirator [...] go immediatel y to the ER- call [phone] [id number] Smita Cool MD Main - [facility] [address] [place] [phone] 05/21/2023 14:58:14 05/23/2023 16:37:33 Edema [id number] R60.9 Elaine Purdy MD Main - [facility] [address] [place] [phone] 12/19/2023 18:08:02 12/20/2023 10:35:13 Cough 00246207 R05.9 I provided real -time medical direction via phone for this encounter, and was available for additional phone based assistance as needed. I have reviewed and agree with the Assessment and Plan as documented by the Adult Family Home Program Manager. Patient given the opportunit y to ask [...] LQN- family voiced understand ing of plan [id number] Areli Cruz MD Main - [facility] [address] [place] [phone] 02/15/2024 13:29:41 02/15/2024 22:08:45 Urinary symptoms [id number] R39.9 [id number] Saskia Mcarthur MD Main - [facility] [address] [place] [id number] 02/17/2024 19:02:18 02/19/2024 17:06:36 Furuncle [id number] L02.92 88 year old male being evaluated [...] assessment and plan as documented by the rod filler. I provided real-time medical direction for this [...] Monahan Member ID Guarantor Name 05/20/2023 1 [facility] - DOS PRIOR TO 2023 - DUAL ELIGIBLE (MEDICARE REPLACEMENT/AD VANTAGE - HMO) Cornelius Medianero [id number] Cornelius Irving Medianero 02/16/2024 1 [facility] - DOS ON OR AFTER 2023 - DUAL ELIGIBLE - [facility]CI OPTIONS AND ONE CARE (MEDICARE REPLACEMENT/AD VANTAGE - HMO) Cornelius Medianero [id number] Cornelius Irving Medianero Notes Date Note Type Note Provider Name and Address Organization Details Recorded Time 02/17/2022 text/html ROS as noted in the HPI HPI: Call received from member's daughter, Janessa (ph# [phone]) to the CRU. Janessa reports mbr has not felt well with flu like symptoms and PCP would not see member d/t symptoms and recommended home visit through [facility]. Janessa reports mbr with sx for the [...] .................... .................... .................... .................... .................... .................... . Adult Family Home Program Manager Note: Patient is a 86 year old [...] .................... . Disposition: Fulfilled Radha Hill MD [address] [place] [address],[address] [facility], [place], [phone] 02/17/2022 18:06:15 05/20/2023 text/html HPI: Members VNA [...] .................... .................... .................... .................... .................... .................... . Adult Family Home Program Manager Note From Cecelia Martinez: Sent to a call for a pt with face and upper extremity edema. SC8 arrives on scene, pt is alert and oriented, airway is patent. Pt does not appear to be in respiratory distress. Pt's primary language is Azerbaijani and pt's family serves as medical social consultant. Family states pt had lower extremity edema [...] facial and lower extremity edema uploaded to [employer]. BP:127/70, P:72, RR:18, Sp O2:95% RA, T:98.3; [...] .................... .................... . Disposition: Deborah Cool MD [address] [place] [address],[address], [place], [phone], [facility] 05/21/2023 15:00:19 12/19/2023 text/html HPI: HX: CHF, AFib, CVA, SSS, AR, Esophagitis. Diagnosed with right sided pneumonia 11/16/23 [...] .................... .................... .................... .................... .................... .................... . Adult Family Home Program Manager Note From Kermit Paiz[facility]. Pt presents ambulating [...] sounds clear and equal bilaterally. Consulted with [facility] Dr. Purdy who spoke Azerbaijani and was able to ask questions of the family directly. Pt was started on oral levaquin with prescription sent to pharmacy. Family was instructed to follow up with PCP in order to have diagnostic chest x ray and ct scan completed. Patient education provided. .................... .................... .................... .................... .................... .................... .................... . Disposition: Fulfilled Elaine Purdy MD [address] [facility],[address], [place], [address], [employer] 12/20/2023 00:02:32 02/15/2024 text/html HPI: HX: CVA, Prostate CA, CKD,. Patient with one week history of dark thick urine with painful urination. Family concerned with UTI. .................... .................... .................... .................... .................... .................... .................... . CRC Nurse Triage Notes (David Denise): Comments: Reviewed HPI .................... .................... .................... .................... .................... .................... .................... . Adult Family Home Program Manager Note From Kermit Paiz: [facility] with suspected UTI. Pt presents conscious and alert in home with his . spoke [place] Islander and translated for patient. Pt states he [...] Urine culture and specimen obtained. Consulted with [facility] Dr. Cruz who advised no acute treatments, awaiting results of urine culture to proceed. Reviewed red flags with family and provided patient education. [facility] Lab Orders: culture, urine: Performed urinalysis, dipstick: Performed .................... .................... .................... .................... .................... .................... .................... . Disposition: Deborah Cruz MD [address] [facility],[address], [place], [address], [facility] 02/15/2024 15:50:22 02/17/2024 text/html HPI: [facility] reporting lump on right side of [...] .................... .................... .................... .................... .................... .................... . Adult Family Home Program Manager Note From Donlado Cole: Pt co red bump on upper thigh near groan with pain. Pt denies fever bleeding injury drainage co or sob. Baseline vitals assessed. Red bump appears to be ingrown hair or pimple/boil. Area slight red with black head. Afebrile. [facility] contacted and advised hot compress to area. Pt advised to monitor bump. Advised if gets bigger or more painful to go to ER. Pt education on signs indicating the ER. Adult Family Home Program Manager Allergies: Latex .................... .................... .................... .................... .................... .................... .................... . Disposition: Fulfilled Saskia Mcarthur MD [address] [facility],[address], [place], [address], [facility] 02/17/2024 21:36:11
--- OUTSIDE RECORDS SUMMARY | 2025-05-17 10:34 | XMS_ITS | Encounter Summary ---
Author Organization [employer] Address [address] [facility] [address] [place] [address] Care Team Providers Care Facilities Administrator Name Role Phone Clare Jones MD Primary Care Provider [phone] Encounter Details Date Type Department Care Team ([facility] st Contact Info) Description 03/16/2024 Orders Only [facility]S [address] [place], [place] [phone] Clare Jones MD [address] [place], [place] [phone] Bladder dysfunction (Primary Dx); Seasonal allergic rhinitis [...] Care Team (Late st Contact Info) Description 07/04/2025 1:45 PM EDT Office Visit [facility] MED [facility] PEDS [address] [place] [address] Clare Jones MD [address] [place] [address] documented as of this encounter Visit Diagnoses Diagnosis Bladder dysfunction- Primary Other functional disorder of bladder Seasonal allergic rhinitis due to other allergic trigger documented in this encounter Additional Health Concerns Assessment Noted Time PHQ-9 Depression Total Score: 0 03/07/20 23 4:08 PM EDT documented as of this encounter Care Teams Facilities Administrator Relationship Specialty Start Date End Date Clare Jones MD [address] [place] [address] PCP - General Internal Medicine 10/04/16 documented as of this encounter
== END 2025-05-17 11:36 | disposition home or self-care (01) ==
LOC: HO.HSMS 10:18
PROVIDERS: PCP Internal Medicine; Visit Provider Nurse Practitioner Family
DX: G47.61 Periodic limb movement disorder (principal); D50.8 Other iron deficiency anemias; G47.9 Sleep disorder, unspecified; R51.9 Headache, unspecified
CPT/HCPCS: 99214

== ENCOUNTER → 2025-05-17 10:18 | Outpatient (BNVA) | payer OTHER, SELFPAY | PROVIDERS: PCP Internal Medicine; Visit Provider Nurse Practitioner Family | DX: G47.61 Periodic limb movement disorder (principal); D50.8 Other iron deficiency anemias; G47.9 Sleep disorder, unspecified; R51.9 Headache, unspecified; Z79.899 Other long term (current) drug therapy | CPT/HCPCS: 99212 ==

== ENCOUNTER 2025-05-17 14:45 | Outpatient (RCR) | payer OTHER, SELFPAY ==
[2025-05-10 12:06] VITALS: BP 111/57; PULSE 78; RESP 16; TEMP 36.6; O2SAT 98
[2025-05-17 14:59] VITALS: BP 117/53; PULSE 83; RESP 16; TEMP 36.7; O2SAT 94
== END 2025-05-17 15:46 | disposition home or self-care (01) ==
LOC: HO.INF 14:45
PROVIDERS: Visit Provider Nurse Practitioner Family
DX: D50.9 Iron deficiency anemia, unspecified (principal)
CPT/HCPCS: 96365; J1439

== ENCOUNTER 2025-05-27 14:57 | Outpatient (AMB) | payer OTHER, SELFPAY ==
[2025-05-27 14:57] VITALS: BP 118/60; PULSE 64; O2SAT 95; BMI 21.8
--- NOTE | 2025-05-27 14:57 | HO.NEPHOV_ITS ---
Vital Signs 05/27/25 14:57 Height 5 ft 5 in Weight 131 lb 2 oz BMI 21.8 BP 118/60 Blood Pressure Location Lt brachial Position Sitting Pulse 64 Pulse Source Pulse Oximeter Pulse Oximetry (%) 95 Oxygen Delivery Method Room Air Intake Visit Reasons: FU Integrated Campaign Manager Required: No Accompanied by: Son Allergies penicillin G Allergy (Unknown, Verified 05/27/25 15:00) Unknown Latex Allergy (Unknown, Uncoded 04/19/25 14:51) Unknown Medication List - Last Reconciled 05/27/25 by Danny Sky MD acetaminophen 500 mg PO DAILY PRN amitriptyline 10 mg PO BEDTIME 30 days bethanechol chloride 50 mg PO BID 90 days cyanocobalamin (vitamin B-12) 1,000 mcg sublingual DAILY cyproheptadine 4 mg PO BEDTIME 30 days ferric carboxymaltose (Injectafer) 750 mg (15 mL) IV QWEEK 1 dose finasteride 5 mg PO DAILY 90 days fluticasone furoate-vilanterol 100-25 mcg/dose (Breo Ellipta) 1 ea inhalation DAILY PRN gabapentin 100 - 200 mg (1 - 2 x 100 mg) PO BEDTIME PRN 30 days ipratropium-albuterol 0.5 mg-3 mg(2.5 mg base)/3 mL 3 mL inhalation Q4-6H PRN latanoprost 0.005% 0 drps ophthalmic (eye) DAILY levocetirizine 5 mg PO DAILY metoprolol tartrate 50 mg PO DAILY mirabegron ER 25 mg PO DAILY 90 days pantoprazole 40 mg PO DAILY sennosides (Natural Senna Laxative) 17.2 mg (2 x 8.6 mg) PO BEDTIME spironolactone 12.5 mg (1/2 x 25 mg) PO DAILY torsemide 20 mg PO DAILY 3 days Do you need a note to return to daycare/school/sports/work: No HPI Comments Details: Elderly man with a history of chronic kidney disease referred for evaluation of CKD. Accompanied by his daughter. He has had chronic anemia. In the past he has received iron infusions. 01/09/25. No specific complaints today. He has gained 6 lb. Status post blood transfusion x2 units. Also received 1 dose of Feraheme 02/13/25;Now on Torsemide 10 mg;Feels better ;Accompanied by daughter 05/27/25 Overall doing the same, Loss of appetite PFSH Medical History Nocturia Urinary frequency OAB (overactive bladder) Urinary retention Weak urinary stream Surgical History Hx of heart bypass surgery History of appendectomy History of prostate surgery Family History Father No problems noted. Mother Colon cancer Social History Household Members: Spouse and Significant Other Alcohol intake: never Patient Tobacco Use Status: Never used Tobacco Current occupational status: retired Gender identity: Male Physical Exam Vital Signs: Last Vital Signs Pulse 64 05/27/25 14:57 BP 118/60 05/27/25 14:57 Pulse Ox 95 05/27/25 14:57 Oxygen Delivery Method Room Air 05/27/25 14:57 BMI result Body Mass Index 21.8 Comfortable Neck supple no JVD. Lungs entry equal no rales. Heart S1-S2 heard no gallop or rub. Abdomen soft nontender. Neuro alert awake oriented. No asterixis. Extremities no edema. Results Reviewed Nephrology Results: Hgb, (14.0-18.0) 11.5 g/dl L 04/19/25 WBC, (4.8-10.8) 4.1 X10*3/uL L 04/19/25 Plt Count, (160-400) 108 X10*3/uL L 04/19/25 Sodium, (135-145) 142 mmol/L 04/10/25 Potassium, (3.3-5.1) 4.1 mmol/L 04/10/25 Chloride, (96-108) 108 mmol/L 04/10/25 Carbon Dioxide, (22-29) 26 mmol/L 04/10/25 BUN, (9-16) 20 mg/dL H 04/10/25 Creatinine, (0.5-1.4) 1.07 mg/dL 04/10/25 Calcium, (8.4-10.2) 10.3 mg/dL H Δ 04/10/25 Renal US 01/03/25 Assessment & Plan Assessment & Plan (1) CKD (chronic kidney disease): Code(s): N18.9 - Chronic kidney disease, unspecified Category: Medical (2) Anemia: Code(s): D64.9 - Anemia, unspecified Category: Medical Qualifiers: Anemia type: iron deficiency Iron deficiency anemia type: inadequate dietary iron intake Qualified Code(s): D50.8 - Other iron deficiency anemias Plan Elderly man with CKD. Cr is better Now at 1.08 !! No obstructive uropathy. Continue to avoid nephrotoxic agents. Optimize blood pressure. Anemia which is multifactorial iron deficiency could be playing a karimi role. Status post transfusion and IV iron infusion. Follow hemoglobin and evaluate for Epogen History of CHF. Keep Torsemide and adjust dose based on weight and symptoms. Loss of appetite Needs follow up with PCP to evaluate etiology Orders: Orders Complete Blood Count no Diff 6 Months D50.8 - Other iron deficiency anemias, N18.9 - Chronic kidney disease, unspecified IRON PROFILE 2 Weeks D50.8 - Other iron deficiency anemias, N18.9 - Chronic kidney disease, unspecified Basic Metabolic Panel 6 Months D50.8 - Other iron deficiency anemias, N18.9 - Chronic kidney disease, unspecified Basic Metabolic Panel 2 Weeks D50.8 - Other iron deficiency anemias, N18.9 - Chronic kidney disease, unspecified Complete Blood Count no Diff 2 Weeks D50.8 - Other iron deficiency anemias, N18.9 - Chronic kidney disease, unspecified Ferritin 2 Weeks D50.8 - Other iron deficiency anemias, N18.9 - Chronic kidney disease, unspecified Coding Level of Care Code Est Pt Level 4 (10909) Diagnoses CKD (chronic kidney disease) N18.9 Iron deficiency anemia secondary to inadequate dietary iron intake D50.8 Anemia type: iron deficiency Iron deficiency anemia type: inadequate dietary iron intake
--- OUTSIDE RECORDS SUMMARY | 2025-05-27 15:03 | XMS_ITS | Encounter Summary ---
Author Organization [employer] Address [address] [facility] 7t [place] [address] Care Team Providers Care Distributor Advertising Material Name Role Phone Clare Jones MD Primary Care Provider Encounter Details Date Type Department Care Team ([facility] st Contact Info) Description 03/16/2024 Orders Only [facility] CHC MED & PEDS [address] [place], [place] [phone] Clare Jones MD [address] [place] [address] Bladder dysfunction (Primary Dx); Seasonal allergic rhinitis [...] Description 07/04/2025 1:45 PM EDT Office Visit [facility] MED & PEDS [address] [place] [address] Clare Jones MD [address] [place] [address] documented as of this encounter Visit Diagnoses Diagnosis Bladder dysfunction- Primary Other functional disorder of bladder Seasonal allergic rhinitis due to other allergic trigger documented in this encounter Additional Health Concerns Assessment Noted Time PHQ-9 Depression Total Score: 0 03/07/20 23 4:08 PM EDT documented as of this encounter Care Teams Distributor Advertising Material Relationship Specialty Start Date End Date Clare Jones MD [address] [place] [address] PCP - General Internal Medicine 10/04/16 documented as of this encounter
== END 2025-05-27 15:19 | disposition home or self-care (01) ==
LOC: HO.HKA 14:59
PROVIDERS: PCP Internal Medicine; Visit Provider Internal Medicine Hypertension Specialist
DX: N18.9 Chronic kidney disease, unspecified (principal); D50.8 Other iron deficiency anemias
CPT/HCPCS: 99214

== ENCOUNTER → 2025-05-27 14:57 | Outpatient (BNVA) | payer OTHER, SELFPAY | PROVIDERS: PCP Internal Medicine; Visit Provider Internal Medicine Hypertension Specialist | DX: D50.8 Other iron deficiency anemias (principal); Z86.79 Personal history of other diseases of the circulatory system; N18.9 Chronic kidney disease, unspecified | CPT/HCPCS: 99212 ==

== ENCOUNTER 2025-06-22 09:10 | Outpatient (REF) | payer OTHER, SELFPAY ==
--- OUTSIDE RECORDS SUMMARY | 2021-03-31 04:38 | XMS_ITS | Continuity of Care Document ---
Author Organization [facility] Address [address] [address] Phone Care Team Providers Care Teacher Education Instructor Name Role Phone Tiffanie Allen OT Unavailable Unavailable Advance Directives Directive Yes / No Effective Date File Name No Information Encounters Encounter Description Practice Location Reason(s) For Visit Diagnoses Date Provider [facility], [address] [place] [address], [id number], [place] tel:[phone] [facility] No Information 2020 Alejandro Moreno. [address] [place] [address], [id number], [place]. tel:[phone] Family History Family Member Type Diagnosis Age At Onset No Information Payers Payer name Insurance type Covered libertarian ID Authoriza tion(s) No Information Social History Type Description Quantity Date Captured Comments Sex Male Smoking Status No Information Chief Complaint And Reason For Visit No Information History Of Present Illness Encounter Date Complaint History Of Prese nt Illness No Information Instructions Date Instruction Additional Infor mation No Information Assessments Type Assessment Date No Information
--- NOTE | ~2025-06-22 | CT_ITS ---
CLINICAL HISTORY: cough. unintentional weight loss CT chest without contrast Comparison: 06/22/2025 Findings: Cardiomegaly due to severe enlargement of the cardiac atria redemonstrated. Focal postsurgical interventricular septal changes. Mildly progressive kwsdh-rj-dtaxtvam pericardial effusion. The visualized thyroid and mediastinum are unremarkable. Nonprogressive increased lung markings involving portions of the right middle and lower lobes and subpleural aspect of the left lower lobe. Benign small hepatic hypodensity/cyst redemonstrated. Too small to characterize left renal hypodensity. [id number] bilateral renal scarring. 4 mm nonobstructive stone versus more likely dystrophic parenchymal calcification at level of the right kidney. Small nonobstructive partially evaluated left renal stone. No acute fracture. IMPRESSION: Cardiomegaly due to severe enlargement of the cardiac atria redemonstrated. Mildly progressive gdzhe-uc-fxghajui pericardial effusion. This document has been electronically signed by: Lucinda Armas MD on 06/26/2025 10:10:59
--- OUTSIDE RECORDS SUMMARY | 2025-06-22 09:13 | XMS_ITS | Encounter Summary ---
Author Organization [employer] Address [address] [facility] 7 [place] [address] Care Team Providers Care Food Production Manager Name Role Phone Calre Jones MD Primary Care Provider Encounter Details Date Type Department Care Team ([facility] Contact Info) Description 12/01/2022 Abstract [facility] MEDICINE [address] [place], [place] [phone] Clare Jones MD [address] [place], [place] [phone] Social History Tobacco Use Types Packs/Day Years [...] Upcoming Encounters Date Type Department Care Team ([facility] Contact Info) Description 07/04/2025 1:45 PM EDT Office Visit [facility] CHC MED & PEDS [address] [place], [place] [phone] Clare Jones MD [address] [place] [address] documented as of this encounter Visit Diagnoses Not on filedocumented in this encounter Care Teams Food Production Manager Relationship Specialty Start Date End Date Clare Jones MD [address] [place] [address] PCP - General Internal Medicine 10/04/16 documented as of this encounter
--- OUTSIDE RECORDS SUMMARY | 2025-06-22 09:13 | XMS_ITS | Encounter Summary ---
Author Organization [employer] Address [address] [facility] 7t [place] [address] Care Team Providers Care Industrial Relations Analyst Name Role Phone Clare Jones MD Primary Care Provider Encounter Details Date Type Department Care Team ([facility] st Contact Info) Description 03/27/2025 Orders Only [facility] CHC MED & PEDS [address] [place], [place] [phone] Clare Jones MD [address] [place] [address] Other constipation (Primary Dx) Social History Tobacco Use Types [...] 07/04/2025 1:45 PM EDT Office Visit [facility] MED & PEDS [address] [place] [address] Clare Jones MD [address] [place] [address] documented as of this encounter Visit Diagnoses Diagnosis Other constipation- Primary documented in this encounter Additional Health Concerns Assessment Noted Time PHQ-9 Depression Total Score: 0 09/25/20 24 1:21 PM EST documented as of this encounter Care Teams Industrial Relations Analyst Relationship Specialty Start Date End Date Clare Jones MD [address] [place] [address] PCP - General Internal Medicine 10/04/16 documented as of this encounter
--- OUTSIDE RECORDS SUMMARY | 2025-06-22 09:13 | XMS_ITS | Encounter Summary ---
Author Organization [employer] Address [address] [facility] 7t [place] [address] Care Team Providers Care Club Manager Name Role Phone Clare Jones MD Primary Care Provider Reason for Visit * Reason Onset Date Comments FYI 12/14/2024 Encounter Details Date Type Department Care Team ([facility] st Contact Info) Description 12/14/2024 Telephone [facility] MEDICINE [address] [place] [address] Clare Jones MD [address] [place] [address] Social History Tobacco Use Types Packs/Day Years [...] - 12/14/2024 3:37 PM EST Tc to [facility] neurology to give our fax number. Unable to reach anyone. Gave our fax number and the name of the pt who the lab is for. Also gave our number to call back. * Telephone Encounter - Iqra Joe - 12/14/2024 2:26 PM EST Tc from [facility] nurse (neurology) with [facility] regarding critical labs values from pt. Nurse asked for fax# and states are going to fax results to pcp. Any questions contact [phone] documented in this encounter Plan of Treatment Upcoming Encounters Date Type Department Care Team (Late st Contact Info) Description 07/04/2025 1:45 PM EDT Office Visit [facility] CHC MED & PEDS [address] [place] [address] Clare Jones MD [address] [place] [address] documented as of this encounter Visit Diagnoses Not on filedocumented in this encounter Additional Health Concerns Assessment Noted Time PHQ-9 Depression Total Score: 0 09/25/20 24 1:21 PM EST documented as of this encounter Care Teams Club Manager Relationship Specialty Start Date End Date Clare Jones MD [address] [place] [address] PCP - General Internal Medicine 10/04/16 documented as of this encounter
--- OUTSIDE RECORDS SUMMARY | 2025-06-22 09:13 | XMS_ITS | Encounter Summary ---
Author Organization [employer] Address [address] [facility] 7t [place] [address] Care Team Providers Care Medical Terminologist Name Role Phone Clare Jones MD Primary Care Provider [phone] Reason for Referral * Consultation (Routine) - Closed Specialty Diagnoses / Procedures Referred By Contac t Referred To Contact Physical Therapy Diagnoses Primary osteoarthritis of other site Clare Jones MD [address] [place] [address] Phone: tel: fax: Referral ID Status Reason Start Date Expiration Date V isits Requested Visits Authorized [id number] Closed Specialty Services Required 09/17/2024 09/17/2025 1 0 Encounter Details Date Type Department Care Team ([facility] st Contact Info) Description 09/17/2024 Orders Only [facility] CHC MED & PEDS [address] [place] [address] Clare Jones MD [address] [place] [address] Primary osteoarthritis of other site (Primary Dx) [...] Description 07/04/2025 1:45 PM EDT Office Visit [facility] MED & PEDS [address] [place] [address] Clare Jones MD [address] [place] [address] Scheduled Referrals Name Type Priority Associated Diagnoses [...] as of this encounter Care Teams Medical Terminologist Relationship Specialty Start Date End Date Clare Jones MD [address] [place] [address] PCP - General Internal Medicine 10/04/16 documented as of this encounter
--- OUTSIDE RECORDS SUMMARY | 2025-06-22 09:13 | XMS_ITS | Encounter Summary ---
Author Organization [employer] Address [address] [facility] 7t [place] [address] Care Team Providers Care Accountant Property Name Role Phone Clare Jones MD Primary Care Provider [phone] Encounter Details Date Type Department Care Team ([facility] st Contact Info) Description 07/02/2024 Orders Only [facility] CHC MED & PEDS [address] [place], [place] [phone] Clare Jones MD [address] [place] [address] Chronic atrial fibrillation (CMS/HCC) (Primary Dx) Social [...] Upcoming Encounters Date Type Department Care Team ([facility] st Contact Info) Description 07/04/2025 1:45 PM EDT Office Visit [facility] CHC MED & PEDS [address] [place] [address] Clare Jones MD [address] [place] [address] documented as of this encounter Visit Diagnoses Diagnosis Chronic atrial fibrillation (CMS/HCC)- Primary Atrial fibrillation documented in this encounter Additional Health Concerns Assessment Noted Time PHQ-9 Depression Total Score: 0 03/07/20 23 4:08 PM EDT documented as of this encounter Care Teams Accountant Property Relationship Specialty Start Date End Date lCare Jones MD [address] [place] [address] PCP - General Internal Medicine 10/04/16 documented as of this encounter
--- OUTSIDE RECORDS SUMMARY | 2025-06-22 09:13 | XMS_ITS | Encounter Summary ---
Author Organization [employer] Address [address] [facility] [address] [address] 7t [place] [address] Care Team Providers Care Registered Nursing Professor Name Role Phone Clare Jones MD Primary Care Provider Encounter Details Date Type Department Care Team ([facility] st Contact Info) Description 10/08/2024 Orders Only [facility] [address] [place] [address] Clare Jones MD [address] [place] [address] Social History Tobacco Use Types Packs/Day Years [...] Upcoming Encounters Date Type Department Care Team ([facility] st Contact Info) Description 07/04/2025 1:45 PM EDT Office Visit [facility] MED & PEDS [address] [place] [address] Clare Jones MD [address] [place] [address] documented as of this encounter Visit Diagnoses Not on filedocumented in this encounter Additional Health Concerns Assessment Noted Time PHQ-9 Depression Total Score: 0 09/25/20 24 1:21 PM EST documented as of this encounter Care Teams Registered Nursing Professor Relationship Specialty Start Date End Date Clare Jones MD [address] [place] [address] PCP - General Internal Medicine 10/04/16 documented as of this encounter
--- OUTSIDE RECORDS SUMMARY | 2025-06-22 09:13 | XMS_ITS | Encounter Summary ---
Author Organization [employer] Address [address] [facility] 7t [place] [address] Care Team Providers Care Patrol Guard Name Role Phone Clare Jones MD Primary Care Provider [phone] Reason for Visit * Reason Onset Date Comments Med Refill 03/27/2025 Encounter Details Date Type Department Care Team ([facility] st Contact Info) Description 03/27/2025 Telephone [facility] CHC MED & PEDS [address] [place] [address] Clare Jones MD [address] [place] [address] Med Refill Social History Tobacco Use Types [...] encounter Miscellaneous Notes * Telephone Encounter - Bella Iqbal LPN - 03/27/2025 11:21 AM EDT Medication is not pended as not on med list.Please review * Telephone Encounter - Bella Iqbal LPN - 03/27/2025 11:21 AM EDT Refills have been requested for the following medications: Other - MiraLAX Laxative Powder Take twice a day documented in this encounter Plan of Treatment Upcoming Encounters Date Type Department Care Team (Late st Contact Info) Description 07/04/2025 1:45 PM EDT Office Visit [facility] MED & PEDS [address] [place] [address] Clare Jones MD [address] [place] [address] documented as of this encounter Visit Diagnoses Not on filedocumented in this encounter Additional Health Concerns Assessment Noted Time PHQ-9 Depression Total Score: 0 09/25/20 24 1:21 PM EST documented as of this encounter Care Teams Patrol Guard Relationship Specialty Start Date End Date Clare Jones MD [address] [place] [address] PCP - General Internal Medicine 10/04/16 documented as of this encounter
--- OUTSIDE RECORDS SUMMARY | 2025-06-22 09:13 | XMS_ITS | Encounter Summary ---
Author Organization [employer] Address [address] [facility] 7t [place] [address] Care Team Providers Care Repair Coil Winder Name Role Phone Clare Jones MD Primary Care Provider Reason for Visit * Reason Onset Date Comments Med Refill 11/19/2022 Encounter Details Date Type Department Care Team ([facility] st Contact Info) Description 11/19/2022 Refill [facility] CHC MED & PEDS [address] [place] [address] Clare Jones MD [address] [place] [address] Chronic heart failure with preserved ejection fraction [...] EC tablet Please sent to [facility] [address] [place] [address] - [address] [place] [address] documented in this encounter Plan of Treatment Upcoming Encounters Date Type Department Care Team (Late st Contact Info) Description 07/04/2025 1:45 PM EDT Office Visit [facility] MED & PEDS [address] [place] [address] Clare Jones MD [address] [place] [address] documented as of this encounter Visit Diagnoses Diagnosis Chronic heart failure with preserved ejection fraction (CMS/HCC)- Primary documented in this encounter Care Teams Repair Coil Winder Relationship Specialty Start Date End Date Clare Jones MD [address] [place] [address] PCP - General Internal Medicine 10/04/16 documented as of this encounter
--- OUTSIDE RECORDS SUMMARY | 2025-06-22 09:13 | XMS_ITS | Encounter Summary ---
Author Organization [employer] Address [address] [facility] 7t [place] [address] Care Team Providers Care Welder Pipe Making Name Role Phone Clare Jones MD Primary Care Provider [phone] Encounter Details Date Type Department Care Team ([facility] st Contact Info) Description 03/16/2024 Orders Only [facility] CHC MED & PEDS [address] [place], [place] [phone] Clare Jones MD [address] [place], [place] [phone] Bladder dysfunction (Primary Dx); Seasonal allergic rhinitis [...] Description 07/04/2025 1:45 PM EDT Office Visit [facility] MED & PEDS [address] [place] [address] Clare Jones MD [address] [place] [address] documented as of this encounter Visit Diagnoses Diagnosis Bladder dysfunction- Primary Other functional disorder of bladder Seasonal allergic rhinitis due to other allergic trigger documented in this encounter Additional Health Concerns Assessment Noted Time PHQ-9 Depression Total Score: 0 03/07/20 23 4:08 PM EDT documented as of this encounter Care Teams Welder Pipe Making Relationship Specialty Start Date End Date Clare Jones MD [address] [place] [address] PCP - General Internal Medicine 10/04/16 documented as of this encounter
--- OUTSIDE RECORDS SUMMARY | 2025-06-22 09:13 | XMS_ITS | Encounter Summary ---
Author Organization [employer] Address [address] [facility] [address] 7t [place] [address] Care Team Providers Care Outside Collector Name Role Phone Clare Jones MD Primary Care Provider [phone] Reason for Visit * Reason Onset Date Comments Med Refill 08/16/2024 Encounter Details Date Type Department Care Team (Late st Contact Info) Description 08/16/2024 Telephone [facility] MEDICINE [address] [place] [address] Clare Jones MD [address] [place] [address] Med Refill Social History Tobacco Use Types [...] Description 07/04/2025 1:45 PM EDT Office Visit [facility] MED & PEDS [address] [place] [address] Clare Jones MD [address] [place] [address] documented as of this encounter Visit Diagnoses Not on filedocumented in this encounter Additional Health Concerns Assessment Noted Time PHQ-9 Depression Total Score: 0 03/07/20 23 4:08 PM EDT documented as of this encounter Care Teams Outside Collector Relationship Specialty Start Date End Date Clare Jones MD [address] [place] [address] PCP - General Internal Medicine 10/04/16 documented as of this encounter
--- OUTSIDE RECORDS SUMMARY | 2025-06-22 09:13 | XMS_ITS | Encounter Summary ---
Author Organization [employer] Address [address] [facility] [address] [place] [address] Care Team Providers Care Public Health Registrar Name Role Phone Clare Jones MD Primary Care Provider Reason for Visit * Reason Onset Date Comments Durable Medical Equipment 11/23/2022 Encounter Details Date Type Department Care Team ([facility] Contact Info) Description 11/23/2022 Telephone C CHC MED & PEDS [address] [place], [place] [phone] Clare Jones MD [address] [place] [address] Durable Medical Equipment Social History Tobacco Use [...] uses 4 times a day Flavors: Vanilla, Grabill, Chocolate for patient. Please sent to [facility] [address] [place] [address] - [address] [place] [address] documented in this encounter Plan of Treatment Upcoming Encounters Date Type Department Care Team (Late st Contact Info) Description 07/04/2025 1:45 PM EDT Office Visit 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
--- OUTSIDE RECORDS SUMMARY | 2025-06-22 09:13 | XMS_ITS | Encounter Summary ---
Author Organization [employer] Address [address] [facility] 7t [place] [address] Care Team Providers Care Field Horticultural Specialty Grower Name Role Phone Clare Jones MD Primary Care Provider Reason for Visit * Reason Onset Date Comments Nurse Triage 05/20/2023 Encounter Details Date Type Department Care Team ([facility] Contact Info) Description 05/20/2023 Telephone [facility] CHC MED & PEDS [address] [place] [address] Clare Jones MD [address] [place] [address] Nurse Triage Social History Tobacco Use Types [...] breathing with exertion. No apts available in [facility] today with any provider. Offered [facility] to be seen but, declined. Advised can call [employer] for visit since [facility] insurance but, daughter declines. Daughter declines to [...] this outcome Please contact pt daughter at [phone] documented in this encounter Plan of Treatment Upcoming Encounters Date Type Department Care Team ([facility] st Contact Info) Description 07/04/2025 1:45 PM EDT Office Visit [facility] MED & PEDS [address] [place] [address] Clare Jones MD [address] [place] [address] documented as of this encounter Visit Diagnoses Not on filedocumented in this encounter Additional Health Concerns Assessment Noted Time PHQ-9 Depression Total Score: 0 03/07/20 23 4:08 PM EDT documented as of this encounter Care Teams Field Horticultural Specialty Grower Relationship Specialty Start Date End Date Clare Jones MD [address] [place] [address] PCP - General Internal Medicine 10/04/16 documented as of this encounter
--- OUTSIDE RECORDS SUMMARY | 2025-06-22 09:13 | XMS_ITS | Encounter Summary ---
Author Organization [employer] Address [address] 7t [place] [address] Care Team Providers Care Cognos Bi Developer Name Role Phone Clare Jones MD Primary Care Provider Reason for Visit * Reason Onset Date Comments Hospital Follow-up 08/21/2024 Encounter Details Date Type Department Care Team ([facility] st Contact Info) Description 08/21/2024 Telephone [facility] MEDICINE [address] [place] [address] Clare Jones MD [address] [place] [address] Hospital Follow-up Social History Tobacco Use Types [...] from pt requesting a HDF appt. [place] [facility] [place] of admission: 07/30/2024 Discharge date: 08/07/2024 Diagnosed: GI bleeding documented in this encounter Plan of Treatment Upcoming Encounters Date Type Department Care Team (Late st Contact Info) Description 07/04/2025 1:45 PM EDT Office Visit [facility] CH[facility] MED & PEDS [address] [place] [address] Clare Jones MD [address] [place] [address] documented as of this encounter Visit Diagnoses Not on filedocumented in this encounter Additional Health Concerns Assessment Noted Time PHQ-9 Depression Total Score: 0 03/07/20 23 4:08 PM EDT documented as of this encounter Care Teams Cognos Bi Developer Relationship Specialty Start Date End Date Clare Jones MD [address] [place] [address] PCP - General Internal Medicine 10/04/16 documented as of this encounter
--- OUTSIDE RECORDS SUMMARY | 2025-06-22 09:13 | XMS_ITS | Encounter Summary ---
Author Organization [employer] Address [address] [facility] 7 [place] [address] Care Team Providers Care Mold Swabber Name Role Phone Clare Jones MD Primary Care Provider [phone] Reason for Referral * Imaging (Routine) - Closed Specialty Diagnoses / Procedures Referred By Contac t Referred To Contact Radiology Diagnoses Chronic cough Weight loss Procedures CT Chest w/ Contrast Clare Jones MD [address] [place] [address] Phone: tel: fax: [facility] Referral ID Status Reason Start Date Expiration Date Visits Re quested Visits Authorized [id number] Closed 01/06/2024 01/05/2025 1 1 Encounter Details Date Type Department Care Team (Late st Contact Info) Description 01/06/2024 Orders Only [facility] CHC MED & PEDS [address] [place] [address] Clare Jones MD [address] [place] [address] Chronic cough (Primary Dx); Weight loss Social [...] Upcoming Encounters Date Type Department Care Team ([facility] Contact Info) Description 07/04/2025 1:45 PM EDT Office Visit [facility] MED & PEDS [address] [place] [address] Clare Jones MD [address] [place] [address] Scheduled Orders Name Type Priority Associated Diagnoses [...] documented as of this encounter Care Teams Mold Swabber Relationship Specialty Start Date End Date Clare Jones MD [address] [place] [address] PCP - General Internal Medicine 10/04/16 documented as of this encounter
--- OUTSIDE RECORDS SUMMARY | 2025-06-22 09:13 | XMS_ITS | Encounter Summary ---
Author Organization [employer] Address [address] [facility] 7t [place] [address] Care Team Providers Care Sports Marketing Internship Name Role Phone Clare Jones MD Primary Care Provider Encounter Details Date Type Department Care Team ([facility] st Contact Info) Description 05/21/2024 Telephone [facility] MEDICINE [address] [place] [address] Clare Jones MD [address] [place], [place] [phone] Social History Tobacco Use Types Packs/Day Years [...] 1:45 PM EDT Office Visit [facility] MED & PEDS [address] [place] [address] Clare Jones MD [address] [place] [address] documented as of this encounter Visit Diagnoses Not on filedocumented in this encounter Additional Health Concerns Assessment Noted Time PHQ-9 Depression Total Score: 0 03/07/20 23 4:08 PM EDT documented as of this encounter Care Teams Sports Marketing Internship Relationship Specialty Start Date End Date Clare Jones MD [address] [place] [address] PCP - General Internal Medicine 10/04/16 documented as of this encounter
--- OUTSIDE RECORDS SUMMARY | 2025-06-22 09:13 | XMS_ITS | Encounter Summary ---
Author Organization [email or web address] Address [address] [facility] 7t [place] [address] Care Team Providers Care Senior Electronics Engineer Name Role Phone Clare Jones MD Primary Care Provider [phone] Reason for Visit * Reason Onset Date Comments Medication Question 10/19/2023 Encounter Details Date Type Department Care Team ([facility] Contact Info) Description 10/19/2023 Telephone [facility] MED & PEDS [address] [place], [place] [phone] Clare Jones MD [address] [place] [address] Medication Question Social History Tobacco Use Types [...] Description 07/04/2025 1:45 PM EDT Office Visit [facility] CHC MED & PEDS [address] [place] [address] Clare Jones MD [address] [place] [address] documented as of this encounter Visit Diagnoses Diagnosis Primary osteoarthritis of other site- Primary documented in this encounter Additional Health Concerns Assessment Noted Time PHQ-9 Depression Total Score: 0 03/07/20 23 4:08 PM EDT documented as of this encounter Care Teams Senior Electronics Engineer Relationship Specialty Start Date End Date Clare Jones MD [address] [place] [address] PCP - General Internal Medicine 10/04/16 documented as of this encounter
--- OUTSIDE RECORDS SUMMARY | 2025-06-22 09:13 | XMS_ITS | Encounter Summary ---
Author Organization [employer] Address [address] [facility] 7t [place] [address] Care Team Providers Care Physical Medicine Specialist Name Role Phone Clare Jones MD Primary Care Provider Encounter Details Date Type Department Care Team ([facility] Contact Info) Description 10/22/2024 Orders Only [facility] CHC MED & PEDS [address] [place], [place] [phone] Clare Jones MD [address] [place] [address] Primary insomnia (Primary Dx) Social History Tobacco [...] Description 07/04/2025 1:45 PM EDT Office Visit [facility] MED & PEDS [address] [place] [address] Clare Jones MD [address] [place] [address] documented as of this encounter Visit Diagnoses Diagnosis 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
--- OUTSIDE RECORDS SUMMARY | 2025-06-22 09:13 | XMS_ITS | Encounter Summary ---
Author Organization [employer] Address [address] [facility] 7t [place] [address] Care Team Providers Care Palliative Medicine Physician Name Role Phone Clare Jones MD Primary Care Provider [phone] Encounter Details Date Type Department Care Team ([facility] st Contact Info) Description 10/14/2023 Orders Only [facility] CHC MED & PEDS [address] [place], [place] [phone] Clare Jones MD [address] [place] [address] Chronic cough Social History Tobacco Use Types [...] Description 07/04/2025 1:45 PM EDT Office Visit [facility] MED & PEDS [address] [place] [address] Clare Jones MD [address] [place] [address] documented as of this encounter Visit Diagnoses Diagnosis Chronic cough Cough documented in this encounter Additional Health Concerns Assessment Noted Time PHQ-9 Depression Total Score: 0 03/07/20 23 4:08 PM EDT documented as of this encounter Care Teams Palliative Medicine Physician Relationship Specialty Start Date End Date Clare Jones MD [address] [place] [address] PCP - General Internal Medicine 10/04/16 documented as of this encounter
--- OUTSIDE RECORDS SUMMARY | 2025-06-22 09:13 | XMS_ITS | Encounter Summary ---
Author Organization [email or web address] Address [address] [facility] 7t [place] [address] Care Team Providers Care Travograph Operator Name Role Phone Clare Jones MD Primary Care Provider Encounter Details Date Type Department Care Team ([facility] st Contact Info) Description 11/17/2023 Orders Only [facility] CHC MED & PEDS [address] [place], [place] [phone] Clare Jones MD [address] [place] [address] Pneumonia of right upper lobe due to [...] Description 07/04/2025 1:45 PM EDT Office Visit [facility] CHC MED & PEDS [address] [place] [address] Clare Jones MD [address] [place] [address] documented as of this encounter Visit Diagnoses Diagnosis Pneumonia of right upper lobe due to infectious organism- Primary documented in this encounter Additional Health Concerns Assessment Noted Time PHQ-9 Depression Total Score: 0 03/07/20 23 4:08 PM EDT documented as of this encounter Care Teams Travograph Operator Relationship Specialty Start Date End Date Clare Jones MD [address] [place] [address] PCP - General Internal Medicine 10/04/16 documented as of this encounter
--- OUTSIDE RECORDS SUMMARY | 2025-06-22 09:13 | XMS_ITS | Encounter Summary ---
Author Organization [employer] Address [address] [facility] 7t [place] [address] Care Team Providers Care Acid Splicer Name Role Phone Clare Jones MD Primary Care Provider [phone] Reason for Visit * Reason Onset Date Comments Med Refill 09/26/2024 Encounter Details Date Type Department Care Team ([facility] st Contact Info) Description 09/26/2024 Refill [facility] MED & PEDS [address] [place] [address] Clare Jones MD [address] [place] [address] Social History Tobacco Use Types Packs/Day Years [...] Description 07/04/2025 1:45 PM EDT Office Visit [facility] MED & PEDS [address] [place] [address] Clare Jones MD [address] [place] [address] documented as of this encounter Visit Diagnoses Not on filedocumented in this encounter Additional Health Concerns Assessment Noted Time PHQ-9 Depression Total Score: 0 09/25/20 24 1:21 PM EST documented as of this encounter Care Teams Acid Splicer Relationship Specialty Start Date End Date Clare Jones MD [address] [place] [address] PCP - General Internal Medicine 10/04/16 documented as of this encounter
--- OUTSIDE RECORDS SUMMARY | 2025-06-22 09:13 | XMS_ITS | Encounter Summary ---
Author Organization [employer] Address [address] [facility] 7t [place] [address] Care Team Providers Care Readers' Advisory Service Librarian Name Role Phone Clare Jones MD Primary Care Provider [phone]- [phone] Reason for Visit * Reason Onset Date Comments Referral 01/12/2024 Encounter Details Date Type Department Care Team ([facility] st Contact Info) Description 01/12/2024 Telephone [facility] MEDICINE [address] [place] [address] Clare Jones MD [address] [place], [place] [phone] Referral Social History Tobacco Use Types Packs/Day [...] encounter Miscellaneous Notes * Telephone Encounter - Silviobenjamin Duffy - 01/12/2024 1:08 PM EDT TC from daughter requesting new referral: DATE: N/A TIME: N/A Address: [address] [place] [address] Visits: N/A Facility Name: [facility] Type of Specialist: Radiologist DX: N/A Phone # : [phone] Pt has a referral for [facility] Radiology and daughter is requesting a location change due to [facility] not scheduling until March. If any questions please contact daughter at [phone] documented in this encounter Plan of Treatment Upcoming Encounters Date Type Department Care Team ([facility] st Contact Info) Description 07/04/2025 1:45 PM EDT Office Visit [facility] CHC MED & PEDS [address] [place] [address] Clare Jones MD [address] [place] [address] documented as of this encounter Visit Diagnoses Not on filedocumented in this encounter Additional Health Concerns Assessment Noted Time PHQ-9 Depression Total Score: 0 03/07/20 23 4:08 PM EDT documented as of this encounter Care Teams Readers' Advisory Service Librarian Relationship Specialty Start Date End Date Clare Jones MD [address] [place] [address] PCP - General Internal Medicine 10/04/16 documented as of this encounter
--- OUTSIDE RECORDS SUMMARY | 2025-06-22 09:13 | XMS_ITS | Encounter Summary ---
Author Organization [employer] Address [address] [facility] 7t [place] [address] Care Team Providers Care Call Center Trainer Name Role Phone Clare Jones MD Primary Care Provider [phone] Reason for Visit * Reason Onset Date Comments FYI 07/02/2024 Encounter Details Date Type Department Care Team (Late st Contact Info) Description 07/02/2024 Telephone [facility] MEDICINE [address] [place] [address] Clare Jones MD [address] [place], [place] [phone] Social History Tobacco Use Types Packs/Day Years [...] 07/09/2024 11:22 AM EDT Returned call to [facility] and relayed message that if pt [...] 12:47 PM EDT Tc from [place] with [facility] calling to inform pcp of home visit. Pt's o2 was a 92% crackles at the bases and increase of shortness of breath. Pt also reported having frequent nose bleeds for the past few days after restarding eliquis. If any questions you can contact [facility] at [phone]. documented in this encounter Plan of Treatment Upcoming Encounters Date Type Department Care Team (Late st Contact Info) Description 07/04/2025 1:45 PM EDT Office Visit [facility] MED & PEDS [address] [place] [address] Clare Jones MD [address] [place] [address] documented as of this encounter Visit Diagnoses Not on filedocumented in this encounter Additional Health Concerns Assessment Noted Time PHQ-9 Depression Total Score: 0 03/07/20 23 4:08 PM EDT documented as of this encounter Care Teams Call Center Trainer Relationship Specialty Start Date End Date Clare Jones MD [address] [place] [address] PCP - General Internal Medicine 10/04/16 documented as of this encounter
--- OUTSIDE RECORDS SUMMARY | 2025-06-22 09:13 | XMS_ITS | Encounter Summary ---
Author Organization [employer] Address [address] [facility] 7t [place] [address] Care Team Providers Care Executive Director Global Brand Marketing Name Role Phone Clare Jones MD Primary Care Provider [phone]- [phone] Encounter Details Date Type Department Care Team ([facility] st Contact Info) Description 08/22/2024 Orders Only [facility] CHC MED & PEDS [address] [place], [place] [phone] Clare Jones MD [address] [place] [address] Chronic heart failure with preserved ejection fraction [...] Description 07/04/2025 1:45 PM EDT Office Visit [facility] CHC MED & PEDS [address] [place] [address] Clare Jnoes MD [address] [place] [address] documented as of this encounter Visit Diagnoses Diagnosis Chronic heart failure with preserved ejection fraction (CMS/HCC)- Primary documented in this encounter Additional Health Concerns Assessment Noted Time PHQ-9 Depression Total Score: 0 03/07/20 23 4:08 PM EDT documented as of this encounter Care Teams Executive Director Global Brand Marketing Relationship Specialty Start Date End Date Clare Jones MD [address] [place] [address] PCP - General Internal Medicine 10/04/16 documented as of this encounter
--- OUTSIDE RECORDS SUMMARY | 2025-06-22 09:13 | XMS_ITS | Encounter Summary ---
Author Organization [employer] Address [address] [facility] 7t [place] [address] Care Team Providers Care Skin Washer Name Role Phone Clare Jones MD Primary Care Provider [phone]- [phone] Encounter Details Date Type Department Care Team ([facility] st Contact Info) Description 12/21/2023 Orders Only [facility] CHC MED & PEDS [address] [place], [place] [phone] Clare Jones MD [address] [place] [address] Chronic cough (Primary Dx) Social History Tobacco [...] [facility] MED & PEDS [address] [place] [address] Clare Jones MD [address] [place] [address] Scheduled Orders Name Type Priority Associated Diagnoses Orde r Schedule XR Chest 2 Views Imaging Routine Chronic cough Expected: 12/21/2023 (Approximate), Expires: 12/21/2024 documented as of this encounter Visit Diagnoses Diagnosis Chronic cough- Primary Cough documented in this encounter Additional Health Concerns Assessment Noted Time PHQ-9 Depression Total Score: 0 03/07/20 23 4:08 PM EDT documented as of this encounter Care Teams Skin Washer Relationship Specialty Start Date End Date Clare Jones MD [address] [place] [address] PCP - General Internal Medicine 10/04/16 documented as of this encounter
--- OUTSIDE RECORDS SUMMARY | 2025-06-22 09:13 | XMS_ITS | Encounter Summary ---
Author Organization [employer] [facility] Address [address] [facility] [address] [place] [address] Care Team Providers Care Watch Crystal Molder Name Role Phone Clare Jones MD Primary Care Provider Encounter Details Date Type Department Care Team (Latest Contact Info) Description 07/03/2019 Abstract [facility] CONVERSIONS Dental, Provider, DDS Social History [...] Description 07/04/2025 1:45 PM EDT Office Visit [facility] CHC MED & PEDS [address] [place] [address] Clare Jones MD [address] [place] [address] documented as of this encounter Visit Diagnoses Not on filedocumented in this encounter Care Teams Watch Crystal Molder Relationship Specialty Start Date End Date Clare Jones MD [address] [place] [address] PCP - General Internal Medicine 10/04/16 documented as of this encounter
--- OUTSIDE RECORDS SUMMARY | 2025-06-22 09:13 | XMS_ITS | Clinical Summary ---
Author Organization [employer] Address [address] [facility] 7t [place] [address] Care Team Providers Care Supervisor Shed Workers Name Role Phone Clare Jones MD Primary Care Provider [phone] Allergies Active Allergy Reactions Criticality Noted Date Comments Latex 11/17/2022 Other reaction(s): DERMATITIS Medications bisacodyl (Dulcolax) 10 MG suppository bisacodyl 10 mg rectal suppository INSERT ONE SUPPOSITORY RECTALLY DAILY NEEDED FOR CONSTIPATION 022 Active butalbital-acetam inophen-caffeine 50-325-40 MG tablet 022 Active Diclofenac Sodium 1 % gel 022 Active magnesium oxide (Mag-Ox) 400 MG tablet magnesium oxide 400 mg (241.3 mg magnesium) tablet Active Myrbetriq 25 MG 24 hr tablet 023 Active Nutritional Supplements (Ensure Active Light) liquid Take by mouth every 12 (twelve) hours. 022 Active spironolactone (Aldactone) 25 MG tablet Take 25 mg by mouth 1 (one) time each day. 023 Active bethanechol (Urecholine) 50 MG tablet Take 1 tablet by mouth 2 times daily. 023 Active amitriptyline (Elavil) 10 MG tablet Take 10 mg by mouth at bedtime. Active fluticasone (Flonase) 50 MCG/ACT nasal sprayIndications: Ear ache,Nasal congestion,Season al allergic rhinitis due to other allergic trigger Administer 1 spray into each nostril in the morning. 16 g 3 023 Active Fluticasone Furoate-Vilantero l (Breo Ellipta) 100-25 MCG/ACT aerosol powderIndications :Chronic cough Inhale 100 mcg in the morning AND 25 mcg in the morning. 1 each 11 Active LORazepam (Ativan) 0.5 MG tabletIndications :Pneumonia of right upper lobe due to infectious organism 1 tab 30 minutes [address] to the CT scan. Might repeat another dose 30 minutes after if no effect. 2 tablet Active latanoprost (Xalatan) 0.005 % ophthalmic solution ADMINISTER 1 DROP INTO BOTH EYES AT BEDTIME 7.5 mL Active Eliquis 5 MG tablet Take 1 [...] BY MOUTH EVERY DAY 30 capsule 11 Active albuterol (Ventolin HFA) 108 (90 Base) MCG/ACT inhalerIndication s:Chronic cough Inhale 2 puffs every 6 (six) hours if needed for wheezing. 18 g 11 Active sennosides (Senokot) 8.6 MG tablet take 1 Tablet by G-tube route every day as needed for constipation 30 tablet Active levocetirizine (Xyzal) 5 MG tabletIndications :Seasonal allergic rhinitis due to other allergic trigger TAKE 1 /2 TABLET BY MOUTH EVERY EVENING 15 tablet Active polyethylene glycol, PEG, 3350 (MiraLax) 17 GM/SCOOP powderIndications :Other constipation Take 17 g by mouth Once per day. 510 g 2 025 2024 Active lidocaine (Lidoderm) 5 % patchIndications: Cervicalgia Apply 1 patch topically Once per day. Remove & discard patch within 12 hours or as directed by MD. 30 patch 3 Active sodium chloride (Latah) 0.65 % nasal sprayIndications: Allergic rhinitis, unspecified seasonality, unspecified trigger Administer 2 sprays into each nostril 4 times daily. 30 mL 1 Active glycerin (Adult) 2 g suppositoryIndica tions:Other constipation Insert 1 suppository (2 g) into the rectum if needed each day for constipation. 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 ECHO 7-28-16 Bladder dysfunction 11/12/2022 Overview (11/12/2022): s/p PTNS [...] Encounters Date Type Department Care Team Description 04/24/2025 Telephone [facility] [address] [place] [address] Clare Jones MD Prior Authorization 04/12/2025 Results Follow-Up [facility] [address] [place] [phone] Valerie Traylor RN CBC auto differential, Comprehensive Metabolic Panel, TSH W/Reflex to FT4, Additional followed-up results: 2 04/10/2025 10:45 AM EDT Office Visit [facility] [address] [place] [address] Clare Jones MD Other constipation (Primary Dx); Primary osteoarthritis of other site; Cervicalgia; Allergic rhinitis, unspecified seasonality, unspecified trigger; Chronic heart failure with preserved ejection fraction (CMS/HCC); Weight loss; Chronic cough 04/10/2025 Orders Only GENERIC EXTERNAL DATA DEPARTMENT Provider, Generic External Data 04/10/2025 Travel 04/01/2025 Patient Outreach [facility] [address] [place] [phone] Clare Jones MD Pre-visit Planning (Pre visit planning LVM ) 04/01/2025 Telephone [facility] MED [facility] [address] [place] [address] Clare Jones MD Nurse Triage 03/27/2025 Orders Only [facility] [address] [place] [address] Clare Jones MD Other constipation (Primary Dx) 03/27/2025 Telephone [facility] [address] [place] [address] Clare Jones MD Med Refill from Last 3 Months Immunizations Immunization Administration [...] Answer Date Recorded Patient Health Questionnaire-9 Score 8 04/10/2025 Patient Health Questionnaire-9 Score 8 04/10/2025 Last PHQ-9: Questionnaire Data Not on file 0 04/10/2025 Housing Stability Answer Date Recorded What is your housing situation today? I have shara elizabeth 04/10/[address] you li ve. Do you have problems with any of the following? None of the above 04/10/2025 Food Insecurity Answer Date Recorded Within the past 12 months, y ou worried that your food would run out before you got money to buy more: Never True 04/10/2025 Within the past 12 months,th e food you bought just didn't last and you didn't have enough money to get more: Never True Transportation Answer Date Recorded In the past 12 months, has l ack of transportation kept you from medical appts, meetings, work or from getting things needed for daily living? No 04/10/2025 Utilities Answer Date Recorded In the past 12 months, has t he electric, gas, oil or water company threatened to shut off services in your home? No 04/10/2025 Depression Answer Date Recorded Patient Health Questionnaire-2 Score 4 04/10/2025 Internet Access Answer Date Recorded Internet Access Q1 Yes 04/10/2025 Internet Access Q2 Not on file 04/10/2025 Sex and Gender Information Value Date Recorded Sex Assigned at Male 08/23/2022 10:18 AM EDT Legal Sex Male 10:18 AM EDT Gender Identity Male 08/23/2022 10:18 AM EDT Sexual Orientation Straight 08/23/2022 10 :18 AM EDT Last Filed Vital Signs Vital Sign Reading Time Taken Comments Blood Pressure 133/77 04/10/2025 10:22 AM EDT Pulse 98 04/10/2025 10:22 AM EDT Temperature 36.4 C (97.6 F) 09/25/2024 1:17 PM EST Respiratory Rate 19 04/10/2025 10:22 AM EDT Oxygen Saturation 94% 04/10/2025 10:22 AM EDT Inhaled Oxygen Concentration - - Weight 60.3 kg (133 lb) 04/10/2025 10:22 AM EDT Height 167.6 cm (5' 6 ) 04/10/2025 10:22 AM EDT Body Mass Index 21.47 04/10/2025 10:22 AM EDT Plan of Treatment Upcoming Encounters Date Type Department Care Team (Late st Contact Info) Description 07/04/2025 1:45 PM EDT Office Visit [facility] [address] [place] [address] Clare Jones MD [address] [place] [address] Health Maintenance Due Date Last Done Comments Lipid Panel 1936 RSV Patients and Patients Aged 60 years or older (1 - 1-dose 75+ series) 2011 COVID-19 Vaccine ( season) 2024 08/21/2022, 10/22/2021, 02/19/2021, Additional history exists Influenza Vaccine (#1) 2025 , 08/01/2020, 07/09/2019, Additional history exists Alcohol/Substance Use Screening 04/10/2026 04/10/2025 Depression Screening 04/10/2026 04/10/2025, 04/10/20 25 SDOH Screening 04/10/2026 04/10/2025 Tobacco Screening 04/10/2026 04/10/2025 DTaP/Tdap/Td Vaccines (2 - Td or Tdap) [...] Procedure Name Priority Date/Time Associated Diagnosis Comments FERRITIN Routine 04/10/2025 11:34 AM EDT PSA, TOTAL Routine 04/10/2025 11:34 AM EDT IRON AND TOTAL IRON BINDING CAPACITY Routine 04/10/2025 11:34 AM EDT VITAMIN D,25-OH,TOTAL,IA Routine 04/10/2025 11:34 AM EDT Primary osteoarthritis of other site Chronic heart failure with preserved ejection fraction (CMS/HCC) Weight loss VITAMIN B12/FOLATE, SERUM PANEL Routine 04/10/2025 11:34 AM EDT Primary osteoarthritis of other site Chronic heart failure with preserved ejection fraction (CMS/HCC) Weight loss TSH W/REFLEX TO FT4 Routine 04/10/2025 1 1:34 AM EDT Primary osteoarthritis of other site Chronic heart failure with preserved ejection fraction (CMS/HCC) Weight loss COMPREHENSIVE METABOLIC PANEL Routine 04/10/2025 11:34 AM EDT Primary osteoarthritis of other site Chronic heart failure with preserved ejection fraction (CMS/HCC) Weight loss CBC WITH AUTO DIFFERENTIAL Routine 04/10/2025 11:30 AM EDT Primary osteoarthritis of other site Chronic heart failure with preserved ejection fraction (CMS/HCC) Weight loss from Last 3 Months Results * Vitamin D, 25-Hydroxy, Total, Immunoassay (04/10/2025 11:34 AM EDT) Vitamin D 25-OH Total 35.0 >30 ng/mL [facility] Comment: Health Based Reference Values*< 20 ng/mL [id number] ng/mL Insufficient> 30 ng/mL Sufficient*Vinnie BRAY. N Engl J Med. 2007;357:266-280There is no well-established upper level of normal vitamin Dlevels. Some laboratories use 50 ng/mL as an upper limit ofnormal. However, toxicity is patient-dependent and may occurat any level. Careful correlation with the patient'spresentation is necessary and, if there is concern forvitamin D toxicity, treatment should be consideredirrespective of the serum level.Care must be taken in interpreting Vitamin D results fromdifferent laboratories and methodologies. Published datademonstrated that results from patients undergoinghemodialysis may show a negative bias when tested withvarious automated 25-OH vitamin D assays when compared toLC-MS/MS.When testing samples from patients whose predominant form ofVitamin D is Vitamin D2, such as patients receiving VitaminD2 supplementation, results that are subtherapeutic shouldbe confirmed with another method such as LC-MS/MS. Blood Venous blood specimen / Unknown 04/10/2025 11:34 AM EDT 04/10/2025 2:06 PM EDT us Clare Jones MD LAB BLOOD ORDERABLES Final Result [facility] [address] [place] [address] [phone] * Vitamin B12/Folate, Serum Panel (04/10/2025 11:34 AM EDT) Pathologist [facility] Vitamin B12 848 200 - 900 pg/mL [facility] Comment:NORMAL 200-900 PG/ML INDETERMINATE 160-199 PG/ML DEFICIENT < 160 PG/ML Folate 13.2 > or = 4.0 ng/mL [facility] Comment:Reference Values:> o r = 4.0 ng/mL< 4.0 ng/mL suggests folate deficiency Methotrexate, aminopterin and folinic acid(leucovorin) are chemotherapeutic agents whose molecularstructures are similar to folate; therefore, the Architectfolate assay cannot be used for patients using these drugs. Blood Venous blood specimen / Unknown 04/10/2025 11:34 AM EDT 04/10/2025 2:06 PM EDT us Clare Jones MD LAB BLOOD ORDERABLES Final Result Performing Organization Address City/[facility]/ZIP Co de Phone Number [facility] [address] [place] [phone] * TSH W/Reflex to FT4 (04/10/2025 11:34 AM EDT) [facility] TSH reflex Free T4 1.26 0.32 - 4.0 uIU/mL [facility] Blood Venous blood specimen / Unknown 04/10/2025 11:34 AM EDT 04/10/2025 2:06 PM EDT us Clare Jones MD LAB BLOOD ORDERABLES Final Result Performing Organization Address [facility]/State/ZIP Co de Phone Number [facility] [address] [place] [phone] * (ABNORMAL) Iron And Total Iron Binding Capacity (04/10/2025 11:34 AM EDT) [facility] Iron 36(L) 45 - 160 mcg/dL [facility] Total Iron Binding Capacity 274 228 - 428 mcg/dL [facility] Percent Iron Saturation 13(L) 15 - 50 % [facility] Unsaturated Iron Binding 238 ug/dL [facility] 04/10/2025 11:3 4 AM EDT 04/10/2025 2:06 PM EDT us Generic External Data Provider LAB BLOOD ORDERAB LES Final Result Performing Organization Address City/[facility] Co de Phone Number [facility] [address] [place] [phone] * (ABNORMAL) PSA,Total (04/10/2025 11:34 AM EDT) Prostate Specific Antigen 4.72(H) <0.05 - 4.0 ng/mL [facility] Comment:PSA methodology: Abb chitra Alisanjuanaty i ChemiluminescentMicroparticle Immunoassay (CMIA) 04/10/2025 11:3 4 AM EDT 04/10/2025 2:06 PM EDT us Generic External Data Provider LAB BLOOD ORDERAB LES Final Result Performing Organization Address [facility] Co de Phone Number [facility] [address] [place] [phone] * Ferritin (04/10/2025 11:34 AM EDT) Ferritin 99 20 - 250 ng/mL [facility] 04/10/2025 11:3 4 AM EDT 04/10/2025 2:06 PM EDT us Generic External Data Provider LAB BLOOD ORDERAB LES Final Result Performing Organization Address [facility] Co de Phone Number [facility] [address] [place] [phone] * (ABNORMAL) Comprehensive Metabolic Panel (04/10/2025 11:34 AM EDT) Sodium 142 135 - 145 mmol/L [facility] Potassium 4.1 3.3 - 5.1 mmol/L [facility] Chloride 108 96 - 108 mmol/L [facility] Carbon Dioxide 26 22 - 29 mmol/L [facility] Anion Gap 12 12 - 20 [facility] Urea Nitrogen (BUN) 20(H) 9 - 16 mg/dL [facility] Creatinine, Serum 1.07 0.5 - 1.4 mg/dL [facility] Estimated Glomerular Filt Rate >60 [facility] Comment:Chronic Kidney Disea se: Estimated GFR < 60 mL/min/[id number] Kidney Disease: Estimated GFR < 15 mL/min/1.73m2 Glucose 94 60 - 115 mg/dL [facility] Calcium 10.3(H) 8.4 - 10.2 mg/dL [facility] Bilirubin, Total 1.2(H) 0.0 - 1.0 mg/dL [facility] Aspartate Amino Transferase 33 5 - 37 U/L [facility] Alanine Aminotransferase 22 0 - 40 U/L [facility] Total Protein 7.4 6.5 - 8.0 g/dL [facility] Albumin Level 4.3 3.5 - 5.0 g/dL [facility] Alkaline Phosphatase 159(H) 39 - 117 U/L [facility] Blood Venous blood specimen / Unknown 04/10/2025 11:34 AM EDT 04/10/2025 2:06 PM EDT us Clare Jones MD LAB BLOOD ORDERABLES Final Result [facility] [address] [place] [phone] [phone] * (ABNORMAL) CBC auto differential (04/10/2025 11:30 AM EDT) White Blood Count 4.9 4.8 - 10.8 X10*3/uL [facility] Red Blood Count 4.01(L) 4.60 - 5.80 X10*6/uL [facility] Hemoglobin 11.1(L) 14.0 - 18.0 g/dl [facility] Hematocrit 35.8(L) 42.0 - 52.0 % [facility] Mean Corpuscular Volume 89.3 80.0 - 98.0 fL [facility] Mean Corpuscular Hemoglobin 27.7 27.0 - 33.0 pg [facility] Mean Corpuscular HGB Conc 31.0 31.0 - 36.0 g/dl [facility] Red Cell Distribution Width 18.5(H) 11.0 - 16.0 % [facility] Platelet Count 123(L) 160 - 400 X10*3/uL [facility] Mean Platelet Volume 9.5 9.4 - 12.4 fL [facility] Neutrophils Percent Auto 67.5 45 - 73 % [facility] Imm Gran Pct Auto 0.2 0.0 - 0.4 % [facility] Lymphocytes Percent Auto 18.5(L) 20 - 40 % [facility] Monocytes Percent Auto 9.7 2 - 11 % [facility] Eosinophils Percent Auto 3.7 0 - 4 % [facility] Basophils Percent Auto 0.4 0 - 2 % [facility] NRBC Pct Auto 0.0 0.0 - 0.2 /100WBC [facility] Neutrophils Absolute Auto 3.3 2.0 - 8.3 x10*3/uL [facility] Imm Gran Abs Auto 0.01 0.00 - 0.03 X10*3/uL [facility] Lymphocytes Absolute Auto 0.9(L) 1.2 - 4.9 X10*3/uL [facility] Monocytes Absolute Auto 0.5 0.1 - 1.2 X10*3/uL [facility] Eosinophils Absolute Auto 0.2 0.0 - 0.4 X10*3/uL [facility] Basophils Absolute Auto 0.0 0.0 - 0.2 X10*3/uL [facility] NRBC Abs Auto 0.000 0.0 - 0.012 X10*3/uL [facility] Blood Venous blood specimen / Unknown 04/10/2025 11:30 AM EDT 04/10/2025 2:06 PM EDT Clare Jones MD LAB BLOOD ORDERABLES Final Result [facility] [address] [place] [phone] from Last 3 Months Insurance [facility] [employer] [facility] DETENTION OPTIONS (HMO D-SNP) Care Teams Supervisor Shed Workers Relationship Specialty Start Date End Date Clare Jones MD [address] [place] [address] [place] [phone] PCP - General Internal Medicine 10/04/16
--- OUTSIDE RECORDS SUMMARY | 2025-06-22 09:13 | XMS_ITS | Encounter Summary ---
Author Organization [employer] Address [address] [facility] 7t [place] [address] Care Team Providers Care Concrete Form Setter And Finisher Name Role Phone Clare Jones MD Primary Care Provider [phone] Reason for Visit * Reason Comments Med Refill Encounter Details Date Type Department Care Team ([facility] Contact Info) Description 09/28/2024 Refill [facility] [address] [place], [place] [phone] Clare Jones MD [address] [place] [address] Right hip pain; Muscle spasm Social History [...] Description 07/04/2025 1:45 PM EDT Office Visit [facility] [address] [place] [address] Clare Jones MD [address] [place] [address] documented as of this encounter Visit Diagnoses Diagnosis Right hip pain Pain in joint, pelvic region and thigh Muscle spasm Spasm of muscle documented in this encounter Additional Health Concerns Assessment Noted Time PHQ-9 Depression Total Score: 0 09/25/20 24 1:21 PM EST documented as of this encounter Care Teams Concrete Form Setter And Finisher Relationship Specialty Start Date End Date Clare Jones MD [address] [place] [address] PCP - General Internal Medicine 10/04/16 documented as of this encounter
--- OUTSIDE RECORDS SUMMARY | 2025-06-22 09:13 | XMS_ITS | Encounter Summary ---
Author Organization [employer] [facility] Address [address] [facility] [address] [place] [address] Care Team Providers Care Mapper Name Role Phone Clare Jones MD Primary Care Provider Encounter Details Date Type Department Care Team (Latest Contact Info) Description 07/02/2022 Abstract [facility] CONVERSIONS Dental, Provider, DDS Social [...] Description 07/04/2025 1:45 PM EDT Office Visit [facility] [address] [place] [address] Clare Jones MD [address] [place] [address] documented as of this encounter Visit Diagnoses Not on filedocumented in this encounter Care Teams Mapper Relationship Specialty Start Date End Date Clare Jones MD [address] [place] [address] PCP - General Internal Medicine 10/04/16 documented as of this encounter
--- OUTSIDE RECORDS SUMMARY | 2025-06-22 09:13 | XMS_ITS | Encounter Summary ---
Author Organization [employer] Address [address] [facility] [address] [place] [address] Care Team Providers Care Package Pick Up Name Role Phone Clare Jones MD Primary Care Provider [phone]- [phone] Reason for Visit * Reason Onset Date Comments Call Back Request 12/22/2023 Encounter Details Date Type Department Care Team ([facility] st Contact Info) Description 12/22/2023 Telephone [facility] [address] [place] [address] Clare Jones MD [address] [place] [address] Call Back Request Social History Tobacco Use [...] Description 07/04/2025 1:45 PM EDT Office Visit [facility] MED [facility] PEDS [address] [place] [address] Clare Jones MD [address] [place] [address] documented as of this encounter Visit Diagnoses Not on filedocumented in this encounter Additional Health Concerns Assessment Noted Time PHQ-9 Depression Total Score: 0 03/07/20 23 4:08 PM EDT documented as of this encounter Care Teams Package Pick Up Relationship Specialty Start Date End Date Clare Jones MD [address] [place] [phone] PCP - General Internal Medicine 10/04/16 documented as of this encounter
== END 2025-06-22 09:11 | disposition home or self-care (01) ==
LOC: HO.CT 09:10
PROVIDERS: PCP Internal Medicine; Visit Provider Internal Medicine
DX: R05.3 Chronic cough (principal); R63.4 Abnormal weight loss
CPT/HCPCS: 71250

== ENCOUNTER → 2025-06-22 09:13 | Outpatient (BNV) | payer OTHER, SELFPAY | PROVIDERS: PCP Internal Medicine; Visit Provider Radiology Diagnostic Radiology | DX: R05.9 Cough, unspecified (principal); I51.7 Cardiomegaly | CPT/HCPCS: 71250 ==